=== PATIENT | male | born 1955 | race Caucasian/White ===

== ENCOUNTER → 2016-07-19 | Outpatient (CLI) | payer BC ==
[~2016-07-19] MED LIST: ALLO100T PO; AMIO200T4 PO; ASPEC81 PO; B-COTAB18 PO; CEFU1TAB36 PO; CEFU500T16 PO; CLC6 PO; CRDCD/180 PO; DAPT500I IV; DOCU100C31 PO; DXY/100 PO; ERTA1INJ IV; FLM4 PO; HYDR2TAB48 PO; META1TAB22 PO; METO50TA16 PO; MULT-506 PO; OXYC-57 PO; OXYC15TA89 PO; OXYCONTIN 30 MG PO; PRED-603 PO; PROB1CAP6 PO; RIFA300C34 PO; SPIR50TA2 PO; SULF1TAB92 PO; VANC1INJ94 IV; WARF2TAB PO; lovenox SC
[2016-07-19 09:33] LABS: HEMATOCRIT 43.5 % (42-52); MEAN CELL VOLUME 93.1 fL (80-100); MEAN CORPUSCULAR HEMOGLOBIN 31.5 pg (25-34); MEAN CORPUSCULAR HGB CONC 33.8 g/dl (32-36); MEAN PLATELET VOLUME 10.8 fL (7.4-10.4); PLATELET COUNT 296 K/uL (130-400); RED BLOOD COUNT 4.67 M/uL (4.7-6.1); WHITE BLOOD COUNT 9.66 K/uL (4.8-10.8)
[2016-07-19 09:50] LABS: ALT/SGPT 73 U/L (12-78); BLOOD UREA NITROGEN 20 mg/dl (7-18); BUN/CREATININE RATIO 19.7 (10-20); CALCIUM 8.9 mg/dl (8.5-10.1); CARBON DIOXIDE 22 mmol/L (21-32); CHLORIDE 107 mmol/L (98-107); GLUCOSE 149 mg/dl (70-99); POTASSIUM 3.9 mmol/L (3.5-5.1); SODIUM 141 mmol/L (136-145); URIC ACID 5.8 mg/dl (2.6-7.2)
[2016-07-19 09:53] LABS: ALB/GLOB RATIO 0.9 (0.9-2); ALKALINE PHOSPHATASE 90 U/L (45-117); AST/SGOT 54 U/L (15-37)
== END | disposition home or self-care (01) ==
LOC: C.LAB 07:10
PROVIDERS: ATTEND Internal Medicine
DX: A69.20 Lyme disease, unspecified (principal); Z79.2 Long term (current) use of antibiotics; R53.83 Other fatigue

== ENCOUNTER → 2016-08-22 | Outpatient (CLI) | payer BC ==
--- NOTE | 2016-08-22 15:48 | DIAGNOSTIC IMAGING REPORT ---
LEFT KNEE 1 OR 2 VIEWS CLINICAL HISTORY: BILATERAL KNEE PAIN pain COMPARISON: None. DISCUSSION: There is a total joint replacement. Good contact is present between prosthetic and underlying bone. There is ossific fragment in the suprapatellar bursa which potentially represents a synovial calcification. It is well-corticated. There is mild calcification of the medial collateral ligament complex. Moderate soft tissue edema IMPRESSION: Postoperative and degenerative change. No acute bony abnormality. Electronically signed by: Andry Toscano M.D. 08/22/2016 3:47 PM Dictated Date/Time: 08/22/2016 3:45 PM
--- NOTE | 2016-08-22 15:48 | DIAGNOSTIC IMAGING REPORT ---
RIGHT KNEE 2 VIEWS CLINICAL HISTORY: Right knee pain. FINDINGS: AP and crosstable lateral views of the right knee are compared to study dated 06/16/2013. The skeletal structures are well mineralized. No fracture is seen. A right knee arthroplasty is in near-anatomic alignment. There has been undersurface remodeling of the patella. Patellar enthesophytes are observed. There is no significant joint effusion. Soft tissue swelling is present around the knee. Numerous phleboliths are observed in the calf. IMPRESSION: Mild soft swelling with no acute bony abnormality identified in the right knee. An arthroplasty is in near-anatomic alignment. Electronically signed by: Nikunj Centeno M.D. 08/22/2016 3:47 PM Dictated Date/Time: 08/22/2016 3:45 PM
== END | disposition home or self-care (01) ==
LOC: C.RDSM 15:20
PROVIDERS: ATTEND Physical Medicine & Rehabilitation Sports Medicine
DX: M17.9 Osteoarthritis of knee, unspecified (principal); Z96.659 Presence of unspecified artificial knee joint

== ENCOUNTER → 2016-10-14 | Outpatient (CLI) | payer BC ==
[~2016-10-14] MED LIST changes: -OXYC-57 PO; +OXYC30TA PO; +WARF2TAB8 PO
--- NOTE | 2016-10-14 12:20 | DIAGNOSTIC IMAGING REPORT ---
RIGHT LOWER EXTREMITY VENOUS DOPPLER CLINICAL HISTORY: Right leg swelling. COMPARISON STUDY: Bilateral lower external venous Doppler December 06 2009. TECHNIQUE: Sonography of the deep venous system of the right lower extremity was performed. Compression and augmentation were evaluated. FINDINGS: The common femoral, superficial femoral and popliteal veins were compressible. Augmentation was normal. Flow was shown within the deep calf vessels. Multiple varicosities appear patent. IMPRESSION: No evidence of deep venous thrombus within the right lower extremity. Electronically signed by: Kirstopher Kitchen M.D. 10/14/2016 12:19 PM Dictated Date/Time: 10/14/2016 12:18 PM
== END | disposition home or self-care (01) ==
LOC: C.ULTR 11:41
PROVIDERS: ATTEND Physician Assistant
DX: Z47.1 Aftercare following joint replacement surgery (principal); Z96.651 Presence of right artificial knee joint; R60.0 Localized edema

== ENCOUNTER → 2016-10-21 | Outpatient (CLI) | payer BC ==
--- NOTE | 2016-10-21 09:28 | DIAGNOSTIC IMAGING REPORT ---
RIGHT KNEE 3 VIEWS HISTORY: RIGHT MEDIAL KNEE PAIN Right COMPARISON: Right knee 08/22/2016. FINDINGS: There is no fracture or dislocation. There is a right total knee arthroplasty. The hardware appears intact. There is also a left total knee arthroplasty. Moderate joint effusion. This results in anterior displacement of the patella. No radiopaque foreign bodies. IMPRESSION: Moderate right knee effusion. No fractures. Electronically signed by: Keven Ferreira M.D. 10/21/2016 9:26 AM Dictated Date/Time: 10/21/2016 9:25 AM
== END ==
LOC: C.RDSM 11:49
PROVIDERS: ATTEND Physician Assistant
DX: Z96.651 Presence of right artificial knee joint (principal); M25.561 Pain in right knee

== ENCOUNTER → 2016-10-25 | Outpatient (CLI) | payer BC ==
--- NOTE | 2016-10-25 15:26 | DIAGNOSTIC IMAGING REPORT ---
MRI OF THE RIGHT KNEE WITHOUT IV CONTRAST CLINICAL HISTORY: Right knee pain. COMPARISON STUDY: Radiographs of the right knee dated 10/21/2016. TECHNIQUE: MRI of the right knee is performed utilizing various T1 and T2-weighted sequences in the axial, sagittal, coronal planes. IV contrast was not administered for this examination. The examination is severely compromised by extensive susceptibility artifact from a right knee arthroplasty. Examination is also severely degraded by large body habitus which necessitated using the body coil as well as by motion artifact. FINDINGS: There is no obvious bony abnormality seen within the distal femur or the proximal tibia/fibula. No marrow edema is clearly identified. Assessment is severely compromised by susceptibility artifact. There is near complete fatty atrophy of the regional musculature. There is mild nonspecific edema identified within the gastrocnemius musculature in the upper calf. A popliteal cyst is identified posterior to the knee. This measures up to 5 cm. There is a small joint effusion. The ligaments around the knee could not be assessed. There is diffuse superficial and deep soft tissue edema identified around the knee. Superficial venous varicosities are present within the medial aspect of the leg. IMPRESSION: 1. Essentially nondiagnostic assessment of the knee due to extensive artifact as detailed above. 2. No obvious bony abnormality is identified. 3. There is diffuse superficial and deep soft tissue edema around the knee. No organized fluid collection is suspected. 4. Small popliteal cyst and small joint effusion. Dictated: 10/25/2016 11:10 AM Transcribed: 10/25/2016 3:26 PM Bernardo Electronically signed by: Nikunj Centeno M.D. 10/25/2016 3:31 PM Dictated Date/Time: 10/25/2016 11:10 AM
== END | disposition home or self-care (01) ==
LOC: C.MRI 09:13
PROVIDERS: ATTEND Physician Assistant
DX: Z96.651 Presence of right artificial knee joint (principal); M25.561 Pain in right knee; M71.21 Synovial cyst of popliteal space [Baker], right knee; M25.461 Effusion, right knee

== ENCOUNTER 2016-11-06 05:57 | Inpatient (IN) | payer BC ==
[2016-10-28 09:13] VITALS: BMI 61.0
--- NOTE | 2016-10-28 09:48 | PAT Medication Instructions ---
Service Date October 28, 2016. Current Home Medication List Allopurinol (Zyloprim), 100 MG PO QAM Amiodarone Hcl (Cordarone), 300 MG PO QAM Aspirin (Aspirin EC Low Dose), 81 MG PO QAM B-Complex Vitamins (Vitamin B Complex), 1 TAB PO QAM Cefuroxime Axetil (Ceftin), 500 MG PO BID Colchicine (Colcrys), 0.6 MG PO DAILY PRN for UNDECIDED Diltiazem Hcl Coated Beads (Cardizem Cd), 180 MG PO BID Doxycycline Hyclate (Doxycycline Hyclate), 100 MG PO BID Metaxalone (Skelaxin), 800 MG PO TID PRN for prn Metoprolol Tartrate (Lopressor) (Lopressor), 50 MG PO BID Multivitamin (Multivitamin), 1 TAB PO QAM Oxycodone Hcl (Oxycontin), 30 MG PO Q12 PRN for Pain Prednisone (Deltasone), 1 TAB PO UD Probiotic Product (Probiotic Acidophilus), 3 CAP PO QAM Rifampin (Rifadin), 600 MG PO BID Spironolactone (Aldactone), 50 MG PO QAM Medication Instructions For Your Scheduled Surgery - Hold the following medications the morning of surgery: Spironolactone (Aldactone), 50 MG PO QAM Probiotic Product (Probiotic Acidophilus), 3 CAP PO QAM B-Complex Vitamins (Vitamin B Complex), 1 TAB PO QAM Metaxalone (Skelaxin), 800 MG PO TID PRN for prn Multivitamin (Multivitamin), 1 TAB PO QAM - Take the following medications the morning of surgery with a sip of water OTHERWISE NOTHING TO EAT OR DRINK AFTER MIDNIGHT: Aspirin (Aspirin EC Low Dose), 81 MG PO QAM Colchicine (Colcrys), 0.6 MG PO DAILY PRN Cefuroxime Axetil (Ceftin), 500 MG PO BID Doxycycline Hyclate (Doxycycline Hyclate), 100 MG PO BID Diltiazem Hcl Coated Beads (Cardizem Cd), 180 MG PO BID Metoprolol Tartrate (Lopressor) (Lopressor), 50 MG PO BID Rifampin (Rifadin), 600 MG PO BID Oxycodone Hcl (Oxycontin), 30 MG PO Q12 PRN for Pain (may take if needed up to 4 hours prior to surgery) Allopurinol (Zyloprim), 100 MG PO QAM Amiodarone Hcl (Cordarone), 300 MG PO QAM - Take the following medications as scheduled the night before surgery: Cefuroxime Axetil (Ceftin), 500 MG PO BID Doxycycline Hyclate (Doxycycline Hyclate), 100 MG PO BID Diltiazem Hcl Coated Beads (Cardizem Cd), 180 MG PO BID Metoprolol Tartrate (Lopressor) (Lopressor), 50 MG PO BID Rifampin (Rifadin), 600 MG PO BID Oxycodone Hcl (Oxycontin), 30 MG PO Q12 PRN for Pain Metaxalone (Skelaxin), 800 MG PO TID PRN for prn If you have any questions please call us at [phone] or [phone] or [phone]
[2016-10-28 10:58] LABS: BASO % 0.3 %; BASO ABS # 0.04 K/uL (0-0.2); COMPLETE YES; EOS % 1.1 %; HEMATOCRIT 44.1 % (42-52); IG% 2.8 %; LYMPH % 12.2 %; LYMPH ABS # 1.84 K/uL (1.2-3.4); MEAN CELL VOLUME 91.3 fL (80-100); MEAN CORPUSCULAR HEMOGLOBIN 28.4 pg (25-34); MEAN CORPUSCULAR HGB CONC 31.1 g/dl (32-36); MEAN PLATELET VOLUME 9.7 fL (7.4-10.4); MONO % 6.6 %; PLATELET COUNT 383 K/uL (130-400); RED BLOOD COUNT 4.83 M/uL (4.7-6.1)
[2016-10-28 11:08] LABS: PARTIAL THROMBOPLASTIN RATIO 0.9; PROTHROMBIN TIME (PATIENT) 10.4 SECONDS (9.0-12.0)
[2016-10-28 11:11] LABS: URINE APPEARANCE CLEAR (CLEAR); URINE COLOR ORANGE; URINE EPITHELIAL CELL AUTO >30 /lpf (0-5); URINE NITRITE POS (NEG); URINE SPECIFIC GRAVITY 1.027 (1.000-1.030); UROBILINOGEN NEG (NEG)
[2016-10-28 11:16] LABS: MANUAL MICROSCOPIC REQUIRED? NO; REVIEW REQ? NO
[2016-10-28 11:17] LABS: URINE BILIRUBIN NEG (NEG)
[2016-10-28 11:59] LABS: BUN/CREATININE RATIO 19.6 (10-20); CALCIUM 8.6 mg/dl (8.5-10.1); CREATININE 0.98 mg/dl (0.60-1.40); POTASSIUM 3.9 mmol/L (3.5-5.1)
[2016-10-28 12:00] LABS: C-REACTIVE PROTEIN 1.18 mg/dl (0-0.29)
--- NOTE | 2016-11-01 19:52 | HISTORY & PHYSICAL EXAMINATION ---
DATE OF ADMISSION: 11/06/2016 CHIEF COMPLAINT: Right knee pain and swelling. HISTORY OF PRESENT ILLNESS: This is a 61-year-old white male who presents to the office for evaluation of right knee pain and swelling. He has a history of right total knee arthroplasty in February 2009. He had done fairly well without up until 08/16/2016. The patient was at home at that time and was climbing some stairs. He had a sudden snap on the medial aspect of his knee. He states at that time, it was like a rubber band that snapped. He has had persisting pain and swelling since then. He denies any break in the skin at that point. He did develop some ecchymosis over the medial aspect of the knee. His pain has waxed and waned but the swelling has been fairly constant. He has had difficulty with ambulation since then and is limping. He is using a cane. He denies any redness. There has been some peripheral edema consistently since a few days post-injury. He does have a history of chronic Lyme treatment using both doxycycline and cefepime. He denies any numbness or tingling. No fevers, chills, or sweats. His right knee was aspirated because of the recurrent effusion on 10/21/2016. Alpha defensin was positive at that time. Cultures have grown out Staph epidermidis with sensitivity to Cipro, clindamycin, gentamicin, Levaquin, rifampin, tigecycline, and vancomycin. Recent x-rays have shown no evidence of loosening of the prosthesis. He elects to proceed with excisional arthroplasty of his total knee with cement spacer placement in hopes of alleviating his pain and infection. Risks and benefits have been discussed. PAST MEDICAL HISTORY: Significant for atrial fibrillation, osteoarthritis, BPH, hypertension, morbid obesity, chronic lumbar back pain, Lyme disease, sleep apnea, and gout. PREVIOUS SURGERIES: Tonsillectomy, cholecystectomy, appendectomy, right knee arthroscopy, cardioversion in 2006 and 2007 as well as 2008, right total knee arthroplasty February 2009, left total knee arthroplasty December 2010, cystoscopy March 2016, lithotripsy April 2016. FAMILY HISTORY: Significant for arrhythmia, atrial fibrillation, cancer, congestive heart failure, scoliosis, diabetes, Guillain-[place] syndrome, CA, heart disease, elevated lipids, hypertension, hypothyroidism, and history of TIAs. ALLERGIES: NKDA. CURRENT MEDICATIONS: Metoprolol 50 mg p.o. b.i.d., allopurinol 100 mg p.o. daily, Pacerone 200 mg one and one-half tablets daily, spironolactone 50 mg p.o. daily, colchicine 0.6 mg p.o. daily, diltiazem 180 mg p.o. b.i.d., Skelaxin 800 mg t.i.d., doxycycline 100 mg t.i.d., Ceftin 500 mg two tablets b.i.d., OxyContin 30 mg p.o. q. 12 hours p.r.n. pain, acidophilus daily, rifampin 300 mg two tablets p.o. b.i.d., aspirin 81 mg p.o. daily. SOCIAL HISTORY: The patient is . No tobacco use, no ETOH use. Retired. REVIEW OF SYSTEMS: Significant for above stated conditions, otherwise unremarkable. PHYSICAL EXAMINATION: VITAL SIGNS: Weight is 187.7 kilograms. BMI is 61.1. GENERAL: Well-developed, well-nourished, morbidly obese white male in obvious discomfort. No acute distress. Sitting on a chair. Alert and oriented. SKIN: Warm and dry with good turgor. No rashes or lesions. No ecchymosis or erythema. Extensive peripheral edema in the right leg. No open wounds. The knee is warm to touch. No ecchymosis. HEENT: Normocephalic, atraumatic. EYES: PERRLA, EOMI. Nares patent bilaterally without turbinate enlargement. Oropharynx without erythema or exudate. No lesions noted. Uvula midline. Oral mucosa moist. Fair dentition. HEART: RRR. No MGR. LUNGS: Clear to auscultation bilaterally. No crackles, rhonchi or wheezing. Good air movement. ABDOMEN: Morbidly obese. Bowel sounds present x4, soft, nontender. No organomegaly. MUSCULOSKELETAL: Right knee evaluation reveals a mild intraarticular effusion. He continues to have focal pain with palpation over the anterior medial and anterior lateral aspects of the knee. No palpable deficit in the patellar tendon or quadriceps tendon. He is also able to extend the leg without pain. Stable collateral ligaments. Range of motion is from about 90 degrees of flexion to lag of 5 degrees of terminal extension. Ambulatory with a significant limp. NEUROLOGIC: Gross sensation is intact across the right leg by soft touch. Peripheral pulses are 1+. Cranial nerves II-XII are intact. DATA: Radiographic imaging previously obtained shows no evidence of loosening of his implant. No evidence of fracture. Films have been read by radiology. IMPRESSION: Right knee septic total knee arthroplasty. PLAN: The patient and his were educated regarding today's findings. Informed written consent was obtained to proceed with right knee excisional arthroplasty versus total knee with cement spacer placement. Preoperative lab work, EKG, and chest x-ray have been ordered. Medical clearance has been requested from his PCP, Dr. Stanley. He has also seen his plate roller and will see anesthesia. He will require an ID consult while inpatient. They are aware. The patient initially weight 147 kilograms when the knee was initially placed. He has gained 40 kilograms since then. Continue on his oral antibiotic until the time of surgery. He already has a walker. He will likely do home health due to IV antibiotic necessity and difficulty with transportation to outpatient PT. Postoperative prescriptions for Percocet and Coumadin will be provided at discharge from the hospital. SARAVANAN
[~2016-11-06] VITALS: Ht 175.3 cm; Wt 204.6 kg
[2016-11-06] VITALS (9 sets, daily range): BP systolic 128–177; BP diastolic 60–99; PULSE 80–105; TEMP 36.8–37.3; O2SAT 95–99; Ht 175.3 cm; Wt 204.6 kg
[~2016-11-06 05:57] MED LIST changes: -CEFU1TAB36 PO; -DAPT500I IV; -DOCU100C31 PO; -ERTA1INJ IV; -FLM4 PO; -HYDR2TAB48 PO; -OXYC30TA PO; -OXYCONTIN 30 MG PO; -SULF1TAB92 PO; -VANC1INJ94 IV; +VANCOMYCIN INJ 2,000 MG in SODIUM CHLORIDE 0.9% 500ML 500 ML IV SCH; -WARF2TAB PO; -WARF2TAB8 PO; -lovenox SC
[2016-11-06] MEDS ORDERED: LACTATED RINGER'S 1000ML 1,000 ML IV SCH (06:00)
[2016-11-06] MEDS ORDERED: CEFAZOLIN 3000 MG/65 ML D5W 65 ML IV SCH (06:00)
[2016-11-06] MEDS ORDERED: TRANEXAMIC ACID INJ 1,000 MG in SODIUM CHLORIDE 0.9% 100ML 100 ML IV SCH ×5 (06:00→17:30)
[2016-11-06] MEDS ORDERED: LACTATED RINGER'S 1000ML IV SCH (06:00)
[2016-11-06] MEDS ORDERED: LACTATED RINGER'S 1000ML 500 ML IV ONE (06:00)
[2016-11-06] MEDS ORDERED: ROPIVACAINE 5MG/ML 30 ML 150 MG, BUPIVACAINE/EPINEPHR 0.5% MPF 30 ML, KETOROLAC TROMETH... INFIL SCH ×7 (06:00)
[2016-11-06] MEDS ORDERED: VANCOMYCIN INJ 2,000 MG in SODIUM CHLORIDE 0.9% 500ML 500 ML IV SCH ×2 (06:00→19:00)
--- NOTE | 2016-11-06 06:24 | History & Physical Bridge Note ---
H&P Re-Evaluation Bridge Note: I have examined the patient, reviewed the History & Physical and in the interval since the performance of the History & Physical I have noted the following changes of clinical significance: re -advised of complexity of his problem.No changes noted
[2016-11-06] MEDS ORDERED: BUPIVACAINE 0.5 % 5 MG/1 ML PF 10ML VIAL ONE (07:02)
[2016-11-06] MEDS ORDERED: BUPIVACAINE 0.25% 30 ML VIAL ONE (07:03)
[2016-11-06] MEDS ORDERED: PROPOFOL IV EMULSION 10 MG/ML 20 ML VIAL IV ONE ×2 (07:32→09:56)
[2016-11-06] MEDS ORDERED: FENTANYL CITRATE INJ 50 MCG/1 ML 2 ML VIAL ONE ×2 (07:32→09:56)
[2016-11-06] MEDS ORDERED: MIDAZOLAM HCL 1 MG/ML 2ML VIAL ONE (07:32)
[2016-11-06] MEDS ORDERED: ONDANSETRON INJ 2 MG/ML 2 ML VIAL ONE (07:32)
[2016-11-06] MEDS ORDERED: EpHEDrine SULFATE INJ 50 MG/ML AMP IV PRN ×2 (07:45→12:15)
[2016-11-06] MEDS ORDERED: ATROPINE SULFATE 0.1 MG/ML 5ML SYR IV PRN ×2 (07:45→12:15)
[2016-11-06] MEDS ORDERED: ONDANSETRON INJ 2 MG/ML 2 ML VIAL IV PRN ×2 (07:45→11:45)
[2016-11-06] MEDS ORDERED: POVIDONE-IODINE OP SOLN 30 ML BTL ONE (08:43)
[2016-11-06] MEDS ORDERED: ORTHO JOINT ANESTHETIC ONE (08:43)
[2016-11-06] MEDS ORDERED: SUCCINYLCHOLINE 100MG/5ML SYR IV ONE (09:44)
[2016-11-06] MEDS ORDERED: GLYCOPYRROLATE INJ 0.2 MG/ML VIAL ONE (09:44)
[2016-11-06] MEDS ORDERED: LIDOCAINE HCL 2% 2 ML VIAL (20MG/ML) ONE (09:44)
[2016-11-06] MEDS ORDERED: NEOSTIGMINE METHYLSULFATE 5 MG/5 ML SYR ONE (09:44)
[2016-11-06] MEDS ORDERED: ROCURONIUM BROMIDE 10 MG/ML 5 ML VIAL ONE (09:44)
[2016-11-06] MEDS ORDERED: CLEOCIN PHOS 300MG/2ML IV ONE (10:19)
--- NOTE | 2016-11-06 11:27 | [facility] Post Operative Brief Note ---
Immediate Operative Summary Operative Date November 06, 2016. Pre-Operative Diagnosis Right knee septic total knee arthroplasty. Post-Operative Diagnosis Same as preop. Procedure(s) Performed Right Excisional Total Knee Arthroplasty with Cement Spacer Surgeon Dr. Saldaña Internal Grinder Surgeon(s) MARY ELLEN Wilcox Estimated Blood Loss 50 ML Findings septic TKA stable fixation Fluids (cc crystalloids) 1700cc Specimens A. Removed Hardware Right Knee Drains none Anesthesia general/block Complication(s) None Disposition Recovery Room / PACU
[2016-11-06] MEDS: FENTANYL CITRATE INJ 50 MCG/1 ML 2 ML VIAL IV PRN ×4 (11:37→11:53)
[2016-11-06] MEDS ORDERED: NURSING VERBAL MED ORDER ONE (11:45)
[2016-11-06] MEDS ORDERED: BISACODYL 10 MG SUPP PR PRN (11:45)
[2016-11-06] MEDS ORDERED: ACETAMINOPHEN 325 MG TAB PO PRN (11:45)
[2016-11-06] MEDS ORDERED: MAGNESIUM HYDROXIDE SUSP 30 ML UDC PO PRN (11:45)
[2016-11-06] MEDS ORDERED: ALUMINUM/MAGNESIUM/SIMETH (MAALOX MAX) 30 ML UDC PO PRN (11:45)
[2016-11-06] MEDS ORDERED: HYDROmorphone INJ 1 MG/ML SYR IV PRN (11:45)
[2016-11-06] MEDS ORDERED: COLCHICINE 0.6 MG TAB PO PRN (11:45)
[2016-11-06] MEDS ORDERED: DiphenhydrAMINE HCL 50 MG/ML VIAL IV PRN (11:45)
[2016-11-06] MEDS ORDERED: MoRPHine SULFATE 2 MG/ML CARP IV PRN (11:45)
[2016-11-06] MEDS ORDERED: METOCLOPRAMIDE HCL INJ 5 MG/ML 2 ML VIAL IV PRN (11:45)
[2016-11-06] MEDS ORDERED: TAMSULOSIN HCL 0.4 MG CAP PO PRN (11:45)
[2016-11-06] MEDS ORDERED: ACETAMINOPHEN 1000 MG/100 ML IV IV ONE ×2 (11:49→12:00)
[2016-11-06] MEDS ORDERED: HYDROmorphone INJ 1 MG/ML SYR ONE (11:49)
--- NOTE | 2016-11-06 12:15 | DIAGNOSTIC IMAGING REPORT ---
RIGHT KNEE 1 OR 2 VIEWS ROUTINE CLINICAL HISTORY: Postoperative evaluation. COMPARISON: MRI of the right knee October 25, 2016. FINDINGS: Right knee arthroplasty hardware has been removed with interval placement of a cement space. There are skin matthew. No fractures are identified on this exam. A linear density lateral to the fibula does not reflect a sponge marker. IMPRESSION: Findings consistent with excision of knee arthroplasty with placement of cement spacer. Electronically signed by: Kristopher Kitchen M.D. 11/06/2016 12:13 PM Dictated Date/Time: 11/06/2016 12:11 PM
[2016-11-06] MEDS: HYDROmorphone INJ 1 MG/ML SYR IV PRN ×4 (12:22→12:43)
--- NOTE | 2016-11-06 12:34 | PROGRESS NOTE ---
DATE: 11/06/2016 SUBJECTIVE: Postop check. The patient awake and alert. Denies chest pain, shortness of breath, fever, chills, nausea, vomiting, headache. OBJECTIVE: Vital signs are stable and he is afebrile. He is in and out of atrial fibrillation. Discussed with cardiology coverage today and they recommended a monitored bed. They will see him today. Wound dressing clean, dry and intact. Neurovascular check femoral sciatic nerve is intact. ASSESSMENT AND PLAN: Overall, doing reasonably well, has known history of atrial fibrillation . We will place him on a monitored bed. Adjust medications per cardiology. Infectious disease consult ordered and a PICC line to be placed GERI. MTDD
--- NOTE | 2016-11-06 12:37 | Anesthesiology Progress Note ---
Anesthesia Post Op Note Date & Time November 06, 2016 at 12:31 Vital Signs Pain Intensity: 9.0 Vital Signs Past 12 Hours Date Time Temp Pulse Resp B/P Pulse Ox O2 Delivery O2 Flow Rate FiO2 11/06/16 12:25 77 25 169/78 95 Nasal Cannula 3 11/06/16 12:15 80 20 164/95 98 Nasal Cannula 3 11/06/16 12:05 76 30 172/85 93 Nasal Cannula 3 11/06/16 11:55 73 22 180/75 94 Nasal Cannula 3 11/06/16 11:45 75 29 168/116 100 Mask 10 11/06/16 11:35 75 18 162/79 99 Mask 10 11/06/16 11:27 36.0 83 18 178/92 100 Mask 10 11/06/16 06:37 36.8 92 20 168/89 99 Room Air Notes Mental Status: alert / awake / arousable, participated in evaluation Pt Amnestic to Procedure: Yes Nausea / Vomiting: adequately controlled Pain: improving with treatment Airway Patency, RR, SpO2: stable & adequate BP & HR: stable & adequate Hydration State: stable & adequate Anesthetic Complications: no major complications apparent Patient had increased pain postoperatively as we were unable to obtain SAB prior to the surgery. Pain improved with addition of dilaudid and IV tylenol. It was also noted that patient (who has a history of paroxysmal A fib) was NSR prior to the procedure but went into A fib during the procedure. His HR was in 70's despite being in A fib as he is controlled on metoprolol and amiodarone. I did an ECG in recovery to confirm that he was in A fib and orthopedics consulted cardiology who agreed to send patient to telemetry and he will also be evaluated by their service.
--- NOTE | 2016-11-06 13:01 | OPERATIVE REPORT ---
DATE OF OPERATION: 11/06/2016 PREOPERATIVE DIAGNOSIS: Septic total knee replacement, non-loose. POSTOPERATIVE DIAGNOSIS: Same. OPERATION PERFORMED: Excisional arthroplasty with cement spacer of septic right total knee replacement. SURGEON: Dr. Saldaña. LOGGING ASSISTANT: Robert Ortega PA-C. PERIOPERATIVE SITUATION: Medically cleared male with morbid obesity who has had this knee replacement 8 years who presented with a chronic swelling of his knee and pain for approximately 4-5 weeks. Due to the fact that he has also been on chronic antibiotics for Lyme disease it was indicated for immediate aspiration and this was performed, was growing Staph aureus methicillin sensitive. Due to the fact that it was a minimum of a month and he has been on the antibiotics chronically it was deemed appropriate to proceed with excisional arthroplasty rather than synovectomy and debridement. Antibiotic choices are limited by some of his cardiac meds. We will need to get the appropriate cardiac evaluation and infectious disease consult. He will need a PICC line. We discussed with him in detail how complicated this scenario is based on the type of problem he has orthopedically as well as his medical comorbidities. Operation again is excisional arthroplasty of septic right total knee with stable fixation, cement spacer with antibiotic beads. OPERATION AND FINDINGS: PROCEDURE: The patient appropriately identified, site verified, consent verified, 3 grams of Ancef and 2 grams of vancomycin confirmed as being given as culture was obtained preoperatively. The right leg was prepped and draped in usual routine fashion. Tourniquet inflated to 350 mmHg after exsanguination of limb with a rubber Esmarch bandage for a total of approximately 70 minutes. Midline exposure was utilized and previously used. Care was taken to raise appropriate flaps. There was a lot of subcutaneous edema. He has chronic venous insufficiency. A parapatellar arthrotomy was performed. There was dark eloy color fluid. This was not cultured, but the synovium and the membranes around the implant were cultured. Gram stains mediated in the OR did not reveal any significant organisms at this point. Of note, we it did take 4 days for his culture to term positive despite having immediate positive alpha defensin preoperatively. Once the synovectomy was completed and patella was able to be inverted nicely the knee was flexed, the femur and the tibia and the patella were completely stable. There was no loosening of the implant. Using a power saw and trimmed around the femur this was then loosened up with osteotomes and removed. There was minimal bone loss. The membrane was all removed. Next, the polyp was then removed and then the membrane around the tibia was then cleaned up and then using a saw this was then loosened and then removed. The deep cement in the canal was removed as well. Again, none of this was loose. This was then irrigated with Pulsavac and Betadine. The patella was then removed using a saw. There was enough patella left to accept a centralized bone blade around. All cement and remaining peg holes were removed. The wound was then again copiously irrigated with Betadine and Pulsavac. It was then completely irrigated clean and then the clindamycin beads were then placed and cement spacer which was made during the procedure was a 75 femur and 80 tibia was then loosely cemented into position with the knee in extension. This allowed stable fixation and good tensioning of the leg. The wound was then closed using #1 Prolene for the capsule, 2-0 and #1 Vicryl for subcutaneous tissue and stainless steel clips for skin. Blood loss was approximately 25 mL. Crystalloid was 1700 mL. SUMMARY OF IMPLANTS: Stimulan beads with clindamycin, Biomet knee cement spacer femur 75, tibia 80. [place] G cement was utilized for the spacer and for the spot welding of the spacers. The patient was then transferred to recovery room in satisfactory condition having tolerated the procedure well. The patient had a history of having intermittent paroxysmal atrial tachycardia/atrial fibrillation with a nonrapid ventricular response. It looked like he had done that several times during the procedure, so cardiac consultation will be obtained and potential transfer to a monitored bed may be indicated based on their recommendations. We will see how this works out. I attest to the content of the Intraoperative Record and any orders documented therein. Any exceptio ns are noted below.
[2016-11-06] MEDS: MoRPHine SULFATE 4 MG/ML 1 ML CARP\\VIAL IV PRN ×2 (13:43→17:46)
--- NOTE | 2016-11-06 13:50 | OPERATIVE REPORT ---
dDATE OF OPERATION: 11/06/2016 PREOPERATIVE DIAGNOSIS: Right knee total knee prosthesis infection. POSTOPERATIVE DIAGNOSIS: Right knee same. PROCEDURE: Right knee excisional total knee arthroplasty with cement spacer placement. SURGEON: Dr. Saldaña. FLORAL ASSISTANT: Robert Ortega PA-C. HISTORY OF PRESENT ILLNESS: This 61-year-old white male presented to the office with complaints of pain and swelling in his right knee for the last 6 weeks. This follwed an injury. Aspiration revealed a staph infection. He elected to proceed with surgical intervention after being educated about potential risks and outcomes. OPERATION: The patient was taken to the operating room where he was given general anesthetic. He was prepped and draped in the usual sterile fashion. Please see Dr. Saldaña's operative report for specifics of the procedure. I was present for the entire case from initial patient positioning through final wound closure. Assistance was provided in tissue retraction, hemostasis, hardware removal, cement spacer placement, and final wound closure. The patient was taken to the recovery room in satisfactory condition. I attest to the content of the Intraoperative Record and any orders documented therein. Any exceptions are noted below. MTDD
[2016-11-06] MEDS: D5W AND 1/2NSS + 20MEQ KCL 1,000 ML IV SCH ×2 (14:19→23:42)
[2016-11-06] MEDS ORDERED: AMIODARONE 200 MG TAB PO ONE (14:30)
--- NOTE | 2016-11-06 14:52 | Progress Note ---
Progress Note Date of Service November 06, 2016. Progress Note ID Consult Dictated #[id number] A/P: 1. right chronic knee infection s/p removal and cement spacer placement 2. Leukocytosis -continue vanco for now, await culture results -will follow, thank you
[2016-11-06] MEDS: OXYCODONE HCL IR 5 MG TAB (IMMEDIATE RELEASE) PO PRN ×2 (15:23→20:05)
--- NOTE | 2016-11-06 15:26 | Medical Consult ---
Consultation Date of Consultation: November 06, 2016. Attending Physician: Blake Saldaña M.D. Reason for Consultation: medical management History of Present Illness This patient is a 61-year-old male that underwent right knee surgery today with Dr. Saldaña. The patient originally had a right TKA performed in 2008. It has subsequently become infected. According to orthopedic notes, cultures in the outpatient setting have been growing staph epidermidis. The patient does note increased pain and swelling in the knee. He denies any fevers. The patient also has a history of atrial fibrillation. He denies any recent chest pain or pressure. No dyspnea on exertion. No heart palpitations or dizziness. The patient follows with a cardroom supervisor at [facility]. He underwent clearance with his cardroom supervisor and his primary care physician before undergoing the procedure today. He currently is complaining that he is hungry. He denies any nausea. He has not yet passed gas. He is complaining of severe pain in the knee, which he says is expected. Past Medical/Surgical History Medical Problems: Atrial fibrillation Chronic Lyme disease for which she has been on doxycycline and Ceftin for several years. He follows with an infectious disease doctor out of the area. Hypertension Obstructive sleep apnea not compliant with CPAP Gout Status post tonsillectomy, cholecystectomy, appendectomy and left TKA Family History Family history of cardiac disease, CHF and atrial fibrillation Social History Smoking Status: Never Smoker Drug Use: none Marital Status: Housing Status: lives with family Allergies Coded Allergies: No Known Allergies (Verified , NKDA, 11/06/16) Home Medications Medications were reviewed with the patient. Please see medical reconciliation Current Inpatient Medications Current Inpatient Medications Medications (Trade) Dose Ordered Sig/Jatin Route Start Time Stop Time Status Last Admin Dose Admin Lactated Ringer's 1,000 ml @ 60 mls/hr [id number] IV 11/06/16 06:00 11/06/16 22:39 11/06/16 06:54 60 MLS/HR Lactated Ringer's 1,000 ml @ 15 mls/hr Q24H IV 11/06/16 06:00 11/07/16 05:59 Vancomycin HCl 2000 mg/Sodium Chloride 540 ml @ 200 mls/hr PREOP IV 11/06/16 06:00 11/06/16 18:00 11/06/16 06:54 200 MLS/HR Potassium Chloride/Dextrose/ Sod Cl (D5W And 1/2nss + 20meq KCl) 1,000 ml @ 100 mls/hr Q10H IV 11/06/16 14:00 11/07/16 13:59 11/06/16 14:19 100 MLS/HR Ketorolac Tromethamine (Toradol Inj) 30 mg Q6H IV. 11/06/16 16:00 11/07/16 15:59 Oxycodone HCl (Roxicodone Immediate Rel Tab) 1 TABLET FOR PAIN RATING... Q4H PRN PO 11/06/16 11:45 11/20/16 11:44 Morphine Sulfate (MoRPHine SULFATE INJ) 2 mg Q1H PRN IV 11/06/16 11:45 11/20/16 11:44 Acetaminophen (Tylenol Tab) 650 mg Q6H PRN PO 11/06/16 11:45 12/06/16 11:44 Magnesium Hydroxide (Milk Of Magnesia Susp) 30 ml Q6H PRN PO 11/06/16 11:45 12/06/16 11:44 Bisacodyl (Dulcolax Supp) 10 mg DAILY PRN [place] 11/06/16 11:45 12/06/16 11:44 Docusate Sodium (coLACE CAP) 100 mg BID PO 11/06/16 21:00 12/06/16 20:59 Diphenhydramine HCl (Benadryl Inj) 25 mg Q8H PRN IV 11/06/16 11:45 12/06/16 11:44 Al Hydrox/Mg Hydrox/Simethicone (Maalox Max Susp) 15 ml Q4H PRN PO 11/06/16 11:45 12/06/16 11:44 Multivitamins (Multivitamin Tab) 1 tab QAM PO 11/07/16 09:00 12/07/16 08:59 Ondansetron HCl (Zofran Inj) 4 mg Q6H PRN IV 11/06/16 11:45 12/06/16 11:44 Metoclopramide HCl (Reglan Inj) 10 mg Q6H PRN IV 11/06/16 11:45 12/06/16 11:44 Ferrous Gluconate (Ferrous Gluconate Tab) 324 mg TIDM PO 11/06/16 16:45 12/06/16 16:44 Pantoprazole Sodium (Protonix Tab) 40 mg QAM PO 11/07/16 09:00 12/07/16 08:59 Tamsulosin HCl 0.4 mg 0.4 mg QAM PRN PO 11/06/16 11:45 12/06/16 11:44 Tranexamic Acid 1000 mg/Sodium Chloride 110 ml @ 660 mls/hr TODAY@1730 IV 11/06/16 17:30 11/06/16 17:39 Dexamethasone Sodium Phosphate/ Syringe (Decadron Inj/ Syringe) 2.5 ml @ 1 mls/min ONE ONCE IV 11/07/16 07:30 11/07/16 07:32 Allopurinol (Zyloprim Tab) 100 mg QAM PO 11/07/16 09:00 12/07/16 08:59 Aspirin (Ecotrin Tab) 81 mg QAM PO 11/07/16 09:00 12/07/16 08:59 Colchicine (Colchicine Tab) 0.6 mg DAILY PRN PO 11/06/16 11:45 12/06/16 11:44 Diltiazem HCl (Cardizem Cd Cap) 180 mg BID PO 11/06/16 21:00 12/06/16 20:59 Metoprolol Tartrate (Lopressor Tab) 50 mg BID PO 11/06/16 21:00 12/06/16 20:59 Oxycodone HCl (Oxycontin Tab) 30 mg Q12 PRN PO 11/06/16 11:45 11/20/16 11:44 UNV Spironolactone (Aldactone Tab) 50 mg QAM PO 11/07/16 09:00 12/07/16 08:59 Hydromorphone HCl (Dilaudid Inj) 1 mg Q2HWA PRN IV 11/06/16 11:45 11/20/16 11:44 Morphine Sulfate (MoRPHine SULFATE INJ) 4 mg Q1H PRN IV 11/06/16 12:15 11/20/16 12:14 11/06/16 13:43 4 MG Hydromorphone HCl (Dilaudid Inj) 0.25 mg Q5M PRN IV 11/06/16 12:15 11/06/16 17:15 11/06/16 12:43 0.25 MG Ephedrine Sulfate (EpHEDrine SULFATE INJ) 5 mg Q5M PRN IV 11/06/16 12:15 11/06/16 17:15 Atropine Sulfate 0.5 mg 0.5 mg Q1M PRN IV 11/06/16 12:15 11/06/16 17:15 Cefazolin Sodium 2000 mg/Dextrose 60 ml @ 100 mls/hr Q8@0200,1000,1800 IV 11/06/16 18:00 11/07/16 02:35 Vancomycin HCl/ Sodium Chloride (Vancomycin Inj/ Nss 500ml) 540 ml @ 200 mls/hr TODAY@1900 IV 11/06/16 19:00 11/06/16 21:41 Amiodarone HCl (Cordarone Tab) 200 mg QAM PO 11/07/16 09:00 12/07/16 08:59 Amiodarone HCl (Cordarone Tab) 100 mg HS PO 11/06/16 21:00 12/06/16 20:59 Review of Systems 10 system review performed and negative unless noted in HPI or below Physical Exam Date Time Temp Pulse Resp B/P Pulse Ox O2 Delivery O2 Flow Rate FiO2 11/06/16 14:30 86 16 156/99 99 Nasal Cannula 3.0 11/06/16 14:00 84 19 168/85 99 Nasal Cannula 3.0 11/06/16 13:30 36.9 80 20 163/80 96 Nasal Cannula 3.0 11/06/16 13:00 80 16 161/87 99 Nasal Cannula 3 11/06/16 12:45 36.6 79 13 154/88 99 Nasal Cannula 3 11/06/16 12:35 86 12 162/87 98 Nasal Cannula 3 11/06/16 12:25 77 25 169/78 95 Nasal Cannula 3 11/06/16 12:15 80 20 164/95 98 Nasal Cannula 3 11/06/16 12:05 76 30 172/85 93 Nasal Cannula 3 11/06/16 11:55 73 22 180/75 94 Nasal Cannula 3 11/06/16 11:45 75 29 168/116 100 Mask 10 11/06/16 11:35 75 18 162/79 99 Mask 10 11/06/16 11:27 36.0 83 18 178/92 100 Mask 10 11/06/16 06:37 36.8 92 20 168/89 99 Room Air General Appearance: no apparent distress (fairly disgruntled, but in no apparent distress) Head: normocephalic Eyes: EOMI Neck: no JVD Respiratory/Chest: lungs clear Cardiovascular: no murmur, + irregularly irregular Abdomen/GI: non tender, soft, + pertinent finding (bowel sounds hypoactive.) Extremities/Musculoskelatal: + pertinent finding (no edema, erythema or tenderness appreciated in the left lower extremity. Right lower extremity is bandaged to the toes. ) Neurologic/Psych: no motor/sensory deficits, oriented x 3 Skin: warm/dry Assessment & Plan 61-year-old male status post right excisional TKA with cement spacer for septic TKA. No reported complications of the surgery -I would defer antibiotics to infectious disease. A. fib-rate controlled -Continue outpatient regimen of amiodarone 300 mg daily, Lopressor 50 mg BID and Diltiazem 180 mg BID -Restart ASA 81 mg when ok with primary team Chronic Lyme disease -will defer to infectious disease AUBRIE -noncompliant with CPAP at home GOUT -Continue Allopurinol 300 mg daily defer DVT proph to primary team Thank you for this consult. We will continue to follow Additional Copies To Rigoberto Stanley M.D. Reviewed: Pt Seen/Exam by Me History Doing well post-op. No chest pain or SOB. Tolerated PO without issue. Has pain related to the incision site. Agree with HPI/ROS as noted. General Appearance: no apparent distress, obese Respiratory: normal breath sounds, no respiratory distress Cardiovascular: normal peripheral pulses, regular rate, rhythm Gastrointestinal: non tender, soft Extremities: non-tender, no pedal edema Neurologic/Psychiatric: alert, oriented x 3 Skin Characteristics: normal color, warm/dry Assessment/Plan Agree with plan as outlined above Doing well post-op Prednisone listed in meds, pt states he was on that for a short period to assess if it helped with his knee pain, but no longer takes this
[2016-11-06] MEDS: KETOROLAC TROMETHAMINE 30 MG/ML VIAL IV. SCH ×2 (16:15→21:43)
[2016-11-06] MEDS: FERROUS GLUCONATE 324 MG TAB PO SCH (16:16)
--- NOTE | 2016-11-06 17:03 | INFECT. DISEASE CONSULTATION ---
DATE OF CONSULTATION: 11/06/2016 DATE OF CONSULTATION: 11/06/2016. REQUESTING PHYSICIAN: Dr. Saldaña. HISTORY OF PRESENT ILLNESS: This is a 61-year-old gentleman who has been evaluated by the orthopedic surgery service for some time for a chronically infected right knee. He initially had a knee replacement in February of 2009. He was doing well until August of 2016 when he heard a snap while walking up stairs. He has had subsequent pain and swelling since that time. He states he has been on chronic doxycycline and Ceftin for what he states is Lyme disease. He was informed by his Lyme disease physician that he needs to be on chronic antibiotics because he is on amiodarone. He does not follow with them the [facility] infectious diseases service for treatment of this. He has been on chronic antibiotics but continued to have pain and swelling and difficulty with ambulation. Because of this, he did undergo an aspiration of the right knee in the office on 10/21/2016. Per the H\T\P this did grow out Staph epidermidis, which was sensitive to Cipro, clindamycin, gentamicin, Levaquin, rifampin, tetracycline and vancomycin. He has been on oral clindamycin since that time, but was not having significant improvement and a decision was made to bring the patient in electively and undergo prosthetic joint removal and cement spacer placement. This was done earlier today and the patient tolerated the procedure well with the exception of intraoperative Afib. He has been placed on vancomycin empirically and he is tolerating this well. He has multiple operating room cultures which are pending. Gram stain does not have any organism. He has been afebrile since admission to the hospital. His white blood cell count is elevated at 15.1 and his sed rate is elevated at 52. On my examination today, his family is present. He states he is having significant pain postoperatively but otherwise was really only having issues with edema. He denies any fevers or chills at home. He denies any wound dehiscence, drainage or bleeding at home. He currently denies any chest pain, cough, shortness of breath, nausea, vomiting, diarrhea or abdominal pain. All remaining review of systems were reviewed and are unremarkable except or as noted above. PAST MEDICAL HISTORY: Significant for Afib, osteoarthritis, BPH, hypertension, morbid obesity, lumbar back pain, Lyme disease, sleep apnea, and gout. PAST SURGICAL HISTORY: Significant for tonsil removal, cholecystectomy, appendectomy, right knee replacement in 2008, again left knee replacement in 2010, cystoscopy in March 2016. FAMILY HISTORY: Noncontributory. ALLERGIES: He has no known drug allergies. SOCIAL HISTORY: Negative for tobacco use, alcohol use or drug use. He is and lives with his family. CURRENT MEDICATIONS: Include multivitamin, Protonix, allopurinol, Ecotrin, Aldactone, amiodarone, dexamethasone, Colace, diltiazem, Lopressor, vancomycin, iron, Toradol, morphine, Dilaudid, Tylenol and milk of magnesia. PHYSICAL EXAMINATION: VITAL SIGNS: She is afebrile. Pulse 86, respiratory rate 16, blood pressure is 156/99, oxygen saturation is 99% on 3 liters nasal cannula. GENERAL: He is awake, alert and oriented x3. He is in no acute distress. HEAD, EYES, EARS, NOSE, AND THROAT: Mucous membranes are moist. Extraocular muscles are intact. HEART: Regular. LUNGS: Clear bilaterally. ABDOMEN: Soft, nontender, nondistended. EXTREMITIES: Right knee reveals operative dressing to be clean, dry and intact. LABORATORY STUDIES: CBC today reveals white blood cell count of 15.1, hemoglobin 13.7 and platelets are 383. Sed rate is 52. Chemistry panel reveals a sodium of 141, potassium 3.9, chloride 106, bicarbonate 25, BUN 19, creatinine 0.9. Glucose is 169. CRP is 1.1. OR cultures are pending x3 sets. ASSESSMENT AND PLAN: Chronically infected right total knee replacement, status post removal and cement spacer. Agree with vancomycin currently pending additional culture results. We will follow along with you. Thank you for this consultation.
--- NOTE | 2016-11-06 17:35 | CARDIOLOGY CONSULTATION ---
DATE OF CONSULTATION: 11/06/2016 REFERRING PHYSICIAN: Orthopedic service. REASON FOR CONSULTATION: Atrial fibrillation. HISTORY OF PRESENT ILLNESS: This is a 61-year-old male patient who underwent a right total knee prosthesis excision with a cement spacer due to an infection. He has a history of obesity, sleep apnea, chronic Lyme's disease and paroxysmal atrial fibrillation. He has been followed by Dr. Adrian Pritchett with the EP service at [facility], but has been seen locally here at [facility]. The patient's atrial fibrillation dates back to 2006. He states the connection between his development of chronic Lyme's disease and the atrial fibrillation. He is under the care of a physician in [place] who gives him chronic antibiotics for his Lyme's disease. He states he could not live without the antibiotics. When he is taken off the antibiotics, he gets severe joint pains and myalgias. He has had multiple cardioversions since 2006. He has been on chronic amiodarone and aspirin for several years. Approximately 3 years ago, they tried to decrease his amiodarone to 200 mg daily and he developed atrial fibrillation. They increased it back to 300 mg daily and his arrhythmias have been controlled for the past 3 years. Following his surgery, he has developed rate controlled atrial fibrillation. He is completely asymptomatic with these arrhythmias and currently has no cardiac complaints. In the past, it has been felt that he has a relatively low BRICE score and has only been anticoagulated for cardioversions. ALLERGIES: No known medical allergies. PAST MEDICAL HISTORY: The patient has a history of paroxysmal atrial fibrillation with multiple cardioversions as described above. He has a history of obesity with hypertension and evidence of hypertensive heart disease with left ventricular hypertrophy. He has been treated for sleep apnea. He has had 2 total knee replacements, left and right in the past. SOCIAL HISTORY: He is a nonsmoker. He lives with his . FAMILY MEDICAL HISTORY: Noncontributory. REVIEW OF SYSTEMS: The 10-point review of systems is negative except for the history of chief complaint. PHYSICAL EXAMINATION: GENERAL: He is alert and oriented in no acute distress. VITAL SIGNS: Pulse is irregular at 84 beats per minute, respirations are 19, and blood pressure is 168/85. HEENT: He wears corrective lenses. Mucous membranes are moist. NECK: The neck veins are flat. Carotids have good upstrokes bilaterally without bruits. Thyroid is nonpalpable. RESPIRATORY: Breath sounds are equal bilaterally and clear to auscultation. CARDIOVASCULAR: Heart has an irregular rhythm. Normal S1 and S2. No S3 or S4. No cardiac rubs or murmurs. GASTROINTESTINAL: Abdomen is obese, soft, and nontender without organomegaly. EXTREMITIES: The right lower extremity is postop. NEUROLOGIC: Grossly intact. SKIN: Warm to touch. LYMPH NODES: Negative to palpation. LABORATORY DATA: Hemoglobin is 13.7. Creatinine is 0.98 and potassium is 3.9. IMPRESSION: 1. Persistent atrial fibrillation. 2. Status post total knee prosthesis excision for infection with a cement spacer placed. 3. Obesity. 4. His sleep apnea. 5. Hypertension with hypertensive heart disease. RECOMMENDATIONS: I will give the patient an extra dose of amiodarone now and then put him on his usual amiodarone dose of 200 mg in the morning and 100 mg at night. He will be maintained on his current dose of metoprolol. In regards to anticoagulation, I would hold off on fully anticoagulate him because he is fresh postop, but he will need to be anticoagulated for the atrial fibrillation and I believe I have read in the orthopedic notes that they were going to start him on Coumadin postop. We will follow along with you during his hospital stay.
[2016-11-06] MEDS ORDERED: CEFAZOLIN IV 2,000 MG in DEXTROSE 5% 50ML 50 ML IV SCH (18:00)
[2016-11-06] MEDS ORDERED: VANCOMYCIN CONSULT ACTIVE PRN (18:00)
[2016-11-06 19:24] LABS: CREATININE 0.94 mg/dl (0.60-1.40)
--- NOTE | 2016-11-06 20:16 | Pharmacy Progress Note ---
Pharmacy Antibiotic Consult Date of Service: November 06, 2016. Pharmacy Dosing Scope Pharmacy is consulted to initiate IV Vancomycin dosing therapy, order appropriate labs and adjust drug dose/frequency. Subjective The patient is a 61 year old male admitted on November 06, 2016 at 06:30. Objective Height (Feet): 5 Height (Inches): 9.00 Weight (Kilograms): 187.700 Lab Results (24hrs): Test 11/06/16 18:13 Creatinine 0.94 mg/dl (0.60-1.40) Est Creatinine Clear Calc Drug Dose 140.6 ml/min Estimated GFR () 102.4 Estimated GFR (Non- 88.4 Micro Results: Item Value Date Time Urine Culture - Final Complete 10/28/16 0000 Urine , Clean Catch NO GROWTH - LESS THAN 1,000 COLONIES/ML Gram Stain - Final Resulted 11/06/16 0950 Tissue Knee Right Bacterial Culture Pending Gram Stain - Final Resulted 11/06/16 0955 Tissue Knee Right Bacterial Culture Pending Gram Stain - Final Resulted 11/06/16 1003 Tissue Knee Right Bacterial Culture Pending Recent Pertinent Medications Item Value Date Time Cefazolin Sodium 65 ml @ 100 mls/hr PREOP/IV 11/06/16 0600 Item Value Date Time Vancomycin HCl 540 ml @ 200 mls/hr 11/06/16 0600 2000 mg/Sodium PREOP/IV 11/06/16 0654 Chloride Item Value Date Time Vancomycin HCl 540 ml @ 200 mls/hr 11/06/16 1900 2000 mg/Sodium TODAY@1900/IV 11/06/16 1906 Chloride Vancomycin HCl 540 ml @ 200 mls/hr 11/07/16 0600 2000 mg/Sodium Q12H/IV Chloride Assessment & Plan Vancomycin * 61 yo M w/ infected R TKA s/p removal & cement spacer * Vancomycin 2gm IV & Cefazolin 3gm IV x 1 dose each pre-op * Vancomycin 2gm IV x 1 post-op then continue per pharmacy consult * Goal peak level: 30-40mcg/mL * Goal trough level: 15-20mcg/mL * Est half-life: ~7 hours * BMI ~ 61kg/m2 (high-risk for accumulation) * Maintenance dosing: Vancomycin 2gm IV q12h (~10.5mg/kg adjusted for BMI) * Trough level ordered: 11/08/16 0600 dose Pharmacy will continue to follow and will adjust dose/frequency as necessary. Thank you
[2016-11-06] MEDS: DOCUSATE SODIUM 100 MG CAP PO SCH (21:00)
[2016-11-06] MEDS: DILTIAZEM HCL 180 MG CAPCR PO SCH (21:41)
[2016-11-06] MEDS: METOPROLOL TARTRATE 50 MG TAB PO SCH (21:42)
[2016-11-06] MEDS: AMIODARONE 200 MG TAB PO SCH (21:42)
[2016-11-06] MEDS: OXYCODONE HCL 15 MG TABCR (OXYCONTIN) PO PRN (23:37)
[2016-11-07] MEDS: MoRPHine SULFATE 4 MG/ML 1 ML CARP\\VIAL IV PRN ×3 (02:50→23:24)
[2016-11-07] MEDS: OXYCODONE HCL IR 5 MG TAB (IMMEDIATE RELEASE) PO PRN ×2 (02:50→11:23)
[2016-11-07] MEDS: KETOROLAC TROMETHAMINE 30 MG/ML VIAL IV. SCH ×2 (04:15→09:46)
[2016-11-07 05:29] VITALS: BP 141/74; PULSE 89; TEMP 37; O2SAT 95
[2016-11-07] MEDS ORDERED: VANCOMYCIN INJ 2,000 MG in SODIUM CHLORIDE 0.9% 500ML 500 ML IV SCH (06:00)
[2016-11-07 06:33] LABS: HEMATOCRIT 37.7 % (42-52); MEAN CELL VOLUME 92.2 fL (80-100); MEAN CORPUSCULAR HEMOGLOBIN 29.3 pg (25-34); MEAN CORPUSCULAR HGB CONC 31.8 g/dl (32-36); MEAN PLATELET VOLUME 9.2 fL (7.4-10.4); PLATELET COUNT 315 K/uL (130-400); RED BLOOD COUNT 4.09 M/uL (4.7-6.1); WHITE BLOOD COUNT 8.35 K/uL (4.8-10.8)
[2016-11-07 07:14] LABS: BUN/CREATININE RATIO 18.2 (10-20); CALCIUM 8.2 mg/dl (8.5-10.1); CREATININE 0.79 mg/dl (0.60-1.40); POTASSIUM 4.2 mmol/L (3.5-5.1)
[2016-11-07 07:22] LABS: INR 1.1 (0.9-1.1); PROTHROMBIN TIME (PATIENT) 11.5 SECONDS (9.0-12.0)
[2016-11-07] MEDS ORDERED: DEXAMETHASONE INJ 10 MG in SYRINGE 0 ML IV SCH (07:30)
[2016-11-07] MEDS ORDERED: DEXAMETHASONE INJ 10 MG in SYRINGE 0 ML IV ONE (07:30)
--- NOTE | 2016-11-07 07:34 | PROGRESS NOTE ---
DATE: 11/07/2016 Postop day #1 status post excisional arthroplasty with cement spacer for septic right total knee replacement. At this point in time the patient is doing reasonably well. His pain is well managed. He denies chest pain, shortness of breath, fever, chills, nausea, vomiting or headache. His atrial fibrillation has been well managed with his medications. Vital signs are stable. He is afebrile. Neurovascular check femoral sciatic nerve is good. Was able to sit up in the chair last evening. He is tolerating his IV vancomycin. Hematocrit this morning is stable at 37.7. White count at 8.3, down from 15 when he was having his problem with his acute infection prior to his antibiotics. Chemistry is pending. INR is pending. ASSESSMENT: Status post excisional arthroplasty for septic right knee replacement. Case was complicated by multiple comorbidities including chronic Lyme disease, chronic antibiotic use. At this point in time has been seen by ID. He has also been seen by cardiology. The fact that he has longstanding problems with weakness of both upper extremities and left lower extremity from his chronic Lyme disease will have him evaluated by a recycler for any tricks particularly based on his body habitus. He will need a wheelchair for mobility for long distances. His right lower extremity will be partial weightbearing for at least 6-8 weeks. Will keep him in the present dressing today since it is fitting him well and he has no major issues. Keep it nice and compressed. Anticoagulate today with Coumadin. Transfer to orthopedic floor today. PICC line will be placed this morning.
[2016-11-07 07:51] VITALS: BP 161/79; PULSE 89; TEMP 36.7; O2SAT 96
[2016-11-07] MEDS: DOCUSATE SODIUM 100 MG CAP PO SCH ×2 (09:00→20:30)
[2016-11-07] MEDS ORDERED: AMIODARONE 200 MG TAB PO SCH (09:00)
[2016-11-07] MEDS: MULTIVITAMIN TAB PO SCH (09:05)
[2016-11-07] MEDS: AMIODARONE 200 MG TAB PO SCH ×2 (09:05→20:37)
[2016-11-07] MEDS: ALLOPURINOL 100 MG TAB PO SCH (09:06)
[2016-11-07] MEDS: METOPROLOL TARTRATE 50 MG TAB PO SCH ×2 (09:06→20:37)
[2016-11-07] MEDS: PANTOprazole SOD 40 MG TAB PO SCH (09:06)
[2016-11-07] MEDS: ASPIRIN 81 MG ECTAB PO SCH (09:06)
[2016-11-07] MEDS: SPIRONOLACTONE 25 MG TAB PO SCH (09:07)
[2016-11-07] MEDS: DILTIAZEM HCL 180 MG CAPCR PO SCH ×2 (09:07→20:35)
[2016-11-07] MEDS: FERROUS GLUCONATE 324 MG TAB PO SCH ×4 (09:08→18:26)
[2016-11-07] MEDS ORDERED: NURSING VERBAL MED ORDER ONE (09:30)
--- NOTE | 2016-11-07 09:46 | Anesthesiology Progress Note ---
Anesthesia Post Op Note Date & Time Nov 07, 2016 at 09:45 Vital Signs Pain Intensity: 4.0 Vital Signs Past 12 Hours Date Time Temp Pulse Resp B/P (MAP) Pulse Ox O2 Delivery O2 Flow Rate FiO2 11/07/16 08:00 Room Air 11/07/16 07:51 36.7 89 18 161/79 (106) 96 Room Air 11/07/16 05:29 37.0 89 20 141/74 (96) 95 Nasal Cannula 1.0 11/07/16 04:00 Nasal Cannula 1.0 11/07/16 00:01 Nasal Cannula 2.0 11/06/16 23:45 36.9 95 20 142/86 (104) 95 Nasal Cannula 1.0 Notes Mental Status: alert / awake / arousable, participated in evaluation Pt Amnestic to Procedure: Yes Nausea / Vomiting: adequately controlled Pain: adequately controlled Airway Patency, RR, SpO2: stable & adequate BP & HR: stable & adequate Hydration State: stable & adequate Neuraxial Anesthesia: sensory block resolved Anesthetic Complications: no major complications apparent
--- NOTE | 2016-11-07 11:16 | CARDIOLOGY PROGRESS NOTE ---
DATE: 11/07/2016 DATE: 11/07/2016. FOLLOW-UP VISIT SUBJECTIVE: The patient is a 61-year-old morbidly obese male with a history of sleep apnea for which he only uses his nasal CPAP in the winter time, hypertension with hypertensive heart disease and paroxysmal atrial fibrillation. He was admitted due to an infected prosthetic knee which was removed and cement spacer was placed yesterday. He developed atrial fibrillation during his procedure with a controlled heart rate. He remains in atrial fibrillation this morning with heart rates in the 80s and 90s. He is sitting up in a chair and has no complaints. He has been started on warfarin with the plan to be several weeks of anticoagulation and then proceed with elective cardioversion. The patient has been followed by Dr. Pritchett from the EP group at [facility]. The patient prefers to return there after discharge for his cardioversion. OBJECTIVE: GENERAL: He is alert and oriented in no acute distress. VITAL SIGNS: Pulse is irregular at 89 beats per minute, blood pressure is 140/70. He is afebrile. HEAD, EYES, EARS, NOSE, AND THROAT: He wears corrective lenses. Mucous membranes are moist. NECK: Neck veins are flat. Carotids have good upstrokes bilaterally without bruits. Thyroid is nonpalpable. RESPIRATORY: Breath sounds equal bilaterally and clear to auscultation. CARDIOVASCULAR: Heart has an irregular rhythm. Normal S1, S2, no S3, S4. No cardiac rubs or murmurs. GASTROINTESTINAL: Abdomen is soft, nontender without organomegaly. EXTREMITIES: Free of edema, digit clubbing, or cyanosis. He has post-surgical right knee. NEUROLOGIC: Grossly intact. SKIN: Warm to touch. LYMPH NODES: Negative to palpation. IMPRESSION: 1. Persistent atrial fibrillation. 2. Status post total knee prosthesis excision due to infection with a cement spacer placed. 3. Obesity. 4. Sleep apnea. 5. Hypertension with hypertensive heart disease. RECOMMENDATIONS: The patient is currently asymptomatic in regard to his atrial fibrillation. I would continue him on the amiodarone at its current dosage which is 200 mg in the morning and 100 mg at night. Your are loading him with warfarin, which he should remain on. He wants to follow up with Dr. Pritchett out at [facility] and those arrangements should be made prior to his discharge. For now, I think he could be moved off the telemetry unit to the orthopedic floor so he can recover from his recent surgery.
[2016-11-07 11:49] VITALS: BP 151/87; PULSE 95; TEMP 36.8; O2SAT 97
--- NOTE | 2016-11-07 12:46 | Pharmacy Progress Note ---
Pharmacy Abx Dose Short Note Date of Service Nov 07, 2016. Assessment & Plan Assessment 61 year old male receiving vancomycin for treatment of septic right knee s/p hardware removal/spacer placement Day # 2 of antimicrobial therapy. Morbidly obese male with improved SCr today would indicate an adjustment w/ vancomycin dose to achieve target levels New est PK parameters: CrCl ~ 145, adjusted for obesity, Vd ~0.5 L/kg, Jm ~ 0.129 hr-1, t1/2 5.4 hrs Plan Vancomycin * Change to 2250 mg (12 mg/kg) IV every 8 hours * Goal trough level for septic knee : 15 to 20 mcg/mL * Trough level ordered for: 11/08/16 prior to the 0600 dose - not steady state w/ new regimen but need to be cautious w/ potential to accumulate drug Pharmacy will continue to follow and will adjust dose/frequency as necessary. Thank you.
[2016-11-07] MEDS ORDERED: VANCOMYCIN INJ 2,250 MG in SODIUM CHLORIDE 0.9% 500ML 500 ML IV SCH (14:00)
--- NOTE | 2016-11-07 14:19 | DIAGNOSTIC IMAGING REPORT ---
CHEST ONE VIEW PORTABLE CLINICAL HISTORY: RIGHT PICC LINE PLACEMENT COMPARISON STUDY: 03/26/2016 FINDINGS: The heart is enlarged. There has been interval placement of a right-sided PICC catheter. The tip projects over the superior vena cava. There is no failure. There is no focal pulmonary consolidation. There are no pleural effusions.[ IMPRESSION: The recently placed right-sided PICC catheter is positioned with its tip projected over the superior vena cava. Electronically signed by: Aly Ghosh M.D. 11/07/2016 2:18 PM Dictated Date/Time: 11/07/2016 2:17 PM
--- NOTE | 2016-11-07 14:56 | Progress Note ---
Subjective Date of Service: Nov 07, 2016. 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 tolerating vanco. no overnight events. remains afebrile. Problem List Medical Problems: (1) Intractable pain Status: Acute (2) Renal colic on right side Status: Acute Objective Vital Signs Date Time Temp Pulse Resp B/P (MAP) Pulse Ox O2 Delivery O2 Flow Rate FiO2 11/07/16 12:00 Room Air 11/07/16 11:49 36.8 95 18 151/87 (108) 97 11/07/16 08:00 Room Air 11/07/16 07:51 36.7 89 18 161/79 (106) 96 Room Air 11/07/16 05:29 37.0 89 20 141/74 (96) 95 Nasal Cannula 1.0 11/07/16 04:00 Nasal Cannula 1.0 11/07/16 00:01 Nasal Cannula 2.0 11/06/16 23:45 36.9 95 20 142/86 (104) 95 Nasal Cannula 1.0 11/06/16 20:00 96 Nasal Cannula 1.0 11/06/16 19:40 37.1 91 20 128/84 (99) 96 Nasal Cannula 1.0 11/06/16 16:00 37.3 89 20 177/97 (123) 98 Nasal Cannula 3.0 11/06/16 16:00 Nasal Cannula 3.0 11/06/16 16:00 36.8 88 20 164/76 (105) 98 Nasal Cannula 2.0 11/06/16 15:00 105 20 154/60 (91) 96 Nasal Cannula 3.0 Laboratory Results Item Value Date Time Gram Stain - Final Resulted 11/06/16 1003 Tissue Knee Right Gram Stain - Final Resulted 11/06/16 0955 Tissue Knee Right Gram Stain - Final Resulted 11/06/16 0950 Tissue Knee Right Last 24 Hours Test 11/06/16 18:13 11/07/16 06:20 Creatinine 0.94 mg/dl 0.79 mg/dl Est Creatinine Clear Calc Drug Dose 140.6 ml/min 177.0 ml/min Estimated GFR () 102.4 113.9 Estimated GFR (Non- 88.4 98.3 White Blood Count 8.35 K/uL Red Blood Count 4.09 M/uL Hemoglobin 12.0 g/dL Hematocrit 37.7 % Mean Corpuscular Volume 92.2 fL Mean Corpuscular Hemoglobin 29.3 pg Mean Corpuscular Hemoglobin Concent 31.8 g/dl RDW Standard Deviation 53.2 fL RDW Coefficient of Variation 15.8 % Platelet Count 315 K/uL Mean Platelet Volume 9.2 fL Prothrombin Time 11.5 SECONDS Prothromb Time International Ratio 1.1 Sodium Level 139 mmol/L Potassium Level 4.2 mmol/L Chloride Level 103 mmol/L Carbon Dioxide Level 29 mmol/L Anion Gap 7.0 mmol/L Blood Urea Nitrogen 14 mg/dl BUN/Creatinine Ratio 18.2 Random Glucose 148 mg/dl Calcium Level 8.2 mg/dl Assessment and Plan (1) Infection of total right knee replacement Assessment & Plan: continue vanco, cultures may remain negative as 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 will follow, will likely need min 6 weeks vanco IV
--- NOTE | 2016-11-07 14:56 | Progress Note ---
Progress Note Date of Service Nov 07, 2016. Progress Note chart reviewed cardiology managing afib and HTN ID managing infection pharmacy managing dosing of vanco will be available as needed, but will sign off for now; please have f/u w Dr Stanley ~1wk after discharge thank you
[2016-11-07 15:26] VITALS: BP 157/80; PULSE 88; TEMP 37.2; O2SAT 93
[2016-11-07] MEDS ORDERED: WARFARIN SOD 5 MG TAB PO SCH (16:00)
[2016-11-07 17:00] VITALS: BP 162/72; PULSE 88; TEMP 37.2; O2SAT 95
[2016-11-07] MEDS: DAPTOmycin IV 700 MG in SODIUM CHLORIDE 0.9% 50ML 50 ML IV SCH (18:26)
[2016-11-07] MEDS ORDERED: VANCOMYCIN TROUGH ONE (21:30)
[2016-11-07 23:22] VITALS: BP 149/82; PULSE 99; TEMP 36.4; O2SAT 96
[2016-11-08] MEDS: OXYCODONE HCL IR 5 MG TAB (IMMEDIATE RELEASE) PO PRN ×2 (03:05→13:28)
[2016-11-08] MEDS ORDERED: VANCOMYCIN TROUGH ONE (05:30)
[2016-11-08] MEDS ORDERED: VANCOMYCIN TROUGH SCH (05:30)
[2016-11-08 06:18] LABS: INR 1.1 (0.9-1.1); PROTHROMBIN TIME (PATIENT) 11.7 SECONDS (9.0-12.0)
[2016-11-08 06:34] LABS: CREATININE 0.87 mg/dl (0.60-1.40)
[2016-11-08 07:11] VITALS: BP 146/86; PULSE 85; TEMP 36.8; O2SAT 94
--- NOTE | 2016-11-08 07:55 | PROGRESS NOTE ---
DATE: 11/08/2016 SUBJECTIVE: Postop day #2 status post excisional arthroplasty with cement spacer for septic right total knee replacement. At this point in time the patient is doing well. He has been afebrile. He is able to sit up in the chair. He is able post weight on his leg with knee immobilizer on. He denies chest pain, shortness of breath, fevers, chills, nausea, vomiting, headache. OBJECTIVE: VITAL SIGNS: Are stable. Pulse was in the high 80s. ABDOMEN: Soft, nontender. EXTREMITIES: Calves nontender. Wound is clean and dry. Neurovascular check femoral sciatic nerve is good. LABORATORY WORK: This morning reveals INR is still subtherapeutic, but increasing slightly. Renal function is excellent. ASSESSMENT: Overall, doing reasonably well with significant comorbidities and complex orthopedic problem. At this point in time, will discharge today, antibiotic choice per ID is now daptomycin. PICC line is functional. He will not require any dressing change. The dressing change put on today in the knee immobilizer put on today will stay on. He will not bend his knee for the next 2 weeks. Any issues he can return to the office. 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 Will leave him on Coumadin, try to get his INR up GERI. Will discharge on 8 mg of Coumadin a day, check INR on Friday. Follow up with us in 2 weeks.
[2016-11-08] MEDS: MoRPHine SULFATE 4 MG/ML 1 ML CARP\\VIAL IV PRN (07:56)
--- NOTE | 2016-11-08 07:56 | DISCHARGE SUMMARY ---
CHIEF COMPLAINT: Right knee pain. HISTORY OF PRESENT ILLNESS: A 61-year-old male who comes in with a difficult problem after injuring his knee ultimately was diagnosed as having a septic knee. This patient is more complicated basis in fact he is on chronic suppressive antibiotics for chronic Lyme disease. It is unclear exactly when this potential infection started so with positive alpha-defensin with positive cultures, it was deemed appropriate to proceed with excisional arthroplasty and cement spacer. PAST MEDICAL HISTORY: Remarkable for atrial fibrillation, osteoarthritis, BPH, hypertension, morbid obesity, chronic lumbar pain, Lyme disease, sleep apnea, and gout. PAST SURGICAL HISTORY: Include tonsillectomy, cholecystectomy, appendectomy, cardioversions multiple times, right knee replacement in 2008, left knee replacement in 2010, and lithotripsies. FAMILY HISTORY: Remarkable for atrial arrhythmias, cancer, congestive heart failure, scoliosis, diabetes, Guillain-Dugway syndrome, cardiac disease, hyperlipidemia, hypertension, hypothyroidism and TIAs. ALLERGIES: None. PREADMISSION MEDICATIONS: INCLUDE METOPROLOL, ALLOPURINOL, SPIRONOLACTONE, COLCHICINE, DILTIAZEM, DOXYCYCLINE, CEFTIN, OXYCONTIN, RIFAMPIN, AND ASPIRIN. SOCIAL HISTORY: Reveals that he is . No tobacco or alcohol use. REVIEW OF SYSTEMS: Reveals no chest pain, shortness of breath, fever, chills, nausea, vomiting or headache. ASSESSMENT AND PLAN: Overall, doing well status post excisional arthroplasty with cement spacer. At this point in time, he will be discharged on daptomycin per infectious disease. He will need a follow up with his oil treater to get potentially cardioverted out of his atrial fibrillation. He will need to be anticoagulated with Coumadin. We will discharge on 8 mg a day and check INR on Friday. Get up to 2.2-2.5 GERI. Follow up in 2 weeks for staple removal. He can be weightbearing to tolerance with his knee immobilizer on. No motion of the knee.
[2016-11-08] MEDS ORDERED: WARF2TAB PO (08:57)
[2016-11-08] MEDS ORDERED: HYDR2TAB48 PO (08:57)
[2016-11-08] MEDS: DOCUSATE SODIUM 100 MG CAP PO SCH (09:00)
[2016-11-08] MEDS: PANTOprazole SOD 40 MG TAB PO SCH (09:01)
[2016-11-08] MEDS: AMIODARONE 200 MG TAB PO SCH (09:02)
[2016-11-08] MEDS: ASPIRIN 81 MG ECTAB PO SCH (09:02)
[2016-11-08] MEDS: FERROUS GLUCONATE 324 MG TAB PO SCH ×3 (09:02→17:45)
[2016-11-08] MEDS: ALLOPURINOL 100 MG TAB PO SCH (09:03)
[2016-11-08] MEDS: MULTIVITAMIN TAB PO SCH (09:04)
[2016-11-08] MEDS: SPIRONOLACTONE 25 MG TAB PO SCH (09:04)
--- NOTE | 2016-11-08 09:04 | Discharge Instructions ---
Discharge Instructions Date of Service Nov 08, 2016. Admission Reason for Admission: Septic Right Knee Total Knee Arthroplasy Discharge Discharge Diagnosis / Problem: Right knee s/p hardware removal and cement spacer placement Discharge Goals Goal(s): Decrease discomfort, Increase independence, Improve disease control Activity Recommendations Activity Limitations: as noted below Lifting Limitations: gradually increase as tolerated Exercise/Sports Limitations: until after follow-up appointment Shower/Bathe: keep incision dry Driving or Machine Use: No driving Weightbearing Status: Right partial . Instructions / Follow-Up Instructions / Follow-Up New Medicine: * You will likely be taking one or more of these medications: 1. Dilaudid - Take, as directed, when you need it, every four to six hours to control your pain. 2. Coumadin - Thins your blood to lessen the chance of forming a blood clot. The dose of this is different for each person and is based on your blood tests that are done twice a week. * The most common side effects of pain medicine and iron are nausea and constipation. If nausea or constipation is too much of a problem or if you have any questions about your new medicines or doses, call [facility] at . We will try to help you manage these issues. VERY IMPORTANT TO READ AND REVIEW" Blood Clots and Blood Thinning Medicine: * You are given Coumadin during the immediate post-operative period to lessen the risk of blood clots forming in your legs and/or lungs. Coumadin is usually given for six weeks after surgery. * The prescription is for 2 mg tablets. At discharge, you should understand your dose and take it all at the same time every day, preferably after dinner. * You need to get your blood checked 1 - 2 times per week for six weeks or as directed. * If your dose needs to change, we will call you. Do not take your medication on the day of the blood test until we call you. Pain: * The immediate post-operative period after knee replacement surgery is often quite painful. * You are given a prescription for pain medicine. You should take it, as directed, when you need it, especially before physical therapy and before going to bed. Pain that interferes with sleep is very common and can last several months. * You will likely need pain medicine for the first four to six weeks. It will not stop all of the pain. The pain will lessen and as you feel better, you may change to milder pain medicine such as Tylenol. * The most common side effects of pain medicine are nausea and constipation, so don't take more than you need. Physical Therapy: * You will have physical therapy two or three times each week for four to six weeks after your surgery in order to regain your knee function and to retrain your knee to work properly. * It is just as important to make sure you are getting your knee perfectly straight as it is to regain your knee bend. * Taking a pain pill an hour before therapy can help you have a more productive and comfortable therapy session if needed. Home Exercise: * You were shown a series of exercises (heel props, etc.) in the hospital. Do these exercises three to four times each day including the exercises you were shown in physical therapy. Walking: * Get up and walk several times each day. For the first four weeks, try not to stand or walk for more than one hour at a time. If you do stand or walk for more than one hour, you will not hurt anything, but your knee and leg will likely swell. SELF CARE INSTRUCTIONS AFTER TOTAL KNEE REPLACEMENT A. You may need to continue a physical therapy program after discharge from the hospital. There are several options available to you. Your doctor will assist you in selecting the best one for you. 1. An out-patient facility 2 to 3 times a week for therapy or home therapy. 2. Continue working on all exercises taught to you in the hospital. B. You may progress at your own pace from walking with a walker or crutches to a cane C. Make walking a part of your daily routine. Be up as much as comfortable with rest periods throughout the day. Rest with leg elevation is very important. Use the ice wrap frequently for the first 3-4 weeks. D. Do not place a pillow behind your knee when resting. A pillow at your ankle is okay. VERY IMPORTANT TO READ AND REVIEW A. Take Coumadin, Aspirin or Lovenox (blood thinning medications) as directed by your doctor. If on Coumadin, have a pro-time (blood test) drawn according to your doctor's instructions. This will tell the doctor how well the Coumadin is thinning your blood. 1. YOU WILL BE GIVEN AN ORDER AT DISCHARGE FOR PT/INR (BLOOD WORK). PLEASE HAVE THIS DONE INSTRUCTED. PLEASE CALL OUR OFFICE AFTER YOUR BLOODWORK IS COMPLETE SO WE CAN TRACK YOUR RESULTS. IF YOU ARE GOING TO OUTPATIENT PHYSICAL THERAPY, YOU WILL NEED TO GO TO OUTPATIENT TESTING TO HAVE IT DRAWN. B. There are a few signs you need to watch for after you are home. Call [facility] if you notice any of the followin. Increased severe knee pain. Some pain is expected especially when you exercise. 2. Increased swelling in your leg or knee; pain or swelling of the calf muscle in either lower leg. 3. Any fluid drainage from the incision. 4. Shortness of breath or chest pain. C. Please call [facility] at if you have any concerns or questions about your operation or recovery. The doctor or his nurse will return your call promptly. D. You must take antibiotics before dental work, bladder, bowel or other surgery. Call the office to obtain a prescription at least 2 days prior to your appointment. * CALL IF INCREASED PAIN, REDNESS, DRAINAGE OR FEVER GREATER THAT 101. * Hazel should be removed 19 days after surgery Call your doctor if: * Temperature above 101 degrees F. * Pain not relieved by pain medicine ordered. * Increased drainage or redness from incision. * Notify your doctor with any questions or concerns. Current Hospital Diet Patient's current hospital diet: AHA Diet (Heart Healthy) Discharge Diet Recommended Diet: AHA Diet (Heart Healthy) Procedures Procedures Performed: Right Excisional Total Knee Arthroplasty with Cement Spacer Pending Studies Studies pending at discharge: yes (final cultures) List of pending studies: final cultures Medical Emergencies . Who to Call and When: Medical Emergencies: If at any time you feel your situation is an emergency, please call 911 immediately. . Non-Emergent Contact Non-Emergency issues call your: Primary Care Provider, Surgeon Call Non-Emergent contact if: temperature is above 101, wound has increased drainage, wound has increased pain, you have any medication questions . "Provider Documentation" section prepared by Robert Ortega PA-C. . VTE Core Measure Inpt VTE Proph given/why not?: Warfarin (Coumadin), T.ELeonidas Islas, [place]'s [place] Drug Monitoring Program Search Results: no issues identified
[2016-11-08] MEDS: METOPROLOL TARTRATE 50 MG TAB PO SCH (09:05)
[2016-11-08] MEDS: DILTIAZEM HCL 180 MG CAPCR PO SCH (09:06)
[2016-11-08] MEDS ORDERED: DAPT500I IV (09:13)
[2016-11-08] MEDS: DAPTOmycin IV 700 MG in SODIUM CHLORIDE 0.9% 50ML 50 ML IV SCH (12:37)
[2016-11-08] MEDS: OXYCODONE HCL 15 MG TABCR (OXYCONTIN) PO PRN (14:19)
--- NOTE | 2016-11-08 14:23 | PROGRESS NOTE ---
DATE: 11/08/2016 FOLLOWUP VISIT SUBJECTIVE: The patient is a 61-year-old male who had a prosthetic right knee removed and a cement spacer placed due to an infection. He has a history of atrial fibrillation and is currently in a rate-controlled persistent atrial fibrillation. He will be scheduled for followup after discharge with Dr. Phillips at [facility] in [place]. Otherwise, the patient is stable and will remain on his current cardiac medications in addition to being on Coumadin.
[2016-11-08 15:06] VITALS: BP 127/80; PULSE 75; TEMP 36.9; O2SAT 94
[2016-11-08] MEDS ORDERED: WARFARIN SOD 6 MG TAB PO SCH (16:00)
--- NOTE | 2016-11-27 12:07 | PROGRESS NOTE ---
DATE: 11/08/2016 Thank you for allowing me to assess Mr. Feliz. He was seen at Dr. Saldaña's request with a septic right knee arthroplasty status post hardware removal and placement of a cement spacer. He is restricted in his weight bearing. He was placed in full extension. The patient hoped to go home. I was asked to see in case he was unable to make the necessary arrangements. I had a chance to meet with the patient at the bedside accompanied by his . We discussed therapy, his hope to go home at wheelchair level. I offered him an office card to get in touch if there was difficulty with home based discharge. Discussed care and management strategies with Dr. Saldaña. The patient discharged home with spouse 11/08/2016. He was not seen in full consultation. He did not transfer to [facility].
[2017-04-02] MEDS ORDERED: OXYC30TA PO (07:55)
[2017-04-02] MEDS ORDERED: WARF2TAB8 PO (07:55)
== END 2016-11-08 18:00 | disposition home health service (06) | DRG 464 ==
LOC: CANRESERV → ENRESERVDT → ENRESERVTM → C.ACU 05:57 → UNDOADMIN 06:30 → C.2T 06:30 → EDBEDREQ 12:41 → ENRESERV 11-07 15:47 → C.3E 11-07 17:41
PROVIDERS: ADMIT Physical Medicine & Rehabilitation Sports Medicine; ATTEND Physical Medicine & Rehabilitation Sports Medicine
PROC: 0SHC08Z Insertion of Spacer into Right Knee Joint, Open Approach (ICD-10-PCS; principal; 2016-11-06 08:45)
PROC: 0SPC0JZ Removal of Synthetic Substitute from Right Knee Joint, Open Approach (ICD-10-PCS; principal; 2016-11-06 08:45)
PROC: 02HV33Z Insertion of Infusion Device into Superior Vena Cava, Percutaneous Approach (ICD-10-PCS; 2016-11-07)
DX: T84.53XA Infection and inflammatory reaction due to internal right knee prosthesis, initial encounter (principal); A69.20 Lyme disease, unspecified; Z68.44 Body mass index [BMI] 60.0-69.9, adult; I48.1 Persistent atrial fibrillation; N40.0 Benign prostatic hyperplasia without lower urinary tract symptoms; I10 Essential (primary) hypertension; E66.01 Morbid (severe) obesity due to excess calories; G47.30 Sleep apnea, unspecified; M10.9 Gout, unspecified; Z79.899 Other long term (current) drug therapy; Z79.82 Long term (current) use of aspirin; Y83.1 Surgical operation with implant of artificial internal device as the cause of abnormal reaction of the patient, or of later complication, without mention of misadventure at the time of the procedure

== ENCOUNTER → 2016-12-06 | Outpatient (CLI) | payer BC ==
[~2016-12-06] MED LIST changes: -CEFU500T16 PO; +DAPT500I IV; -DXY/100 PO; +ERTA1INJ IV; -META1TAB22 PO; -PRED-603 PO; -RIFA300C34 PO; +VANC1INJ94 IV; -VANCOMYCIN INJ 2,000 MG in SODIUM CHLORIDE 0.9% 500ML 500 ML IV SCH; +WARF2TAB PO; +lovenox SC
--- NOTE | 2016-12-06 09:46 | DIAGNOSTIC IMAGING REPORT ---
RIGHT KNEE 1 OR 2 VIEWS CLINICAL HISTORY: RIGHT KNEE PAIN Right COMPARISON STUDY: Right knee 08/22/2016. FINDINGS: A right total knee arthroplasty has been replaced with antibiotic spacers. There is mild anterior displacement of the tibial spacer. This demonstrates up to 7 mm of anterior displacement. No fracture or dislocation. Moderate joint effusion with inferior displacement of the patella. This raises the possibility of a quadriceps tendon tear. There is a 9.8 cm prepatellar/infrapatellar subcutaneous fluid collection. IMPRESSION: 1. Inferior displacement of the patella which raises the possibility of a quadriceps tendon tear. However, this could also be displaced by the moderate joint effusion. 2. A 9.8 cm subcutaneous prepatellar/infrapatellar fluid collection. 3. Approximately 7 mm of anterior displacement the tibial antibiotic spacer . Electronically signed by: Keven Ferreira M.D. 12/06/2016 9:45 AM Dictated Date/Time: 12/06/2016 9:37 AM
== END | disposition home or self-care (01) ==
LOC: C.RDSM 13:10
PROVIDERS: ATTEND Physician Assistant
DX: T84.53XA Infection and inflammatory reaction due to internal right knee prosthesis, initial encounter (principal); M17.9 Osteoarthritis of knee, unspecified; Z96.652 Presence of left artificial knee joint; Y84.8 Other medical procedures as the cause of abnormal reaction of the patient, or of later complication, without mention of misadventure at the time of the procedure

== ENCOUNTER → 2016-12-13 | Outpatient (CLI) | payer BC ==
[2016-12-13 14:36] LABS: BASO % 0.4 %; BASO ABS # 0.05 K/uL (0-0.2); COMPLETE YES; EOS % 0.9 %; HEMATOCRIT 42.8 % (42-52); IG% 0.3 %; LYMPH % 15.2 %; LYMPH ABS # 2.13 K/uL (1.2-3.4); MEAN CELL VOLUME 89.9 fL (80-100); MEAN CORPUSCULAR HEMOGLOBIN 29.2 pg (25-34); MEAN CORPUSCULAR HGB CONC 32.5 g/dl (32-36); MEAN PLATELET VOLUME 9.5 fL (7.4-10.4); MONO % 12.3 %; NEUT % 70.9 %; PLATELET COUNT 401 K/uL (130-400); RED BLOOD COUNT 4.76 M/uL (4.7-6.1); WHITE BLOOD COUNT 14.04 K/uL (4.8-10.8)
[2016-12-13 16:00] LABS: BLOOD UREA NITROGEN 13 mg/dl (7-18); CALCIUM 9.2 mg/dl (8.5-10.1); CARBON DIOXIDE 27 mmol/L (21-32); CHLORIDE 102 mmol/L (98-107); CREATININE 0.78 mg/dl (0.60-1.40); GLUCOSE 120 mg/dl (70-99); POTASSIUM 4.2 mmol/L (3.5-5.1); SODIUM 136 mmol/L (136-145)
== END | disposition home or self-care (01) ==
LOC: C.LAB1850 12:31
PROVIDERS: ATTEND Physician Assistant
DX: Z01.812 Encounter for preprocedural laboratory examination (principal); Z96.651 Presence of right artificial knee joint

== ENCOUNTER 2016-12-18 08:19 | Inpatient (IN) | payer BC ==
[2016-12-17 17:49] VITALS: BMI 57.0
[~2016-12-18] VITALS: Ht 175.3 cm; Wt 177.0 kg
[2016-12-18] VITALS (7 sets, daily range): BP systolic 119–162; BP diastolic 72–83; PULSE 84–94; TEMP 36.4–36.9; O2SAT 95–100; Ht 175.3 cm; Wt 177.0 kg
[~2016-12-18 08:19] MED LIST changes: +BUPIVACAINE 0.25% 30 ML VIAL ONE; +BUPIVACAINE 0.5 % 5 MG/1 ML PF 10ML VIAL ONE; -ERTA1INJ IV; +LACTATED RINGER'S 1000ML 1,000 ML IV SCH; +LACTATED RINGER'S 1000ML IV SCH; +TRANEXAMIC ACID INJ 1,000 MG in SODIUM CHLORIDE 0.9% 100ML 100 ML IV SCH; +TRANEXAMIC ACID INJ 1,000 MG in SODIUM CHLORIDE 0.9% 100ML 100 ML TOP SCH; -VANC1INJ94 IV; -lovenox SC
--- NOTE | 2016-12-18 08:22 | History & Physical Bridge Note ---
H&P Re-Evaluation Bridge Note: I have examined the patient, reviewed the History & Physical and in the interval since the performance of the History & Physical I have noted the following changes of clinical significance:discussed in detail the severity of his knee.PT/INR this am pending.held coumadin since friday last week.
[2016-12-18] MEDS ORDERED: lovenox SC (08:56)
[2016-12-18] MEDS ORDERED: CEFAZOLIN IV 3,000 MG/65 ML D5W IV ONE (09:03)
[2016-12-18 09:14] LABS: INR 1.4 (0.9-1.1); PARTIAL THROMBOPLASTIN RATIO 1.3; PROTHROMBIN TIME (PATIENT) 15.2 SECONDS (9.0-12.0)
[2016-12-18] MEDS ORDERED: MIDAZOLAM HCL 1 MG/ML 2ML VIAL ONE ×2 (09:58)
[2016-12-18] MEDS ORDERED: VANCOMYCIN INJ 2,000 MG in SODIUM CHLORIDE 0.9% 500ML 500 ML IV SCH (10:00)
[2016-12-18] MEDS ORDERED: CEFAZOLIN IV 3,000 MG in DEXTROSE 5% 50ML IV SCH (10:00)
[2016-12-18] MEDS ORDERED: ONDANSETRON INJ 2 MG/ML 2 ML VIAL IV PRN ×2 (10:30→13:30)
[2016-12-18] MEDS ORDERED: KETOROLAC TROMETHAMINE 30 MG/ML VIAL IV. PRN (10:30)
[2016-12-18] MEDS ORDERED: LABETALOL HCL IV 5 MG/ML 20ML IV PRN (10:30)
[2016-12-18] MEDS ORDERED: ATROPINE SULFATE 0.1 MG/ML 5ML SYR IV PRN (10:30)
[2016-12-18] MEDS ORDERED: FENTANYL CITRATE INJ 50 MCG/1 ML 2 ML VIAL ONE ×2 (10:34→11:41)
[2016-12-18] MEDS ORDERED: BACITRACIN 50000 UNIT VIAL ONE (11:13)
[2016-12-18] MEDS ORDERED: VANCOMYCIN HCL 1000MG/20ML VIAL ONE (11:17)
[2016-12-18] MEDS ORDERED: POVIDONE-IODINE OP SOLN 30 ML BTL ONE (11:22)
[2016-12-18] MEDS ORDERED: SUCCINYLCHOLINE CHLORIDE 20 MG/ML 10 ML VIAL IV ONE (11:36)
[2016-12-18] MEDS ORDERED: LIDOCAINE HCL 2% 2 ML VIAL (20MG/ML) ONE (11:36)
[2016-12-18] MEDS ORDERED: ONDANSETRON INJ 2 MG/ML 2 ML VIAL ONE (11:36)
[2016-12-18] MEDS ORDERED: PROPOFOL IV EMULSION 10 MG/ML 20 ML VIAL IV ONE (11:36)
[2016-12-18] MEDS ORDERED: ROCURONIUM BROMIDE 10 MG/ML 5 ML VIAL ONE (12:32)
--- NOTE | 2016-12-18 13:09 | [facility] Post Operative Brief Note ---
Immediate Operative Summary Operative Date Dec 18, 2016. 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 Saldaña Department Store Manager Surgeon(s) Steve Ortega PA-C Estimated Blood Loss 400cc Findings spacers intact/fluid/cultured Fluids (cc crystalloids) 1500cc Specimens #1--Stat gram stain, routine culture and sensitivity, anerobic culture of right knee aspiration. #2--Stat gram stain, routine culture and sensitivity, anerobic culture of right knee subcutaneous tissue. #3--Stat gram stain, routine culture and sensitivity, anerobic culture of right knee joint fluid. #4--Stat gram stain, routine culture and sensitivity, anerobic culture of right femoral tissue. #5--Stat gram stain, routine culture and sensitivity, anerobic culture of right tibial tissue. A. Right Knee Removed Cement Spacer Drains none Anesthesia GET Complication(s) None Disposition Recovery Room / PACU
--- NOTE | 2016-12-18 13:21 | [facility] Operative Report ---
Operative Report Date of Service Dec 18, 2016. Operative Report Preoperative diagnosis recurrent drainage status post excisional arthroplasty with cemented spacer infected right total knee replacement Postoperative diagnosis same Surgeon: Piotr Double Needle Operator: Shannon Perioperative situation: A large BMI patient whose had significant issue with recurrent drainage following exchange arthroplasty cement spacer for infected right total knee replacement. Patient's medical history, gait by chronic antibiotic use for Lyme disease. BMI is in the 60s. He had done well for several weeks but then started to get a draining sinus and 2 areas of his incision. X-rays did not reveal any significant change in implant spacer positioning. Due to the fact that he has another knee replacement on the opposite side it was evident to try to protect bacteremia from infecting that implant as well. He is aware of the significance of these complications and is amenable to treatment and gives his permission. Operation: After patient was probably identified site verified consent verified his brace in dressing were removed. There was mild drainage. He was then aspirated under sterile techniques and this was sent for culture. Harrison given his perioperative antibiotics which consisted of 3 g of Ancef and the maximum dose of vancomycin. No tourniquet was utilized or applied. The old incision was utilized. Anteromedial he came into a pocket of fat necrosis which was debrided. There was no gross pus. This was also sent for culture. Once the septae's layer was all cleaned out the joint was opened and the Prolene closing the capsule was removed. There was good closure there. No significant fluid that was exuded from this. This appeared typical for cement spacer fluid no gross purulence. This fluid was sent for culture. The cement spacers were then removed tibia first followed by femur minor cement removal and also occurred. Wound was then Pulsavac with multiple liters which had bacitracin in it initially was irrigated with Betadine. The cement spacers were then revised. The size 75 on the femur and a size 80 and the tibia. These were [employer] stage I molds. The wound was irrigated one final time. Then closed using #1 Prolene for the capsular layer 2 segments. Subcutaneous layer was closed with #1 Vicryl. Full-thickness horizontal mattress sutures were then applied to the skin. This was done with 3-0 Prolene. A wound VAC dressing was then applied. Knee immobilizer also placed. Patient was then transferred recovery room in satisfactory condition having tolerated the procedure well. She'll be mentioned that additional cultures were taken off the femur and out the tibia. Gram stains today do not reveal any bacteria but had areas of inflammation and some of the cultures/Gram stain sites. Estimated blood loss was 400 mL. Crystalloid was roughly 1500 mL. We' ll consult infectious disease once again. He has a PICC line in place. Serious scenario patient and family understand this. Dictated not read. Carbon copy to Dr. Saldaña. I attest to the content of the Intraoperative Record and any orders documented therein. Any exceptions are noted below.
[2016-12-18] MEDS: HYDROmorphone INJ 2 MG/ML SYR/VIAL IV PRN ×11 (13:26→14:26)
[2016-12-18] MEDS ORDERED: ACETAMINOPHEN 325 MG TAB PO PRN (13:30)
[2016-12-18] MEDS ORDERED: METOCLOPRAMIDE HCL INJ 5 MG/ML 2 ML VIAL IV PRN (13:30)
[2016-12-18] MEDS ORDERED: DiphenhydrAMINE HCL 50 MG/ML VIAL IV PRN (13:30)
[2016-12-18] MEDS ORDERED: OXYCODONE HCL 15 MG TABCR (OXYCONTIN) PO PRN (13:30)
[2016-12-18] MEDS ORDERED: TAMSULOSIN HCL 0.4 MG CAP PO PRN (13:30)
[2016-12-18] MEDS ORDERED: COLCHICINE 0.6 MG TAB PO PRN (13:30)
[2016-12-18] MEDS ORDERED: MoRPHine SULFATE 2 MG/ML CARP IV PRN (13:30)
[2016-12-18] MEDS ORDERED: MAGNESIUM HYDROXIDE SUSP 30 ML UDC PO PRN (13:30)
[2016-12-18] MEDS ORDERED: ALUMINUM/MAGNESIUM/SIMETH (MAALOX MAX) 30 ML UDC PO PRN (13:30)
[2016-12-18] MEDS ORDERED: NURSING VERBAL MED ORDER ONE ×2 (14:00)
--- NOTE | 2016-12-18 14:04 | Orthopedic Progress Note ---
Orthopedic Progress Note Date of Service Dec 18, 2016. Subjective Reports: feeling well, Denies: complaints, chest pain, SOB, nausea / vomiting, light headedness, calf pain, pain controlled w PO medications, using STATUE MAKER Objective calves soft nontender, N/V intact, dressing C/D/I, toes mobile intact neuorvascular exam/ xrays look good /cultures pending Date Time Temp Pulse Resp B/P (MAP) Pulse Ox O2 Delivery O2 Flow Rate FiO2 12/18/16 13:51 136/80 12/18/16 13:49 77 24 12/18/16 13:49 84 24 100 12/18/16 13:47 140/81 12/18/16 13:44 75 31 12/18/16 13:44 79 31 100 12/18/16 13:42 146/100 12/18/16 13:39 73 23 12/18/16 13:39 72 23 100 12/18/16 13:38 76 25 12/18/16 13:38 74 25 100 12/18/16 13:37 132/67 12/18/16 13:33 75 22 12/18/16 13:33 76 22 99 12/18/16 13:28 74 22 99 12/18/16 13:28 78 22 12/18/16 13:27 160/80 12/18/16 13:23 76 17 12/18/16 13:23 78 17 100 12/18/16 13:22 151/77 12/18/16 13:18 74 17 99 12/18/16 13:18 79 17 12/18/16 13:17 167/82 12/18/16 13:14 160/98 12/18/16 13:13 36.4 79 18 160/98 100 Mask 10 12/18/16 08:50 36.7 89 18 162/83 97 Room Air Laboratory Results 24 Hours: Test 12/18/16 08:45 Prothromb Time International Ratio 1.4 Prothrombin Time 15.2 SECONDS Assessment & Plan Assessment: repeat I/D exchange cement spacers/cultures pending/ID consult pending Plan: continue wound vac/PWB with knee immobilizer Inhouse Planning DVT Prophylaxis: TEDs, SCDs, Coumadin Discharge Planning Discharge Planning: home with home health DVT Prophylaxis: TEDs, SCDs, Coumadin Therapy: Physical Therapy
--- NOTE | 2016-12-18 14:16 | DIAGNOSTIC IMAGING REPORT ---
RIGHT KNEE 1 OR 2 VIEWS ROUTINE HISTORY:61 yearsMale. Status post revision of infected right knee joint hardware. COMPARISON: Right knee radiographs 12/06/2016 TECHNIQUE: Frontal and crosstable lateral radiographs of the right knee FINDINGS: There is evidence of prior total joint arthroplasty hardware removal. Antibiotic spacers about the knee are again seen with improved alignment of the inferior most space or. The patella is again low riding and is centered at the joint space. There is a large persistent joint effusion which is slightly decreased in size from comparison. There also appears to be some air within the joint space which is likely postsurgical. Previous described large soft tissue fluid collection is no longer appreciated. Multiple centrally lucent calcifications are again seen within the pretibial soft tissues. No bony fracture or dislocation is identified. No erosive changes are seen. IMPRESSION: 1. Antibiotic spacers about the knee are again seen with improved alignment from comparison. 2. Low-lying patella redemonstrated. 3. Large knee joint effusion has slightly decreased in size from comparison. 4. Resolution of the previously noted large pretibial fluid collection. The above report was generated using voice recognition software. It may contain grammatical, syntax or spelling errors. Electronically signed by: Kwame King M.D. 12/18/2016 2:15 PM Dictated Date/Time: 12/18/2016 2:10 PM
[2016-12-18] MEDS: ACETAMINOPHEN IV 100 ML IV PRN ×2 (14:18→22:41)
--- NOTE | 2016-12-18 14:38 | [facility] Operative Report ---
Operative Report Operative Date Dec 18, 2016. 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 Saldaña Manager [employer] Surgeon(s) Steve Ortega PA-C Estimated Blood Loss 400cc Findings Right knee recurrent infection Fluids 1500cc Specimens #1--Stat gram stain, routine culture and sensitivity, anerobic culture of right knee aspiration. #2--Stat gram stain, routine culture and sensitivity, anerobic culture of right knee subcutaneous tissue. #3--Stat gram stain, routine culture and sensitivity, anerobic culture of right knee joint fluid. #4--Stat gram stain, routine culture and sensitivity, anerobic culture of right femoral tissue. #5--Stat gram stain, routine culture and sensitivity, anerobic culture of right tibial tissue. A. Right Knee Removed Cement Spacer Drains none Anesthesia GET Complication(s) None Disposition Recovery Room / PACU Indications This 61-year-old white male presented the office with complaints of continued drainage and pain in his right knee after previous excision of infected total knee prosthesis and placement of a cement spacer. Necessity of additional irrigation and debridement was discussed and he elected to proceed with surgical intervention in hopes of improving his overall outcome. Preoperative lab work was obtained. Description of Procedure Patient was taken to the operating room after being administered a regional anesthetic. He was then administered general anesthesia. He was prepped and draped in usual sterile fashion. Please see Dr. Saldaña's operative report for specifics of the procedure. I was present for the entire case from initial patient positioning through final wound closure. Assistance was provided in tissue traction, hemostasis, old cement spacer removal, new cement spacer placement, and final wound closure. Patient was taken to the recovery room in satisfactory condition. I attest to the content of the Intraoperative Record and any orders documented therein. Any exceptions are noted below.
--- NOTE | 2016-12-18 14:44 | Anesthesiology Progress Note ---
Anesthesia Post Op Note Date & Time Dec 18, 2016 at 14:43 Vital Signs Pain Intensity: 8 Vital Signs Past 12 Hours Date Time Temp Pulse Resp B/P (MAP) Pulse Ox O2 Delivery O2 Flow Rate FiO2 12/18/16 14:32 129/87 12/18/16 14:29 80 16 12/18/16 14:29 79 16 97 12/18/16 14:26 132/75 12/18/16 14:24 83 21 12/18/16 14:24 77 21 99 12/18/16 14:23 78 20 99 12/18/16 14:23 78 20 12/18/16 14:21 124/75 12/18/16 14:18 74 22 100 12/18/16 14:18 74 22 12/18/16 14:16 126/68 12/18/16 14:13 73 22 99 12/18/16 14:13 76 22 12/18/16 14:12 129/83 12/18/16 14:08 77 22 12/18/16 14:08 73 22 100 12/18/16 14:07 114/93 12/18/16 14:03 78 22 100 12/18/16 14:03 81 22 12/18/16 14:02 83 25 100 12/18/16 14:02 84 25 12/18/16 14:01 134/108 12/18/16 13:57 75 18 100 12/18/16 13:57 76 18 12/18/16 13:56 151/70 12/18/16 13:52 80 18 12/18/16 13:52 76 18 90 12/18/16 13:51 136/80 12/18/16 13:49 77 24 12/18/16 13:49 84 24 100 12/18/16 13:47 140/81 12/18/16 13:44 75 31 12/18/16 13:44 79 31 100 12/18/16 13:42 146/100 12/18/16 13:39 73 23 12/18/16 13:39 72 23 100 12/18/16 13:38 76 25 12/18/16 13:38 74 25 100 12/18/16 13:37 132/67 12/18/16 13:33 75 22 12/18/16 13:33 76 22 99 12/18/16 13:28 74 22 99 12/18/16 13:28 78 22 12/18/16 13:27 160/80 12/18/16 13:23 76 17 12/18/16 13:23 78 17 100 12/18/16 13:22 151/77 12/18/16 13:18 74 17 99 12/18/16 13:18 79 17 12/18/16 13:17 167/82 12/18/16 13:14 160/98 12/18/16 13:13 36.4 79 18 160/98 100 Mask 10 12/18/16 08:50 36.7 89 18 162/83 97 Room Air Notes Mental Status: alert / awake / arousable, participated in evaluation Pt Amnestic to Procedure: Yes Nausea / Vomiting: adequately controlled Pain: improving with treatment, see Notes Airway Patency, RR, SpO2: stable & adequate BP & HR: stable & adequate Hydration State: stable & adequate Anesthetic Complications: no major complications apparent Pain listed as 8/10 but patient appears comfortable in speaking with him bedside and he stated it is tolerable and he is ok to be transferred to the floor.
[2016-12-18] MEDS ORDERED: ACETAMINOPHEN IV 1000MG/100ML IV ONE (15:00)
[2016-12-18] MEDS ORDERED: MoRPHine SULFATE 4 MG/ML 1 ML CARP\\VIAL IV PRN (15:45)
[2016-12-18] MEDS ORDERED: WARFARIN SOD 4 MG TAB PO SCH (16:00)
[2016-12-18] MEDS: D5W AND 1/2NSS + 20MEQ KCL 1,000 ML IV SCH (16:44)
[2016-12-18] MEDS ORDERED: HYDROmorphone INJ 1 MG/ML SYR IV PRN (16:45)
[2016-12-18] MEDS: FERROUS GLUCONATE 324 MG TAB PO SCH (17:34)
[2016-12-18] MEDS: KETOROLAC TROMETHAMINE 30 MG/ML VIAL IV. SCH ×2 (17:34→23:21)
[2016-12-18] MEDS: DOCUSATE SODIUM 100 MG CAP PO SCH (20:51)
[2016-12-18] MEDS: DILTIAZEM HCL 180 MG CAPCR PO SCH (20:51)
[2016-12-18] MEDS: METOPROLOL TARTRATE 50 MG TAB PO SCH (20:51)
[2016-12-18] MEDS: OXYCODONE HCL IR 5 MG TAB (IMMEDIATE RELEASE) PO PRN (22:37)
[2016-12-19] MEDS ORDERED: VANCOMYCIN INJ 2,000 MG in SODIUM CHLORIDE 0.9% 500ML 500 ML IV SCH ×2
[2016-12-19] MEDS: D5W AND 1/2NSS + 20MEQ KCL 1,000 ML IV SCH ×2 (02:13→11:37)
[2016-12-19 03:03] VITALS: BP 125/66; PULSE 56; TEMP 36.7; O2SAT 96
[2016-12-19] MEDS: OXYCODONE HCL IR 5 MG TAB (IMMEDIATE RELEASE) PO PRN ×3 (03:09→15:31)
[2016-12-19] MEDS: KETOROLAC TROMETHAMINE 30 MG/ML VIAL IV. SCH ×2 (05:54→11:37)
[2016-12-19 06:12] LABS: HEMATOCRIT 35.1 % (42-52); MEAN CELL VOLUME 90.9 fL (80-100); MEAN CORPUSCULAR HEMOGLOBIN 28.5 pg (25-34); MEAN CORPUSCULAR HGB CONC 31.3 g/dl (32-36); MEAN PLATELET VOLUME 9.3 fL (7.4-10.4); PLATELET COUNT 436 K/uL (130-400); RED BLOOD COUNT 3.86 M/uL (4.7-6.1); WHITE BLOOD COUNT 9.95 K/uL (4.8-10.8)
[2016-12-19 06:35] LABS: INR 1.6 (0.9-1.1); PROTHROMBIN TIME (PATIENT) 17.1 SECONDS (9.0-12.0)
[2016-12-19 06:48] LABS: BUN/CREATININE RATIO 19.4 (10-20); CREATININE 0.98 mg/dl (0.60-1.40); POTASSIUM 4.2 mmol/L (3.5-5.1)
--- NOTE | 2016-12-19 06:49 | Progress Note ---
Progress Note Date of Service Dec 19, 2016. Progress Note He feels well. Denies chest pain shortness breath fever chills nausea vomiting or headache. Pain is well managed with oral meds. Vital signs are stable he's afebrile. Neurovascular check is normal. Wound dressing clean dry and intact. Assessment doing well. We'll discharge on vancomycin 2 g every 12 hours. We' ll follow up on Friday for wound VAC dressing change in the office. We'll need long leg brace applied by Shannon. Plan is to discharge today of transition social worker can arrange antibiotics and braces applied. Continue Coumadin per his normal dose.
--- NOTE | 2016-12-19 06:51 | Discharge Summary ---
Orthopedic Discharge Summary Admission Date/Reason Dec 18, 2016 at 08:40 Right Knee S/P Total Arthroplasty Infection. Discharge Date/Disposition Dec 19, 2016 Home with services Diagnosis Principal Diagnosis: Exchange cement spacer septic right knee. Secondary Diagnoses/Problems: Morbid obesity Lyme disease Procedure(s) Performed Exchange cement arthroplasty I&D right knee. Vaccinations None Consultations Infectious disease Admission Physical Exam As per Admitting History & Physical. Infectious disease follow-up orthopedic follow-up Hospital Course Uneventful Discharge Instructions Please refer to the electronic Patient Visit Report (Discharge Instructions) for additional information.
[2016-12-19] MEDS ORDERED: DEXAMETHASONE INJ 10 MG in SYRINGE 0 ML IV SCH (07:30)
[2016-12-19 08:02] VITALS: BP 132/74; PULSE 85; TEMP 36.8; O2SAT 97
[2016-12-19 08:15] VITALS: O2SAT 97
[2016-12-19] MEDS: DILTIAZEM HCL 180 MG CAPCR PO SCH (08:28)
[2016-12-19] MEDS: DOCUSATE SODIUM 100 MG CAP PO SCH (08:28)
[2016-12-19] MEDS: METOPROLOL TARTRATE 50 MG TAB PO SCH (08:28)
[2016-12-19] MEDS: FERROUS GLUCONATE 324 MG TAB PO SCH ×2 (08:30→11:37)
[2016-12-19] MEDS ORDERED: MULTIVITAMIN TAB PO SCH (09:00)
[2016-12-19] MEDS ORDERED: SPIRONOLACTONE 100 MG TAB PO SCH (09:00)
[2016-12-19] MEDS ORDERED: ASPIRIN 81 MG ECTAB PO SCH (09:00)
[2016-12-19] MEDS ORDERED: ALLOPURINOL 100 MG TAB PO SCH (09:00)
[2016-12-19] MEDS ORDERED: AMIODARONE 200 MG TAB PO SCH (09:00)
[2016-12-19] MEDS ORDERED: PANTOprazole SOD 40 MG TAB PO SCH (09:00)
--- NOTE | 2016-12-19 09:07 | Discharge Instructions ---
Discharge Instructions Date of Service Dec 19, 2016. Admission Reason for Admission: Right Knee S/P Total Arthroplasty Infection Discharge Discharge Diagnosis / Problem: Right knee arthrotomy with cement spacer exchange Discharge Goals Goal(s): Decrease discomfort, Improve function, Increase independence, Improve disease control Activity Recommendations Activity Limitations: as noted below Lifting Limitations: gradually increase as tolerated Exercise/Sports Limitations: until after follow-up appointment Shower/Bathe: keep incision dry Driving or Machine Use: No driving Weightbearing Status: Right weightbearing (as tolerated) Must keep brace on the leg. . Instructions / Follow-Up Instructions / Follow-Up New Medicine: * You will likely be taking one or more of these medications: 1. Percocet - Take, as directed, when you need it, every four to six hours to control your pain. 2. Coumadin - Thins your blood to lessen the chance of forming a blood clot. The dose of this is different for each person and is based on your blood tests that are done twice a week. * The most common side effects of pain medicine and iron are nausea and constipation. If nausea or constipation is too much of a problem or if you have any questions about your new medicines or doses, call [facility] at . We will try to help you manage these issues. VERY IMPORTANT TO READ AND REVIEW" Blood Clots and Blood Thinning Medicine: * You are given Coumadin during the immediate post-operative period to lessen the risk of blood clots forming in your legs and/or lungs. Coumadin is usually given for six weeks after surgery. * The prescription is for 2 mg tablets. At discharge, you should understand your dose and take it all at the same time every day, preferably after dinner. * You need to get your blood checked 1 - 2 times per week for six weeks or as directed. * If your dose needs to change, we will call you. Do not take your medication on the day of the blood test until we call you. Pain: * The immediate post-operative period after knee replacement surgery is often quite painful. * You are given a prescription for pain medicine. You should take it, as directed, when you need it, especially before physical therapy and before going to bed. Pain that interferes with sleep is very common and can last several months. * The most common side effects of pain medicine are nausea and constipation, so don't take more than you need. Physical Therapy: * Taking a pain pill an hour before therapy can help you have a more productive and comfortable therapy session if needed. Walking: * Get up and walk several times each day. For the first four weeks, try not to stand or walk for more than one hour at a time. If you do stand or walk for more than one hour, you will not hurt anything, but your knee and leg will likely swell. * As you feel comfortable, you may change from the walker or crutches to a cane and then to independent walking. SELF CARE INSTRUCTIONS AFTER TOTAL KNEE REPLACEMENT A. You may need to continue a physical therapy program after discharge from the hospital. There are several options available to you. Your doctor will assist you in selecting the best one for you. 1. An out-patient facility 2 to 3 times a week for therapy or home therapy. 2. Continue working on all exercises taught to you in the hospital. B. You may progress at your own pace from walking with a walker or crutches to a cane. C. Make walking a part of your daily routine. Be up as much as comfortable with rest periods throughout the day. Rest with leg elevation is very important. Use the ice wrap frequently for the first 3-4 weeks. D. There are no restrictions on activities. You may ride in a car, shop, participate in deicer inspector pneumatic and all social activities. E. Wear the long elastic stockings (DOC hose) 20 hours a day for six weeks after surgery. They can be removed several times a day for laundering and for a shower. F. Do not place a pillow behind your knee when resting. A pillow at your ankle is okay. VERY IMPORTANT TO READ AND REVIEW A. Take Coumadin, Aspirin or Lovenox (blood thinning medications) as directed by your doctor. If on Coumadin, have a pro-time (blood test) drawn according to your doctor's instructions. This will tell the doctor how well the Coumadin is thinning your blood. 1. YOU WILL BE GIVEN AN ORDER AT DISCHARGE FOR PT/INR (BLOOD WORK). PLEASE HAVE THIS DONE INSTRUCTED. PLEASE CALL OUR OFFICE AFTER YOUR BLOODWORK IS COMPLETE SO WE CAN TRACK YOUR RESULTS. IF YOU ARE GOING TO OUTPATIENT PHYSICAL THERAPY, YOU WILL NEED TO GO TO OUTPATIENT TESTING TO HAVE IT DRAWN. B. There are a few signs you need to watch for after you are home. Call [facility] if you notice any of the followin. Increased severe knee pain. Some pain is expected especially when you exercise. 2. Increased swelling in your leg or knee; pain or swelling of the calf muscle in either lower leg. 3. Any fluid drainage from the incision. 4. Shortness of breath or chest pain. C. Please call [facility] at if you have any concerns or questions about your operation or recovery. The doctor or his nurse will return your call promptly. D. You must take antibiotics before dental work, bladder, bowel or other surgery. Call the office to obtain a prescription at least 2 days prior to your appointment. * CALL IF INCREASED PAIN, REDNESS, DRAINAGE OR FEVER GREATER THAT 101. * Sutures should be removed 12-14 days after surgery unless you are on chronic steriods, then it will be 14-18 days after surgery. Call your doctor if: * Temperature above 101 degrees F. * Pain not relieved by pain medicine ordered. * Increased drainage or redness from incision. * Notify your doctor with any questions or concerns. Current Hospital Diet Patient's current hospital diet: AHA Diet (Heart Healthy) Discharge Diet Recommended Diet: AHA Diet (Heart Healthy) Procedures Procedures Performed: Right Knee: Irrigation and Debridement; Exchange of Cement Spacer; Application of Wound Vac Pending Studies Studies pending at discharge: yes (wound cultures) List of pending studies: wound cultures Medical Emergencies . Who to Call and When: Medical Emergencies: If at any time you feel your situation is an emergency, please call 911 immediately. . Non-Emergent Contact Non-Emergency issues call your: Primary Care Provider, Surgeon Call Non-Emergent contact if: temperature is above 101, wound has increased drainage, wound has increased redness, wound has increased pain, you have any medication questions . "Provider Documentation" section prepared by Robert Ortega PA-C. . VTE Core Measure Inpt VTE Proph given/why not?: Warfarin (Coumadin), T.E.DBritton Islas, SCD's [place] Drug Monitoring Program Search Results: no issues identified
--- NOTE | 2016-12-19 09:58 | Anesthesiology Progress Note ---
Anesthesia Post Op Note Date & Time Dec 19, 2016 at 09:57 Vital Signs Pain Intensity: 0.0 Vital Signs Past 12 Hours Date Time Temp Pulse Resp B/P (MAP) Pulse Ox O2 Delivery O2 Flow Rate FiO2 12/19/16 08:15 97 Room Air 12/19/16 08:02 36.8 85 28 132/74 (93) 97 Room Air 12/19/16 07:24 Room Air 12/19/16 03:03 36.7 56 16 125/66 (85) 96 Room Air 12/18/16 23:30 36.9 94 18 139/72 (94) 95 Room Air Notes Mental Status: alert / awake / arousable, participated in evaluation Pt Amnestic to Procedure: Yes Nausea / Vomiting: adequately controlled Pain: adequately controlled Airway Patency, RR, SpO2: stable & adequate BP & HR: stable & adequate Hydration State: stable & adequate Anesthetic Complications: no major complications apparent
--- NOTE | 2016-12-19 11:12 | Medical Consult ---
Consultation Date of Consultation: Dec 19, 2016. Attending Physician: Blake Saldaña M.D. Reason for Consultation: Antibiotic management History of Present Illness 61-year-old male with morbid obesity, status post initial right knee replacement in 2008, admitted in November 2016 with evidence of infection with preoperative cultures apparently growing coagulase negative Staph. He underwent surgical debridement and exchange, and has been treated with daptomycin since then. He has had persistently elevated sed rate and C reactive protein, and several weeks ago developed draining sinus tracts. He was admitted to the hospital is now undergone removal of the prosthesis and placement of antibiotic cement. Operative Gram stains are negative, and cultures are no growth to date. Patient currently being treated with IV vancomycin. No significant fever or chills. Pain controlled. Of note, patient has been under long-term oral antibiotic therapy for Lyme disease by alternative Lyme provider with doxycycline and cephalosporin. Past Medical/Surgical History Medical Problems: (1) Intractable pain Status: Acute (2) Renal colic on right side Status: Acute Date/Time Source Procedure Growth Status 12/18/16 11:55 Joint Fluid/Space (Synovial) Knee Right Gram Stain - Final Resulted 12/18/16 11:55 Joint Fluid/Space (Synovial) Knee Right Bacterial Culture Pending Resulted 12/18/16 11:30 Joint Fluid/Space (Synovial) Knee Right Gram Stain - Final Resulted 12/18/16 11:30 Joint Fluid/Space (Synovial) Knee Right Bacterial Culture Pending Resulted 12/18/16 12:03 Tissue Knee Right Gram Stain - Final Resulted 12/18/16 12:03 Tissue Knee Right Bacterial Culture Pending Resulted 12/18/16 12:02 Tissue Knee Right Gram Stain - Final Resulted 12/18/16 12:02 Tissue Knee Right Bacterial Culture Pending Resulted 12/18/16 11:46 Drainage-Deep Knee Right Gram Stain - Final Resulted 12/18/16 11:46 Drainage-Deep Knee Right Bacterial Culture Pending Resulted Social History Smoking Status: Never Smoker Drug Use: none Marital Status: Housing Status: lives with family Allergies Coded Allergies: No Known Allergies (Verified , NKDA, 12/18/16) Current Inpatient Medications Current Inpatient Medications Medications (Trade) Dose Ordered Sig/Jatin Route Start Time Stop Time Status Last Admin Dose Admin Potassium Chloride/Dextrose/ Sod Cl 1,000 ml @ 100 mls/hr Q10H IV 12/18/16 16:15 12/19/16 16:14 12/19/16 02:13 100 MLS/HR Ketorolac Tromethamine (Toradol Inj) 30 mg Q6 IV. 12/18/16 18:00 12/19/16 17:59 12/19/16 05:54 30 MG Oxycodone HCl (Roxicodone Immediate Rel Tab) 1 TABLET FOR PAIN RATING... Q4H PRN PO 12/18/16 13:30 01/01/17 13:29 12/19/16 03:09 10 MG Morphine Sulfate (MoRPHine SULFATE INJ) 2 mg Q1H PRN IV 12/18/16 13:30 01/01/17 13:29 Acetaminophen (Tylenol Tab) 650 mg Q6H PRN PO 12/18/16 13:30 01/17/17 13:29 Magnesium Hydroxide (Milk Of Magnesia Susp) 30 ml Q6H PRN PO 12/18/16 13:30 01/17/17 13:29 Docusate Sodium (coLACE CAP) 100 mg BID PO 12/18/16 21:00 01/17/17 20:59 12/19/16 08:28 100 MG Diphenhydramine HCl (Benadryl Inj) 25 mg Q8H PRN IV 12/18/16 13:30 01/17/17 13:29 Al Hydrox/Mg Hydrox/Simethicone (Maalox Max Susp) 15 ml Q4H PRN PO 12/18/16 13:30 01/17/17 13:29 Multivitamins (Multivitamin Tab) 1 tab QAM PO 12/19/16 09:00 01/18/17 08:59 12/19/16 08:30 1 TAB Ondansetron HCl (Zofran Inj) 4 mg Q6H PRN IV 12/18/16 13:30 01/17/17 13:29 Metoclopramide HCl (Reglan Inj) 10 mg Q6H PRN IV 12/18/16 13:30 01/17/17 13:29 Ferrous Gluconate (Ferrous Gluconate Tab) 324 mg TIDM PO 12/18/16 17:45 01/17/17 17:59 12/19/16 08:30 324 MG Pantoprazole Sodium (Protonix Tab) 40 mg QAM PO 12/19/16 09:00 01/18/17 08:59 12/19/16 08:30 40 MG Tamsulosin HCl (Flomax Cap) 0.4 mg QAM PRN PO 12/18/16 13:30 01/17/17 13:29 Allopurinol (Zyloprim Tab) 100 mg QAM PO 12/19/16 09:00 01/18/17 08:59 12/19/16 08:29 100 MG Amiodarone HCl (Cordarone Tab) 300 mg QAM PO 12/19/16 09:00 01/18/17 08:59 12/19/16 08:29 300 MG Aspirin (Ecotrin Tab) 81 mg QAM PO 12/19/16 09:00 01/18/17 08:59 12/19/16 08:29 81 MG Colchicine (Colchicine Tab) 0.6 mg DAILY PRN PO 12/18/16 13:30 01/17/17 13:29 Diltiazem HCl (Cardizem Cd Cap) 180 mg BID PO 12/18/16 21:00 01/17/17 20:59 12/19/16 08:28 180 MG Metoprolol Tartrate (Lopressor Tab) 50 mg BID PO 12/18/16 21:00 01/17/17 20:59 12/19/16 08:28 50 MG Oxycodone HCl (Oxycontin Tab) 30 mg Q12 PRN PO 12/18/16 13:30 01/01/17 13:29 12/18/16 22:41 30 MG Spironolactone (Aldactone Tab) 50 mg QAM PO 12/19/16 09:00 01/18/17 08:59 12/19/16 08:29 50 MG Warfarin Sodium (Coumadin Tab) 8 mg DAILY@1600 PO 12/18/16 16:00 01/17/17 15:59 12/18/16 16:44 8 MG Acetaminophen 100 ml @ 400 mls/hr Q8H PRN IV 12/18/16 13:30 01/17/17 13:29 12/18/16 22:41 400 MLS/HR Morphine Sulfate (MoRPHine SULFATE INJ) 4 mg Q1H PRN IV 12/18/16 15:45 01/01/17 15:44 Hydromorphone HCl (Dilaudid Inj) 1 mg Q2HWA PRN IV 12/18/16 16:45 01/01/17 16:44 Review of Systems All systems were reviewed and are negative except as per HPI Physical Exam Date Time Temp Pulse Resp B/P (MAP) Pulse Ox O2 Delivery O2 Flow Rate FiO2 12/19/16 10:05 36.8 85 28 97 Room Air 12/19/16 08:15 97 Room Air 12/19/16 08:02 36.8 85 28 132/74 (93) 97 Room Air 12/19/16 07:24 Room Air 12/19/16 03:03 36.7 56 16 125/66 (85) 96 Room Air 12/18/16 23:30 36.9 94 18 139/72 (94) 95 Room Air 12/18/16 20:45 90 127/72 (90) 12/18/16 19:30 Room Air 12/18/16 18:40 36.5 88 20 119/78 (92) 98 Room Air 12/18/16 17:41 36.5 84 16 149/80 (103) 97 Room Air 12/18/16 16:40 36.4 89 16 146/78 (100) 100 Nasal Cannula 2.0 12/18/16 16:11 36.4 91 16 124/75 (91) 100 Nasal Cannula 2.0 12/18/16 16:00 Nasal Cannula 2.0 Mask 12/18/16 16:00 Nasal Cannula 2.0 12/18/16 15:27 36.7 12/18/16 15:26 84 24 100 12/18/16 15:26 87 24 12/18/16 15:21 80 16 92 12/18/16 15:21 80 16 12/18/16 15:16 83 18 122/74 97 12/18/16 15:16 83 18 12/18/16 15:11 82 18 12/18/16 15:11 86 18 100 12/18/16 15:06 84 17 99 12/18/16 15:06 87 17 12/18/16 15:05 88 19 12/18/16 15:05 81 19 98 12/18/16 15:01 140/81 12/18/16 15:00 94 17 100 12/18/16 15:00 89 17 12/18/16 14:55 84 18 100 12/18/16 14:55 79 18 12/18/16 14:54 80 19 7/12/17 14:54 80 19 100 12/18/16 14:49 75 16 100 12/18/16 14:49 78 16 12/18/16 14:47 115/71 12/18/16 14:44 36.7 12/18/16 14:44 82 18 100 12/18/16 14:44 84 18 12/18/16 14:43 81 22 12/18/16 14:43 82 22 100 12/18/16 14:41 114/77 12/18/16 14:38 83 19 12/18/16 14:38 85 19 99 12/18/16 14:37 156/62 12/18/16 14:33 81 18 12/18/16 14:33 78 18 99 12/18/16 14:32 129/87 12/18/16 14:29 80 16 12/18/16 14:29 79 16 97 12/18/16 14:26 132/75 12/18/16 14:24 83 21 12/18/16 14:24 77 21 99 12/18/16 14:23 78 20 99 12/18/16 14:23 78 20 12/18/16 14:21 124/75 12/18/16 14:18 74 22 100 12/18/16 14:18 74 22 12/18/16 14:16 126/68 12/18/16 14:13 73 22 99 12/18/16 14:13 76 22 12/18/16 14:12 129/83 12/18/16 14:08 77 22 12/18/16 14:08 73 22 100 12/18/16 14:07 114/93 12/18/16 14:03 78 22 100 12/18/16 14:03 81 22 12/18/16 14:02 83 25 100 12/18/16 14:02 84 25 12/18/16 14:01 134/108 12/18/16 13:57 75 18 100 12/18/16 13:57 76 18 12/18/16 13:56 151/70 12/18/16 13:52 80 18 12/18/16 13:52 76 18 90 12/18/16 13:51 136/80 12/18/16 13:49 77 24 12/18/16 13:49 84 24 100 12/18/16 13:47 140/81 12/18/16 13:44 75 31 12/18/16 13:44 79 31 100 12/18/16 13:42 146/100 12/18/16 13:39 73 23 12/18/16 13:39 72 23 100 12/18/16 13:38 76 25 12/18/16 13:38 74 25 100 12/18/16 13:37 132/67 12/18/16 13:33 75 22 12/18/16 13:33 76 22 99 12/18/16 13:28 74 22 99 12/18/16 13:28 78 22 12/18/16 13:27 160/80 12/18/16 13:23 76 17 12/18/16 13:23 78 17 100 12/18/16 13:22 151/77 12/18/16 13:18 74 17 99 12/18/16 13:18 79 17 12/18/16 13:17 167/82 12/18/16 13:14 160/98 12/18/16 13:13 36.4 79 18 160/98 100 Mask 10 General Appearance: WD/WN, no apparent distress, + obese Head: normocephalic, atraumatic Eyes: normal inspection, EOMI, sclerae normal ENT: normal ENT inspection, hearing grossly normal, pharynx normal Neck: supple, no adenopathy, thyroid normal, trachea midline Respiratory/Chest: chest non-tender, lungs clear, normal breath sounds, no respiratory distress Cardiovascular: regular rate, rhythm, no gallop, no murmur Abdomen/GI: normal bowel sounds, non tender, soft, no organomegaly Back: normal inspection, no CVA tenderness Extremities/Musculoskelatal: no calf tenderness, normal capillary refill Neurologic/Psych: alert, oriented x 3 Skin: normal color, no rash, + pertinent finding ( wound VAC in place right knee) Lymphatic: no adenopathy Laboratory Results Last 24 Hours Test 12/19/16 05:20 White Blood Count 9.95 K/uL Red Blood Count 3.86 M/uL Hemoglobin 11.0 g/dL Hematocrit 35.1 % Mean Corpuscular Volume 90.9 fL Mean Corpuscular Hemoglobin 28.5 pg Mean Corpuscular Hemoglobin Concent 31.3 g/dl RDW Standard Deviation 52.7 fL RDW Coefficient of Variation 16.0 % Platelet Count 436 K/uL Mean Platelet Volume 9.3 fL Prothrombin Time 17.1 SECONDS Prothromb Time International Ratio 1.6 Sodium Level 138 mmol/L Potassium Level 4.2 mmol/L Chloride Level 105 mmol/L Carbon Dioxide Level 24 mmol/L Anion Gap 9.0 mmol/L Blood Urea Nitrogen 19 mg/dl Creatinine 0.98 mg/dl Est Creatinine Clear Calc Drug Dose 130.0 ml/min Estimated GFR () 97.4 Estimated GFR (Non- 84.1 BUN/Creatinine Ratio 19.4 Random Glucose 132 mg/dl Calcium Level 8.0 mg/dl [~ rep ct add3]] RIGHT KNEE 1 OR 2 VIEWS ROUTINE HISTORY:61 yearsMale. Status post revision of infected right knee joint hardware. COMPARISON: Right knee radiographs 12/06/2016 TECHNIQUE: Frontal and crosstable lateral radiographs of the right knee FINDINGS: There is evidence of prior total joint arthroplasty hardware removal. Antibiotic spacers about the knee are again seen with improved alignment of the inferior most space or. The patella is again low riding and is centered at the joint space. There is a large persistent joint effusion which is slightly decreased in size from comparison. There also appears to be some air within the joint space which is likely postsurgical. Previous described large soft tissue fluid collection is no longer appreciated. Multiple centrally lucent calcifications are again seen within the pretibial soft tissues. No bony fracture or dislocation is identified. No erosive changes are seen. IMPRESSION: 1. Antibiotic spacers about the knee are again seen with improved alignment from comparison. 2. Low-lying patella redemonstrated. 3. Large knee joint effusion has slightly decreased in size from comparison. 4. Resolution of the previously noted large pretibial fluid collection. The above report was generated using voice recognition software. It may contain grammatical, syntax or spelling errors. Assessment & Plan 61-year-old male with what appears to be infected right knee prosthesis now status post removal and placement of antibiotic spacer. As discussed with Orthopedics, patient should be continued on IV vancomycin, pharmacy to be consulted for help with dosing. Will need 6 weeks of IV antibiotic therapy. Outpatient therapy being arranged.
[2016-12-19] MEDS ORDERED: NURSING VERBAL MED ORDER ONE (11:30)
[2016-12-19] MEDS ORDERED: VANCOMYCIN CONSULT ACTIVE SCH (11:42)
[2016-12-19 11:45] VITALS: BP 135/79; PULSE 94; TEMP 37; O2SAT 99
--- NOTE | 2016-12-19 11:48 | Pharmacy Progress Note ---
Pharmacy Abx Initial Consult Date of Service Dec 19, 2016. Pharmacy Dosing Scope Date of Consult: 12/19/16 Consultation requested by: Dr. Stacy Pharmacy is consulted to initiate Vancomycin IV dosing therapy, order appropriate labs and adjust drug dose/frequency. Subjective The patient is a 61 year old male admitted on Dec 18, 2016 at 08:40 for infected right knee, s/p I&D, prothesis removal, and antibiotic cement placement. Preop cultures growing coag neg staph. Patient to have 6 weeks IV Vancomycin. Note, patient recently on PO Doxycycline and cephalosporin for Lyme's disease. Objective Height (Feet): 5 Height (Inches): 9.00 Weight (Kilograms): 177.000 Vital Signs (Past 12Hrs) Vital Signs Past 12 Hours Date Time Temp Pulse Resp B/P (MAP) Pulse Ox O2 Delivery O2 Flow Rate FiO2 12/19/16 10:05 36.8 85 28 97 Room Air 12/19/16 08:15 97 Room Air 12/19/16 08:02 36.8 85 28 132/74 (93) 97 Room Air 12/19/16 07:24 Room Air 12/19/16 03:03 36.7 56 16 125/66 (85) 96 Room Air Lab Results (24Hrs) Laboratory Tests (24 Hours) Test 12/19/16 05:20 White Blood Count 9.95 K/uL (4.8-10.8) Micro Results Date/Time Source Procedure Growth Status 12/18/16 11:55 Joint Fluid/Space (Synovial) Knee Right Gram Stain - Final Resulted 12/18/16 11:55 Joint Fluid/Space (Synovial) Knee Right Bacterial Culture Pending Resulted 12/18/16 11:30 Joint Fluid/Space (Synovial) Knee Right Gram Stain - Final Resulted 12/18/16 11:30 Joint Fluid/Space (Synovial) Knee Right Bacterial Culture Pending Resulted 12/18/16 12:03 Tissue Knee Right Gram Stain - Final Resulted 12/18/16 12:03 Tissue Knee Right Bacterial Culture Pending Resulted 12/18/16 12:02 Tissue Knee Right Gram Stain - Final Resulted 12/18/16 12:02 Tissue Knee Right Bacterial Culture Pending Resulted 12/18/16 11:46 Drainage-Deep Knee Right Gram Stain - Final Resulted 12/18/16 11:46 Drainage-Deep Knee Right Bacterial Culture Pending Resulted Risk Factors for Resistance * Antimicrobial use within the last 90 days - Doxycycline and cephalosporin * Morbid obesity Assessment & Plan Assessment 61 year old male morbid obesity, s/p I&D of right infected knee, prothesis removal, placement of antibiotic spacer, now for 6 weeks IV Vancomycin per ID, pre op cultures growing coag neg staph, post op cultures pending. Plan Vancomycin for treatment of infected right knee Vancomycin IV * Due to morbid obesity, no loading dose at this time * Vancomycin 2750 mg IV (15.5 mg/kg) every 8 hours * Patient is young with good renal function, we will dose him at Q8H at this time and possibly lengthen dosing interval after patient's volume is filled. * Goal trough level for infected knee : 15 to 20 mcg/mL * Trough level ordered for 12/20/16, prior to 1200 dose, this will be after patient has received 3 total doses * NOTE: likelihood of drug accumulation in obese patient!!! Pharmacy will continue to follow and will adjust dose/frequency as necessary. Thank you.
[2016-12-19] MEDS ORDERED: VANCOMYCIN INJ 2,750 MG in SODIUM CHLORIDE 0.9% 500ML 500 ML IV SCH (12:00)
[2016-12-19] MEDS ORDERED: VANC1INJ94 IV (13:44)
[2016-12-19] MEDS ORDERED: ERTA1INJ IV (16:23)
[2016-12-20] MEDS ORDERED: VANCOMYCIN TROUGH SCH (11:30)
== END 2016-12-19 16:01 | disposition home health service (06) | DRG 560 ==
LOC: C.ACU 08:19 → C.3E 08:40 → ENRESERV 14:06
PROVIDERS: ADMIT Physical Medicine & Rehabilitation Sports Medicine; ATTEND Physical Medicine & Rehabilitation Sports Medicine
PROC: 0SHC08Z Insertion of Spacer into Right Knee Joint, Open Approach (ICD-10-PCS; principal; 2016-12-18 10:45)
PROC: 0SPC08Z Removal of Spacer from Right Knee Joint, Open Approach (ICD-10-PCS; principal; 2016-12-18 10:45)
DX: T84.53XA Infection and inflammatory reaction due to internal right knee prosthesis, initial encounter (principal); A69.20 Lyme disease, unspecified; Z68.44 Body mass index [BMI] 60.0-69.9, adult; Y79.2 Prosthetic and other implants, materials and accessory orthopedic devices associated with adverse incidents; I10 Essential (primary) hypertension; I48.91 Unspecified atrial fibrillation; N40.0 Benign prostatic hyperplasia without lower urinary tract symptoms; M10.9 Gout, unspecified; G89.29 Other chronic pain; M54.5 Low back pain; G47.33 Obstructive sleep apnea (adult) (pediatric); E66.01 Morbid (severe) obesity due to excess calories; Z89.521 Acquired absence of right knee; Z96.652 Presence of left artificial knee joint; Z95.828 Presence of other vascular implants and grafts; Z79.01 Long term (current) use of anticoagulants; Z79.82 Long term (current) use of aspirin; Z79.2 Long term (current) use of antibiotics; Z79.891 Long term (current) use of opiate analgesic; Z79.899 Other long term (current) drug therapy

== ENCOUNTER → 2016-12-23 | Outpatient (CLI) | payer BC ==
[~2016-12-23] MED LIST changes: -BUPIVACAINE 0.25% 30 ML VIAL ONE; -BUPIVACAINE 0.5 % 5 MG/1 ML PF 10ML VIAL ONE; -DAPT500I IV; +ERTA1INJ IV; -LACTATED RINGER'S 1000ML 1,000 ML IV SCH; -LACTATED RINGER'S 1000ML IV SCH; -TRANEXAMIC ACID INJ 1,000 MG in SODIUM CHLORIDE 0.9% 100ML 100 ML IV SCH; -TRANEXAMIC ACID INJ 1,000 MG in SODIUM CHLORIDE 0.9% 100ML 100 ML TOP SCH; +VANC1INJ94 IV
[2016-12-23 13:33] LABS: PROTHROMBIN TIME (PATIENT) 82.3 SECONDS (9.0-12.0)
[2016-12-23 13:45] LABS: INR 7.1 (0.9-1.1)
== END | disposition home or self-care (01) ==
LOC: C.LAB1850 12:05
PROVIDERS: ATTEND Physician Assistant
DX: Z96.651 Presence of right artificial knee joint (principal)

== ENCOUNTER → 2016-12-27 | Outpatient (CLI) | payer BC ==
[2016-12-27 12:25] LABS: PROTHROMBIN TIME (PATIENT) 22.1 SECONDS (9.0-12.0)
== END | disposition home or self-care (01) ==
LOC: C.LAB1850 10:31
PROVIDERS: ATTEND Physician Assistant
DX: Z96.651 Presence of right artificial knee joint (principal)

== ENCOUNTER → 2017-02-18 | Outpatient (CLI) | payer BC | END | disposition home or self-care (01) | LOC: C.RDSM 14:51 | PROVIDERS: ATTEND Physical Medicine & Rehabilitation Sports Medicine | DX: Z96.651 Presence of right artificial knee joint (principal) ==

== ENCOUNTER → 2017-03-10 | Outpatient (CLI) | payer BC ==
[2017-03-10 16:44] LABS: BASO % 0.4 %; BASO ABS # 0.03 K/uL (0-0.2); COMPLETE YES; EOS % 3.7 %; HEMATOCRIT 44.1 % (42-52); IG% 0.5 %; LYMPH ABS # 1.69 K/uL (1.2-3.4); MEAN CORPUSCULAR HGB CONC 32.2 g/dl (32-36); MEAN PLATELET VOLUME 10.5 fL (7.4-10.4); MONO % 7.1 %; NEUT % 67.3 %; PLATELET COUNT 313 K/uL (130-400); RED BLOOD COUNT 5.07 M/uL (4.7-6.1); WHITE BLOOD COUNT 8.03 K/uL (4.8-10.8)
[2017-03-10 17:15] LABS: SYNOVIAL FLUID APPEARANCE BLOODY; SYNOVIAL FLUID COLOR RED; SYNOVIAL FLUID MONONUC RELAT 48.3 %; SYNOVIAL FLUID POLYNUC RELAT 51.7 %
== END | disposition home or self-care (01) ==
LOC: C.LAB1850 14:58
PROVIDERS: ATTEND Physician Assistant
DX: Z96.651 Presence of right artificial knee joint (principal)

== ENCOUNTER → 2017-03-20 | Outpatient (CLI) | payer BC ==
[2017-03-20 13:17] LABS: BASO % 0.6 %; BASO ABS # 0.06 K/uL (0-0.2); COMPLETE YES; EOS % 2.9 %; HEMATOCRIT 40.5 % (42-52); IG% 3.9 %; LYMPH % 18.1 %; LYMPH ABS # 1.68 K/uL (1.2-3.4); MEAN CELL VOLUME 86.7 fL (80-100); MEAN CORPUSCULAR HEMOGLOBIN 28.3 pg (25-34); MEAN CORPUSCULAR HGB CONC 32.6 g/dl (32-36); MONO % 5.8 %; NEUT % 68.7 %; PLATELET COUNT 427 K/uL (130-400); RED BLOOD COUNT 4.67 M/uL (4.7-6.1); WHITE BLOOD COUNT 9.27 K/uL (4.8-10.8)
[2017-03-20 14:04] LABS: ALT/SGPT 65 U/L (12-78); AST/SGOT 63 U/L (15-37); BLOOD UREA NITROGEN 15 mg/dl (7-18); BUN/CREATININE RATIO 17.5 (10-20); CALCIUM 8.7 mg/dl (8.5-10.1); CARBON DIOXIDE 27 mmol/L (21-32); CHLORIDE 104 mmol/L (98-107); CREATININE 0.88 mg/dl (0.60-1.40); GLUCOSE 153 mg/dl (70-99); SODIUM 140 mmol/L (136-145)
[2017-03-20 14:06] LABS: ALB/GLOB RATIO 0.6 (0.9-2); ALKALINE PHOSPHATASE 140 U/L (45-117)
== END | disposition home or self-care (01) ==
LOC: C.LAB1850 12:12
PROVIDERS: ATTEND Family Medicine
DX: R35.0 Frequency of micturition (principal)

== ENCOUNTER → 2017-04-07 | Outpatient (CLI) | payer BC ==
[~2017-04-07] MED LIST changes: -ERTA1INJ IV; -OXYC15TA89 PO; +OXYC30TA PO; -VANC1INJ94 IV; -WARF2TAB PO; +WARF2TAB8 PO
[2017-04-07 10:06] LABS: BASO % 0.4 %; BASO ABS # 0.04 K/uL (0-0.2); COMPLETE YES; EOS % 3.3 %; HEMATOCRIT 41.8 % (42-52); IG% 0.5 %; LYMPH % 18.6 %; LYMPH ABS # 1.71 K/uL (1.2-3.4); MEAN CELL VOLUME 87.3 fL (80-100); MEAN CORPUSCULAR HEMOGLOBIN 28.6 pg (25-34); MEAN CORPUSCULAR HGB CONC 32.8 g/dl (32-36); MONO % 7.2 %; PLATELET COUNT 349 K/uL (130-400); RED BLOOD COUNT 4.79 M/uL (4.7-6.1); WHITE BLOOD COUNT 9.19 K/uL (4.8-10.8)
[2017-04-07 10:17] LABS: BLOOD UREA NITROGEN 13 mg/dl (7-18); BUN/CREATININE RATIO 16.2 (10-20); C-REACTIVE PROTEIN 1.45 mg/dl (0-0.29); CALCIUM 9.1 mg/dl (8.5-10.1); CARBON DIOXIDE 26 mmol/L (21-32); CHLORIDE 102 mmol/L (98-107); CREATININE 0.83 mg/dl (0.60-1.40); GLUCOSE 140 mg/dl (70-99); INR 2.2 (0.9-1.1); PARTIAL THROMBOPLASTIN RATIO 1.6; POTASSIUM 4.3 mmol/L (3.5-5.1); PROTHROMBIN TIME (PATIENT) 24.7 SECONDS (9.0-12.0); SODIUM 138 mmol/L (136-145)
[2017-04-07 10:24] LABS: URINE APPEARANCE CLOUDY (CLEAR); URINE COLOR DK YELLOW; URINE EPITHELIAL CELL AUTO >30 /lpf (0-5); URINE NITRITE NEG (NEG); URINE SPECIFIC GRAVITY 1.028 (1.000-1.030); UROBILINOGEN NEG (NEG)
[2017-04-07 10:25] LABS: MANUAL MICROSCOPIC REQUIRED? NO; REVIEW REQ? YES
[2017-04-07 10:28] LABS: URINE BILIRUBIN NEG (NEG)
== END | disposition home or self-care (01) ==
LOC: C.LAB1850 08:15
PROVIDERS: ATTEND Physician Assistant
DX: Z01.818 Encounter for other preprocedural examination (principal)

== ENCOUNTER → 2017-04-07 | Outpatient (CLI) | payer BC ==
--- NOTE | 2017-04-07 08:23 | DIAGNOSTIC IMAGING REPORT ---
CHEST 2 VIEWS ROUTINE HISTORY: 61 years-old Male PRE OP TESTING preoperative exam. No acute chest complaints COMPARISON: Chest radiograph 11/07/2016 TECHNIQUE: Portable upright AP view of the chest FINDINGS: There has been interval removal of the previously noted right-sided PICC. Cardiac silhouette is mildly enlarged. No pneumothorax, pleural effusion, focal airspace consolidation or overt pulmonary edema. Mild right hemidiaphragmatic elevation. Bones are grossly intact. Moderate degenerative changes of the bilateral AC joints. IMPRESSION: No acute cardiopulmonary process. The above report was generated using voice recognition software. It may contain grammatical, syntax or spelling errors. Electronically signed by: Kwame King M.D. 04/07/2017 8:22 AM Dictated Date/Time: 04/07/2017 8:21 AM
== END | disposition home or self-care (01) ==
LOC: C.RDSM 07:58
PROVIDERS: ATTEND Physical Medicine & Rehabilitation Sports Medicine
DX: Z01.818 Encounter for other preprocedural examination (principal)

== ENCOUNTER 2017-04-22 04:58 | Inpatient (IN) | payer BC ==
[2017-04-02 07:56] VITALS: BMI 61.0
--- NOTE | 2017-04-08 16:47 | HISTORY & PHYSICAL EXAMINATION ---
DATE OF ADMISSION: 04/22/2017 PREOPERATIVE HISTORY AND PHYSICAL CHIEF COMPLAINT: Right knee retained cement spacer. HISTORY OF PRESENT ILLNESS: This 61-year-old white male presents to the office with complaints of retained cement spacer. He previously had a long complicated medical history. He previously had a right total knee arthroplasty done in February 2009. He did well with that for a number of years. He developed increasing pain in the knee, this past spring. He has a history of Lyme disease for several years and has been on oral antibiotics for 6-7 years. He fell earlier in the spring while descending some steps. There was never break in the skin or open wound. He did develop a right knee effusion. He had a right knee aspirate in mid October of this year that was suggestive of infection. He had removal of his hardware done on November 06. He continued to drain serosanguineous fluid at that time and developed a small sinus tract. He did have an extended period of time with a wound VAC in place. Due to the draining sinus, he was taken back to the OR 12/18/2016 for replacement of the cement spacer, new cultures, and excision of the sinus. He did well subsequently. He did have another wound VAC postoperatively. Pain has decreased entirely and he has been able to wear weight while in his knee brace. At this point, he has completed his 6 weeks of IV antibiotics and has been cleared by his PCP, infectious disease, and account management specialist for revision implantation. He elects to proceed with a right knee conversion of cement spacer to total knee arthroplasty using revision implants on 04/22/2017. Currently, he has atrial fibrillation that is controlled and he is in a sinus rhythm. He did require cardioversion in January of this year. PAST MEDICAL HISTORY: Significant for persistent atrial fibrillation. Cardioversion in July 2006, 2007, July 2008, and January 2017. Hypertension, left ventricular hypertrophy, obstructive sleep apnea, morbid obesity, osteoarthritis, Lyme disease, chronic low back pain, BPH, history of gout, and kidney stones. PREVIOUS SURGERIES: Tonsillectomy, cholecystectomy, appendectomy, right knee arthroscopy; cardioversion, 2006, 2007, 2008, and 2016. Right total knee arthroplasty in February 2009. Left total knee arthroplasty in December 2010. Cystoscopy in March 2016. Lithotripsy in April 2016. Removal of right knee hardware with insertion of a cement spacer in 11/06/2016. Cement spacer replacement and sinus tract excision, right knee in 12/18/2016. FAMILY HISTORY: Significant for arrhythmias, atrial fibrillation, cancer, congestive heart failure, scoliosis, diabetes, Guillain-[place] syndrome, [place], heart attack, elevated lipids, hypertension, hypothyroidism, and a history of TIAs. ALLERGIES: NKDA. CURRENT MEDICATIONS: Amiodarone 200 mg b.i.d., metoprolol 50 mg b.i.d., aspirin 81 mg daily, spironolactone 50 mg daily, vitamin B daily, multivitamin daily, Coumadin 4 mg daily, and colchicine 0.6 mg p.o. p.r.n. SOCIAL HISTORY: The patient is . Lives with his . He is retired. No tobacco use, no ETOH use. REVIEW OF SYSTEMS: Significant for above-stated conditions, otherwise unremarkable. PHYSICAL EXAMINATION: GENERAL: Well-developed, well-nourished, morbidly obese middle aged white male, in no acute distress. Sitting on a wheelchair. There is a brace on his right leg. Last weight today is 184.9 kilograms. BMI is 60.2. Alert and oriented x3. No acute distress. SKIN: Warm and dry with good turgor. No rashes. He does have some dry skin on the right knee. Well-healed surgical incision. No edema or erythema. HEENT: Normocephalic, atraumatic. EYES: PERRLA, EOMI. Nares patent bilaterally without turbinate enlargement. Oropharynx without erythema or exudate. No lesions noted. Uvula midline. Oral mucosa moist. Fair dentition. HEART: RRR. No MGR. No PVCs or irregular beats are heard. LUNGS: Clear to auscultation bilaterally. No crackles, rhonchi or wheezing. Good air movement. ABDOMEN: Morbidly obese. Bowel sounds present x4, soft, nontender. No organomegaly. No masses. MUSCULOSKELETAL: Right knee has a well-healed surgical incision. No drainage. No erythema or warmth. No intraarticular effusion. No significant motion due to his cement spacer. He is able to perform a straight leg raise. No significant discomfort with palpation around the knee today. Intact motor function to the ankle. Stable collateral ligaments. NEUROLOGIC: Gross sensation is intact across the upper and lower extremities by soft touch. Cranial nerves II-XII are intact. DATA: Radiographic imaging previously obtained shows a retained cement spacer. IMPRESSION: Right knee retained cement spacer. PLAN: The patient and his were educated regarding surgical risks and outcomes. Conservative care measures were discussed. He has been cleared by medicine, cardiology and infectious disease. He is aware of the multitude complications that may arise. These were discussed in detail by Dr. Saldaña. An informed written consent to proceed with surgery has been obtained. Postoperative prescriptions for Percocet and Coumadin will be provided at discharge from the hospital. Anticipate discharge to home with home health services. Preoperative lab work and chest x-ray have been obtained. He has a recent EKG. Sed rate and C-reactive protein were also ordered. MTDD
[~2017-04-22] VITALS: Ht 172.7 cm; Wt 181.8 kg
[2017-04-22] VITALS (7 sets, daily range): BP systolic 126–184; BP diastolic 62–77; PULSE 65–81; TEMP 36.6–37.2; O2SAT 93–98; Ht 172.7 cm; Wt 181.8 kg
[2017-04-22] MEDS ORDERED: TRANEXAMIC ACID INJ 1,000 MG in SODIUM CHLORIDE 0.9% 100ML 100 ML TOP SCH (06:00)
[2017-04-22] MEDS ORDERED: VANCOMYCIN INJ 2,000 MG in SODIUM CHLORIDE 0.9% 500ML 500 ML IV SCH ×2 (06:00→18:00)
[2017-04-22] MEDS ORDERED: VANCOMYCIN INJ 2,750 MG in SODIUM CHLORIDE 0.9% 500ML 500 ML IV SCH (06:00)
[2017-04-22] MEDS ORDERED: CEFAZOLIN 3000MG IV PUSH 15 ML IV SCH (06:00)
[2017-04-22] MEDS ORDERED: ROPIVACAINE 5MG/ML 30 ML 150 MG, BUPIVACAINE 0.5% MPF INJ 30 ML, EpINEphrine HCL INJ 0.... INFIL SCH ×8 (06:00)
[2017-04-22] MEDS ORDERED: ROPIVACAINE 5MG/ML 30 ML 150 MG, BUPIVACAINE/EPINEPHR 0.5% MPF 30 ML, KETOROLAC TROMETH... INFIL SCH ×7 (06:00)
[2017-04-22] MEDS ORDERED: LACTATED RINGER'S 1000ML IV SCH (06:00)
[2017-04-22] MEDS ORDERED: BUPIVACAINE 0.5 % 5 MG/1 ML PF 10ML VIAL ONE (06:18)
[2017-04-22] MEDS ORDERED: BUPIVACAINE 0.25% 30 ML VIAL ONE (06:18)
--- NOTE | 2017-04-22 06:23 | History & Physical Bridge Note ---
H&P Re-Evaluation Bridge Note: I have examined the patient, reviewed the History & Physical and in the interval since the performance of the History & Physical I have noted the following changes of clinical significance: consent reviewed, labs still pending for PT/INR.No changes noted
[2017-04-22] MEDS ORDERED: TRANEXAMIC ACID INJ 1,000 MG in SODIUM CHLORIDE 0.9% 100ML 100 ML TOP ONE (06:30)
[2017-04-22 06:31] LABS: PARTIAL THROMBOPLASTIN RATIO 1.1; PROTHROMBIN TIME (PATIENT) 11.2 SECONDS (9.0-12.0)
[2017-04-22] MEDS ORDERED: ORTHO JOINT ANESTHETIC ONE (06:31)
[2017-04-22] MEDS ORDERED: POVIDONE-IODINE OP SOLN 30 ML BTL ONE (06:31)
[2017-04-22] MEDS ORDERED: MIDAZOLAM HCL 1 MG/ML 2ML VIAL ONE (06:34)
[2017-04-22] MEDS ORDERED: FENTANYL CITRATE INJ 50 MCG/1 ML 2 ML VIAL ONE (06:35)
[2017-04-22] MEDS ORDERED: VANCOMYCIN HCL 1000MG/20ML VIAL ONE (06:48)
[2017-04-22] MEDS ORDERED: GENTAMICIN SULFATE 40 MG/ML 2 ML VIAL ONE (06:49)
[2017-04-22] MEDS ORDERED: SUCCINYLCHOLINE CHLORIDE 20 MG/ML 10 ML VIAL IV ONE (07:39)
[2017-04-22] MEDS ORDERED: NEOSTIGMINE METHYLSULFATE 5 MG/5 ML SYR ONE (07:39)
[2017-04-22] MEDS ORDERED: CISATRACURIUM BESYLATE IV SOLN 2 MG/ML 10 ML VIAL ONE (07:39)
[2017-04-22] MEDS ORDERED: EpHEDrine SULFATE INJ 50 MG/ML AMP ONE (07:39)
[2017-04-22] MEDS ORDERED: PROPOFOL IV EMULSION 10 MG/ML 20 ML VIAL IV ONE (07:39)
[2017-04-22] MEDS ORDERED: DEXAMETHASONE SOD INJ 4 MG/ML VIAL ONE (07:39)
[2017-04-22] MEDS ORDERED: GLYCOPYRROLATE INJ 0.2 MG/ML VIAL ONE (07:39)
[2017-04-22] MEDS ORDERED: LIDOCAINE HCL 2% 2 ML VIAL (20MG/ML) ONE (07:39)
[2017-04-22] MEDS ORDERED: ONDANSETRON INJ 2 MG/ML 2 ML VIAL ONE (07:39)
[2017-04-22] MEDS ORDERED: PHENYLEPHRINE HCL INJ 10 MG/ML VIAL ONE (07:39)
[2017-04-22] MEDS ORDERED: KETAMINE HCL INJ 50 MG/ML 10 ML VIAL ONE (07:40)
[2017-04-22] MEDS ORDERED: HYDROmorphone INJ 2 MG/ML SYR/VIAL ONE ×3 (07:42→11:12)
[2017-04-22] MEDS ORDERED: TRANEXAMIC ACID 100 MG/ML 10 ML AMP TOP ONE (09:22)
[2017-04-22] MEDS ORDERED: ACETAMINOPHEN 1000 MG/100 ML IV IV ONE (09:31)
--- NOTE | 2017-04-22 10:17 | [facility] Post Operative Brief Note ---
Immediate Operative Summary Operative Date Apr 22, 2017. Pre-Operative Diagnosis Right Knee Retained Cement Spacer Post-Operative Diagnosis Right Knee Retained Cement Spacer Procedure(s) Performed Revision Right Knee Open Conversion of Cement Spacer to Total Knee Arthroplasty Surgeon Dr. Saldaña Sous Chef Surgeon(s) MARY ELLEN Wilcox Estimated Blood Loss 100cc Findings retained spacer/preop cultures negative x2 Fluids (cc crystalloids) 2000cc Specimens Culture #1--Right Knee Synovium--sent for routine culture and sensitivity, gram stain, aerobes and anaerobes--sent to lab at 0744 Drains none Anesthesia GET Complication(s) None Disposition Recovery Room / PACU
[2017-04-22] MEDS ORDERED: ACETAMINOPHEN 325 MG TAB PO PRN (10:30)
[2017-04-22] MEDS ORDERED: OXYCODONE HCL IR 5 MG TAB (IMMEDIATE RELEASE) PO PRN (10:30)
[2017-04-22] MEDS ORDERED: MAGNESIUM HYDROXIDE SUSP 30 ML UDC PO PRN (10:30)
[2017-04-22] MEDS ORDERED: BISACODYL 10 MG SUPP PR PRN (10:30)
[2017-04-22] MEDS ORDERED: METOCLOPRAMIDE HCL INJ 5 MG/ML 2 ML VIAL IV PRN (10:30)
[2017-04-22] MEDS ORDERED: TAMSULOSIN HCL 0.4 MG CAP PO PRN (10:30)
[2017-04-22] MEDS ORDERED: HYDROmorphone INJ 1 MG/ML SYR IV PRN ×2 (10:30→10:45)
[2017-04-22] MEDS ORDERED: DiphenhydrAMINE HCL 50 MG/ML VIAL IV PRN (10:30)
[2017-04-22] MEDS ORDERED: ALUMINUM/MAGNESIUM/SIMETH (MAALOX MAX) 30 ML UDC PO PRN (10:30)
[2017-04-22] MEDS ORDERED: ACETAMINOPHEN IV 100 ML IV PRN (10:30)
[2017-04-22] MEDS ORDERED: ONDANSETRON INJ 2 MG/ML 2 ML VIAL IV PRN ×2 (10:30→10:45)
[2017-04-22] MEDS ORDERED: EpHEDrine SULFATE INJ 50 MG/ML AMP IV PRN (10:45)
[2017-04-22] MEDS ORDERED: NALOXONE HCL 0.4 MG/1 ML VIAL/CARP IV PRN (10:45)
[2017-04-22] MEDS ORDERED: ATROPINE SULFATE 0.1 MG/ML 5ML SYR IV PRN (10:45)
[2017-04-22] MEDS ORDERED: LABETALOL HCL IV 5 MG/ML 20ML IV PRN (10:45)
[2017-04-22] MEDS ORDERED: PROMETHAZINE HCL INJ 12.5 MG in SODIUM CHLORIDE 0.9% 50ML 50 ML IV PRN (10:45)
[2017-04-22] MEDS ORDERED: FLUMAZENIL 0.1 MG/1 ML 10 ML VIAL IV PRN (10:45)
--- NOTE | 2017-04-22 10:51 | [facility] Operative Report ---
Operative Report Operative Date Apr 22, 2017. Pre-Operative Diagnosis Right Knee Retained Cement Spacer Post-Operative Diagnosis Right Knee Retained Cement Spacer Procedure(s) Performed Revision Right Knee Open Conversion of Cement Spacer to Total Knee Arthroplasty Surgeon Dr. Saldaña Car Inspection And Repair Manager Surgeon(s) MARY ELLEN Doe Estimated Blood Loss 100cc Findings Please see Dr. Saldaña's operative report Fluids 2000cc Specimens Culture #1--Right Knee Synovium--sent for routine culture and sensitivity, gram stain, aerobes and anaerobes--sent to lab at 0744 Drains none Anesthesia GET Complication(s) None Disposition Recovery Room / PACU Indications This 61-year-old white male presented to the office with a retained antibiotic cement spacer in his knee after previous infected total knee arthroplasty. He is ready for revision at this time. He has been afebrile. He has completed all of his antibiotics. Risks and benefits have been discussed. Preoperative imaging has been obtained. Description of Procedure Patient was taken to the operating room and given general anesthesia. He was prepped and draped in usual sterile fashion. Please see Dr. Saldaña's operative report for specifics of the procedure. I was present for the entire case from initial patient positioning through final wound closure. Assistance was provided in tissue traction, hemostasis, removal of the cement spacer, trial implant placement, final implant placement, and final wound closure. Patient was taken to the recovery room in satisfactory condition. I attest to the content of the Intraoperative Record and any orders documented therein. Any exceptions are noted below.
[2017-04-22] MEDS ORDERED: HYDROmorphone HCL 2 MG TAB PO PRN (11:00)
--- NOTE | 2017-04-22 11:05 | DIAGNOSTIC IMAGING REPORT ---
R KNEE 1 OR 2 VIEWS ROUTINE HISTORY: 61 years-old Male AP/LATERAL IN PACU RIGHT KNEE status post placement of a hinged right knee arthroplasty COMPARISON: Right knee radiograph 02/18/2017 TECHNIQUE: AP and lateral views of the right knee FINDINGS: Postoperative changes compatible with placement of a hinged right knee total joint arthroplasty. Alignment is satisfactory. No para prosthetic fracture. Previously noted antibiotic spacer has been removed. Multiple antibiotic beads are now present within the joint space. There is expected postoperative swelling and deep tissue air about the knee. IMPRESSION: 1. Status post placement of a hinged right knee total joint arthroplasty with satisfactory alignment. 2. Multiple antibiotic beads of the right knee joint space. The above report was generated using voice recognition software. It may contain grammatical, syntax or spelling errors. Electronically signed by: Kwame King M.D. 04/22/2017 11:04 AM Dictated Date/Time: 04/22/2017 11:01 AM
--- NOTE | 2017-04-22 11:12 | PROGRESS NOTE ---
DATE: 04/22/2017 Postop check status post revision/conversion cement spacer to right total knee replacement. The patient is comfortable. Pain is well managed with Dilaudid. Denies any chest pain, shortness of breath, fever, chills, nausea, vomiting or headache. Vital signs are stable, he is afebrile. Abdomen is soft, nontender. Wound dressing clean, dry and intact. Neurovascular check, femoral sciatic nerve bilaterally normal. Postop x-rays, AP and lateral of the right knee reveal well-positioned cemented revision right total knee replacement with Stimulan beads. ASSESSMENT: Doing well postop. Continue with appropriate postop care pathway. Continue IV antibiotics. Start weightbearing but do not allow knee motion for 4 weeks.
[2017-04-22] MEDS ORDERED: HYDROmorphone INJ 2 MG/ML SYR/VIAL IV PRN (11:30)
--- NOTE | 2017-04-22 11:35 | OPERATIVE REPORT ---
DATE OF OPERATION: 04/22/2017 SURGEON: Dr. Saldaña. EXPERIMENTAL MACHINING LAB MANAGER: Robert Ortega PA-C. No resident or fellow available. 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 POSTOPERATIVE DIAGNOSIS: Same. OPERATION PERFORMED: Conversion of cement spacer to revision right total knee replacement using Sigma femoral knee TC3 system, rotating platform. PERIOPERATIVE SITUATION: Medically cleared male who has had clearance from his barge pilot and infectious disease specialist, has had 2 negative cultures with an antibiotic holiday of roughly 6 weeks with negative alpha defensin of his right knee. At this point in time, we will proceed with right total knee revision. He notes that he is morbidly obese and that he is at high risk. This was discussed in detail with him and his family. Again operation is revision right total knee replacement with conversion from cement spacer articulating type right knee. DESCRIPTION OF PROCEDURE: The patient was properly identified, site verified, consent verified, and 3 grams of Ancef confirmed as being given and 2 grams of vancomycin confirmed as being given. The right lower extremity was prepped and draped in the usual routine fashion. Tourniquet was inflated to 350 mmHg after exsanguination of limb with a rubber Esmarch bandage for a total of 116 minutes. Midline exposure. This was used. Full thickness flaps raised. A lot of scarring was noted. Parapatellar arthrotomy was performed. There was a lot of encasement of the extensor mechanism. This was tediously dissected free to free up the mechanism. Once the mechanism could be everted, the knee was then flexed and the cement spacer was removed. The tibia was removed in 1 piece. The femur was removed in half. The Versajet was then used to clean up all the tissues on the femur to the tibia and the soft tissues and then the tibia was then opened up with a reamer and it was reamed up to a size 12. The femur was then reamed up to a size 16. The tibia was then appropriately reamed and then broached and a size 5 platform with a size 45-mm sleeve was placed. The femur was then addressed next and it was then reamed and then broached up to a size 31. Excellent rotational stability was obtained. Distal femoral cutting block was then applied. The femur was then resected. Very minimal resection. It was then sized between a 4 and 5 and a size 4 was elected and the cutting block placed in with a 0 degree bolt. Care taken not to notch anteriorly. Pins were placed and then, the anterior and posterior condylar and chamfer cuts made. The flexion gap was then noted to be excellent. The TC3 notch cutter was then placed and the cut was made. The trial femur then fit well and spacing with up to a 17.5 spacer was noted to provide excellent stability and excellent extension. The patella was then trimmed to bleeding bone. After cleaned up of soft tissue and left about 17 mm patella, it was elected to resurface this. Three holes were then made and the patella was then placed and it tracked well. The wound was then copiously irrigated. TXA was then applied and then once this was in for several minutes, it was irrigated with Pulsavac, Betadine and then Pulsavac again and then the permanent cemented into position. After 12 minutes, the tourniquet deflated. After 14 minutes, the knee flexed. The trial spacer removed. Minor cement removal occurred. Wound was irrigated with Betadine Pulsavac and then the permanent liner seated. The knee reduced and irrigated one more time with saline and then the Stimulan beads with vancomycin and gentamicin placed. It was 10 mL, 1 gram of vancomycin and 240 mg of gentamicin. The wound was then closed with interrupted #2 Vicryl sutures in a [id number] fashion and the entire capsule was able to be closed nicely. Both proximally and distally, the extensor mechanism was intact. The wound was irrigated 1 final time and then closed with #2 Vicryl for deep fat, 2-0 Vicryl for subcutaneous layer and horizontal vertical mattress of 2-0 Prolene sutures for skin. ESTIMATED BLOOD LOSS: 100 mL. CRYSTALLOID: 2000 mL SUMMARY OF IMPLANTS: On the femur, size 4 TC3, femoral adapter, femoral adapter bolt, 0 posterior augment combo cemented size 4, posterior augment combo size 4, universal stem fluted 75 x 16 and universal 4 sleeve distal 31 mm. Rotating platform, tibia size 5, metaphyseal sleeve porous size 45, universal stem fluted 75 x 12 and tibial insert match for the femur size 4, 17.5 mm thick, oval domed 3 pegged patella size 41, 2 bags of Palacos G cement. The patient was then transferred to recovery room in satisfactory condition, having tolerated the procedure well. DVT prophylaxis will be with Coumadin. I attest to the content of the Intraoperative Record and any orders documented therein. Any exceptions are noted below. MTDD
--- NOTE | 2017-04-22 11:51 | Anesthesiology Progress Note ---
Anesthesia Post Op Note Date & Time Apr 22, 2017 at 11:50 Vital Signs Pain Intensity: 7 Vital Signs Past 12 Hours Date Time Temp Pulse Resp B/P (MAP) Pulse Ox O2 Delivery O2 Flow Rate FiO2 04/22/17 11:38 67 21 04/22/17 11:38 67 21 98 04/22/17 11:36 167/72 04/22/17 11:33 65 18 94 04/22/17 11:33 65 18 04/22/17 11:32 160/110 04/22/17 11:28 68 18 99 04/22/17 11:28 68 18 04/22/17 11:27 69 23 04/22/17 11:27 70 23 97 04/22/17 11:26 135/63 04/22/17 11:22 65 29 04/22/17 11:22 66 29 172/61 100 04/22/17 11:20 36.9 68 18 135/63 99 Nasal Cannula 4 04/22/17 11:17 64 19 04/22/17 11:17 64 19 99 04/22/17 11:16 159/93 04/22/17 11:12 65 22 04/22/17 11:12 66 22 163/64 100 04/22/17 11:07 67 24 04/22/17 11:07 67 24 168/51 100 04/22/17 11:02 66 23 97 04/22/17 11:02 66 23 04/22/17 11:01 169/70 04/22/17 11:00 167/ 04/22/17 10:57 67 21 04/22/17 10:57 67 21 99 04/22/17 10:56 69 18 04/22/17 10:56 69 18 164/123 100 04/22/17 10:51 68 21 04/22/17 10:51 69 21 99 04/22/17 10:50 69 22 99 04/22/17 10:50 69 22 04/22/17 10:46 161/138 04/22/17 10:45 69 20 99 04/22/17 10:45 69 20 04/22/17 10:41 173/86 04/22/17 10:40 70 17 04/22/17 10:40 70 17 100 04/22/17 10:36 166/86 04/22/17 10:35 70 20 04/22/17 10:35 70 20 99 04/22/17 10:30 71 24 04/22/17 10:30 36.4 71 20 157/71 100 Mask 10 04/22/17 10:30 71 24 157/71 99 04/22/17 05:39 36.8 65 20 184/66 97 Room Air Notes Mental Status: alert / awake / arousable, participated in evaluation Pt Amnestic to Procedure: Yes Nausea / Vomiting: adequately controlled Pain: adequately controlled Airway Patency, RR, SpO2: stable & adequate BP & HR: stable & adequate Hydration State: stable & adequate Anesthetic Complications: no major complications apparent
[2017-04-22] MEDS ORDERED: D5W AND 1/2NSS + 20MEQ KCL 1,000 ML IV SCH (13:15)
[2017-04-22] MEDS: FERROUS GLUCONATE 324 MG TAB PO SCH ×2 (13:40→18:38)
[2017-04-22] MEDS: KETOROLAC TROMETHAMINE 30 MG/ML VIAL IV. SCH ×2 (13:41→20:35)
--- NOTE | 2017-04-22 14:45 | PROGRESS NOTE ---
DATE: 04/22/2017 Postop check. In the afternoon, he is doing well. He is eating fine. He has no nausea or vomiting. He denies chest pain, shortness of breath, fever or chills. He notes his pain is well managed. Vital signs are stable. He is afebrile. Neurovascular check, he has normal femoral and sciatic nerve. Wound dressing is clean, dry and intact. Splints are in place. ASSESSMENT: Doing well. Can be up and ambulatory. He is eating well. Can discontinue IV at 1600 hours, Hep-Lock. Continue IV antibiotic treatment. We will follow up in a.m. for dressing change and Prevena placement. He also will be placed in a locked range of motion brace.
[2017-04-22] MEDS ORDERED: WARFARIN SOD 5 MG TAB PO SCH (16:00)
[2017-04-22] MEDS: DOCUSATE SODIUM 100 MG CAP PO SCH (20:33)
[2017-04-22] MEDS: METOPROLOL TARTRATE 50 MG TAB PO SCH (20:35)
[2017-04-22] MEDS: DILTIAZEM HCL 180 MG CAPCR PO SCH (20:35)
[2017-04-22] MEDS: AMIODARONE 200 MG TAB PO SCH (20:35)
[2017-04-23] MEDS: KETOROLAC TROMETHAMINE 30 MG/ML VIAL IV. SCH ×2 (02:52→09:02)
[2017-04-23 03:46] VITALS: BP 146/70; PULSE 76; TEMP 36.9; O2SAT 99
[2017-04-23 05:57] LABS: HEMATOCRIT 35.6 % (42-52); MEAN CELL VOLUME 87.9 fL (80-100); MEAN CORPUSCULAR HEMOGLOBIN 28.9 pg (25-34); MEAN CORPUSCULAR HGB CONC 32.9 g/dl (32-36); MEAN PLATELET VOLUME 9.5 fL (7.4-10.4); PLATELET COUNT 303 K/uL (130-400); RED BLOOD COUNT 4.05 M/uL (4.7-6.1); WHITE BLOOD COUNT 12.44 K/uL (4.8-10.8)
[2017-04-23 06:07] LABS: PROTHROMBIN TIME (PATIENT) 11.2 SECONDS (9.0-12.0)
[2017-04-23 06:26] LABS: BUN/CREATININE RATIO 21.9 (10-20); CALCIUM 8.9 mg/dl (8.5-10.1); CREATININE 0.99 mg/dl (0.60-1.40); POTASSIUM 4.6 mmol/L (3.5-5.1)
[2017-04-23 08:11] VITALS: BP 165/72; PULSE 64; TEMP 36.8; O2SAT 96
[2017-04-23 08:23] VITALS: O2SAT 96
--- NOTE | 2017-04-23 08:37 | Orthopedic Progress Note ---
Orthopedic Progress Note Date of Service Apr 23, 2017. Subjective Post OP Day: 1 Reports: feeling well, pain controlled w PO medications, Denies: complaints, chest pain, SOB, nausea / vomiting, light headedness, calf pain Objective calves soft nontender, N/V intact, splint C/D/I, capillary refill less than 2 sec., dressing C/D/I, A&O x3, toes mobile Tolerates ankle ROM right foot, distal pulses 1+ Date Time Temp Pulse Resp B/P (MAP) Pulse Ox O2 Delivery O2 Flow Rate FiO2 04/23/17 08:23 96 Room Air 04/23/17 08:11 36.8 64 14 165/72 (103) 96 Room Air 04/23/17 03:46 36.9 76 20 146/70 (95) 99 Room Air 04/23/17 00:45 Room Air 04/22/17 23:10 37.0 78 20 145/62 (89) 94 Room Air 04/22/17 20:41 37.0 78 18 95 Room Air 04/22/17 20:34 81 126/77 (93) 04/22/17 15:20 Room Air 04/22/17 14:57 36.8 74 19 149/62 (91) 94 Room Air 04/22/17 13:58 37.2 71 19 136/67 (90) 93 Room Air 04/22/17 12:00 98 Nasal Cannula 2.0 04/22/17 12:00 98 Nasal Cannula 2.0 04/22/17 12:00 36.6 67 20 173/72 (105) 98 Nasal Cannula 2.0 04/22/17 11:55 36.3 67 19 162/71 98 Nasal Cannula 4 04/22/17 11:38 67 21 04/22/17 11:38 67 21 98 04/22/17 11:36 167/72 04/22/17 11:33 65 18 94 04/22/17 11:33 65 18 04/22/17 11:32 160/110 04/22/17 11:28 68 18 99 04/22/17 11:28 68 18 04/22/17 11:27 69 23 04/22/17 11:27 70 23 97 04/22/17 11:26 135/63 04/22/17 11:22 65 29 04/22/17 11:22 66 29 172/61 100 04/22/17 11:20 36.9 68 18 135/63 99 Nasal Cannula 4 04/22/17 11:17 64 19 04/22/17 11:17 64 19 99 04/22/17 11:16 159/93 04/22/17 11:12 65 22 04/22/17 11:12 66 22 163/64 100 04/22/17 11:07 67 24 04/22/17 11:07 67 24 168/51 100 04/22/17 11:02 66 23 97 04/22/17 11:02 66 23 04/22/17 11:01 169/70 04/22/17 11:00 167/ 04/22/17 10:57 67 21 04/22/17 10:57 67 21 99 04/22/17 10:56 69 18 04/22/17 10:56 69 18 164/123 100 04/22/17 10:51 68 21 04/22/17 10:51 69 21 99 04/22/17 10:50 69 22 99 04/22/17 10:50 69 22 04/22/17 10:46 161/138 04/22/17 10:45 69 20 99 04/22/17 10:45 69 20 04/22/17 10:41 173/86 04/22/17 10:40 70 17 04/22/17 10:40 70 17 100 04/22/17 10:36 166/86 04/22/17 10:35 70 20 04/22/17 10:35 70 20 99 04/22/17 10:30 71 24 04/22/17 10:30 36.4 71 20 157/71 100 Mask 10 04/22/17 10:30 71 24 157/71 99 Laboratory Results 24 Hours: Test 04/23/17 05:38 Hematocrit 35.6 % Hemoglobin 11.7 g/dL Prothromb Time International Ratio 1.0 Prothrombin Time 11.2 SECONDS Assessment & Plan Assessment: POD 1 - right knee revision total knee replacement; removal cement spacer Plan: OOB/WBAT RLE with walker assistance Regular diet as tolerated PT/OT today. Keep dressings in place, Dr. Saldaña plans to do dressing change and Prevena wound vac placement later today. Patient didn't receive Coumadin last evening, will order 10mg po now. He will not need another dose tonight. H/H stable - continue to monitor SS for disposition. Will discuss findings with Dr. Saldaña.
[2017-04-23] MEDS: DOCUSATE SODIUM 100 MG CAP PO SCH (08:57)
[2017-04-23] MEDS: AMIODARONE 200 MG TAB PO SCH (08:58)
[2017-04-23] MEDS: METOPROLOL TARTRATE 50 MG TAB PO SCH (08:58)
[2017-04-23] MEDS: DILTIAZEM HCL 180 MG CAPCR PO SCH (08:58)
[2017-04-23] MEDS: FERROUS GLUCONATE 324 MG TAB PO SCH ×2 (08:59→12:30)
[2017-04-23] MEDS ORDERED: MULTIVITAMIN TAB PO SCH (09:00)
[2017-04-23] MEDS ORDERED: WARFARIN SOD 10 MG TAB PO ONE (09:00)
[2017-04-23] MEDS ORDERED: ALLOPURINOL 100 MG TAB PO SCH (09:00)
[2017-04-23] MEDS ORDERED: SPIRONOLACTONE 100 MG TAB PO SCH (09:00)
[2017-04-23] MEDS ORDERED: PANTOprazole SOD 40 MG TAB PO SCH (09:00)
[2017-04-23] MEDS ORDERED: ASPIRIN 81 MG ECTAB PO SCH (09:00)
[2017-04-23 11:04] VITALS: BP 136/72; PULSE 80; O2SAT 96
[2017-04-23 11:25] VITALS: BP_SYST 146; PULSE 74; TEMP 36.8; O2SAT 96
--- NOTE | 2017-04-23 12:58 | Discharge Instructions ---
Discharge Instructions Date of Service Apr 23, 2017. Admission Reason for Admission: Right Knee S/P Conversion To Total Knee Arthroplas Discharge Discharge Diagnosis / Problem: Right knee s/p total knee replacement revision Discharge Goals Goal(s): Decrease discomfort, Improve function, Increase independence, Improve disease control Activity Recommendations Activity Limitations: as noted below Lifting Limitations: gradually increase as tolerated Exercise/Sports Limitations: until after follow-up appointment Shower/Bathe: keep incision dry Driving or Machine Use: No driving until cleared by Dr. Saldaña Weightbearing Status: Right weightbearing (as tolerated with brace on) . Instructions / Follow-Up Instructions / Follow-Up New Medicine: * You will likely be taking one or more of these medications: 1. Dilaudid - Take, as directed, when you need it, every four to six hours to control your pain. 3. Coumadin - Thins your blood to lessen the chance of forming a blood clot. The dose of this is different for each person and is based on your blood tests that are done twice a week. * The most common side effects of pain medicine and iron are nausea and constipation. If nausea or constipation is too much of a problem or if you have any questions about your new medicines or doses, call [facility] at . We will try to help you manage these issues. VERY IMPORTANT TO READ AND REVIEW" Blood Clots and Blood Thinning Medicine: * You are given Coumadin during the immediate post-operative period to lessen the risk of blood clots forming in your legs and/or lungs. Coumadin is usually given for six weeks after surgery. * The prescription is for 2 mg tablets. At discharge, you should understand your dose and take it all at the same time every day, preferably after dinner. * You need to get your blood checked 1 - 2 times per week for six weeks or as directed. * If your dose needs to change, we will call you. Do not take your medication on the day of the blood test until we call you. Pain: * The immediate post-operative period after knee replacement surgery is often quite painful. * You are given a prescription for pain medicine. You should take it, as directed, when you need it, especially before physical therapy and before going to bed. Pain that interferes with sleep is very common and can last several months. * You will likely need pain medicine for the first four to six weeks. It will not stop all of the pain. The pain will lessen and as you feel better, you may change to milder pain medicine such as Tylenol. * The most common side effects of pain medicine are nausea and constipation, so don't take more than you need. Physical Therapy: * You will have physical therapy two or three times each week for four to six weeks after your surgery in order to regain your knee range of motion and to retrain your knee to work properly. * It is just as important to make sure you are getting your knee perfectly straight as it is to regain your knee bend. * Taking a pain pill an hour before therapy can help you have a more productive and comfortable therapy session if needed. Home Exercise: * You were shown a series of exercises (heel props, heel slides, etc.) in the hospital. Do these exercises three to four times each day including the exercises you were shown in physical therapy. Walking: * Get up and walk several times each day. For the first four weeks, try not to stand or walk for more than one hour at a time. If you do stand or walk for more than one hour, you will not hurt anything, but your knee and leg will likely swell. * As you feel comfortable, you may change from the walker or crutches to a cane and then to independent walking. SELF CARE INSTRUCTIONS AFTER TOTAL KNEE REPLACEMENT A. You may need to continue a physical therapy program after discharge from the hospital. There are several options available to you. Your doctor will assist you in selecting the best one for you. 1. An out-patient facility 2 to 3 times a week for therapy or home therapy. 2. Continue working on all exercises taught to you in the hospital. Your goals should be to increase bending of your knee to 90 degrees and beyond and to fully straighten your knee. B. You may progress at your own pace from walking with a walker or crutches to a cane; then to no assistive devices. C. Make walking a part of your daily routine. Be up as much as comfortable with rest periods throughout the day. Rest with leg elevation is very important. Use the ice wrap frequently for the first 3-4 weeks. D. There are no restrictions on activities. You may ride in a car, shop, participate in nursing information systems coordinator and all social activities. E. Wear the long elastic stockings (DOC hose) 20 hours a day for six weeks after surgery. They can be removed several times a day for laundering and for a shower. F. Do not place a pillow behind your knee when resting. A pillow at your ankle is okay. VERY IMPORTANT TO READ AND REVIEW A. Take Coumadin, Aspirin or Lovenox (blood thinning medications) as directed by your doctor. If on Coumadin, have a pro-time (blood test) drawn according to your doctor's instructions. This will tell the doctor how well the Coumadin is thinning your blood. 1. YOU WILL BE GIVEN AN ORDER AT DISCHARGE FOR PT/INR (BLOOD WORK). PLEASE HAVE THIS DONE INSTRUCTED. PLEASE CALL OUR OFFICE AFTER YOUR BLOODWORK IS COMPLETE SO WE CAN TRACK YOUR RESULTS. IF YOU ARE GOING TO OUTPATIENT PHYSICAL THERAPY, YOU WILL NEED TO GO TO OUTPATIENT TESTING TO HAVE IT DRAWN. B. There are a few signs you need to watch for after you are home. Call [facility] if you notice any of the followin. Increased severe knee pain. Some pain is expected especially when you exercise. 2. Increased swelling in your leg or knee; pain or swelling of the calf muscle in either lower leg. 3. Any fluid drainage from the incision. 4. Shortness of breath or chest pain. C. Please call [facility] at if you have any concerns or questions about your operation or recovery. The doctor or his nurse will return your call promptly. D. You must take antibiotics before dental work, bladder, bowel or other surgery. Call the office to obtain a prescription at least 2 days prior to your appointment. * CALL IF INCREASED PAIN, REDNESS, DRAINAGE OR FEVER GREATER THAT 101. * Sutures should be removed 12-14 days after surgery unless you are on chronic steriods, then it will be 14-18 days after surgery. Call your doctor if: * Temperature above 101 degrees F. * Pain not relieved by pain medicine ordered. * Increased drainage or redness from incision. * Notify your doctor with any questions or concerns. Current Hospital Diet Patient's current hospital diet: Regular Diet Discharge Diet Recommended Diet: Regular Diet Procedures Procedures Performed: Revision Right Knee Open Conversion of Cement Spacer to Total Knee Arthroplasty Pending Studies Studies pending at discharge: yes List of pending studies: tissue culture Medical Emergencies . Who to Call and When: Medical Emergencies: If at any time you feel your situation is an emergency, please call 911 immediately. . Non-Emergent Contact Non-Emergency issues call your: Primary Care Provider, Surgeon Call Non-Emergent contact if: temperature is above 101 . "Provider Documentation" section prepared by Robert Ortega PA-C. . VTE Core Measure Inpt VTE Proph given/why not?: Warfarin (Coumadin), Jerrod Islas, SCD's [place] Drug Monitoring Program Search Results: no issues identified
[2017-04-23 13:00] VITALS: BP 146/72; PULSE 74; TEMP 36.8; O2SAT 96
[2017-04-23] MEDS ORDERED: HYDR2TAB48 PO (13:01)
[2017-04-23] MEDS ORDERED: CEFAZOLIN SOD 2000MG/10 ML IV PUSH IV ONE (13:15)
--- NOTE | 2017-04-23 13:21 | PROGRESS NOTE ---
DATE: 04/23/2017 Postop day #1 status post revision right total knee replacement with removal of cement spacer. At this point in time, the patient has done well. His vital signs are stable. He is afebrile. His pain is well managed. His pulses are regular and below 80. Cultures are negative to date. Gram stain was negative. Wound dressing changed. Prevena put on. The wound is clean and dry. Neurovascular check femoral sciatic nerve is normal. ASSESSMENT: Doing well and desires to go home. He can be weightbearing as tolerated with the brace on. Put Prevena on, put the brace on, everything looks good. I had him walk in the room. He is stable with the walker. Will discharge today. We will place on Ceftin 500 mg p.o. b.i.d. He also use that for his Lyme disease. Follow up with us on Friday. Will not move his knee until the wound is completely healed between 2 and 3 weeks.
[2017-04-23] MEDS ORDERED: CEFAZOLIN IV 2,000 MG in SYRINGE 0 ML IV ONE (13:30)
--- NOTE | 2017-04-23 13:31 | DISCHARGE SUMMARY ---
CHIEF COMPLAINT: Right knee pain. HISTORY OF PRESENT ILLNESS: The patient is an unfortunate male who had infection delayed 9 years post-total knee replacement. Had a cement spacer in for the several months. He has had 2 cultures aspirated in the office off antibiotics, sent to 2 different labs and both have had no growth, alpha defensin was negative. He has been cleared by infectious disease and cardiology. He underwent a removal of cement spacer and revision right total knee replacement yesterday and has done incredibly well. He states he has not felt this well in several months. He has been afebrile. His wound is clean and dry. A Prevena was placed, will keep his knee straight for 2-3 weeks as long as the incision is healing well. We will not move it prior to that. History of present illness again as noted above. At this point in time he was admitted for elective exchange from cement spacer to total knee replacement. Intraoperative cultures and Gram stain were negative to date. PAST MEDICAL HISTORY: Remarkable for atrial fibrillation, multiple cardioversions, hypertension, left ventricular hypertrophy, obstructive sleep apnea, morbid obesity, osteoarthritis, chronic Lyme disease, chronic low back pain, BPH, history of gout, kidney stones. PAST SURGICAL HISTORY: Include tonsillectomy, cholecystectomy, appendectomy, knee arthroscopies, cardioversions, total knee replacement February 2009, left total knee replacement December 2010, cystoscopy 2015, lithotripsy April 2016, removal of right knee hardware insertion of cement spacer on 11/06/2016 with revision and rewash out on 12/18/2016 for chronic drainage. FAMILY HISTORY: Remarkable for significant arrhythmias, atrial fibrillation, cancer, congestive heart failure, scoliosis, diabetes, Guillain-Advance syndrome, coronary artery disease, elevated lipids, hypertension, hypothyroidism and TIAs. ALLERGIES: None. PREADMISSION MEDICATIONS: Include amiodarone 200 mg p.o. b.i.d., metoprolol 50 mg b.i.d., aspirin 81 mg daily, spironolactone 50 mg daily, vitamin B12 daily, multivitamin daily, Coumadin 4 mg daily, colchicine 0.6 mg p.o. p.r.n. SOCIAL HISTORY: Reveals he is and lives with his . He is retired. No tobacco or alcohol use. REVIEW OF SYSTEMS: Reveals no chest pain, shortness of breath, fever, chills, nausea, vomiting or headache. HOSPITAL COURSE: Has been uneventful, he is doing well. He is ambulatory. His pain is well managed. His postop x-rays look excellent. His intraoperative cultures are negative. ASSESSMENT: Doing well status post revision total knee replacement, will discharge today. Weightbearing to tolerance with knee immobilizer on, Prevena in place. Follow up on Friday for wound check. Placed on Ceftin 500 mg p.o. b.i.d. for both his Lyme disease and for his potential wound. Will follow up with us in 4-5 days. Discharge on 4 mg of Coumadin daily. Check INR on Friday. Of note is that his sed rate and C-reactive protein are also chronically elevated based on this chronic Lyme disease.
== END 2017-04-23 14:50 | disposition home or self-care (01) | DRG 467 ==
LOC: C.ACU 04:58 → C.3E 06:25 → ENRESERV 11:27
PROVIDERS: ADMIT Physical Medicine & Rehabilitation Sports Medicine; ATTEND Physical Medicine & Rehabilitation Sports Medicine
PROC: 0SRC0J9 Replacement of Right Knee Joint with Synthetic Substitute, Cemented, Open Approach (ICD-10-PCS; principal; 2017-04-22 07:00)
PROC: 0SPC08Z Removal of Spacer from Right Knee Joint, Open Approach (ICD-10-PCS; principal; 2017-04-22 07:00)
DX: Z47.33 Aftercare following explantation of knee joint prosthesis (principal); I48.1 Persistent atrial fibrillation; Z68.44 Body mass index [BMI] 60.0-69.9, adult; A69.20 Lyme disease, unspecified; I11.9 Hypertensive heart disease without heart failure; E66.01 Morbid (severe) obesity due to excess calories; Z79.899 Other long term (current) drug therapy; Z79.2 Long term (current) use of antibiotics; Z79.01 Long term (current) use of anticoagulants; Z79.82 Long term (current) use of aspirin; Z96.653 Presence of artificial knee joint, bilateral; Z82.49 Family history of ischemic heart disease and other diseases of the circulatory system; Z83.3 Family history of diabetes mellitus; Z82.3 Family history of stroke; Z83.49 Family history of other endocrine, nutritional and metabolic diseases; Z82.69 Family history of other diseases of the musculoskeletal system and connective tissue; Z82.0 Family history of epilepsy and other diseases of the nervous system

== ENCOUNTER → 2017-04-28 | Outpatient (CLI) | payer BC ==
[~2017-04-28] MED LIST changes: +HYDR2TAB48 PO
[2017-04-28 16:57] LABS: INR 1.7 (0.9-1.1); PROTHROMBIN TIME (PATIENT) 18.1 SECONDS (9.0-12.0)
== END | disposition home or self-care (01) ==
LOC: C.LAB1850 15:11
PROVIDERS: ATTEND Physician Assistant
DX: Z96.651 Presence of right artificial knee joint (principal)

== ENCOUNTER → 2017-05-05 | Outpatient (CLI) | payer BC ==
[~2017-05-05] MED LIST changes: -HYDR2TAB48 PO
[2017-05-05 15:39] LABS: INR 1.6 (0.9-1.1); PROTHROMBIN TIME (PATIENT) 17.3 SECONDS (9.0-12.0)
== END | disposition home or self-care (01) ==
LOC: C.LAB1850 14:21
PROVIDERS: ATTEND Physician Assistant
DX: Z51.81 Encounter for therapeutic drug level monitoring (principal)

== ENCOUNTER → 2017-05-14 | Outpatient (CLI) | payer BC ==
[2017-05-14 16:59] LABS: INR 1.9 (0.9-1.1); PROTHROMBIN TIME (PATIENT) 19.4 SECONDS (9.0-12.0)
== END | disposition home or self-care (01) ==
LOC: C.LAB1850 15:14
PROVIDERS: ATTEND Physical Medicine & Rehabilitation Sports Medicine
DX: Z96.651 Presence of right artificial knee joint (principal)

== ENCOUNTER → 2017-07-28 | Outpatient (CLI) | payer BC | END | disposition home or self-care (01) | LOC: C.RDSM 10:33 | PROVIDERS: ATTEND Physical Medicine & Rehabilitation Sports Medicine | DX: Z96.651 Presence of right artificial knee joint (principal) ==

== ENCOUNTER → 2017-12-31 | Outpatient (CLI) | payer BC ==
[~2017-12-31] MED LIST changes: -ASPEC81 PO; +ASPI-320 PO
[2017-12-31 18:04] LABS: ALBUMIN 3.4 gm/dl (3.4-5.0); ALKALINE PHOSPHATASE 180 U/L (45-117); ALT/SGPT 94 U/L (12-78); AST/SGOT 95 U/L (15-37); BLOOD UREA NITROGEN 15 mg/dl (7-18); CALCIUM 8.7 mg/dl (8.5-10.1); CARBON DIOXIDE 28 mmol/L (21-32); CREATININE 1.15 mg/dl (0.60-1.40); GLUCOSE 140 mg/dl (70-99); POTASSIUM 3.8 mmol/L (3.5-5.1); SODIUM 140 mmol/L (136-145); TOTAL PROTEIN 8.2 gm/dl (6.4-8.2)
[2018-01-01 06:04] LABS: HEMOGLOBIN A1C 6.9 % (4.5-5.6)
== END | disposition home or self-care (01) ==
LOC: C.LAB1850 16:30
PROVIDERS: ATTEND Nurse Practitioner
DX: R73.09 Other abnormal glucose (principal); R94.6 Abnormal results of thyroid function studies

== ENCOUNTER → 2018-01-20 | Outpatient (CLI) | payer BC ==
[2018-01-20 12:15] LABS: HEMATOCRIT 43.6 % (42-52); HEMOGLOBIN 14.6 g/dL (14.0-18.0); MEAN CELL VOLUME 94.2 fL (80-100); MEAN CORPUSCULAR HEMOGLOBIN 31.5 pg (25-34); MEAN CORPUSCULAR HGB CONC 33.5 g/dl (32-36); MEAN PLATELET VOLUME 11.4 fL (7.4-10.4); PLATELET COUNT 274 K/uL (130-400); RED CELL DISTRIBUTION WIDTH CV 15.8 % (11.5-14.5); RED CELL DISTRIBUTION WIDTH SD 54.1 fL (36.4-46.3); WHITE BLOOD COUNT 10.92 K/uL (4.8-10.8)
[2018-01-20 12:35] LABS: ALBUMIN 3.3 gm/dl (3.4-5.0); ALKALINE PHOSPHATASE 196 U/L (45-117); ALT/SGPT 85 U/L (12-78); AST/SGOT 77 U/L (15-37); BLOOD UREA NITROGEN 14 mg/dl (7-18); CALCIUM 8.9 mg/dl (8.5-10.1); CARBON DIOXIDE 27 mmol/L (21-32); CREATININE 0.98 mg/dl (0.60-1.40); GLUCOSE 152 mg/dl (70-99); POTASSIUM 3.7 mmol/L (3.5-5.1); SODIUM 139 mmol/L (136-145); TOTAL PROTEIN 7.6 gm/dl (6.4-8.2); URIC ACID 6.1 mg/dl (2.6-7.2)
== END | disposition home or self-care (01) ==
LOC: C.LAB1850 09:50
PROVIDERS: ATTEND Internal Medicine
DX: A69.20 Lyme disease, unspecified (principal); Z79.2 Long term (current) use of antibiotics; R53.83 Other fatigue

== ENCOUNTER 2019-05-08 12:39 | Inpatient (IN) ==
[2019-05-08 13:58] LABS: Basophils # (auto) 0.02 K/uL (0-0.2); Basophils % (auto) 0.1 %; Eosinophils # (auto) 0.01 K/uL (0-0.5); Eosinophils % (auto) 0.1 %; Hematocrit (blood only) 37.8 % (42-52); Hemoglobin 12.5 g/dL (14.0-18.0); Immature Granulocytes # (auto) 0.05 K/uL (0.00-0.02); Immature Granulocytes % (auto) 0.4 %; Lymphocytes # (auto) 0.95 K/uL (1.2-3.4); Lymphocytes % (auto) 6.8 %; Mean Corpuscular Hemoglobin 31.2 pg (25-34); Mean Corpuscular Hgb Conc 33.1 g/dL (32-36); Mean Corpuscular Volume 94.3 fL (80-100); Mean Platelet Volume 10.5 fL (7.4-10.4); Monocytes # (auto) 0.74 K/uL (0.11-0.59); Monocytes % (auto) 5.3 %; Neutrophils # (auto) 12.11 K/uL (1.4-6.5); Neutrophils % (auto) 87.3 %; Platelet Count 335 K/uL (130-400); RDW Coefficient of Variation 16.1 % (11.5-14.5); RDW Standard Deviation 55.3 fL (36.4-46.3); Red Blood Count 4.01 M/uL (4.7-6.1); White Blood Count 13.88 K/uL (4.8-10.8)
--- NOTE | 2019-05-08 14:03 | XRay Report ---
XR chest 1V portable CLINICAL HISTORY: Dyspnea dyspnea COMPARISON STUDY: 04/14/2018 FINDINGS: Moderate cardiomegaly. Moderate increase in prominence of the pulmonary vasculature. Small right pleural effusion. IMPRESSION: Congestive heart failure The above report was generated using voice recognition software. It may contain grammatical, syntax or spelling errors. Electronically signed by: Andry Toscano M.D. 05/08/2019 2:02 PM
[2019-05-08 14:15] LABS: Albumin Level 2.6 gm/dl (3.4-5.0); BUN Creatinine Ratio 27.5 (10-20); Calcium 9.1 mg/dl (8.5-10.1); Creatinine Clr Calc Pharmacy 96.5 ml/min; Est GFR (African American) 59.3; Est GFR (Non-African American) 51.2; Potassium 4.2 mmol/L (3.5-5.1)
[2019-05-08 14:20] LABS: Albumin Globulin Ratio 0.6 (0.9-2); Bilirubin,Total 1.4 mg/dl (0.2-1); Globulin 4.5 gm/dl (2.5-4.0); Total Protein 7.1 gm/dl (6.4-8.2)
[2019-05-08 14:29] LABS: INR 1.5 (0.9-1.1); Partial Thromboplastin Ratio 1.3; Partial Thromboplastin Time 34.7 Seconds (21.0-31.0); Prothrombin Time 14.8 Seconds (9.0-12.0)
[2019-05-08] MEDS ORDERED: FUROSEMIDE 40 MG/4 ML VIAL IV STA ×2 (14:38→19:35)
--- NOTE | 2019-05-08 14:59 | Ultrasound Report ---
US venous doppler LE RT CLINICAL HISTORY: right leg swelling eval for dvt PAIN. EDEMA. COMPARISON STUDY: No previous studies for comparison. FINDINGS: Real-time and color flow Doppler imaging were performed. Flow was seen within the femoral, popliteal and calf veins with no intraluminal thrombus demonstrated. The saphenous vein is patent. IMPRESSION: No evidence of deep venous thrombosis. The above report was generated using voice recognition software. It may contain grammatical, syntax or spelling errors. Electronically signed by: Andry Toscano M.D. 05/08/2019 2:58 PM
[2019-05-08] MEDS ORDERED: DAPTOmycin 525 MG in SYRINGE 0 ML IV STA (15:36)
--- NOTE | 2019-05-08 16:43 | Emergency Department Note ---
Entered by Cheyenne Jenkins acting as a scribe for History of Present Illness General Chief complaint: Shortness of Breath/Dyspnea Stated complaint: FULL OF FLUID, POSSIBLE LEFT LEG INFECTION Time Seen by Provider: 05/08/19 12:50 Source: patient and family () History of Present Illness Onset (ago): week(s) 5 Location: chest Pain Consistency: + other (persistent) Quality: + other (illness, SOB) Exacerbated By: + other (not being on CPAP, oxygen, lying flat ) Associated symptoms: + cough (chronic ), + shortness of breath and + other (Positive redness and swelling to his right leg. Negative hx of lung problems, fevers, vomiting, or abdominal pain); no chest pain The patient is a 63 year old male who presents to the ED with complaints of an illness. He has a hx of Afib and is on Eliquis. He states for the past 5 weeks, he has had persistent SOB. He states he can breathe without difficulty as long as he has CPAP and is on oxygen. Lying flat worsens his SOB. His SOB worsened today. He has had no workup for this by his PCP, whom he and his had to beg for a chest xray which was ordered but not performed. He states a new home health nurse came in today for assessment as he is unable to care for himself. She noticed his right leg was very red and warm, so she recommended he go to the ED for further evaluation. The patient notes his right leg has always been bigger than the left for the past 3 years after his bilateral knee replacements. He is accompanied by his who reports he has had a cough for years. The patient denies any hx of lung problems. He denies COPD or CHF the patient denies any chest pain, fevers, vomiting, or abdominal pain. His states that for the past 2 weeks, the patient has only eaten 1 bowl of oatmeal and 1 bottle of ensure a day, but he has gained 50 pounds. The patient states whenever he eats, he has a metallic taste in his mouth. Home Medications Home Medications Medication Instructions Recorded Confirmed Type aspirin [Aspir-81] 81 mg PO DAILY 04/14/18 05/08/19 History cefuroxime axetil 500 mg PO QID 04/14/18 05/08/19 History cholecalciferol (vitamin D3) 1,000 unit PO DAILY 04/14/18 05/08/19 History diltiazem HCl [Cardizem LA] 180 mg PO BID 04/14/18 05/08/19 History lactobacillus combination no.4 0 mmu cells PO DAILY 04/14/18 05/08/19 History [Probiotic] metoprolol tartrate 50 mg PO BID 04/14/18 05/08/19 History multivitamin [Multiple Vitamins] 1 tab PO DAILY 04/14/18 05/08/19 History vitamin B complex 1 tab PO DAILY 04/14/18 05/08/19 History allopurinol 100 mg PO DAILY 05/08/19 05/08/19 History apixaban [Eliquis] 5 mg PO DAILY 05/08/19 05/08/19 History furosemide 40 mg PO DAILY 05/08/19 05/08/19 History zinc 50 mg PO DAILY 05/08/19 05/08/19 History Allergies Allergy/AdvReac Type Severity Reaction Status Date / Time No Known Allergies Allergy NKDA Verified 05/08/19 13:52 Past Med/Surg History Medical History 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 and A total of 10 systems reviewed and were otherwise negative Physical Exam Vital Signs Vital Signs - 24 hr 05/08/19 12:50 05/08/19 12:56 05/08/19 13:03 Temperature 36.9 C Temperature Source Oral Pulse Rate 82 Pulse Rate [Apical] Pulse Rate from SpO2 Sensor Pulse Rhythm Regular Pulse Strength Normal Respiratory Rate 24 Respiratory Effort / Characteristics Non-Labored Spontaneous Respiratory Depth Normal Respiratory Pattern Regular Blood Pressure 183/112 H Blood Pressure Mean 135 Blood Pressure Position Sitting Pulse Oximetry 100 85 L 100 Oxygen Delivery Method Ambu-Bag Room Air Non-rebreather Non-rebreather Oxygen Flow Rate 15 10 10 Sepsis Recent Fever Within 48 Hours No Sepsis Action Taken by Nursing No Action Required Pulse Oximetry Post Tiitration 100 05/08/19 14:31 05/08/19 14:35 05/08/19 15:19 Temperature Temperature Source Pulse Rate 86 82 Pulse Rate [Apical] 91 H Pulse Rate from SpO2 Sensor 88 94 H Pulse Rhythm Pulse Strength Respiratory Rate 25 H 24 28 H Respiratory Effort / Characteristics Spontaneous Respiratory Depth Normal Respiratory Pattern Regular Blood Pressure 128/113 H 142/61 H Blood Pressure Mean 116 88 Blood Pressure Position Pulse Oximetry 98 94 96 Oxygen Delivery Method Nasal Cannula Oxygen Flow Rate 3 4 2 Sepsis Recent Fever Within 48 Hours Sepsis Action Taken by Nursing Pulse Oximetry Post Tiitration 05/08/19 15:39 05/08/19 15:42 Temperature Temperature Source Pulse Rate Pulse Rate [Apical] Pulse Rate from SpO2 Sensor Pulse Rhythm Pulse Strength Respiratory Rate Respiratory Effort / Characteristics Respiratory Depth Respiratory Pattern Blood Pressure Blood Pressure Mean Blood Pressure Position Pulse Oximetry 90 87 L Oxygen Delivery Method Room Air Room Air Oxygen Flow Rate Sepsis Recent Fever Within 48 Hours Sepsis Action Taken by Nursing Pulse Oximetry Post Tiitration Constitutional: Vital signs reviewed. Eyes: Pupils are equal round reactive to light. Conjunctiva are noninjected. ENT: Pharynx is clear without erythema or exudate. Mucous membranes are moist. Neck supple without meningeal signs. Respiratory: Clear to auscultation bilaterally. Breath sounds are equal bilaterally. Cardiovascular: Regular rate and rhythm. No rubs or gallops. GI: Soft, nondistended and nontender. Bowel sounds are present. Large pannus without tenderness. Musculoskeletal: BLE edema, worse on the right side with erythema and increased warmth anteriorly to the right thigh and LE. Integumentary: No cyanosis. Neurological: The patient is awake and alert. No focal deficits. Psychiatric: Normal affect. Course Course 1253: Past medical records reviewed. The patient was evaluated in room A3. A complete history and physical exam was performed. 1440: I reevaluated the patient. I updated him on his test results. He is going to ultrasound. 1525: I reevaluated the patient. I discussed his test results with him and his family at length. 1533: Discussed the patient's case with Dr. Mehulic, [facility]. The patient will be evaluated for further management. Administered Medications Discontinued Medications Furosemide (Lasix) 40 mg IV NOW STA Stop: 05/08/19 14:39 Last Admin: 05/08/19 15:21 Dose: 40 mg Documented by: [id number] Daptomycin 525 mg/ Syringe 10.5 mls @ 5.25 mls/min IV NOW STA; Protocol Stop: 05/08/19 15:37 Last Admin: 05/08/19 16:29 Dose: 5.25 mls/min Documented by: [id number] Critical Care Time Total Critical Care Time: 35 I have personally spent approximately 35 minutes of critical care time in the direct management of this patient. This includes bedside care, interpretation of diagnostic studies, and testing, discussion with consultants, patient, and family members, and other required patient management activities. These minutes are in excess of all separately billable procedures. Medical Decision Making Differential Diagnosis Differential diagnosis: Etiologies such as pneumonia, CHF, pulmonary edema, anemia, lymphedema, cellulitis, DVT, as well as others were entertained. Medical Records Attestation: I reviewed the patient's medical records. I did perform a limited focused review of portions of the patient's old chart on the electronic medical record. He was seen here on 04/14/19 for a fall and SOB. He had a fracture of the distal right clavicle. He could not fit in the CT scann er, so he was transferred to a trauma center to evaluate for further injury. Home Medications Current Medication List: was personally reviewed by me Laboratory Data Attestation: I reviewed the patient's lab results. Result diagrams: 05/08/19 13:41 05/08/19 13:41 Lab Results 05/08/19 05/08/19 05/08/19 Range/Units 13:41 13:41 13:41 WBC 13.88 H (4.8-10.8) K/uL RBC 4.01 L (4.7-6.1) M/uL Hgb 12.5 L (14.0-18.0) g/dL Hct 37.8 L (42-52) % MCV 94.3 (80-100) fL MCH 31.2 (25-34) pg MCHC 33.1 (32-36) g/dL RDW Std Deviation 55.3 H (36.4-46.3) fL RDW Coeff of Ericka 16.1 H (11.5-14.5) % Plt Count 335 (130-400) K/uL MPV 10.5 H (7.4-10.4) fL Immature Gran % (Auto) 0.4 % Neut % (Auto) 87.3 % Lymph % (Auto) 6.8 % Lake % (Auto) 5.3 % Eos % (Auto) 0.1 % Baso % (Auto) 0.1 % Immature Gran # (Auto) 0.05 H (0.00-0.02) K/uL Neut # (Auto) 12.11 H (1.4-6.5) K/uL Lymph # (Auto) 0.95 L (1.2-3.4) K/uL Lake # (Auto) 0.74 H (0.11-0.59) K/uL Eos # (Auto) 0.01 (0-0.5) K/uL Baso # (Auto) 0.02 (0-0.2) K/uL PT 14.8 H (9.0-12.0) Seconds INR 1.5 H (0.9-1.1) APTT 34.7 H (21.0-31.0) Seconds PTT Ratio 1.3 Sodium 136 (136-145) mmol/L Potassium 4.2 (3.5-5.1) mmol/L Chloride 100 (98-107) mmol/L Carbon Dioxide 30 (21-32) mmol/L Anion Gap 6.0 (3-11) BUN 40 H (7-18) mg/dl Creatinine 1.46 H (0.6-1.4) mg/dl Est Cr Clr Drug Dosing 96.5 ml/min Est GFR ( Amer) 59.3 Est GFR (Non-Af Amer) 51.2 BUN/Creatinine Ratio 27.5 H (10-20) Glucose 152 H (70-99) mg/dl Calcium 9.1 (8.5-10.1) mg/dl Total Bilirubin 1.4 H (0.2-1) mg/dl AST 58 H (15-37) U/L ALT 41 (12-78) U/L Alkaline Phosphatase 165 H (45-117) U/L POC Troponin I (0-0.045) ng/ml NT-Pro-B Natriuret Pep 399 (0-900) pg/ml Total Protein 7.1 (6.4-8.2) gm/dl Albumin 2.6 L (3.4-5.0) gm/dl Globulin 4.5 H (2.5-4.0) gm/dl Albumin/Globulin Ratio 0.6 L (0.9-2) 05/08/19 Range/Units 13:57 WBC (4.8-10.8) K/uL RBC (4.7-6.1) M/uL Hgb (14.0-18.0) g/dL Hct (42-52) % MCV (80-100) fL MCH (25-34) pg MCHC (32-36) g/dL RDW Std Deviation (36.4-46.3) fL RDW Coeff of Ericka (11.5-14.5) % Plt Count (130-400) K/uL MPV (7.4-10.4) fL Immature Gran % (Auto) % Neut % (Auto) % Lymph % (Auto) % Lake % (Auto) % Eos % (Auto) % Baso % (Auto) % Immature Gran # (Auto) (0.00-0.02) K/uL Neut # (Auto) (1.4-6.5) K/uL Lymph # (Auto) (1.2-3.4) K/uL Lake # (Auto) (0.11-0.59) K/uL Eos # (Auto) (0-0.5) K/uL Baso # (Auto) (0-0.2) K/uL PT (9.0-12.0) Seconds INR (0.9-1.1) APTT (21.0-31.0) Seconds PTT Ratio Sodium (136-145) mmol/L Potassium (3.5-5.1) mmol/L Chloride (98-107) mmol/L Carbon Dioxide (21-32) mmol/L Anion Gap (3-11) BUN (7-18) mg/dl Creatinine (0.6-1.4) mg/dl Est Cr Clr Drug Dosing ml/min Est GFR ( Amer) Est GFR (Non-Af Amer) BUN/Creatinine Ratio (10-20) Glucose (70-99) mg/dl Calcium (8.5-10.1) mg/dl Total Bilirubin (0.2-1) mg/dl AST (15-37) U/L ALT (12-78) U/L Alkaline Phosphatase (45-117) U/L POC Troponin I < 0.03 (0-0.045) ng/ml NT-Pro-B Natriuret Pep (0-900) pg/ml Total Protein (6.4-8.2) gm/dl Albumin (3.4-5.0) gm/dl Globulin (2.5-4.0) gm/dl Albumin/Globulin Ratio (0.9-2) Imaging Data Radiologist's Impression: Radiology results as stated below per my review and the radiologist's interpretation: US venous doppler LE RT CLINICAL HISTORY: right leg swelling eval for dvt PAIN. EDEMA. COMPARISON STUDY: No previous studies for comparison. FINDINGS: Real-time and color flow Doppler imaging were performed. Flow was seen within the femoral, popliteal and calf veins with no intraluminal thrombus demonstrated. The saphenous vein is patent. IMPRESSION: No evidence of deep venous thrombosis. The above report was generated using voice recognition software. It may contain grammatical, syntax or spelling errors. Electronically signed by: Andry Toscano M.D. 05/08/2019 2:58 PM XR chest 1V portable CLINICAL HISTORY: Dyspnea dyspnea COMPARISON STUDY: 04/14/2018 FINDINGS: Moderate cardiomegaly. Moderate increase in prominence of the pulmonary vasculature. Small right pleural effusion. IMPRESSION: Congestive heart failure The above report was generated using voice recognition software. It may contain grammatical, syntax or spelling errors. Electronically signed by: Andry Toscano M.D. 05/08/2019 2:02 PM ECG Data Attestation: I personally reviewed and interpreted this ECG as follows: Indication: + SOB/dyspnea Rate (beats per minute): 82 Rhythm: + atrial fibrillation ECG ST segments: no ST elevation ECG Findings: + Other (motion artifact limiting interpretation, QRS 84); no PVCs Blood Pressure Blood Pressure Findings: Elevated blood pressure Blood Pressure Disposition: further management by hospitalist MELISA Enriquez I did evaluate the patient as noted above. The patient is presenting with dyspnea for the past 6 weeks. He has significant lymphedema and appears to be pickwickian. His O2 saturation is 87% on room air and he is not oxygen dependent. I do not hear any wheezing or rales on lung examination. He was placed on supplemental oxygen. He also appears to have cellulitis to his right leg. I do not suspect pulmonary embolism as the patient is on Eliquis and has been compliant with this medication. Due to his girth he is not able to fit in a CT scanner here. IV access was established. The patient was placed on a continuous personnel monitor. I did order and personally review the patient's 12- lead EKG as described above. Twelve-lead EKG does not demonstrate any acute ischemia. I did order and personally reviewed the images of the patient's chest x-ray as described above. Chest x-ray demonstrates congestive changes but this is likely due to body habitus. The radiologist also noted a right pleural ef fusion. He appears to have elevation of his right hemidiaphragm. There is no infiltrate noted. I did treat the patient with IV Lasix. He is on Lasix at home. I did order and review the patient's blood work as noted in the electronic medical record. His white blood cell count is elevated. He also has an elevated creatinine. The patient is on Ceftin and doxycycline for the past 8 years for chronic Lyme disease. Despite being on these antibiotics he does have a cellulitis. He does state that he has a history of very poor wound healing. I did recommend hospitalization due to his hypoxemia and cellulitis. He was given daptomycin IV. I did discuss case with the hospitalist and case bayron mckeon. Impression & Plan Hypoxia, Cellulitis of right leg, Failure of outpatient treatment, EDNA (acute kidney injury), Lymphedema, Anticoagulated, Pleural effusion on right Discharge Plan Visit Data Chief Complaint: Shortness of Breath/Dyspnea Stated Complaint: FULL OF FLUID, POSSIBLE LEFT LEG INFECTION ED Provider: Girish Mckeon Discharge Problem: Hypoxia, Cellulitis of right leg, Failure of outpatient treatment, EDNA (acute kidney injury), Lymphedema, Anticoagulated, Pleural effusion on right Patient Disposition: Being Evaluated by Hospitalist Forms Stand Alone Forms: My [facility] Prescriptions Prescriptions: No Action Eliquis 5 mg tablet 5 mg PO DAILY RF: 0 furosemide 40 mg tablet 40 mg PO DAILY RF: 0 allopurinol 100 mg tablet 100 mg PO DAILY RF: 0 zinc 50 mg Tablet 50 mg PO DAILY RF: 0 aspirin [Aspir-81] 81 mg Tablet,Delayed Release (Dr/Ec) 81 mg PO DAILY RF: 0 cefuroxime axetil 500 mg Tablet 500 mg PO QID RF: 0 diltiazem HCl [Cardizem LA] 180 mg Tablet Extended Release 24 Hr 180 mg PO BID RF: 0 metoprolol tartrate 50 mg Tablet 50 mg PO BID RF: 0 vitamin B complex Tablet 1 tab PO DAILY RF: 0 Probiotic 3 billion cell Capsule 0 mmu cells PO DAILY RF: 0 multivitamin [Multiple Vitamins] Tablet 1 tab PO DAILY RF: 0 cholecalciferol (vitamin D3) 1,000 unit Tablet 1,000 unit PO DAILY RF: 0 Referrals Referrals: Iliana Johnson [Primary Care Provider] - The scribe's documentation has been prepared under my direction and personally reviewed by me in its entirety. I confirm that the note above accurately reflects all work, treatment, procedures, and medical decision making performed by me.
--- NOTE | 2019-05-08 16:56 | History & Physical Report ---
Date of Service May 08, 2019 Assessment & Plan (1) Anasarca: Admit to PCU on telemetry. Vital signs every 4 hours The case was discussed with nephrology in respect of patient's volume overload and anasarca, probably right heart failure. We will start patient on 25 mg of albumin every 8 hours with furosemide 40 mg IV twice daily and try to induce the diuresis and move the fluid from the third place to the blood vessels. Patient is intravascularly dry and has hypoalbuminemia of 2.6. Check daily albumin level and monitor electrolytes. TTE pending Liver sonogram-likely [facility] Will consult nephrology DVT prophylaxis:Apixaban 5 mg p.o. daily we will switch to 5 mg p.o. twice daily which is appropriate dose for atrial fibrillations. Patient is a full code. Present on Admission?: Yes (2) Cellulitis of right leg: Patient was started on daptomycin in the ER. Continue daptomycin. Consider consulting [facility] if no improvement. Patient has history of right knee infection in the setting of cellulitis. MRSA pending. Present on Admission?: Yes (3) EDNA (acute kidney injury): Avoid nephrotoxic agents. Monitor creatinine and GFR daily. Present on Admission?: Yes (4) Lymphedema: Management as above. Present on Admission?: Yes (5) Anticoagulated: We will increase apixaban to 5 mg p.o. twice daily for prophylaxis of stroke in setting of A. fib's, from 5 mg p.o. daily. Present on Admission?: Yes (6) Pleural effusion on right: We will try to induce diuresis as already discussed with Albumin and furosemide. Present on Admission?: Yes (7) Hypoxia: It is not completely clear origin of hypoxia. Differential diagnosis would be PE because patient is not on full anticoagulation for for A. fib's. Patient cannot have CTA of the chest because of his kidney injury so we will order VQ scan. Patient continues to be short of breath but he is on room air. Present on Admission?: Yes (8) A-fib: Will switch to apixaban 5 mg p.o. daily to twice daily p.o. Present on Admission?: Yes (9) Immobility: Will try physical and occupational therapy for patient's issue with immobility. Present on Admission?: Yes (10) Morbid obesity: Patient states that they try to schedule for bypass surgery but patient had a bad knee and they did not proceed. At this point she states that patient does not eat anything but he is still gaining weight.. Family education would help including registered dietitian. Order placed Present on Admission?: Yes (11) Discharge planning issues: Patient is morbidly obese with additional comorbidities. Would benefit from SNF and to continue physical and Occupational Therapy. Present on Admission?: Yes History of Present Illness Chief Complaint: Shortness of breath, right leg cellulitis. Primary Care Provider: Iliana Johnson Patient is a 63 years old male with past medical history of morbid obesity and BMI of 70, A. 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 Per his his appetite is decreased and he did not eat much in the past several weeks but he was persistently gaining weight. She said patient is constantly sitting in the recliner chair and not moving anywhere. Patient is alert and oriented but appears to be in distress with a shortness of breath and increased work of breathing. In the past patient was seen by [facility] orthoped[facility] for his right lower extremity procedures. Patient denies fever, chills, chest pain, abdominal pain frequency or urgency. Labs are reviewed: WBCs 13.88, hemoglobin 12.5, hematocrit 37.8, platelets 335. PT 14.8, INR 1.5, APTT 34.7. Sodium 136, potassium 4.2, chloride 100, BUN 40, creatinine 1.46, GFR 51.2, total bili 1.4, AST 58, ALT 41, alkaline phosphatase 165, trop onin 0 0.03, BNP 399, Albumin only 2.6. Chest x-rays: Moderate cardiomegaly. Moderate increase in prominence of pulmonary vasculature. Small right pleural effusion.Congestive heart failure. Ultrasound of the lower extremities is negative for deep nose thrombosis. Decision was made to admit patient for anasarca, volume overload, acute kidney insufficiency. Allergies Allergy/AdvReac Type Severity Reaction Status Date / Time No Known Allergies Allergy NKDA Verified 05/08/19 13:52 Home Medications Home Medications Medication Instructions Recorded Confirmed Type aspirin [Aspir-81] 81 mg PO DAILY 04/14/18 05/08/19 History cefuroxime axetil 500 mg PO QID 04/14/18 05/08/19 History cholecalciferol (vitamin D3) 1,000 unit PO DAILY 04/14/18 05/08/19 History diltiazem HCl [Cardizem LA] 180 mg PO BID 04/14/18 05/08/19 History lactobacillus combination no.4 0 mmu cells PO DAILY 04/14/18 05/08/19 History [Probiotic] metoprolol tartrate 50 mg PO BID 04/14/18 05/08/19 History multivitamin [Multiple Vitamins] 1 tab PO DAILY 04/14/18 05/08/19 History vitamin B complex 1 tab PO DAILY 04/14/18 05/08/19 History allopurinol 100 mg PO DAILY 05/08/19 05/08/19 History apixaban [Eliquis] 5 mg PO DAILY 05/08/19 05/08/19 History furosemide 40 mg PO DAILY 05/08/19 05/08/19 History zinc 50 mg PO DAILY 05/08/19 05/08/19 History Past Med/Surg History Medical History 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 with presence of antibiotic-impregnated cement spacer Infection of total right knee replacement Urinary tract obstruction by kidney stone Surgical History History of bilateral knee replacement Family History Other No significant family history Social History Preferred Language: Tam[place] Communication Ability: Effective Beliefs That Will Affect Care: None Current Living Situation: Spouse Other Information That Helps Us Care for You: No Feels Safe at Home: Yes Safety Concerns: Feels Safe At This Time Smoking Status: Never smoker Hx Alcohol Use: No Hx Substance Use: No Review of Systems Review of Systems: All systems reviewed & are unremarkable except as noted in HPI & below Physical Exam Constitutional: WD/WN, vitals as above well developed, + acute distress, + ill appearing and + morbidly obese Eyes: PERRL, conjunctivae normal, anicteric sclerae ENMT: external ear and nose normal, oropharynx normal Neck: trachea midline, no thyromegaly Respiratory: + respiratory distress and + tachypneic Auscultation: + wheezes (Bilateral mild wheezing) Cardiovascular: Rate/Rhythm: regular rate Heart Sounds: normal S1 and normal S2 Palpation: + palpable S3 Vessels: dorsalis pedis pulses present Extremities: + pedal edema and + edema (Patient is severely edematous up to the umbilicus.) Chest (Breasts): normal inspection/palpation of breasts Gastrointestinal (Abdomen): normal bowel sounds, soft, nontender, no hepatosplenomegaly Musculoskeletal: no cyanosis or clubbing, extremities motor strength 5/5 Mildly red and warm to touch right lower extremity below the knee. No skin excoriation or wound present. Skin: no rashes, warm and dry Neurologic: patellar DTR's 2+ bilat, sensation intact Psychiatric: A+Ox3, euthymic affect Genitourinary: no testicular masses, no penis abnormality Lymphatic: Bilateral lymphedema of the lower extremities. Results & Data Vital Signs (Past 12 Hours) Vital Signs Temp Pulse Pulse Resp BP Pulse Ox 05/08/19 15:42 87 L 05/08/19 15:39 90 05/08/19 15:19 82 28 H 142/61 H 96 05/08/19 14:35 91 H 24 94 05/08/19 14:31 86 25 H 128/113 H 98 05/08/19 13:03 36.9 C 82 24 183/112 H 100 05/08/19 12:56 85 L 05/08/19 12:50 100 Code Status & VTE Plan Code Status Full code VTE Prophylaxis Plan VTE Prophylaxis will be ordered: Yes PG Care Time/CCT Total # of Minutes Spent Total Time Spent with Patient: Total time spent is greater than 50% in coordination of care (as documented) at patient's floor/unit and/or counseling patient:
[2019-05-08] MEDS ORDERED: ACETAMINOPHEN 325 MG TAB PO PRN (19:35)
[2019-05-08] MEDS ORDERED: MAGNESIUM HYDROXIDE SUSP 30 ML UDC PO PRN (19:35)
[2019-05-08] MEDS ORDERED: POLYETHYLENE (MIRALAX) 17 GM PACK PO PRN (19:35)
[2019-05-08] MEDS ORDERED: ALUMINUM/MAGNESIUM SUSP 30 ML UDC PO PRN (19:35)
[2019-05-08 20:11] LABS: Basophils # (auto) 0.03 K/uL (0-0.2); Basophils % (auto) 0.2 %; Eosinophils # (auto) 0.01 K/uL (0-0.5); Eosinophils % (auto) 0.1 %; Hemoglobin 11.9 g/dL (14.0-18.0); Immature Granulocytes # (auto) 0.03 K/uL (0.00-0.02); Immature Granulocytes % (auto) 0.2 %; Lymphocytes # (auto) 1.41 K/uL (1.2-3.4); Lymphocytes % (auto) 10.4 %; Mean Corpuscular Hemoglobin 31.4 pg (25-34); Mean Corpuscular Hgb Conc 33.1 g/dL (32-36); Monocytes # (auto) 0.98 K/uL (0.11-0.59); Monocytes % (auto) 7.2 %; Neutrophils # (auto) 11.15 K/uL (1.4-6.5); Neutrophils % (auto) 81.9 %; Platelet Count 293 K/uL (130-400); RDW Standard Deviation 55.4 fL (36.4-46.3); Red Blood Count 3.79 M/uL (4.7-6.1); White Blood Count 13.61 K/uL (4.8-10.8)
[2019-05-08 20:28] LABS: Albumin Level 2.4 gm/dl (3.4-5.0); BUN Creatinine Ratio 27.8 (10-20); C Reactive Protein 10.6 mg/dl (0-0.29); Calcium 8.9 mg/dl (8.5-10.1); Est GFR (African American) 63.5; Est GFR (Non-African American) 54.8; Potassium 4.2 mmol/L (3.5-5.1)
[2019-05-08 20:31] LABS: Albumin Globulin Ratio 0.6 (0.9-2); Bilirubin,Total 1.2 mg/dl (0.2-1); Globulin 4.2 gm/dl (2.5-4.0); Total Protein 6.6 gm/dl (6.4-8.2)
[2019-05-08] MEDS: FUROSEMIDE 40 MG in SYRINGE 0 ML IV SCH (21:53)
[2019-05-08] MEDS: cefUROXime axetil 500 MG TAB PO SCH (21:53)
[2019-05-08] MEDS: APIXABAN 5 MG TABLET PO SCH (21:54)
[2019-05-08] MEDS: METOPROLOL TARTRATE 50 MG TAB PO SCH (21:54)
[2019-05-08] MEDS: ALBUMIN 25% 50 ML IV SCH ×2 (22:15→23:12)
[2019-05-09 02:25] LABS: Basophils # (auto) 0.01 K/uL (0-0.2); Basophils % (auto) 0.1 %; Eosinophils # (auto) 0.02 K/uL (0-0.5); Eosinophils % (auto) 0.2 %; Hematocrit (blood only) 34.3 % (42-52); Hemoglobin 11.1 g/dL (14.0-18.0); Immature Granulocytes # (auto) 0.03 K/uL (0.00-0.02); Immature Granulocytes % (auto) 0.2 %; Lymphocytes # (auto) 1.05 K/uL (1.2-3.4); Lymphocytes % (auto) 8.5 %; Mean Corpuscular Hemoglobin 30.7 pg (25-34); Mean Corpuscular Hgb Conc 32.4 g/dL (32-36); Mean Platelet Volume 9.8 fL (7.4-10.4); Monocytes # (auto) 0.92 K/uL (0.11-0.59); Monocytes % (auto) 7.5 %; Neutrophils # (auto) 10.29 K/uL (1.4-6.5); Neutrophils % (auto) 83.5 %; Platelet Count 277 K/uL (130-400); RDW Standard Deviation 55.1 fL (36.4-46.3); Red Blood Count 3.61 M/uL (4.7-6.1); White Blood Count 12.32 K/uL (4.8-10.8)
[2019-05-09 02:44] LABS: Albumin Level 2.4 gm/dl (3.4-5.0); BUN Creatinine Ratio 28.8 (10-20); Calcium 8.5 mg/dl (8.5-10.1); Creatinine Clr Calc Pharmacy 109.4 ml/min; Est GFR (African American) 65.2; Est GFR (Non-African American) 56.3; Potassium 3.9 mmol/L (3.5-5.1)
[2019-05-09 02:46] LABS: Albumin Globulin Ratio 0.6 (0.9-2); Bilirubin,Total 1.3 mg/dl (0.2-1); Globulin 3.9 gm/dl (2.5-4.0); Total Protein 6.3 gm/dl (6.4-8.2)
[2019-05-09] MEDS: ALBUMIN 25% 50 ML IV SCH ×7 (05:03→21:33)
--- NOTE | 2019-05-09 06:02 | Ultrasound Report ---
US liver CLINICAL HISTORY: enlarged liver, possible MAYES? COMPARISON STUDY: CT scan dated 03/25/2016 FINDINGS: The examination is limited from a technical standpoint due to morbid obesity, and the patient's inabi lity to cooperate with breath-holding. The liver measures 23 cm in length. The liver has a cirrhotic morphology with a nodular serosal conto ur. There is ascites. Multiple gallstones are visualized. The gallbladder wall measures 3 mm. There is no ductal dilatation. The common bile duct measures 4 mm. The right kidney measures 11.6 cm in length. There is no hydronephrosis. Evaluation the pancreas was not diagnostic. IMPRESSION: 1. Cholelithiasis. No evidence of ductal dilatation 2. Cirrhotic morphology of the liver. Ascites. 3. Nondiagnostic evaluation of the pancreas. Electronically signed by: Aly Ghosh M.D. 05/09/2019 5:59 AM
--- NOTE | 2019-05-09 06:20 | XRay Report ---
XR tibia fibula RT 2V CLINICAL HISTORY: cellulitis COMPARISON: 08/10/2018 DISCUSSION: There are postsurgical changes of a long stem total right knee arthroplasty. No acute fra ctures are visualized. There is diffuse soft tissue edema. IMPRESSION: 1. No acute fractures. No evidence of osteomyelitis. 2. Diffuse soft tissue edema. Electronically signed by: Aly Ghosh M.D. 05/09/2019 6:19 AM
--- NOTE | 2019-05-09 06:21 | XRay Report ---
XR knee RT 1 or 2V routine CLINICAL HISTORY: cellulitis COMPARISON: 08/10/2018 DISCUSSION: There are postsurgical changes of a longstem total right knee arthroplasty. There are no acute fractures. There is no dislocation. The examination is limited from positioning standpoint IMPRESSION: Technically limited study. No acute fractures. Postsurgical changes of a total right knee arthroplasty. Electronically signed by: Aly Ghosh M.D. 05/09/2019 6:20 AM
[2019-05-09] MEDS: FUROSEMIDE 40 MG in SYRINGE 0 ML IV SCH (08:59)
[2019-05-09] MEDS ORDERED: LACTOBACILLUS COMBINATION NO 4 PO SCH (09:00)
[2019-05-09] MEDS ORDERED: NON-FORMULARY MEDICATION (Zinc 50 MG) PO SCH (09:00)
[2019-05-09] MEDS ORDERED: DAPTOmycin 500 MG VIAL IV SCH (09:00)
[2019-05-09] MEDS: APIXABAN 5 MG TABLET PO SCH ×2 (09:10→20:19)
[2019-05-09] MEDS: cefUROXime axetil 500 MG TAB PO SCH ×4 (09:12→20:18)
[2019-05-09] MEDS: allopurinoL 100 MG TAB PO SCH (09:12)
[2019-05-09] MEDS: CHOLECALCIFEROL 1,000 UNITS TAB PO SCH (09:13)
[2019-05-09] MEDS: METOPROLOL TARTRATE 50 MG TAB PO SCH ×2 (09:13→20:20)
[2019-05-09] MEDS: VITAMIN B COMPLEX TAB PO SCH (09:13)
[2019-05-09] MEDS: ASPIRIN 81 MG ECTAB PO SCH (09:13)
[2019-05-09] MEDS: MULTIVITAMIN TAB PO SCH (09:13)
--- NOTE | 2019-05-09 11:25 | Nephrology Consultation ---
Date of Consultation May 09, 2019 Assessment & Plan (1) EDNA (acute kidney injury): -- LE swelling related to biventricular heart failure -- Recommend echocardiogram. If abnormal consider consultation w/ Cardiology -- Attempt diuresis w/ Furosemide 40 mg IV BID and SPA 25 g IV BID -- Monitor UO and creatinine. May need to accept mild increase in Cr to help alleviate peripheral edema and treat cellulitis -- Will order urinalysis w/ microscopy (2) CHF (congestive heart failure): -- Recommend echocardiogram (3) Cellulitis: -- On IV Daptomycin (4) Morbid obesity: -- Undergoing evaluation w/ [facility] [place] [facility] Bariatric program (5) Lyme disease: -- On chronic antibiotic therapy w/ Ceftin + Doxycycline History of Present Illness Reason for Consultation: EDNA, peripheral edema Attending Physician: Lázaro Stout DO History of Present Illness Mr. Feliz is a 63 year old white male who is seen at the request of Dr. Latham for evaluation of EDNA and peripheral edema. Medical records in the EMR were reviewed today and are summarized as follows: Mr. Feliz has never required evaluation by Nephrology in the past. His baseline Cr is 0.8. His medical history is significant for kidney stones, Lyme disease (Ceftin + Doxycycline x 8 years), atrial fibrillation, B TKA, AUBRIE (CPAP) and obesity. His BMI is 70 (wt 503 lbs). Mr. Feliz's PCP is Dr. Johnson ([facility]). His Rn Lactation Consultant is Dr. Lake ([facility]). Mr. Feliz reports 125 lb weight gain over the last 6 months. This has been associated w/ worsening LE swelling. He presented to the ED yesterday evening with AVILEZ and RLE cellulitis. CXR revealed CHF. Cr has risen to 1.4. Admission was advised for IV diuretic and antibiotic therapy Allergies Allergy/AdvReac Type Severity Reaction Status Date / Time No Known Allergies Allergy NKDA Verified 05/08/19 13:52 Home Medications Home Medications Medication Instructions Recorded Confirmed Type aspirin [Aspir-81] 81 mg PO DAILY 04/14/18 05/08/19 History cefuroxime axetil 500 mg PO QID 04/14/18 05/08/19 History cholecalciferol (vitamin D3) 1,000 unit PO DAILY 04/14/18 05/08/19 History diltiazem HCl [Cardizem LA] 180 mg PO BID 04/14/18 05/08/19 History lactobacillus combination no.4 0 mmu cells PO DAILY 04/14/18 05/08/19 History [Probiotic] metoprolol tartrate 50 mg PO BID 04/14/18 05/08/19 History multivitamin [Multiple Vitamins] 1 tab PO DAILY 04/14/18 05/08/19 History vitamin B complex 1 tab PO DAILY 04/14/18 05/08/19 History allopurinol 100 mg PO DAILY 05/08/19 05/08/19 History apixaban [Eliquis] 5 mg PO BID 05/08/19 05/08/19 History furosemide 40 mg PO DAILY 05/08/19 05/08/19 History zinc 50 mg PO DAILY 05/08/19 05/08/19 History Patient History Medical History 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 with presence of antibiotic-impregnated cement spacer Infection of total right knee replacement Urinary tract obstruction by kidney stone Surgical History (Reviewed 05/09/19 @ 11: by Brandyn Bond MD) History of bilateral knee replacement Family History (Reviewed 05/09/19 @ 11: by Brandyn Bond MD) Other No significant family history Social History (Reviewed 05/09/19 @ 11: by Brandyn Bond MD) Preferred Language: Urdu Communication Ability: Effective Beliefs That Will Affect Care: None marital status: Current Living Situation: Spouse current occupational status: disabled 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 Feels Safe at Home: Yes Smoking Status: Never smoker Hx Alcohol Use: No Hx Substance Use: No Review of Systems Constitutional: no fever and no chills Eyes: no worsening vision and no problem reported Ear, Nose, Mouth, Throat: no problem reported Respiratory: no cough and no dyspnea Cardiovascular: + edema; no chest pain and no palpitations Gastrointestinal: no abdominal pain, no nausea, no vomiting and no diarrhea/loose stools Genitourinary: no dysuria, no urinary hesitancy and no hematuria Musculoskeletal: no back pain Integumentary: + erythema (RLE) Neurologic: no confusion Physical Exam Constitutional: + morbidly obese; not in distress Eyes: PERRL, conjunctivae normal, anicteric sclerae ENMT: external ear and nose normal, oropharynx normal Neck: trachea midline, no thyromegaly Respiratory: normal respiratory effort, lungs clear to auscultation Cardiovascular: Rate/Rhythm: regular rate and regular rhythm Extremities: + edema (3+ pretibial pitting edema. RLE erythematous) Gastrointestinal (Abdomen): normal bowel sounds, soft, nontender, no hepatosplenomegaly Musculoskeletal: Extremities: no cyanosis Skin: + erythema (RLE) Neurologic: awake; not confused Results & Data Vital Signs (Past 12 Hours) Vital Signs Temp Pulse Pulse Resp BP Pulse Ox 05/09/19 09:16 63 05/09/19 07:21 36.6 C 58 L 16 115/67 97 05/09/19 05:00 77 16 92 05/09/19 04:08 36.9 C 87 18 146/55 H 94 05/09/19 01:36 76 18 94 05/08/19 23:31 36.9 C 86 22 104/67 98 Laboratory Results Laboratory Tests 05/09/19 05/09/19 01:48 01:48 WBC 12.32 H Hgb 11.1 L Hct 34.3 L Plt Count 277 Sodium 139 Potassium 3.9 Chloride 103 Carbon Dioxide 30 BUN 39 H Creatinine 1.35 Glucose 140 H Diagnostic Findings CXR 05/08: CHF Liver US 05/08: Cirrhosis, + ascites PG Care Time/CCT Total # of Minutes Spent Total Time Spent with Patient: Total time spent is greater than 50% in coordination of care (as documented) at patient's floor/unit and/or counseling patient:
--- NOTE | 2019-05-09 14:18 | Hospitalist Progress Note ---
Date of Service May 09, 2019 Assessment & Plan (1) Anasarca: -It is uncertain the underlying etiology of his volume overload; possibly 40 to 60 pounds weight gain in past several weeks but uncertain of dry weight --DDx includes possible cardiac component however no true diagnosis of juan antonio lure as documented vs liver disease vs nephrotic syndrome? --Liver ultrasound reveals cirrhotic morphology with evidence of ascites -AST mildly elevated at 50 but not suggestive of acute issues and possibly related to some fluid congestion --Renal function appropriate -given body habitus creatinine clearance is likely overestimated but no tract findings to suggest kidney failure; no UA was ordered this admission but study from 2017 revealed trace protein -urinalysis ordered by nephrology -Albumin is 2.4 -Echocardiogram pending -follows with Dr. Aguayo ([facility]) -consider consultation to [facility] cardiology --Given body habitus and atrial fibrillation it is possible his cardiac output be compromised, as well, his heart does need to work harder due to weight -at minimal, possible diastolic component -Monitor I's and O's; daily weights; continue fluid restriction -patient has been largely incontinent and true output cannot be documented -Kahn catheter placement has been attempted numerous times but presence of significant genital edema -may have to focus more on clinical symptoms -could consider urology consultation for possible catheter placement -Continue albumin 25 g twice daily with Lasix 40 mg IV twice daily -Nephrology following -appreciate recommendations and assistance (2) Cellulitis of right leg: -Long-standing issues with right knee replacement and infection requiring multiple subsequent surgeries -reports taking cefuroxime and doxy due to chronic Lyme -will need to follow-up to to determine current plan with these medications -Started daptomycin in ED and will continue cefuroxime this time -order procalcitonin in AM as erythema could be related to significant edema/lymphedema -Orthopedic surgeries performed by Dr. Saldaña -if no clinical improvement with diuresis could consider further imaging/consultation -U/S- negative for DVT (3) EDNA (acute kidney injury): -Creatinine 1.46 on admission -currently 1.35 and will monitor closely in setting of albumin/Lasix -He has never required nephrology involvement -history of kidney stones but otherwise no issues -creatinine clearance is likely overestimated due to body weight (4) Lymphedema: -Typically utilizes wrappings which has worked in the past for lym phedema; limitations due to increased pain RLE management as above. (5) Hypoxia: -Likely multifactorial -possible CHF/diastolic component versus other causes of volume overload versus hypoventilation/AUBRIE versus other -Unfortunately patient cannot fit in CT to perform CTA and VQ scan cannot be performed while in bed -no DVT is noted on ultrasound, no tachycardia, no fever -Currently on Eliquis -Per documentation he may have only been on once daily dosing but now has been on twice daily dosing since admission -however given body habitus it is uncertain efficacy of this drug (6) A-fib: -Has largely remained in A. fib -has undergone multiple cardioversions in the past but ultimately continues in atrial fibrillation with rate control -Continue Eliquis 5 mg twice daily, metoprolol 50 mg twice daily, and diltiazem 180 mg twice daily (7) Morbid obesity: - BMI 74 -Patient is not interested in bariatric surgery due to slow/poor wound healing -Appreciate dietetics input; PT/OT Disposition: Await response with diuresis Subjective Patient reports feeling about the same today. He is resting comfortably in bed with BiPAP on. Family at bedside states he is required to use his BiPAP even while awake due to shortness of breath. She states he can normally walk from his chair to the bathroom with his walker without needing supplemental oxygen. However over the past approximate week he can barely walk that short 5 feet without needing his BiPAP. She reports his appetite has been diminished and largely eating only a bowl of oatmeal and a bottle of Ensure a day. However, his weight continues to increase. They report possibly 40 to 60 pound weight gain over several weeks. They report when he has been evaluated for shortness of breath most have just related this to his weight and therefore has not had complete work-up for this condition. To his knowledge, he does not carry a diagnosis of CHF. He follows with [facility] cardiology for his atrial fibrillation. He continues to have increasing pain in his right lower extremity and has had multiple surgeries due to orthopedic issues. He states his right lower extremity is normally slightly larger than his left however the swelling is much more significant than baseline. Review of Systems Constitutional: + fatigue and + anorexia; no fever and no chills Eyes: no worsening vision Ear, Nose, Mouth, Throat: no nasal congestion, no sore throat and no dysphagia Respiratory: + cough and + dyspnea; no pain on inspiration Cardiovascular: + orthopnea and + edema; no chest pain, no palpitations and no syncope Gastrointestinal: no abdominal pain, no nausea, no vomiting, no constipation and no diarrhea/loose stools Genitourinary: no dysuria Integumentary: + erythema (RLE) Physical Exam Constitutional: + ill appearing (Nontoxic) and + morbidly obese Eyes: + anicteric sclerae; no conjunctival abnormality ENMT: Ears: no hearing impairment Currently wearing BiPAP Neck: + thick neck Respiratory: normal respiratory effort Auscultation: + diminished lung sounds Cardiovascular: Rate/Rhythm: + irregularly irregular Gastrointestinal (Abdomen): Inspection/Auscultation: normal bowel sounds Percussion/Palpation: abdomen soft; abdomen nontender Musculoskeletal: Head/Neck/Chest: normocephalic and head atraumatic Mild lymphedema changes to L LE without signs of redness or drainage; right lower extremity with significant edema in comparison to left lower extremity, large mid knee incision is well-healed; RLE is mildly warm to touch and tender to palpation; 3-4+ pitting edema in right lower extremity extending up into the thigh; dorsal edema bilateral feet which family states is about normal may be slightly worse on right foot Skin: no rashes, warm and dry (Other than described musculoskeletal) Neurologic: moves all extremities Psychiatric: A+Ox3, euthymic affect Results & Data Vital Signs (Past 12 Hours) Vital Signs Temp Pulse Pulse Resp BP Pulse Ox 05/09/19 12:08 36.9 C 79 20 130/71 91 05/09/19 09:16 63 05/09/19 08:00 73 05/09/19 07:21 36.6 C 58 L 16 115/67 97 05/09/19 05:00 77 16 92 05/09/19 04:08 36.9 C 87 18 146/55 H 94 PG Care Time/CCT Total # of Minutes Spent Total Time Spent with Patient: Total time spent is greater than 50% in coordination of care (as documented) at patient's floor/unit and/or counseling patient:
[2019-05-09] MEDS: OXYCODONE HCL IR 5 MG TAB (IMMEDIATE RELEASE) PO PRN (16:46)
[2019-05-09] MEDS: DAPTOmycin 500 MG in SYRINGE 0 ML IV SCH (16:47)
[2019-05-09] MEDS ORDERED: FUROSEMIDE 40 MG in SYRINGE 0 ML IV SCH (17:00)
[2019-05-10 06:03] LABS: Estimated Average Glucose 123 mg/dl; Hemoglobin A1C 5.9 % (4.5-5.6)
[2019-05-10 06:38] LABS: Basophils # (auto) 0.03 K/uL (0-0.2); Basophils % (auto) 0.3 %; Eosinophils # (auto) 0.05 K/uL (0-0.5); Eosinophils % (auto) 0.4 %; Hematocrit (blood only) 33.9 % (42-52); Hemoglobin 10.8 g/dL (14.0-18.0); Immature Granulocytes # (auto) 0.05 K/uL (0.00-0.02); Immature Granulocytes % (auto) 0.4 %; Lymphocytes # (auto) 1.08 K/uL (1.2-3.4); Lymphocytes % (auto) 9.4 %; Mean Corpuscular Hemoglobin 30.3 pg (25-34); Mean Corpuscular Hgb Conc 31.9 g/dL (32-36); Mean Corpuscular Volume 95.2 fL (80-100); Mean Platelet Volume 9.9 fL (7.4-10.4); Monocytes # (auto) 1.03 K/uL (0.11-0.59); Monocytes % (auto) 8.9 %; Neutrophils # (auto) 9.28 K/uL (1.4-6.5); Neutrophils % (auto) 80.6 %; Platelet Count 266 K/uL (130-400); RDW Coefficient of Variation 16.2 % (11.5-14.5); RDW Standard Deviation 56.1 fL (36.4-46.3); Red Blood Count 3.56 M/uL (4.7-6.1); White Blood Count 11.52 K/uL (4.8-10.8)
[2019-05-10 07:14] LABS: Albumin Level 2.8 gm/dl (3.4-5.0); BUN Creatinine Ratio 29.9 (10-20); Calcium 8.7 mg/dl (8.5-10.1); Creatinine Clr Calc Pharmacy 112.4 ml/min; Est GFR (African American) 67.6; Est GFR (Non-African American) 58.3; Potassium 3.6 mmol/L (3.5-5.1)
[2019-05-10 07:16] LABS: Albumin Globulin Ratio 0.7 (0.9-2); Bilirubin,Total 1.2 mg/dl (0.2-1); Globulin 3.8 gm/dl (2.5-4.0); Total Protein 6.6 gm/dl (6.4-8.2)
[2019-05-10] MEDS: cefUROXime axetil 500 MG TAB PO SCH ×4 (08:42→21:20)
[2019-05-10] MEDS: ALBUMIN 25% 50 ML IV SCH ×4 (08:42→22:12)
[2019-05-10] MEDS: VITAMIN B COMPLEX TAB PO SCH (08:43)
[2019-05-10] MEDS: CHOLECALCIFEROL 1,000 UNITS TAB PO SCH (08:43)
[2019-05-10] MEDS: allopurinoL 100 MG TAB PO SCH (08:43)
[2019-05-10] MEDS: APIXABAN 5 MG TABLET PO SCH ×2 (08:43→21:20)
[2019-05-10] MEDS: MULTIVITAMIN TAB PO SCH (08:43)
[2019-05-10] MEDS: ASPIRIN 81 MG ECTAB PO SCH (08:43)
[2019-05-10] MEDS: OXYCODONE HCL IR 5 MG TAB (IMMEDIATE RELEASE) PO PRN (09:09)
--- NOTE | 2019-05-10 09:42 | Nephrology Progress Note ---
Date of Service May 10, 2019 Assessment & Plan (1) EDNA (acute kidney injury): -- Creatinine stable -- Urine studies pending -- Remains significantly volume overloaded with inadequate diuresis: Furosemide increased to 80 mg IV BID -- Remains on SPA 25 g IV BID -- Repeat metabolic profile tomorrow AM (2) CHF (congestive heart failure): -- TTE reviewed: normal LV size and systolic function -- Diastolic CHF, unclear exact etiology (3) Cellulitis: -- On IV Daptomycin (4) Morbid obesity: -- Undergoing evaluation w/ [facility] Bariatric program (5) Lyme disease: -- On chronic antibiotic therapy w/ Ceftin + Doxycycline Subjective No acute events overnight. Unable to perform urinary catheterization due to edema. No fevers or chills. Seen and evaluated with his at the bedside. Dyspnea increased. Frustrated. Review of Systems Review of Systems: All systems reviewed & are unremarkable except as noted in HPI & below Cardiovascular: + edema; no chest pain and no palpitations Integumentary: + erythema (RLE) Physical Exam Constitutional: well developed, + morbidly obese and + edematous Eyes: + anicteric sclerae; no conjunctival abnormality ENMT: Mouth: no oral mucosal abnormality and oral mucous membranes not dry CPAP Neck: normal visual inspection and + thick neck Respiratory: normal respiratory effort Auscultation: + diminished lung sounds Cardiovascular: Heart Sounds: normal S1 and normal S2 Extremities: normal capillary refill and + edema Gastrointestinal (Abdomen): Percussion/Palpation: abdomen soft; abdomen nontender Musculoskeletal: Extremities: no cyanosis and no petechiae Skin: + turgor decreased; no lesions Neurologic: Motor/Sensory: no tremor and no asterixis Psychiatric: Orientation: alert Eye Contact: + fair eye contact Results & Data Vital Signs (Past 12 Hours) Vital Signs Temp Pulse Pulse Resp BP Pulse Ox 05/10/19 07:43 36.6 C 92 H 18 117/74 93 05/10/19 05:10 74 16 92 05/10/19 04:06 37.2 C 85 20 116/70 93 05/10/19 01:22 80 14 91 05/10/19 00:15 76 05/09/19 23:23 37.3 C 83 17 142/78 H 93 05/09/19 21:54 72 18 91 Laboratory Results Laboratory Results - last 24 hr 05/09/19 05/10/19 05/10/19 01:48 06:20 06:20 WBC 11.52 H RBC 3.56 L Hgb 10.8 L Hct 33.9 L MCV 95.2 MCH 30.3 MCHC 31.9 L RDW Std Deviation 56.1 H RDW Coeff of Ericka 16.2 H Plt Count 266 MPV 9.9 Immature Gran % (Auto) 0.4 Neut % (Auto) 80.6 Lymph % (Auto) 9.4 [place] % (Auto) 8.9 Eos % (Auto) 0.4 Baso % (Auto) 0.3 Immature Gran # (Auto) 0.05 H Neut # (Auto) 9.28 H Lymph # (Auto) 1.[address] [place] # (Auto) 1.03 H Eos # (Auto) 0.05 Baso # (Auto) 0.03 Sodium Potassium Chloride Carbon Dioxide Anion Gap BUN Creatinine Est Cr Clr Drug Dosing Est GFR ( Amer) Est GFR (Non-Af Amer) BUN/Creatinine Ratio Glucose Estimat Average Glucose 123 Hemoglobin A1c 5.9 H Calcium Total Bilirubin AST ALT Alkaline Phosphatase Total Protein Albumin Globulin Albumin/Globulin Ratio Procalcitonin 0.40 05/10/19 06:20 WBC RBC Hgb Hct MCV MCH MCHC RDW Std Deviation RDW Coeff of Ericka Plt Count MPV Immature Gran % (Auto) Neut % (Auto) Lymph % (Auto) [place] % (Auto) Eos % (Auto) Baso % (Auto) Immature Gran # (Auto) Neut # (Auto) Lymph # (Auto) [place] # (Auto) Eos # (Auto) Baso # (Auto) Sodium 139 Potassium 3.6 Chloride 103 Carbon Dioxide 32 Anion Gap 4.0 BUN 39 H Creatinine 1.31 Est Cr Clr Drug Dosing 112.4 Est GFR ( Amer) 67.6 Est GFR (Non-Af Amer) 58.3 BUN/Creatinine Ratio 29.9 H Glucose 140 H Estimat Average Glucose Hemoglobin A1c Calcium 8.7 Total Bilirubin 1.2 H AST 43 H ALT 37 Alkaline Phosphatase 135 H Total Protein 6.6 Albumin 2.8 L Globulin 3.8 Albumin/Globulin Ratio 0.7 L Procalcitonin PG Care Time/CCT Total # of Minutes Spent Total Time Spent with Patient: Total time spent is greater than 50% in coordination of care (as documented) at patient's floor/unit and/or counseling patient:
[2019-05-10] MEDS: FUROSEMIDE 80 MG in SYRINGE 0 ML IV SCH ×2 (10:02→18:04)
[2019-05-10] MEDS: METOPROLOL TARTRATE 50 MG TAB PO SCH ×2 (10:02→21:20)
[2019-05-10 14:40] LABS: Thyroid Stimulating Hormone 0.116 uIu/ml (0.300-4.500)
[2019-05-10 14:53] LABS: T4 Free Thyroxine 1.8 ng/dl (0.8-1.6)
[2019-05-10] MEDS: ZINC SULFATE 220 MG CAPSULE PO SCH (18:03)
[2019-05-10] MEDS: SIMETHICONE 80 MG CHEW PO PRN (18:04)
[2019-05-10] MEDS: DAPTOmycin 500 MG in SYRINGE 0 ML IV SCH (18:04)
--- NOTE | 2019-05-10 21:11 | Hospitalist Progress Note ---
Date of Service May 10, 2019 Assessment & Plan (1) Acute respiratory failure with hypoxia: Presumed due to pulmonary edema from volume overloaded state/anasarca. See below. I cannot rule out VTE but it would be challenging at this time to perform any sort of imaging study. Continue diuresis. Will repeat cxr in am. Cont BIPAP Attempts made to transition to highflow NC during the day to allow eating and to give him a break from BIPAP This was not successful - attempt again tomorrow (2) Anasarca: Massive weight gain (at least 50 pounds) in the last 4-6 weeks per . Liver u/s with suggestion of cirrhosis. Echo is limited given his morbid obesity but EF is grossly preserved. Renal function intact. No significant thyroid decompensation. Suspect combination of diastolic dysfunction and cirrhosis leading to volume overload state. Uncertain how accurate I's and O's are. [id number] his weights have not changed significantly since admission. Will increase lasix to 80mg IV BID. Consider adding aldactone given the ascites seen on u/s. Appreciate nephrology assistance. (3) Cellulitis of right leg: Despite chronic use of cefuroxime and doxy for chronic Lyme's disease he developed RLE cellulitis. RLE u/s neg for DVT. Now on daptomycin to cover for MRSA. Joint doesn't seem involved at this time. Cont daptomycin. Serial exams. (4) EDNA (acute kidney injury): Creatinine 1.46 on admission Baseline about 0.9 Nephrology consultation appreciated Employing use of albumin infusions w/ lasix for volume overload due to mild- moderate hypoalbuminemia BMP am (5) Lymphedema: severe resume compression of legs as usual once RLE cellulitis has resolved (6) A-fib: Controlled. Continue Eliquis 5 mg twice daily, metoprolol 50 mg twice daily, and diltiazem 180 mg twice daily CCB likely contributes to some LE edema (7) Morbid obesity: BMI 74 Patient not interested in bariatric surgery (8) Lyme disease: Chronic typically takes chronic abx for such (9) Hypothyroidism: TSH suppressed FT4 elevated typically on 100mcg daily of synthroid reduce to 88mcg daily repeat TSH 6 weeks (10) Zinc deficiency: 04/2019 level low start zinc 220mg daily x 2 weeks (11) Anxiety: poor candidate for benzos due to resp failure consider buspar (12) Cirrhosis: as seen on imaging this could be due to long-standing fatty liver leading to MAYES consider diagnostic paracentesis continue diuresis (13) DVT prophylaxis: eliquis MOOSE extensively updated at bedside today visited bedside twice today Subjective patient continues to use BIPAP. any attempt to remove it he desats, feels dyspneic, then quickly puts it back on. shortly after my visit with him I asked respiratory to place him on high-flow NC so that he could have a break from the BIPAP mask. he worse high-flow for about 30 minutes then placed the BIPAP back on. he continues with significant dyspnea. mild cough with some sputum at times; reports mild hemoptysis on one occasion. gained at least 50 pounds of fluid in 1 month. dyspnea got worse during this time period. no h/o VTE. no h/o cirrhosis. RLE cellulitis started over the weekend. mild erythema from foot all the way to hip. appetite is poor; has metal taste in mouth. latter present for some time. tele stable overnight with rate-controlled a.fib/flutter. Review of Systems Constitutional: + fatigue, + anorexia and + weight gain; no fever and no chills Ear, Nose, Mouth, Throat: no sore throat Respiratory: + cough, + chest congestion, + dyspnea, + dyspnea on exertion and + hemoptysis; no wheezing Cardiovascular: + dyspnea at rest, + orthopnea, + paroxysmal nocturnal dyspnea and + edema; no chest pain Gastrointestinal: + bloating, + nausea and + constipation Genitourinary: no dysuria Physical Exam Constitutional: + morbidly obese; no acute distress and no altered mental status ENMT: Mouth: + dry oral mucous membranes Respiratory: no labored breathing Auscultation: + crackles; no wheezes Cardiovascular: Rate/Rhythm: regular rate and + irregularly irregular Heart Sounds: normal S1 and normal S2; no murmur Vessels: posterior tibial pulses present and dorsalis pedis pulses present; no JVD Extremities: + edema (severe - 4++ b/l ) Gastrointestinal (Abdomen): Inspection/Auscultation: + abdomen distended (probable ascites and/or body-wall edema entire abdomen) Percussion/Palpation: abdomen nontender and no hepatosplenomegaly Musculoskeletal: large scar over right knee; able to actively flex knee w/o pain Skin: mild pink erythema extending from pannus of right lower abdominal wall to right hip and down the entire right leg Psychiatric: Orientation: alert and oriented x 3 Affect: + anxious affect Results & Data Vital Signs (Past 12 Hours) Vital Signs Temp Pulse Pulse Resp BP Pulse Ox 05/10/19 19:40 90 16 92 05/10/19 19:30 37.1 C 90 22 123/77 90 05/10/19 16:00 86 05/10/19 15:15 37.2 C 91 H 22 117/74 90 05/10/19 14:19 87 22 93 05/10/19 11:27 87 18 90 05/10/19 11:18 37.1 C 81 20 140/82 91 Laboratory Results Laboratory Results - last 24 hr 05/09/19 05/10/19 05/10/19 01:48 06:20 06:20 WBC 11.52 H RBC 3.56 L Hgb 10.8 L Hct 33.9 L MCV 95.2 MCH 30.3 MCHC 31.9 L RDW Std Deviation 56.1 H RDW Coeff of Ericka 16.2 H Plt Count 266 MPV 9.9 Immature Gran % (Auto) 0.4 Neut % (Auto) 80.6 Lymph % (Auto) 9.4 [place] % (Auto) 8.9 Eos % (Auto) 0.4 Baso % (Auto) 0.3 Immature Gran # (Auto) 0.05 H Neut # (Auto) 9.28 H Lymph # (Auto) 1.08 L [place] # (Auto) 1.03 H Eos # (Auto) 0.05 Baso # (Auto) 0.03 Sodium Potassium Chloride Carbon Dioxide Anion Gap BUN Creatinine Est Cr Clr Drug Dosing Est GFR ( Amer) Est GFR (Non-Af Amer) BUN/Creatinine Ratio Glucose Estimat Average Glucose 123 Hemoglobin A1c 5.9 H Calcium Total Bilirubin AST ALT Alkaline Phosphatase Total Protein Albumin Globulin Albumin/Globulin Ratio Procalcitonin 0.40 TSH Free T4 05/10/19 05/10/19 06:20 06:20 WBC RBC Hgb Hct MCV MCH MCHC RDW Std Deviation RDW Coeff of Ericka Plt Count MPV Immature Gran % (Auto) Neut % (Auto) Lymph % (Auto) [place] % (Auto) Eos % (Auto) Baso % (Auto) Immature Gran # (Auto) Neut # (Auto) Lymph # (Auto) [place] # (Auto) Eos # (Auto) Baso # (Auto) Sodium 139 Potassium 3.6 Chloride 103 Carbon Dioxide 32 Anion Gap 4.0 BUN 39 H Creatinine 1.31 Est Cr Clr Drug Dosing 112.4 Est GFR ( Amer) 67.6 Est GFR (Non-Af Amer) 58.3 BUN/Creatinine Ratio 29.9 H Glucose 140 H Estimat Average Glucose Hemoglobin A1c Calcium 8.7 Total Bilirubin 1.2 H AST 43 H ALT 37 Alkaline Phosphatase 135 H Total Protein 6.6 Albumin 2.8 L Globulin 3.8 Albumin/Globulin Ratio 0.7 L Procalcitonin TSH 0.116 L Free T4 1.80 H PG Care Time/CCT Total # of Minutes Spent Total Time Spent with Patient: Total time spent is greater than 50% in coordination of care (as documented) at patient's floor/unit and/or counseling patient: (1) A-fib Atrial fibrillation type: permanent Qualified Code(s): I48.21 - Permanent atrial fibrillation (2) Hypothyroidism Hypothyroidism type: acquired Qualified Code(s): E03.9 - Hypothyroidism, unspecified (3) Cirrhosis Hepatic cirrhosis type: unspecified hepatic cirrhosis Ascites presence: with ascites Qualified Code(s): K74.60 - Unspecified cirrhosis of liver; R18.8 - Other ascites
[2019-05-10] MEDS: ONDANSETRON INJ 2 MG/ML 2 ML VIAL IV PRN (21:24)
[2019-05-10] MEDS: POLYETHYLENE (MIRALAX) 17 GM PACK PO SCH (22:19)
[2019-05-10 23:14] LABS: Appearance Urine Slightly Cloudy (Clear); Bilirubin Urine Negative (Negative); Blood Urine Trace (Negative); Color Urine Yellow; Glucose Urine UA Negative (Negative); Ketones Urine Negative (Negative); Leukocyte Esterase Urine Negative (Negative); Nitrite Urine Negative (Negative); Protein Urine Negative (Negative); Specific Gravity Urine 1.015 (1.000-1.030); Urobilinogen Urine Negative (Negative); pH Urine 5.5 (4.5-7.5)
[2019-05-10 23:25] LABS: Epithelial Cell Urine >30 /lpf (0-5); Hyaline Casts Urine >30 /lpf (0-5); Mucus Urine Present (None Prsent)
[2019-05-10 23:27] LABS: Bacteria Urine 1+ (Negative)
[2019-05-11] MEDS: SIMETHICONE 80 MG CHEW PO PRN (03:41)
[2019-05-11] MEDS: LEVOTHYROXINE SODIUM 88 MCG TABLET PO SCH (06:23)
[2019-05-11 07:12] LABS: Basophils # (auto) 0.02 K/uL (0-0.2); Basophils % (auto) 0.2 %; Eosinophils # (auto) 0.08 K/uL (0-0.5); Eosinophils % (auto) 0.8 %; Hematocrit (blood only) 32.9 % (42-52); Hemoglobin 10.6 g/dL (14.0-18.0); Immature Granulocytes # (auto) 0.08 K/uL (0.00-0.02); Immature Granulocytes % (auto) 0.8 %; Lymphocytes # (auto) 1.14 K/uL (1.2-3.4); Lymphocytes % (auto) 11.3 %; Mean Corpuscular Hemoglobin 30.5 pg (25-34); Mean Corpuscular Hgb Conc 32.2 g/dL (32-36); Mean Corpuscular Volume 94.5 fL (80-100); Monocytes # (auto) 1.14 K/uL (0.11-0.59); Monocytes % (auto) 11.3 %; Neutrophils # (auto) 7.62 K/uL (1.4-6.5); Neutrophils % (auto) 75.6 %; Platelet Count 273 K/uL (130-400); RDW Coefficient of Variation 16.3 % (11.5-14.5); RDW Standard Deviation 55.8 fL (36.4-46.3); Red Blood Count 3.48 M/uL (4.7-6.1); White Blood Count 10.08 K/uL (4.8-10.8)
--- NOTE | 2019-05-11 07:31 | XRay Report ---
XR chest 1V portable HISTORY: Shortness of breath. Respiratory failure. Congestive heart failure. COMPARISON: Chest 05/08/2019. FINDINGS: There are low lung volumes. Moderate right and small left pleural effusions are again noted . The heart remains enlarged. Mild interstitial pulmonary edema persists. Bibasilar densities favor a telectasis from the pleural effusion but are technically indeterminate. IMPRESSION: 1. No change in the pulmonary edema and bilateral pleural effusions. 2. Right basilar densities persist and favor atelectasis but are technically indeterminate. Electronically signed by: Keven Ferreira M.D. 05/11/2019 7:30 AM
[2019-05-11 07:55] LABS: Albumin Level 2.8 gm/dl (3.4-5.0); BUN Creatinine Ratio 31.7 (10-20); Calcium 8.6 mg/dl (8.5-10.1); Creatinine Clr Calc Pharmacy 122.7 ml/min; Est GFR (African American) 75.2; Est GFR (Non-African American) 64.9; Magnesium 2.1 mg/dl (1.8-2.4); Potassium 3.1 mmol/L (3.5-5.1)
[2019-05-11 07:58] LABS: Albumin Globulin Ratio 0.7 (0.9-2); Bilirubin,Total 1.1 mg/dl (0.2-1); Globulin 3.9 gm/dl (2.5-4.0); Total Protein 6.7 gm/dl (6.4-8.2)
[2019-05-11] MEDS: MULTIVITAMIN TAB PO SCH (08:11)
[2019-05-11] MEDS: allopurinoL 100 MG TAB PO SCH (08:11)
[2019-05-11] MEDS: CHOLECALCIFEROL 1,000 UNITS TAB PO SCH (08:11)
[2019-05-11] MEDS: ZINC SULFATE 220 MG CAPSULE PO SCH (08:11)
[2019-05-11] MEDS: FUROSEMIDE 80 MG in SYRINGE 0 ML IV SCH ×3 (08:11→20:39)
[2019-05-11] MEDS: APIXABAN 5 MG TABLET PO SCH ×2 (08:12→20:41)
[2019-05-11] MEDS: METOPROLOL TARTRATE 50 MG TAB PO SCH ×2 (08:12→20:42)
[2019-05-11] MEDS: cefUROXime axetil 500 MG TAB PO SCH ×4 (08:12→20:40)
[2019-05-11] MEDS: VITAMIN B COMPLEX TAB PO SCH (08:12)
[2019-05-11] MEDS: POLYETHYLENE (MIRALAX) 17 GM PACK PO SCH ×2 (08:13→20:40)
[2019-05-11] MEDS: ASPIRIN 81 MG ECTAB PO SCH (08:13)
[2019-05-11] MEDS: ALBUMIN 25% 50 ML IV SCH (08:25)
[2019-05-11] MEDS: POTASSIUM CHLORIDE 20 MEQ TABCR PO SCH ×3 (09:07→20:41)
--- NOTE | 2019-05-11 09:12 | Nephrology Progress Note ---
Date of Service May 11, 2019 Assessment & Plan (1) EDNA (acute kidney injury): -- Creatinine stable -- UA negative for proteinuria -- Remains significantly volume overloaded without significant negative fluid balance. Furosemide increased to 80 mg IV BID yesterday -- Suggest increasing Furosemide to at least 80 mg TID today -- Oral KCl provided for hypokalemia this morning -- Add spironolactone 100 mg daily, as tolerated -- Remains on SPA 25 g IV BID, consider stopping at this time -- Repeat metabolic profile with Mg+ tomorrow AM (2) CHF (congestive heart failure): -- TTE reviewed: normal LV size and systolic function -- Diastolic CHF, unclear exact etiology (3) Cellulitis: -- On IV Daptomycin (4) Morbid obesity: -- Undergoing evaluation w/ [facility] [place]ariatric program (5) Lyme disease: -- On chronic antibiotic therapy w/ Ceftin + Doxycycline Subjective No acute events overnight. Minimally improved this morning. Remains on BIPAP. Not OOB or ambulating. No fevers or chills. Appetite poor. Review of Systems Review of Systems: All systems reviewed & are unremarkable except as noted in HPI & below Physical Exam Constitutional: well developed, + morbidly obese and + edematous Eyes: + anicteric sclerae; no conjunctival abnormality ENMT: Mouth: no oral mucosal abnormality and oral mucous membranes not dry Neck: normal visual inspection and + thick neck Respiratory: normal respiratory effort Auscultation: + diminished lung sounds Cardiovascular: Heart Sounds: normal S1 and normal S2 Extremities: normal capillary refill and + edema Gastrointestinal (Abdomen): Percussion/Palpation: abdomen soft; abdomen nontender Musculoskeletal: Extremities: no cyanosis and no petechiae Skin: + turgor decreased; no lesions Neurologic: Motor/Sensory: no tremor and no asterixis Psychiatric: Orientation: alert Eye Contact: + fair eye contact Results & Data Vital Signs (Past 12 Hours) Vital Signs Temp Pulse Pulse Resp BP Pulse Ox 05/11/19 07:28 36.8 C 83 22 129/79 92 05/11/19 07:01 86 18 92 05/11/19 03:57 86 16 90 05/11/19 02:48 37.2 C 85 22 131/81 92 05/10/19 23:45 80 20 90 05/10/19 23:31 37.2 C 80 22 130/79 91 05/10/19 22:20 84 Laboratory Results Laboratory Results - last 24 hr 05/10/19 05/10/19 05/11/19 06:20 23:05 06:56 WBC RBC Hgb Hct MCV MCH MCHC RDW Std Deviation RDW Coeff of Ericka Plt Count MPV Immature Gran % (Auto) Neut % (Auto) Lymph % (Auto) [place] % (Auto) Eos % (Auto) Baso % (Auto) Immature Gran # (Auto) Neut # (Auto) Lymph # (Auto) [place] # (Auto) Eos # (Auto) Baso # (Auto) Sodium 139 Potassium 3.1 L Chloride 102 Carbon Dioxide 31 Anion Gap 6.0 BUN 38 H Creatinine 1.20 Est Cr Clr Drug Dosing 122.7 Est GFR ( Amer) 75.2 Est GFR (Non-Af Amer) 64.9 BUN/Creatinine Ratio 31.7 H Glucose 132 H Calcium 8.6 Magnesium 2.1 Total Bilirubin 1.1 H AST 41 H ALT 31 Alkaline Phosphatase 134 H Total Protein 6.7 Albumin 2.8 L Globulin 3.9 Albumin/Globulin Ratio 0.7 L TSH 0.116 L Free T4 1.80 H Urine Color Yellow Urine Appearance Slightly Cloudy Urine pH 5.5 Ur Specific [place] 1.015 Urine Protein Negative Urine Glucose (UA) Negative Urine Ketones Negative Urine Blood Trace H Urine Nitrite Negative Urine Bilirubin Negative Urine Urobilinogen Negative Ur Leukocyte Esterase Negative Urine RBC 5-10 H Urine WBC 5-10 H Ur Epithelial Cells >30 H Urine Bacteria 1+ H Hyaline Casts >30 H Urine Mucus Present A 05/11/19 06:56 WBC 10.08 RBC 3.48 L Hgb 10.6 L Hct 32.9 L MCV 94.5 MCH 30.5 MCHC 32.2 RDW Std Deviation 55.8 H RDW Coeff of Ericka 16.3 H Plt Count 273 MPV 10.0 Immature Gran % (Auto) 0.8 Neut % (Auto) 75.6 Lymph % (Auto) 11.3 [place] % (Auto) 11.3 Eos % (Auto) 0.8 Baso % (Auto) 0.2 Immature Gran # (Auto) 0.08 H Neut # (Auto) 7.62 H Lymph # (Auto) 1.14 L [place] # (Auto) 1.14 H Eos # (Auto) 0.08 Baso # (Auto) 0.02 Sodium Potassium Chloride Carbon Dioxide Anion Gap BUN Creatinine Est Cr Clr Drug Dosing Est GFR ( Amer) Est GFR (Non-Af Amer) BUN/Creatinine Ratio Glucose Calcium Magnesium Total Bilirubin AST ALT Alkaline Phosphatase Total Protein Albumin Globulin Albumin/Globulin Ratio TSH Free T4 Urine Color Urine Appearance Urine pH Ur Specific [place] Urine Protein Urine Glucose (UA) Urine Ketones Urine Blood Urine Nitrite Urine Bilirubin Urine Urobilinogen Ur Leukocyte Esterase Urine RBC Urine WBC Ur Epithelial Cells Urine Bacteria Hyaline Casts Urine Mucus PG Care Time/CCT Total # of Minutes Spent Total Time Spent with Patient: Total time spent is greater than 50% in coordination of care (as documented) at patient's floor/unit and/or counseling patient:
[2019-05-11] MEDS: NYSTATIN POWDER 15GM BTL EXT SCH ×3 (10:15→20:42)
[2019-05-11] MEDS: SPIRONOLACTONE 100 MG TAB PO SCH (11:07)
[2019-05-11] MEDS: NYSTATIN 30 ML, DEXAMETHASONE CONC 3.75 MG, DiphenhydrAMINE Syrup 300 MG, ORA-SWEET SYR... PO SCH ×2 (16:59→21:07)
[2019-05-11] MEDS: DAPTOmycin 500 MG in SYRINGE 0 ML IV SCH (17:40)
--- NOTE | 2019-05-11 18:30 | Ultrasound Report ---
BILATERAL LOWER EXTREMITY VENOUS DOPPLER HISTORY: Acute bilateral lower extremity pain and swelling b/l calf pain, right > left COMPARISON STUDY: Duplex venous Doppler study 05/08/2019 FINDINGS: There is normal compressibility, flow, and augmentation within the bilateral lower extremit y deep venous systems. Study is very limited secondary to patient body habitus. For example, the dist al right femoral vein and bilateral calf veins are not diagnostically visualized. Subcutaneous edema is noted throughout. IMPRESSION: Limited exam as above. No deep venous thrombosis identified within the right or left lower extremity. Electronically signed by: Kwame King M.D. 05/11/2019 6:29 PM
--- NOTE | 2019-05-11 20:49 | Hospitalist Progress Note ---
Date of Service May 11, 2019 Assessment & Plan (1) Acute respiratory failure with hypoxia: Presumed due to acute pulmonary edema from volume overloaded state/anasarca. I cannot rule out VTE but it would be challenging at this time to perform any sort of imaging study. RLE doppler neg for DVT at admission; repeat b/l LE dopplers today neg for DVT. Repeat cxr today largely unchanged. Suspect he has a rather large pleural effusion on right side given how decreased his BS are on that side. Continue diuresis. Agree w/ nephrology to increase to 80mg IV TID. Agree with addition of aldactone. Cont BIPAP Attempt high-flow NC again today. If no significant improvement overnight consider chest CT tomorrow to r/o PE, large effusions, other pathology. If unable to obtain CT consider chest u/s. Consider cardiology and/or pulmonary consultations if no improvement. (2) Acute pulmonary edema: in setting of volume overloaded state due to cirrhosis? due to diastolic dysfunction? combination? diurese. (3) Anasarca: Massive weight gain (at least 50 pounds) in the last 4-6 weeks per . Liver u/s with suggestion of cirrhosis. Echo is limited given his morbid obesity but EF is grossly preserved. Renal function intact. No significant thyroid decompensation. Suspect combination of diastolic dysfunction and cirrhosis leading to volume overload state. Uncertain how accurate I's and O's are. reports they are collecting all voids. Weight is down 25 pounds since admission?? If that was the case I would have expected more improvement than this. [id number] his weights have not changed significantly since admission. Will increase lasix to 80mg IV TID. Add aldactone given the ascites seen on u/s. Appreciate nephrology assistance. Consider dedicated ascites u/s to quantify ascites. (4) Cellulitis of right leg: IMPROVING. Cont daptomycin. Obtain RLE doppler again given his complaints. Consider CT RLE if pain persists. (5) EDNA (acute kidney injury): Creatinine 1.46 on admission Baseline about 0.9 Nephrology consultation appreciated Creatinine improved today. BMP am (6) Lymphedema: severe resume compression of legs as usual once RLE cellulitis has resolved (7) A-fib: Controlled. Continue Eliquis 5 mg twice daily, metoprolol 50 mg twice daily, and diltiazem 180 mg twice daily (8) Morbid obesity: BMI 70-75 Patient not interested in bariatric surgery (9) Lyme disease: Chronic typically takes chronic abx for such (10) Hypothyroidism: TSH suppressed FT4 elevated typically on 100mcg daily of synthroid reduce dose to 88mcg daily repeat TSH 6 weeks (11) Zinc deficiency: 04/2019 level low started zinc 220mg daily x 2 weeks on 05/10 (12) Anxiety: poor candidate for benzos due to resp failure consider buspar (13) Cirrhosis: as seen on imaging this could be due to long-standing fatty liver leading to MAYES consider diagnostic paracentesis continue diuresis (14) Candidiasis of mouth and esophagus: start nystatin 5cc ac/hs - swish & spit (15) DVT prophylaxis: eliquis BID extensively updated at bedside once again today Subjective patient was on highflow NC during my rounds today. he felt "a little" better than yesterday. still quite dyspneic. reports they are catching/collecting most urinary voids. she states the urine is dark/concentrated and he complains to me of being thirsty with very dry mouth. still cannot tolerate being off BIPAP very long. he has occasional cough. continues with severe right calf discomfort. however, as long as you don't touch it, the calf is comfortable. thinks pink erythema of RLE cellulitis is improved today. appetite about the same or slightly better than yesterday. still feels quite bloated in abdomen although he finally had bowel movement today. worked with PT; got to side of bed but did not stand. weight was >500 pounds at admission; now down to ~475. Review of Systems Constitutional: + fatigue and + anorexia Ear, Nose, Mouth, Throat: + dry mouth Respiratory: + dyspnea and + dyspnea on exertion; no wheezing Cardiovascular: no chest pain Gastrointestinal: + bloating and + nausea; no vomiting Physical Exam Constitutional: + acute distress (episodes of dyspnea and mild tachypnea ) and + morbidly obese; no altered mental status ENMT: Mouth: + dry oral mucous membranes ? thrush plaques buccal mucosa Respiratory: + tachypneic Auscultation: + diminished lung sounds (right base); no crackles and no wheezes Cardiovascular: Rate/Rhythm: regular rate and + irregularly irregular Heart Sounds: normal S1 and normal S2; no murmur Vessels: posterior tibial pulses present and dorsalis pedis pulses present; no JVD Extremities: + edema (severe; 4+ b/l but modestly worse right leg.) Gastrointestinal (Abdomen): Inspection/Auscultation: + abdomen distended (probable ascites and/or body-wall edema entire abdomen), normal bowel sounds and + abdominal edema Percussion/Palpation: abdomen nontender and no hepatosplenomegaly Musculoskeletal: right knee linear scar present; passive flexion/extension elicits no pain; nontender to palpation of right knee. mild discomfort of right calf to palpation and also with passive dorsiflexion of right ankle/foot. Skin: mild pink erythema of entire right leg from hip to ankle -- IMPROVED today; less intense redness; minimal warmth. no abscess or crepitus any location. Psychiatric: Orientation: alert and oriented x 3 Affect: + anxious affect Results & Data Vital Signs (Past 12 Hours) Vital Signs Temp Pulse Pulse Resp BP Pulse Ox 05/11/19 19:30 36.5 C 87 18 132/80 94 05/11/19 19:29 88 20 93 05/11/19 15:50 90 22 93 05/11/19 15:33 36.8 C 85 18 128/81 91 05/11/19 14:57 89 24 93 05/11/19 11:42 37.3 C 85 20 125/75 92 05/11/19 11:26 90 90 22 91 Laboratory Results Laboratory Results - last 24 hr 05/10/19 05/11/19 05/11/19 23:05 06:56 06:56 WBC 10.08 RBC 3.48 L Hgb 10.6 L Hct 32.9 L MCV 94.5 MCH 30.5 MCHC 32.2 RDW Std Deviation 55.8 H RDW Coeff of Ericka 16.3 H Plt Count 273 MPV 10.0 Immature Gran % (Auto) 0.8 Neut % (Auto) 75.6 Lymph % (Auto) 11.3 [place] % (Auto) 11.3 Eos % (Auto) 0.8 Baso % (Auto) 0.2 Immature Gran # (Auto) 0.08 H Neut # (Auto) 7.62 H Lymph # (Auto) 1.14 L [place] # (Auto) 1.14 H Eos # (Auto) 0.08 Baso # (Auto) 0.02 Sodium 139 Potassium 3.1 L Chloride 102 Carbon Dioxide 31 Anion Gap 6.0 BUN 38 H Creatinine 1.20 Est Cr Clr Drug Dosing 122.7 Est GFR ( Amer) 75.2 Est GFR (Non-Af Amer) 64.9 BUN/Creatinine Ratio 31.7 H Glucose 132 H Calcium 8.6 Magnesium 2.1 Total Bilirubin 1.1 H AST 41 H ALT 31 Alkaline Phosphatase 134 H Total Protein 6.7 Albumin 2.8 L Globulin 3.9 Albumin/Globulin Ratio 0.7 L Urine Color Yellow Urine Appearance Slightly Cloudy Urine pH 5.5 Ur Specific [place] 1.015 Urine Protein Negative Urine Glucose (UA) Negative Urine Ketones Negative Urine Blood Trace H Urine Nitrite Negative Urine Bilirubin Negative Urine Urobilinogen Negative Ur Leukocyte Esterase Negative Urine RBC 5-10 H Urine WBC 5-10 H Ur Epithelial Cells >30 H Urine Bacteria 1+ H Hyaline Casts >30 H Urine Mucus Present A PG Care Time/CCT Total # of Minutes Spent Total Time Spent with Patient: Total time spent is greater than 50% in coordination of care (as documented) at patient's floor/unit and/or counseling patient: (1) A-fib Atrial fibrillation type: permanent Qualified Code(s): I48.21 - Permanent atrial fibrillation (2) Hypothyroidism Hypothyroidism type: acquired Qualified Code(s): E03.9 - Hypothyroidism, unspecified (3) Cirrhosis Ascites presence: with ascites Hepatic cirrhosis type: unspecified hepatic cirrhosis Qualified Code(s): K74.60 - Unspecified cirrhosis of liver; R18.8 - Other ascites
[2019-05-12] MEDS: LEVOTHYROXINE SODIUM 88 MCG TABLET PO SCH (06:11)
[2019-05-12 08:01] LABS: Albumin Level 2.5 gm/dl (3.4-5.0); BUN Creatinine Ratio 37.3 (10-20); Calcium 8.7 mg/dl (8.5-10.1); Creatinine Clr Calc Pharmacy 137.5 ml/min; Est GFR (African American) 85.4; Est GFR (Non-African American) 73.7; Phosphorus 2.6 mg/dl (2.5-4.9); Potassium 3.5 mmol/L (3.5-5.1)
[2019-05-12] MEDS: NYSTATIN 30 ML, DEXAMETHASONE CONC 3.75 MG, DiphenhydrAMINE Syrup 300 MG, ORA-SWEET SYR... PO SCH ×4 (08:05→20:31)
[2019-05-12] MEDS: allopurinoL 100 MG TAB PO SCH (08:05)
[2019-05-12] MEDS: MULTIVITAMIN TAB PO SCH (08:05)
[2019-05-12] MEDS: FUROSEMIDE 80 MG in SYRINGE 0 ML IV SCH ×3 (08:05→20:17)
[2019-05-12] MEDS: cefUROXime axetil 500 MG TAB PO SCH ×4 (08:06→20:22)
[2019-05-12] MEDS: CHOLECALCIFEROL 1,000 UNITS TAB PO SCH (08:06)
[2019-05-12] MEDS: POTASSIUM CHLORIDE 20 MEQ TABCR PO SCH ×3 (08:06→20:18)
[2019-05-12] MEDS: VITAMIN B COMPLEX TAB PO SCH (08:06)
[2019-05-12] MEDS: APIXABAN 5 MG TABLET PO SCH ×2 (08:06→20:18)
[2019-05-12] MEDS: METOPROLOL TARTRATE 50 MG TAB PO SCH ×2 (08:06→20:18)
[2019-05-12] MEDS: SPIRONOLACTONE 100 MG TAB PO SCH (08:07)
[2019-05-12] MEDS: ZINC SULFATE 220 MG CAPSULE PO SCH (08:07)
[2019-05-12] MEDS: POLYETHYLENE (MIRALAX) 17 GM PACK PO SCH ×2 (08:07→20:17)
[2019-05-12] MEDS: ASPIRIN 81 MG ECTAB PO SCH (08:07)
[2019-05-12] MEDS: NYSTATIN POWDER 15GM BTL EXT SCH ×3 (08:07→20:17)
[2019-05-12 09:42] LABS: Base Excess ABG 4.9 mEq/L (-9-1.8); HCO3 ABG 29 mmol/L (19-24); PCO2 ABG 40 mmHg (35-46); pH ABG 7.47 (7.35-7.45)
[2019-05-12 09:43] LABS: Allen Test Pos (Pos)
[2019-05-12 09:53] LABS: PO2 ABG 71 mm/Hg (80-95)
--- NOTE | 2019-05-12 10:39 | Nephrology Progress Note ---
Date of Service May 12, 2019 Assessment & Plan (1) EDNA (acute kidney injury): -- Creatinine improved to 1.0 mg/dL -- UA negative for proteinuria -- Remains significantly volume overloaded. I/O's not accurate. Bed scale weight not reliable. Edema does seem to be improving but slowly. No clinical improvement in respiratory status. -- I discussed the plan of care with Dr. Bhatt this morning and will defer any additional adjustment in diuretics to him pending additional monitoring of I/O's today and repeat weights -- Nephrology will follow peripherally, please call with specific questions or concerns (2) CHF (congestive heart failure): -- TTE reviewed: normal LV size and systolic function -- Predominately evidence of right sided CHF on exam (3) Cellulitis: -- On IV Daptomycin (4) Morbid obesity: -- Undergoing evaluation w/ [facility] [place] Bariatric program (5) Lyme disease: -- On chronic antibiotic therapy w/ Ceftin + Doxycycline Subjective No acute events overnight. Seen and evaluated this AM with his at the bedside. Pain in right lower extremity persists. Remains profoundly weak. Appetite is poor. Abdominal distention noted this AM. Multiple loose BM yesterday following Miralax. No fevers or chills. No urinary complaints. Review of Systems Review of Systems: All systems reviewed & are unremarkable except as noted in HPI & below Physical Exam Constitutional: well developed and + morbidly obese Eyes: + anicteric sclerae; no conjunctival abnormality ENMT: Mouth: no oral mucosal abnormality and oral mucous membranes not dry Neck: normal visual inspection and + thick neck Respiratory: normal respiratory effort Auscultation: + diminished lung sounds Cardiovascular: Heart Sounds: normal S1 and normal S2 Extremities: normal capillary refill and + edema Gastrointestinal (Abdomen): Percussion/Palpation: abdomen soft; abdomen nontender Musculoskeletal: Extremities: no cyanosis and no petechiae Skin: + turgor decreased; no lesions Neurologic: Motor/Sensory: no tremor and no asterixis Psychiatric: Orientation: alert and oriented x 3 Results & Data Vital Signs (Past 12 Hours) Vital Signs Temp Pulse Pulse Resp BP Pulse Ox 05/12/19 07:20 81 81 20 93 05/12/19 07:19 37.0 C 93 H 19 117/77 92 05/12/19 03:18 95 H 25 H 93 05/12/19 02:59 36.8 C 84 20 121/77 92 05/11/19 23:28 36.9 C 88 20 128/80 90 Laboratory Results Laboratory Results - last 24 hr 05/12/19 05/12/19 07:08 09:26 ABG pH 7.47 H ABG pCO2 40 ABG pO2 71 L ABG HCO3 29 H ABG O2 Saturation 94.0 ABG Base Excess 4.9 H Richard Test Pos Barometric Pressure 723.2 Oxygen Given 40% Sodium 139 Potassium 3.5 Chloride 103 Carbon Dioxide 32 Anion Gap 5.0 BUN 40 H Creatinine 1.08 Est Cr Clr Drug Dosing 137.5 Est GFR ( Amer) 85.4 Est GFR (Non-Af Amer) 73.7 BUN/Creatinine Ratio 37.3 H Glucose 139 H Calcium 8.7 Phosphorus 2.6 Albumin 2.5 L PG Care Time/CCT Total # of Minutes Spent Total Time Spent with Patient: Total time spent is greater than 50% in coordination of care (as documented) at patient's floor/unit and/or counseling patient:
--- NOTE | 2019-05-12 12:16 | Pulmonary Consultation ---
Date of Consultation May 12, 2019 Assessment & Plan (1) Hemoptysis: Patient reports intermittent episodes of hemoptysis with clotted blood no larger than the size of a yashira * These are associated with cough and shortness of breath * This occurred on 2 or 3 days with 1-2 episodes per day * No significant sputum production * No significant findings on x-ray * Continue to monitor for now * No indication for bronchoscopy. Minimal concern for alveolar hemorrhage. (2) CHF (congestive heart failure): Patient currently being diuresed with furosemide and aldactone We will continue diuresis to the point of creatinine starting to rise. May require Diamox for alkalosis Will check repeat ABG in the morning Nephrology consulted and following as well (3) Obesity hypoventilation syndrome: Patient is on CPAP at home for the last 15 years Patient unsure of CPAP settings Currently is on hospital supplied CPAP at 15 cm of water May need to titrate CPAP or convert to BiPAP based on respiratory status Patient has no overt hypercapnia * pH 7.47, PCO2 40, PaO2 71, HCO3 29, FiO2 40% on high flow Patient has been buying supplies online for his CPAP with no maintenance to the machine for 15 years I discussed with case management to appropriate DME supplier in this area Patient will need outpatient follow-up with polysomnography and PFTs when back at baseline Patient is agreeable to plan (4) Morbid obesity with BMI of 70 and over, adult: 300 pound weight gain since CPAP was initially prescribed 80 pound weight gain in the last year Patient reports the majority of this is due to immobility secondary to bilateral knee replacement/infection Long discussion on weight loss technique This should be the focus of treatment as an outpatient Patient currently with limited caloric intake of nutritional supplements and water Thank you very much for including us in the care of this patient. We will follow along with you. Please refer to Dr. Gill's addendum for further recommendations. Supervising Physician Co-Signing Physician Notes Patient seen and examined. EMR reviewed. Imaging reviewed. Discussed with MARY ELLEN Gustafson. Agree with his assessment and plan as noted. Impression: 63-year-old male with morbid obesity admitted with hypoxemic respiratory failure. Suspect fluid overload, secondary pulmonary hypertension, and undertreated sleep disordered breathing. No evidence of hypercarbia on assessment of blood gas. Patient cannot have additional diagnostic testing. He is too large to consider entry into the CT scanning gantry. He also exceeds the weight limit. VQ scan would likely be unreliable in this patient. PE is felt to be low probability given the Patient is already on anticoagulation. Recommendations: 1. Would continue aggressive attempts at diuresis. Agree with Lasix and Aldactone. Can add metolazone as well. Would continue diuresis until BUN and creatinine are significantly increased. Diamox as needed for metabolic alkalosis. 2. Continue CPAP for now. He is currently on 15 cm water. This may need to be empirically increased up to 18 or 20 cmH2O based on body habitus and likely significantly diminished functional residual capacity. 3. Repeat outpatient sleep study recommended. Will need new CPAP supplies to go home. History of Present Illness Attending Physician: Benoit Pham History of Present Illness Attending: Dr. Gill Is a pleasant 63-year-old male with a past medical history of AUBRIE, Lyme disease, cirrhosis, hypothyroidism, CHF, ambulatory dysfunction, lymphedema, total right knee arthroplasty complicated by infection requiring antibiotic spacer and replacement of hardware, morbid obesity with a BMI of 75.6 kg/m. Patient states he has had increased shortness of breath for the last 2 to 3 weeks. On Friday he got to the point where he felt as though he could not catch his breath. He reports that 2 to 3 days prior to that he began having some hemoptysis with clots the size of pennies 1-2 times per day. He denies any pleuritic chest pain and no prior thromboembolic disease. He has chronic lymphedema and ambulates with difficulty at home with a walker and with a cane. His is present and claims that he has had several falls at home secondary to weakness of legs. Patient does have a CPAP machine at home. He is unclear of the settings. This was acquired 15 years ago. Since that time he has had no pulmonary follow-up and no professional maintenance to the machine or tubing. He states that he buys supplies online for the machine rather than through [employer] company. He believes a [employer] company used in the past with CP O2. Polysomnography was conducted at [facility] in [place] at that time. The patient states that when he had the CPAP machine prescribed 15 years ago he weighed approximately 200 pounds. Patient denies any pulmonary disease in the past. He has no tobacco abuse history. Allergies Allergy/AdvReac Type Severity Reaction Status Date / Time No Known Allergies Allergy NKDA Verified 05/08/19 13:52 Home Medications Home Medications Medication Instructions Recorded Confirmed Type aspirin [Aspir-81] 81 mg PO DAILY 04/14/18 05/08/19 History cefuroxime axetil 500 mg PO QID 04/14/18 05/08/19 History cholecalciferol (vitamin D3) 1,000 unit PO DAILY 04/14/18 05/08/19 History diltiazem HCl [Cardizem LA] 180 mg PO BID 04/14/18 05/08/19 History lactobacillus combination no.4 0 mmu cells PO DAILY 04/14/18 05/08/19 History [Probiotic] metoprolol tartrate 50 mg PO BID 04/14/18 05/08/19 History multivitamin [Multiple Vitamins] 1 tab PO DAILY 04/14/18 05/08/19 History vitamin B complex 1 tab PO DAILY 04/14/18 05/08/19 History allopurinol 100 mg PO DAILY 05/08/19 05/08/19 History apixaban [Eliquis] 5 mg PO BID 05/08/19 05/08/19 History furosemide 40 mg PO DAILY 05/08/19 05/08/19 History zinc 50 mg PO DAILY 05/08/19 05/08/19 History Patient History Medical History (Updated 05/12/19 @ 14:33 by Nikunj Gustafson PA-C) 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 with presence of antibiotic-impregnated cement spacer Cellulitis CHF (congestive heart failure) Cirrhosis 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 Lymphedema (Acute) Morbid obesity with BMI of 70 and over, adult AUBRIE (obstructive sleep apnea) Urinary tract obstruction by kidney stone Surgical History History of bilateral knee replacement Family History Other No significant family history Social History Preferred Language: Singaporean Communication Ability: Effective Beliefs That Will Affect Care: None marital status: Current Living Situation: Spouse current occupational status: disabled 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 Pupils equal round reactive to light. Patient appears to be forming cataracts bilaterally. NOSE: No evidence of epistaxis. Bridge of nose irritated from positive pressure mask MOUTH: No lesions or candidiasis. Poor dental caries with evidence of cavities and broken teeth. NECK: Supple LUNGS: Generally CTA B/L with no wheezes. There are some fine rales at the bilateral bases. No appreciation of rhonchi. HEART: Regular, rate controlled with some occasional ectopy. ABDOMEN: Soft, NT, ND, BS Present EXTREMITIES: Bilateral pitting LE edema, pedal pulses intact and equal bilaterally. Feet are warm to touch bilaterally NEURO: A&OX3 Results & Data Vital Signs (Past 12 Hours) Vital Signs Temp Pulse Pulse Resp BP Pulse Ox 05/12/19 11:33 91 H 22 92 05/12/19 10:56 83 83 20 92 05/12/19 09:00 81 05/12/19 07:20 81 81 20 93 05/12/19 07:19 37.0 C 93 H 19 117/77 92 05/12/19 03:18 95 H 25 H 93 05/12/19 02:59 36.8 C 84 20 121/77 92 Laboratory Results 05/11/19 06:56 05/12/19 07:08 05/12/19 09:26 ABG pH 7.47 H ABG pCO2 40 ABG pO2 71 L ABG HCO3 29 H ABG O2 Saturation 94.0 ABG Base Excess 4.9 H Diagnostic Findings XR chest 1V portable HISTORY: Shortness of breath. Respiratory failure. Congestive heart failure. COMPARISON: Chest 05/08/2019. FINDINGS: There are low lung volumes. Moderate right and small left pleural effusions are again noted. The heart remains enlarged. Mild interstitial pulmonary edema persists. Bibasilar densities favor atelectasis from the pleural effusion but are technically indeterminate. IMPRESSION: 1. No change in the pulmonary edema and bilateral pleural effusions. 2. Right basilar densities persist and favor atelectasis but are technically indeterminate. Electronically signed by: Keven Ferreira M.D. 05/11/2019 7:30 AM PG Care Time/CCT Total # of Minutes Spent Total Time Spent with Patient: Total time spent is greater than 50% in coordination of care (as documented) at patient's floor/unit and/or counseling patient: 40 minutes
[2019-05-12] MEDS: DAPTOmycin 500 MG in SYRINGE 0 ML IV SCH (16:55)
--- NOTE | 2019-05-12 18:42 | Hospitalist Progress Note ---
Date of Service May 12, 2019 Assessment & Plan (1) Acute respiratory failure with hypoxia: Ongoing. 2nd acute pulmonary edema from volume overloaded state/anasarca in the setting of probable obesity-hypoventilation syndrome. ABG today w/ normal CO2 but low O2. Recent echo was not helpful given limited views but grossly his EF was normal. I cannot rule out VTE but less likely given he is on eliquis (but how protective is eliquis in setting of extreme morbid obesity?) Suspect he has at least a moderate pleural effusion on right side given how decreased his BS are on that side. Continue diuresis with TID lasix and daily aldactone. Cont BIPAP at HS and HFNC during the day. Needs repeat sleep study once he is out of hospital (none done in many years). Unfortunately he exceeds the weight limit for the table in the CT scanner; CT chest deferred. Appreciate pulmonary consultation today and their recs. They talked about everything from trach placement to LTACH, etc. (2) Acute pulmonary edema: in setting of volume overloaded state due to cirrhosis? due to diastolic dysfunction? combination? cont to diurese. Appreciate nephrology & pulmonary recs. (3) Anasarca: Massive weight gain (at least 50 pounds) in the last 4-6 weeks per . Liver u/s with suggestion of cirrhosis. Echo is limited given his morbid obesity but EF is grossly preserved. Renal function intact. No significant thyroid decompensation. Suspect combination of diastolic dysfunction and cirrhosis leading to volume overload state. Cont lasix 80mg IV TID. Cont aldactone. Appreciate nephrology assistance. Consider dedicated ascites u/s to quantify ascites. Continue attempts at daily weights as the last few values have fluctuated and don't appear accurate. Creatinine remains stable in face of diuresis. (4) Cellulitis of right leg: IMPROVING. Cont daptomycin. RLE doppler x 2 neg for DVT. No obvious abscess or deeper infection on exam. He is also on cephalosporin for chronic lyme's; this will provide some coverage as well. (5) EDNA (acute kidney injury): Creatinine 1.46 on admission Now 1. baseline 0.9. Nephrology consultation appreciated BMP am. (6) Lymphedema: severe resume compression of legs as usual once RLE cellulitis has resolved (7) A-fib: rates Controlled. Continue Eliquis 5 mg twice daily, metoprolol 50 mg twice daily, and diltiazem 180 mg twice daily (8) Morbid obesity: BMI 70-75 Patient not interested in bariatric surgery (9) Lyme disease: Chronic typically takes chronic abx for such (10) Hypothyroidism: TSH suppressed FT4 elevated typically on 100mcg daily of synthroid reduce dose to 88mcg daily repeat TSH 6 weeks (11) Zinc deficiency: 04/2019 level low started zinc 220mg daily x 2 weeks on 05/10 (12) Anxiety: poor candidate for benzos due to resp failure consider buspar if anxiety persists (13) Cirrhosis: as seen on imaging this could be due to long-standing fatty liver leading to MAYES consider diagnostic paracentesis continue diuresis (14) Candidiasis of mouth and esophagus: improved with magic mouthwash 5cc ac/hs - swish & spit (15) Abdominal distension: attempted to get x-rays but he is too large for x-ray table cannot get them portably either doubt obstruction ?ileus however cut diet to clears follow serial exams (16) Diarrhea: check c diff (17) Obesity hypoventilation syndrome: chronic, long-standing o2 sat goals 90-92% (18) Hemoptysis: likely 2nd pulmonary edema in setting of chronic anticoagulation not a candidate for invasive testing (19) DVT prophylaxis: eliquis BID extensively updated at bedside on 2 separate visits PT, OT when able Subjective patient c/o abdominal bloating/distension and being uncomfortable. he feels like the right side of abdomen is worse than the left. no vomiting. but does have nausea and appetite is still quite poor. appetite worse than yesterday. still passing gas. had numerous loose bowel movements yesterday. still using BIPAP at HS and HFNC during the day. respiratory status is about the same -- still very dyspneic with any movement. cough continues - comes in waves - productive at times. still having considerable pain in the right leg; he does not think he could bear weight yet. denies right knee pain. tele with rate controlled a.fib overnight. Review of Systems Constitutional: no fever and no chills Ear, Nose, Mouth, Throat: + dry mouth; no sore throat Respiratory: + cough, + chest congestion, + dyspnea, + dyspnea on exertion, + hemoptysis (occasional), + sputum production and + wheezing Cardiovascular: no chest pain Gastrointestinal: + dysphagia (a little) and + diarrhea/loose stools; no blood in stools Genitourinary: no dysuria and no difficulty urinating Physical Exam Constitutional: + morbidly obese; no acute distress (comfortable on high-flow NC) and no altered mental status ENMT: Mouth: + dry oral mucous membranes (thrush plaques look better) Respiratory: + tachypneic Auscultation: + diminished lung sounds (right base); no crackles and no wheezes Cardiovascular: Rate/Rhythm: regular rate and + irregularly irregular Heart Sounds: normal S1 and normal S2; no murmur Vessels: posterior tibial pulses present and dorsalis pedis pulses present; no JVD Extremities: + edema (severe; 4+ b/l but modestly worse right leg.) Gastrointestinal (Abdomen): Inspection/Auscultation: + abdomen distended (worse than yesterday; upper abdomen with tympany to percussion) and + abdominal edema; + abnormal bowel sounds (higher pitched today) Percussion/Palpation: + abdomen tender (upper abdomen); no hepatosplenomegaly Musculoskeletal: large midline scar right knee; with palpation of knee there is NO pain Skin: right leg cellulitis - slightly improved pink erythema that extends from right hip to the bell; no crepitus along course of leg Psychiatric: Orientation: alert and oriented x 3 Results & Data Vital Signs (Past 12 Hours) Vital Signs Temp Pulse Pulse Resp BP Pulse Ox 05/12/19 15:10 87 21 91 05/12/19 15:08 37.0 C 80 20 120/78 93 05/12/19 15:00 80 05/12/19 11:33 91 H 22 92 05/12/19 10:56 83 83 20 92 05/12/19 09:00 81 05/12/19 07:20 81 81 20 93 05/12/19 07:19 37.0 C 93 H 19 117/77 92 Laboratory Results Laboratory Results - last 24 hr 05/12/19 05/12/19 05/12/19 07:08 09:26 11:40 ABG pH 7.47 H ABG pCO2 40 ABG pO2 71 L ABG HCO3 29 H ABG O2 Saturation 94.0 ABG Base Excess 4.9 H Richard Test Pos Barometric Pressure 723.2 Oxygen Given 40% Sodium 139 Potassium 3.5 Chloride 103 Carbon Dioxide 32 Anion Gap 5.0 BUN 40 H Creatinine 1.08 Est Cr Clr Drug Dosing 137.5 Est GFR ( Amer) 85.4 Est GFR (Non-Af Amer) 73.7 BUN/Creatinine Ratio 37.3 H Glucose 139 H Calcium 8.7 Phosphorus 2.6 Albumin 2.5 L Stl C. diff Tox B Gene Negative Cdiff Gene PG Care Time/CCT Total # of Minutes Spent Total Time Spent with Patient: Total time spent is greater than 50% in coordination of care (as documented) at patient's floor/unit and/or counseling patient: (1) A-fib Atrial fibrillation type: permanent Qualified Code(s): I48.21 - Permanent atrial fibrillation (2) Hypothyroidism Hypothyroidism type: acquired Qualified Code(s): E03.9 - Hypothyroidism, unspecified (3) Cirrhosis Ascites presence: with ascites Hepatic cirrhosis type: unspecified hepatic cirrhosis Qualified Code(s): K74.60 - Unspecified cirrhosis of liver; R18.8 - Other ascites (4) Diarrhea Diarrhea type: unspecified type Qualified Code(s): R19.7 - Diarrhea, unspecified
[2019-05-13] MEDS: LEVOTHYROXINE SODIUM 88 MCG TABLET PO SCH (05:01)
[2019-05-13] MEDS: NYSTATIN POWDER 15GM BTL EXT SCH ×3 (08:26→21:26)
[2019-05-13] MEDS: ZINC SULFATE 220 MG CAPSULE PO SCH (08:26)
[2019-05-13] MEDS: CHOLECALCIFEROL 1,000 UNITS TAB PO SCH (08:27)
[2019-05-13] MEDS: allopurinoL 100 MG TAB PO SCH (08:27)
[2019-05-13] MEDS: METOPROLOL TARTRATE 50 MG TAB PO SCH ×2 (08:27→21:25)
[2019-05-13] MEDS: ASPIRIN 81 MG ECTAB PO SCH (08:27)
[2019-05-13] MEDS: APIXABAN 5 MG TABLET PO SCH ×2 (08:27→21:26)
[2019-05-13] MEDS: POTASSIUM CHLORIDE 20 MEQ TABCR PO SCH ×3 (08:27→21:25)
[2019-05-13] MEDS: SPIRONOLACTONE 100 MG TAB PO SCH (08:27)
[2019-05-13] MEDS: cefUROXime axetil 500 MG TAB PO SCH ×4 (08:27→21:25)
[2019-05-13] MEDS: MULTIVITAMIN TAB PO SCH (08:27)
[2019-05-13] MEDS: FUROSEMIDE 80 MG in SYRINGE 0 ML IV SCH ×2 (08:28→15:00)
[2019-05-13] MEDS: VITAMIN B COMPLEX TAB PO SCH (08:28)
[2019-05-13] MEDS: POLYETHYLENE (MIRALAX) 17 GM PACK PO SCH ×2 (08:28→21:26)
[2019-05-13] MEDS: NYSTATIN 30 ML, DEXAMETHASONE CONC 3.75 MG, DiphenhydrAMINE Syrup 300 MG, ORA-SWEET SYR... PO SCH ×4 (08:28→21:38)
[2019-05-13 08:32] LABS: Albumin Level 2.3 gm/dl (3.4-5.0); BUN Creatinine Ratio 35.3 (10-20); Calcium 8.6 mg/dl (8.5-10.1); Creatinine Clr Calc Pharmacy 134.5 ml/min; Est GFR (African American) 86.4; Est GFR (Non-African American) 74.5; Potassium 3.9 mmol/L (3.5-5.1)
[2019-05-13 08:33] LABS: Phosphorus 2.9 mg/dl (2.5-4.9)
--- NOTE | 2019-05-13 09:52 | Nephrology Progress Note ---
Date of Service May 13, 2019 Assessment & Plan (1) EDNA (acute kidney injury): -- Creatinine stable at 1.0 mg/dL -- Mao and his understand that effective diuresis may require some permissive rise in creatinine/BUN -- UA negative for proteinuria -- Remains non oliguric with response to diuretics -- I will defer additional titration of diuretics to the hospitalist team -- Nephrology will sign-off, please call with specific questions or concerns (2) CHF (congestive heart failure): -- TTE reviewed: normal LV size and systolic function -- Predominately evidence of right sided CHF on exam (3) Cellulitis: -- Improving (4) Morbid obesity: -- PT for mobility (5) Lyme disease: -- On chronic antibiotic therapy w/ Ceftin + Doxycycline Subjective No acute events overnight. Feeling slightly better this morning. Multiple loose bowel movements. Less abdominal distention and bloating. Increased appetite. Pain in leg improved. Edema seems to be improving. Mao also feels his work of breathing has improved. He feels that he may be able to sit up or try standing today. Review of Systems Review of Systems: All systems reviewed & are unremarkable except as noted in HPI & below Physical Exam Constitutional: well developed and + morbidly obese Eyes: + anicteric sclerae; no conjunctival abnormality ENMT: Mouth: no oral mucosal abnormality and oral mucous membranes not dry Neck: normal visual inspection and + thick neck Respiratory: normal respiratory effort Auscultation: + diminished lung sounds Cardiovascular: Heart Sounds: normal S1 and normal S2 Extremities: normal capillary refill and + edema Gastrointestinal (Abdomen): Percussion/Palpation: abdomen soft; abdomen nontender Musculoskeletal: Extremities: no cyanosis and no petechiae Skin: + turgor decreased; no lesions Neurologic: Motor/Sensory: no tremor and no asterixis Psychiatric: Orientation: alert and oriented x 3 Eye Contact: + fair eye contact Results & Data Vital Signs (Past 12 Hours) Vital Signs Temp Pulse Pulse Resp BP Pulse Ox 05/13/19 07:56 36.8 C 80 20 132/68 99 05/13/19 04:40 36.9 C 88 22 126/74 97 05/13/19 03:32 85 16 95 05/13/19 00:54 79 05/13/19 00:05 37 C 80 18 139/84 96 05/12/19 22:17 84 19 91 Laboratory Results Laboratory Results - last 24 hr 05/12/19 05/12/19 05/13/19 09:26 11:40 07:47 ABG pH 7.47 H ABG pCO2 40 ABG pO2 71 L ABG HCO3 29 H ABG O2 Saturation 94.0 ABG Base Excess 4.9 H Richard Test Pos Barometric Pressure 723.2 Oxygen Given 40% Sodium 139 Potassium 3.9 Chloride 103 Carbon Dioxide 31 Anion Gap 5.0 BUN 38 H Creatinine 1.07 Est Cr Clr Drug Dosing 134.5 Est GFR ( Amer) 86.4 Est GFR (Non-Af Amer) 74.5 BUN/Creatinine Ratio 35.3 H Glucose 124 H Calcium 8.6 Phosphorus 2.9 Albumin 2.3 L Stl C. diff Tox B Gene Negative Cdiff Gene PG Care Time/CCT Total # of Minutes Spent Total Time Spent with Patient: Total time spent is greater than 50% in coordination of care (as documented) at patient's floor/unit and/or counseling patient:
--- NOTE | 2019-05-13 10:21 | Pulmonology Progress Note ---
Date of Service May 13, 2019 Assessment & Plan (1) Hemoptysis: Patient reports intermittent episodes of hemoptysis with clotted blood no larger than the size of a yashira * No further episodes since yesterday * Continue to monitor for now * No indication for bronchoscopy. Minimal concern for alveolar hemorrhage. * High risk for any kind of bronchial intervention (2) CHF (congestive heart failure): Patient currently being diuresed with furosemide and aldactone Inaccurate findings as patient's reports that if urinal has not been checked she is emptying in the toilet prior to measurement Will order Kahn catheter to gravity. Patient states that he is willing but they were unable to pass a Kahn on admission. We will continue diuresis to the point of creatinine starting to rise. May require Diamox for alkalosis Nephrology consulted and following as well (3) Obesity hypoventilation syndrome: Patient is on CPAP at home for the last 15 years Patient unsure of CPAP settings Currently is on hospital supplied CPAP at 15 cm of water May need to titrate CPAP or convert to BiPAP based on respiratory status Patient has no overt hypercapnia * ABGs 05/12/2019 pH 7.47, PCO2 40, PaO2 71, HCO3 29, FiO2 40% on high flow Patient has been buying supplies online for his CPAP with no maintenance to the machine for 15 years Patient has agreed to work with [facility] DME We will continue to coordinate with DME supplier for outpatient care Patient will need outpatient polysomnography and other work-up. Further discussion with patient that this will be a long-term process and not 1 or 2 visits. Primary goal is significant weight loss and increased ambulation Patient is agreeable to discussing pulmonary rehab on discharge (4) Morbid obesity with BMI of 70 and over, adult: 300 pound weight gain since CPAP was initially prescribed 80 pound weight gain in the last year Patient reports the majority of this is due to immobility secondary to bilateral knee replacement/infection Again discussed the importance of weight loss This should be the focus of treatment as an outpatient Thank you very much for including us in the care of this patient. We will continue to follow along with you. Subjective Attending: Dr. Gill Patient seen and examined in bed. is at bedside. Patient states that his breathing seems slightly improved since yesterday. He has been using his CPAP almost continuously. He has a dry cough. He has no chest pain or tightness. He denies any fever, sweats, chills. He does have a blank across his shoulders which his says he uses typically at home. He has no nausea or vomiting. His abdomen feels less distended than yesterday. He continues with multiple episodes of loose stool. The patient has no further acute complaints. Review of Systems Review of Systems: All systems reviewed & are unremarkable except as noted in HPI & below Physical Exam Physical Exam: GENERAL : No acute distress. EYES: No icterus, gaze conjugate NOSE: No evidence of epistaxis MOUTH: No lesions or candidiasis. Mucosa appears moist. Patient states that is less dry than yesterday. CPAP mask is in place. NECK: Supple. No appreciation of stridor LUNGS: CTA B/L, no wheezes, rales or rhonchi. Decreased breath sounds at the right base. Patient is able to better mobilize to allow access for ausculta tion. HEART: Regular, rate controlled. ABDOMEN: Soft, NT, ND, BS Present. No guarding or rebound tenderness with deep palpation EXTREMITIES: 2+ bilateral LE edema, pedal pulses intact and equal bilaterally. Feet are warm. NEURO: A&OX3 Results & Data Vital Signs (Past 12 Hours) Vital Signs Temp Pulse Pulse Resp BP Pulse Ox 05/13/19 07:56 36.8 C 80 20 132/68 99 05/13/19 04:40 36.9 C 88 22 126/74 97 05/13/19 03:32 85 16 95 05/13/19 00:54 79 05/13/19 00:05 37 C 80 18 139/84 96 Laboratory Results 05/11/19 06:56 05/13/19 07:47 Diagnostic Findings No further diagnostic tests have been ordered. PG Care Time/CCT Total # of Minutes Spent Total Time Spent with Patient: Total time spent is greater than 50% in coordination of care (as documented) at patient's floor/unit and/or counseling patient: 35 minutes
[2019-05-13] MEDS: DAPTOmycin 500 MG in SYRINGE 0 ML IV SCH (16:33)
--- NOTE | 2019-05-13 20:29 | Hospitalist Progress Note ---
Date of Service May 13, 2019 Assessment & Plan (1) Acute respiratory failure with hypoxia: Ongoing; may be slightly better today. 2nd acute pulmonary edema from volume overloaded state/anasarca in the setting of probable obesity-hypoventilation syndrome. Recent echo was not helpful given limited views but grossly his EF was normal. I cannot rule out VTE but less likely given he is on eliquis. Suspect he has at least a moderate pleural effusion on right side given how decreased his BS are on that side. He is making slow progress with his diuresis despite large doses of IV lasix and daily aldactone. Will change IV lasix to IV bumex 2mg IV TID. Cont BIPAP at HS and HFNC during the day. Needs repeat sleep study once he is out of hospital (none done in many years). Appreciate ongoing pulmonary consultation/recs. (2) Acute pulmonary edema: in setting of volume overloaded state due to cirrhosis? due to diastolic dysfunction? combination? cont to diurese. Appreciate nephrology & pulmonary recs. change IV lasix to IV bumex to see if we can enact a better diuresis. (3) Anasarca: Massive weight gain (at least 50 pounds) in the last 4-6 weeks per . Liver u/s with suggestion of cirrhosis. Echo is limited given his morbid obesity but EF is grossly preserved. Renal function intact. No significant thyroid decompensation. Suspect combination of diastolic dysfunction and cirrhosis leading to volume overload state. Cont diuretics. (4) Cellulitis of right leg: IMPROVING. Cont daptomycin. Day #6 of such. Plan at least 10 days of IV given his severe lymphedema and slow improvement. RLE doppler x 2 neg for DVT. No obvious abscess or deeper infection on exam. He is also on cephalosporin for chronic lyme's; this will provide some coverage as well. (5) EDNA (acute kidney injury): resolved (6) Lymphedema: severe resume compression of legs as usual once RLE cellulitis has resolved (7) A-fib: rates controlled. Continue Eliquis 5 mg twice daily, metoprolol 50 mg twice daily, and diltiazem 180 mg twice daily (8) Morbid obesity: BMI 70-75 Patient not interested in bariatric surgery (9) Lyme disease: Chronic typically takes chronic abx (cefuroxime) for such (10) Hypothyroidism: TSH suppressed this admission FT4 elevated typically on 100mcg daily of synthroid thus, reduced dose to 88mcg daily repeat TSH 6 weeks (11) Zinc deficiency: 04/2019 level low started zinc 220mg daily x 2 weeks on 05/10 (12) Anxiety: poor candidate for benzos due to resp failure consider buspar if anxiety persists suspect hypoxia is causing anxiety (13) Cirrhosis: as seen on imaging this could be due to long-standing fatty liver leading to MAYES consider diagnostic paracentesis continue diuresis (14) Candidiasis of mouth and esophagus: improved cont magic mouthwash 5cc ac/hs - swish & spit (15) Abdominal distension: improved today suspect ileus vs gulping of air from BIPAP advance diet to full liquids serial exams (16) Diarrhea: checked c diff - negative cut miralax to once daily (17) Obesity hypoventilation syndrome: chronic, long-standing o2 sat goals 90-92% (18) Hemoptysis: likely 2nd pulmonary edema in setting of chronic anticoagulation not a candidate for invasive testing this is improved today (19) DVT prophylaxis: eliquis BID extensively updated at bedside again today PT, OT when able Subjective patient feels somewhat better today. breathing is more comfortable. he is still coughing, however. he wants to use his Nasal CPAP from home rather than the hospital mask. appetite a little better today -- asks for advancement. had bowel movement today - had plenty of flatus today as well. tolerating clears - consuming 100% of clear liquid tray. no fever. right leg erythema again slightly better today. mouth is more comfortable and not as dry today. tele - rate controlled a.fib. Review of Systems Constitutional: no fever and no chills Respiratory: + cough and + dyspnea; no hemoptysis and no wheezing Cardiovascular: + dyspnea at rest and + dyspnea on exertion; no chest pain Gastrointestinal: + bloating and + nausea; no vomiting and no constipation Physical Exam Constitutional: + morbidly obese; no acute distress and no altered mental status ENMT: external ear and nose normal, oropharynx normal Mouth: oral mucous membranes not dry Respiratory: Auscultation: + diminished lung sounds (right base); no crackles and no wheezes overall airation is better today Cardiovascular: Rate/Rhythm: regular rate and + irregularly irregular Heart Sounds: normal S1 and normal S2; no murmur Vessels: posterior tibial pulses present and dorsalis pedis pulses present; no JVD Extremities: + edema (severe; 4+ b/l but modestly worse right leg.) Gastrointestinal (Abdomen): Inspection/Auscultation: + abdomen distended (ongoing) and + abdominal edema; + abnormal bowel sounds (higher pitched today) Percussion/Palpation: abdomen nontender and no hepatosplenomegaly Skin: RLE - mild pink cellulitis extending from just below groin to the distal leg near the ankle; like yesterday I can passively move the right knee and palpate it w/o discomfort; right calf still mildly tender to palpation Psychiatric: Orientation: alert and oriented x 3 Results & Data Vital Signs (Past 12 Hours) Vital Signs Temp Pulse Resp BP Pulse Ox 05/13/19 19:18 36.7 C 92 H 20 112/76 95 05/13/19 15:21 36.9 C 89 20 132/84 88 L 05/13/19 15:12 20 94 05/13/19 11:53 37.0 C 80 18 149/69 H 95 05/13/19 11:02 76 94 Laboratory Results Laboratory Results - last 24 hr 05/13/19 07:47 Sodium 139 Potassium 3.9 Chloride 103 Carbon Dioxide 31 Anion Gap 5.0 BUN 38 H Creatinine 1.07 Est Cr Clr Drug Dosing 134.5 Est GFR ( Amer) 86.4 Est GFR (Non-Af Amer) 74.5 BUN/Creatinine Ratio 35.3 H Glucose 124 H Calcium 8.6 Phosphorus 2.9 Albumin 2.3 L PG Care Time/CCT Total # of Minutes Spent Total Time Spent with Patient: Total time spent is greater than 50% in coordination of care (as documented) at patient's floor/unit and/or counseling patient: (1) A-fib Atrial fibrillation type: permanent Qualified Code(s): I48.21 - Permanent atrial fibrillation (2) Diarrhea Diarrhea type: unspecified type Qualified Code(s): R19.7 - Diarrhea, unspecified (3) Hypothyroidism Hypothyroidism type: acquired Qualified Code(s): E03.9 - Hypothyroidism, unspecified (4) Cirrhosis Ascites presence: with ascites Hepatic cirrhosis type: unspecified hepatic cirrhosis Qualified Code(s): K74.60 - Unspecified cirrhosis of liver; R18.8 - Other ascites
[2019-05-13] MEDS ORDERED: BUMETANIDE 2 MG in SYRINGE 0 ML IV SCH (21:00)
[2019-05-13] MEDS: OXYCODONE HCL IR 5 MG TAB (IMMEDIATE RELEASE) PO PRN (21:39)
[2019-05-14] MEDS: LEVOTHYROXINE SODIUM 88 MCG TABLET PO SCH (05:26)
[2019-05-14 08:05] LABS: Albumin Level 2.2 gm/dl (3.4-5.0); Calcium 8.6 mg/dl (8.5-10.1); Creatinine Clr Calc Pharmacy 129.3 ml/min; Est GFR (African American) 82.6; Est GFR (Non-African American) 71.3; Phosphorus 2.9 mg/dl (2.5-4.9); Potassium 3.9 mmol/L (3.5-5.1)
[2019-05-14] MEDS: ASPIRIN 81 MG ECTAB PO SCH (08:45)
[2019-05-14] MEDS: ZINC SULFATE 220 MG CAPSULE PO SCH (08:45)
[2019-05-14] MEDS: MULTIVITAMIN TAB PO SCH (08:45)
[2019-05-14] MEDS: CHOLECALCIFEROL 1,000 UNITS TAB PO SCH (08:45)
[2019-05-14] MEDS: BUMETANIDE 3 MG in SYRINGE 0 ML IV SCH ×3 (08:45→21:14)
[2019-05-14] MEDS: VITAMIN B COMPLEX TAB PO SCH (08:45)
[2019-05-14] MEDS: cefUROXime axetil 500 MG TAB PO SCH ×4 (08:46→21:11)
[2019-05-14] MEDS: SPIRONOLACTONE 100 MG TAB PO SCH (08:46)
[2019-05-14] MEDS: APIXABAN 5 MG TABLET PO SCH ×2 (08:46→21:11)
[2019-05-14] MEDS: POTASSIUM CHLORIDE 20 MEQ TABCR PO SCH ×3 (08:46→21:10)
[2019-05-14] MEDS: NYSTATIN POWDER 15GM BTL EXT SCH ×3 (08:47→21:12)
[2019-05-14] MEDS: allopurinoL 100 MG TAB PO SCH (08:47)
[2019-05-14] MEDS: METOPROLOL TARTRATE 50 MG TAB PO SCH ×2 (08:47→21:12)
[2019-05-14] MEDS: NYSTATIN 30 ML, DEXAMETHASONE CONC 3.75 MG, DiphenhydrAMINE Syrup 300 MG, ORA-SWEET SYR... PO SCH ×4 (08:50→21:08)
[2019-05-14] MEDS: POLYETHYLENE (MIRALAX) 17 GM PACK PO SCH (09:19)
[2019-05-14] MEDS: ONDANSETRON INJ 2 MG/ML 2 ML VIAL IV PRN (13:21)
--- NOTE | 2019-05-14 14:49 | Pulmonology Progress Note ---
Date of Service May 14, 2019 Assessment & Plan (1) Acute respiratory failure with hypoxia and hypercapnia: Most likely multifactorial to restrictive thoracic cage abnormalities secondary obesity and obesity hypoventilation syndrome. Patient is on CPAP at home for the last 15 years Currently is on hospital supplied CPAP at 15 cm of water Patient with thoracic cage restriction abnormality secondary to morbid obesity * ABGs 05/12/2019 pH 7.47, PCO2 40, PaO2 71, HCO3 29, FiO2 40% on high flow ABG does not reflect accurate PCO2 as patient has been on BiPAP since admission. * As patient's respiratory status is less tenuous, we will repeat ABG off of BiPAP to try and get a real PCO2. [facility] will be the DME of choice Further discussion with patient that this will be a long-term process and not 1 or 2 visits. Primary goal is significant weight loss and increased ambulation Patient is agreeable to discussing pulmonary rehab on discharge (2) Hemoptysis: Patient reports intermittent episodes of hemoptysis with clotted blood no larger than the size of a yashira prior to admission * Patient has no reports of further hemoptysis since admission * Most likely inflammatory * No further action needed (3) CHF (congestive heart failure): Patient currently being diuresed with furosemide and aldactone for the first several days. Now changed to Bumex 3 mg 3 times daily Was unable to pass Kahn catheter or daily catheter Additional urinal placed in the room for further collection. instructed not to empty urinal without being reported by nursing. Nephrology consulted and following as well (4) Morbid obesity with BMI of 70 and over, adult: 300 pound weight gain since CPAP was initially prescribed 80 pound weight gain in the last year Now under 500 pounds with diuresis Patient reports the majority of this is due to immobility secondary to bilateral knee replacement/infection Again discussed the importance of weight loss This should be the focus of treatment as an outpatient Thank you very much for including us in the care of this patient. We will continue to follow along with you. Supervising Physician Co-Signing Physician Notes Discussed extensively with PA. This is an extremely difficult situation and I think placement of this morbidly obese gentleman is going to be difficult. Would continue diuresis as tolerated in the hopes that he can eventually tolerate coming off of noninvasive positive pressure ventilation. Tracheostomy would be extremely difficult in this patient and again would likely significantly change his quality of life. Unfortunately little else to offer at this point time. Subjective Patient has increased pain to the right leg today. Has difficulty rolling from right to left. He denies any chest pain or tightness. He is using his nasal p illow from his home CPAP machine with the hospital BiPAP. Patient states his breathing seems to be slightly improved. He has no significant sputum production. He denies any fever or chills. He has not been out of bed. He has not been able to dangle legs on the side of the bed. Occupational Therapy is in with him at the time of my visit. Review of Systems Review of Systems: All systems reviewed & are unremarkable except as noted in HPI & below Physical Exam Physical Exam: GENERAL : No acute distress. Patient in bed with BiPAP in place EYES: No icterus, gaze conjugate NOSE: No evidence of epistaxis. Nasal pillow in place MOUTH: No lesions or candidiasis. Mucosa moist NECK: Supple. No appreciation of stridor LUNGS: Generally CTA B/L, no wheezes, rales or rhonchi. Some very very fine crackles at the right base. Breath sounds appear to be equal bilaterally. HEART: Regular, rate controlled. ABDOMEN: Soft, NT, ND, BS Present EXTREMITIES: Continues with 2+ bilateral LE edema, pedal pulses intact and equal bilaterally. There is still some erythema to the right lower extremity but no overt signs of cellulitis. NEURO: A&OX3. Results & Data Vital Signs (Past 12 Hours) Vital Signs Temp Pulse Pulse Resp BP Pulse Ox 05/14/19 11:58 36.7 C 84 22 126/86 92 05/14/19 10:00 83 05/14/19 07:56 36.3 C L 84 24 120/84 90 05/14/19 07:40 92 H 20 95 05/14/19 04:07 93 H 20 95 05/14/19 04:04 36.4 C L 89 20 115/81 92 Laboratory Results 05/11/19 06:56 05/14/19 07:01 Diagnostic Findings No new diagnostic imaging since 05/11/2019 PG Care Time/CCT Total # of Minutes Spent Total Time Spent with Patient: Total time spent is greater than 50% in coordination of care (as documented) at patient's floor/unit and/or counseling patient:
[2019-05-14] MEDS: DAPTOmycin 500 MG in SYRINGE 0 ML IV SCH (15:25)
--- NOTE | 2019-05-14 20:45 | Hospitalist Progress Note ---
Date of Service May 14, 2019 Assessment & Plan (1) Acute respiratory failure with hypoxia: Ongoing but improving slowly. 2nd acute pulmonary edema from volume overloaded state/anasarca in the setting of probable obesity-hypoventilation syndrome. Recent echo was not helpful given limited views but grossly his EF was normal. I cannot rule out VTE but less likely given he is on eliquis . Continue diuresis with bumex and aldactone but will increase bumex to 3mg IV TID. BUN and creatinine continue to remain stable. Cont BIPAP/CPAP (he likes his nasal CPAP better) and HFNC during the day. Needs repeat sleep study once he is out of hospital (none done in many years). Appreciate pulmonary consultation and recs. They talked about everything from trach placement to LTACH referral, etc. (2) Acute pulmonary edema: in setting of volume overloaded state due to cirrhosis? due to diastolic dysfunction? combination? cont to diurese. Appreciate nephrology & pulmonary recs. increase bumex to 3mg IV TID. cont aldactone. (3) Anasarca: Massive weight gain (at least 50 pounds) in the last 4-6 weeks per . Liver u/s with suggestion of cirrhosis. Echo is limited given his morbid obesity but EF is grossly preserved. Renal function intact. No significant thyroid decompensation. Suspect combination of diastolic dysfunction and cirrhosis leading to volume overload state. Cont bumex/aldactone. Appreciate nephrology assistance. Once out of bed need standing scale weights to more accurately guide his hospitalization. Bedside scale weights with large fluctuations. (4) Cellulitis of right leg: SLOWLY IMPROVING. Cont daptomycin. day # 7. may need 10 days (or more) of IV therapy given severe lymphedema and slow nature of improvement. RLE doppler x 2 neg for DVT. No obvious abscess or deeper infection on exam. He is also on cephalosporin for chronic lyme's; this will provide some coverage as well. (5) EDNA (acute kidney injury): Creatinine 1.46 on admission Now 1. baseline 0.9. Nephrology consultation appreciated BMP am. (6) Lymphedema: severe resume compression of legs as usual once RLE cellulitis has resolved (7) A-fib: rates controlled. Continue Eliquis 5 mg twice daily, metoprolol 50 mg twice daily, and diltiazem 180 mg twice daily. (8) Morbid obesity: BMI 70-75 Patient not interested in bariatric surgery (9) Lyme disease: Chronic typically takes chronic abx for such (10) Hypothyroidism: TSH suppressed FT4 elevated typically on 100mcg daily of synthroid reduce dose to 88mcg daily repeat TSH 6 weeks (11) Zinc deficiency: 04/2019 level low started zinc 220mg daily x 2 weeks on 05/10 (12) Anxiety: poor candidate for benzos due to resp failure consider buspar if anxiety persists (13) Cirrhosis: as seen on imaging this could be due to long-standing fatty liver leading to MAYES consider diagnostic paracentesis continue diuresis (14) Candidiasis of mouth and esophagus: improved with magic mouthwash 5cc ac/hs - swish & spit plan 10 days of Rx (15) Abdominal distension: attempted to get x-rays but he is too large for x-ray table cannot get them portably either either way he is passing flatus and stools likely had some element of ileus and/or was swallowing air from BIPAP he requests diet advancement - advance to AHA diet likely also with ascites and body wall edema from anasarca (16) Diarrhea: c diff neg cut back miralax (17) Obesity hypoventilation syndrome: chronic, long-standing o2 sat goals 90-92% needs repeat sleep study as outpatient (18) Hemoptysis: likely 2nd pulmonary edema in setting of chronic anticoagulation not a candidate for invasive testing this has improved last several days (19) DVT prophylaxis: eliquis MOOSE extensively updated at bedside again today PT, OT when able I recommended that this weekend we establish a goal of getting him OOB to jyoti- chair; agrees Subjective overall feeling better. breathing is improved and comfortable today. having to rely less on the BIPAP. also believes breathing is better. less pain in RLE calf. appetite improved; ate good dinner. did have nausea this am requiring anti-emetic but this is now resolved. abd distension still present but passing plenty of flatus and did have stool today. tele w/ rate-controlled a.fib/flutter. inquires about d/c dispo - she is uncertain if she would want him in SNF. She doesn't see how 1 hour of therapy/day at SNF would help him. Review of Systems Constitutional: + fatigue; no fever, no chills and no anorexia Ear, Nose, Mouth, Throat: no dry mouth and no sore throat Respiratory: + cough, + chest congestion and + dyspnea on exertion; no hemoptysis and no wheezing Cardiovascular: no chest pain Gastrointestinal: + bloating and + nausea; no vomiting, no constipation and no blood in stools Physical Exam Constitutional: + morbidly obese; no acute distress (wearing nasal CPAP during my visit) and no altered mental status ENMT: Mouth: no oral mucosal abnormality (thrush resolved) and oral mucous membranes not dry Respiratory: no respiratory distress and does not use accessory muscles Auscultation: + diminished lung sounds (right base but overall airation b/l much improved today); no crackles and no wheezes Cardiovascular: Rate/Rhythm: regular rate and + irregularly irregular Heart Sounds: normal S1 and normal S2; no murmur Vessels: posterior tibial pulses present and dorsalis pedis pulses present; no JVD Extremities: + edema (severe; 4+ b/l but modestly worse right leg.) Gastrointestinal (Abdomen): Inspection/Auscultation: + abdomen distended (similar to yesterday's exam) and normal bowel sounds Percussion/Palpation: abdomen nontender and no hepatosplenomegaly Skin: cellulitis RLE - similar pinkness/color from just below right groin to the calf; he has NO tenderness to palpation over the right knee or right calf today; no crepitus Psychiatric: Orientation: alert and oriented x 3 Results & Data Vital Signs (Past 12 Hours) Vital Signs Temp Pulse Pulse Resp BP Pulse Ox 05/14/19 19:06 36.8 C 87 19 146/91 H 93 05/14/19 15:24 36.6 C 90 19 115/75 90 05/14/19 11:58 36.7 C 84 22 126/86 92 05/14/19 10:00 83 Laboratory Results Laboratory Results - last 24 hr 05/14/19 07:01 Sodium 139 Potassium 3.9 Chloride 103 Carbon Dioxide 30 Anion Gap 5.0 BUN 39 H Creatinine 1.11 Est Cr Clr Drug Dosing 129.3 Est GFR ( Amer) 82.6 Est GFR (Non-Af Amer) 71.3 BUN/Creatinine Ratio 35.0 H Glucose 139 H Calcium 8.6 Phosphorus 2.9 Magnesium 2.0 Albumin 2.2 L PG Care Time/CCT Total # of Minutes Spent Total Time Spent with Patient: Total time spent is greater than 50% in coordination of care (as documented) at patient's floor/unit and/or counseling patient: (1) A-fib Atrial fibrillation type: permanent Qualified Code(s): I48.21 - Permanent atr ial fibrillation (2) Diarrhea Diarrhea type: unspecified type Qualified Code(s): R19.7 - Diarrhea, unspecified (3) Hypothyroidism Hypothyroidism type: acquired Qualified Code(s): E03.9 - Hypothyroidism, unspecified (4) Cirrhosis Ascites presence: with ascites Hepatic cirrhosis type: unspecified hepatic cirrhosis Qualified Code(s): K74.60 - Unspecified cirrhosis of liver; R18.8 - Other ascites
[2019-05-15] MEDS: ONDANSETRON INJ 2 MG/ML 2 ML VIAL IV PRN ×2 (05:39→14:33)
[2019-05-15] MEDS: LEVOTHYROXINE SODIUM 88 MCG TABLET PO SCH (05:41)
[2019-05-15 07:59] LABS: Albumin Level 2.1 gm/dl (3.4-5.0); BUN Creatinine Ratio 30.2 (10-20); Calcium 8.5 mg/dl (8.5-10.1); Creatinine Clr Calc Pharmacy 108.2 ml/min; Est GFR (African American) 67.6; Est GFR (Non-African American) 58.3; Potassium 3.9 mmol/L (3.5-5.1)
[2019-05-15] MEDS: NYSTATIN 30 ML, DEXAMETHASONE CONC 3.75 MG, DiphenhydrAMINE Syrup 300 MG, ORA-SWEET SYR... PO SCH ×4 (08:44→21:26)
[2019-05-15] MEDS: VITAMIN B COMPLEX TAB PO SCH (08:45)
[2019-05-15] MEDS: ASPIRIN 81 MG ECTAB PO SCH (08:45)
[2019-05-15] MEDS: cefUROXime axetil 500 MG TAB PO SCH ×4 (08:45→21:23)
[2019-05-15] MEDS: METOPROLOL TARTRATE 50 MG TAB PO SCH ×2 (08:45→21:25)
[2019-05-15] MEDS: APIXABAN 5 MG TABLET PO SCH ×2 (08:45→21:24)
[2019-05-15] MEDS: ZINC SULFATE 220 MG CAPSULE PO SCH (08:45)
[2019-05-15] MEDS: CHOLECALCIFEROL 1,000 UNITS TAB PO SCH (08:46)
[2019-05-15] MEDS: allopurinoL 100 MG TAB PO SCH (08:46)
[2019-05-15] MEDS: BUMETANIDE 3 MG in SYRINGE 0 ML IV SCH ×3 (08:46→21:22)
[2019-05-15] MEDS: MULTIVITAMIN TAB PO SCH (08:46)
[2019-05-15] MEDS: SPIRONOLACTONE 100 MG TAB PO SCH (08:46)
[2019-05-15] MEDS: NYSTATIN POWDER 15GM BTL EXT SCH ×3 (08:51→21:28)
[2019-05-15] MEDS ORDERED: POLYETHYLENE (MIRALAX) 17 GM PACK PO SCH (09:00)
[2019-05-15] MEDS ORDERED: Nursing to Pharmacy Communication ONE (09:09)
[2019-05-15] MEDS: POTASSIUM CHLORIDE 10 MEQ TABCR PO SCH ×3 (09:39→21:23)
[2019-05-15] MEDS: POTASSIUM CHLORIDE 20 MEQ TABCR PO SCH (09:40)
--- NOTE | 2019-05-15 12:39 | Hospitalist Progress Note ---
Date of Service May 15, 2019 Assessment & Plan (1) Acute respiratory failure with hypoxia: acute hypoxic respiratory failure, anasarca, obesity-hypoventilation syndrome ...Recent echo was not helpful given limited views but grossly his EF was normal. 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 Suspect combination of acute diastolic CHF and cirrhosis leading to volume overload state. ...liver US was c/w cirrhosis Continue diuresis with IV bumex (just increased to 3mg IV tid) and po aldactone ...could consider Bumex gtt if need be ...BUN and creatinine continue to remain stable. Cont BIPAP/CPAP (he likes his nasal CPAP better) and HFNC during the day. ...Needs repeat sleep study once he is out of hospital (none done in many years). Wt: 506 --> 477 ...Once out of bed need standing scale weights to more accurately guide his hospitalization. ...Bedside scale weights with large fluctuations. Appreciate pulmonary consultation and recs. consider LTAC disposition (2) Acute pulmonary edema: see problem #1 (3) Anasarca: see problem #1 (4) Cellulitis of right leg: SLOWLY IMPROVING. Cont daptomycin. day # 7. may need 10 days (or more) of IV therapy given severe lymphedema and slow nature of improvement. RLE doppler x 2 neg for DVT. No obvious abscess or deeper infection on exam. He is also on cephalosporin for chronic lyme's; this will provide some coverage as well. (5) EDNA (acute kidney injury): resolved (6) Lymphedema: resume compression of legs as usual once RLE cellulitis has resolved (7) A-fib: rates controlled. Continue Eliquis, BB, CaB (8) Morbid obesity: BMI 70-75 Patient not interested in bariatric surgery (9) Lyme disease: Chronic typically takes chronic abx (cefuroxime) for such (10) Hypothyroidism: TSH suppressed this admission FT4 elevated typically on 100mcg daily of synthroid thus, reduced dose to 88mcg daily repeat TSH in mid June (11) Zinc deficiency: 04/2019 level low started zinc 220mg daily x 2 weeks on 05/10 (12) Anxiety: poor candidate for benzos due to resp failure consider buspar if anxiety persists suspect hypoxia is causing anxiety (13) Cirrhosis: as seen on imaging this could be due to long-standing fatty liver leading to MAYES consider diagnostic paracentesis continue diuresis (14) Candidiasis of mouth and esophagus: improved with magic mouthwash 5cc ac/hs - swish & spit plan 10 days of Rx (15) Abdominal distension: attempted to get x-rays but he is too large for x-ray table cannot get them portably either either way he is passing flatus and stools likely had some element of ileus and/or was swallowing air from BIPAP he requests diet advancement - advance to AHA diet likely also with ascites and body wall edema from anasarca (16) Diarrhea: c diff neg stop miralax add probiotics (on antibiotics) (17) Obesity hypoventilation syndrome: chronic, long-standing o2 sat goals 90-92% needs repeat sleep study as outpatient (18) Hemoptysis: likely 2nd pulmonary edema in setting of chronic anticoagulation not a candidate for invasive testing this has improved (19) DVT prophylaxis: eliquis BID extensively updated at bedside again today PT, OT getting him OOB to jyoti-chair; and pt agrees Subjective overall, respiratory status is slowly improving on BiPAP on/off but mostly on. Has been off 2 hrs at the longest. leg edema is markedly improved but still a long way to go Still SOB with talking and at rest. Has not been mobilized much but is more agreeable as RLE cellulitis is improving and has less pain having tiny amounts of frequent diarrhea. thinks it is Abx related. Review of Systems Review of Systems: Positive ROS: only as in Subjective dry cough when off BiPAP Constitutional: no fevers HENT: Negative for sore throat. Cardiovascular: Negative for chest pain and palpitations. Gastrointestinal: Negative for abdominal pain, nausea and vomiting. Genitourinary: Negative for dysuria. Neurological: Negative for focal weakness and headaches. Physical Exam Physical Exam: Abnormal Exam: on BiPAP SOB w/ eating morbid obesity (was >500pounds on admit) 4+ pitting edema from toes to upper back Constitutional: No distress. HENT: Mouth/Throat: Oropharynx is clear and moist. Cardiovascular: Normal RRR. heart sounds are very distant. No murmur heard. no gallop and no friction rub. Pulmonary/Chest: clear to ascultation. no wheezing no rales. Abdominal: Soft. Bowel sounds are normal. no distension. There is no tenderness. Musculoskeletal: no deformity. Neurological: alert. GCS 15 Skin: RLE erythema is markedly improving Psychiatric: Mood, affect and judgment normal. Results & Data Vital Signs (Past 12 Hours) Vital Signs Temp Pulse Pulse Resp BP Pulse Ox 05/15/19 11:52 36.6 C 85 20 106/70 96 05/15/19 11:31 36.3 C L 85 19 106/70 96 05/15/19 10:59 91 H 91 H 20 95 05/15/19 07:32 36.3 C L 88 20 133/81 94 05/15/19 07:20 87 24 93 05/15/19 04:10 94 H 18 93 05/15/19 04:05 36.4 C L 82 19 111/74 95 Laboratory Results creat=1.31 BUN=40 albumin=2.1 Medications Administered IV Dapto 500mg daily po cefuroxime IV Bumex 3mg tid spironolactone apixaban 5mg bid asa 81 CaB, BB (1) A-fib Atrial fibrillation type: permanent Qualified Code(s): I48.21 - Permanent atrial fibrillation (2) Diarrhea Diarrhea type: unspecified type Qualified Code(s): R19.7 - Diarrhea, unspecified (3) Hypothyroidism Hypothyroidism type: acquired Qualified Code(s): E03.9 - Hypothyroidism, unspecified (4) Cirrhosis Ascites presence: with ascites Hepatic cirrhosis type: unspecified hepatic cirrhosis Qualified Code(s): K74.60 - Unspecified cirrhosis of liver; R18.8 - Other ascites
--- NOTE | 2019-05-15 12:51 | Hospitalist Progress Note ---
Date of Service May 15, 2019 Assessment & Plan (1) Acute respiratory failure with hypoxia: Ongoing but improving slowly. 2nd acute pulmonary edema from volume overloaded state/anasarca in the setting of probable obesity-hypoventilation syndrome. Recent echo was not helpful given limited views but grossly his EF was normal. I cannot rule out VTE but less likely given he is on eliquis . Continue diuresis with bumex and aldactone but will increase bumex to 3mg IV TID. BUN and creatinine continue to remain stable. Cont BIPAP/CPAP (he likes his nasal CPAP better) and HFNC during the day. Needs repeat sleep study once he is out of hospital (none done in many years). Appreciate pulmonary consultation and recs. They talked about everything from trach placement to LTACH referral, etc. (2) Acute pulmonary edema: in setting of volume overloaded state due to cirrhosis? due to diastolic dysfunction? combination? cont to diurese. Appreciate nephrology & pulmonary recs. increase bumex to 3mg IV TID. cont aldactone. (3) Anasarca: Massive weight gain (at least 50 pounds) in the last 4-6 weeks per . Liver u/s with suggestion of cirrhosis. Echo is limited given his morbid obesity but EF is grossly preserved. Renal function intact. No significant thyroid decompensation. Suspect combination of diastolic dysfunction and cirrhosis leading to volume overload state. Cont bumex/aldactone. Appreciate nephrology assistance. Once out of bed need standing scale weights to more accurately guide his hospitalization. Bedside scale weights with large fluctuations. (4) Cellulitis of right leg: SLOWLY IMPROVING. Cont daptomycin. day # 7. may need 10 days (or more) of IV therapy given severe lymphedema and slow nature of improvement. RLE doppler x 2 neg for DVT. No obvious abscess or deeper infection on exam. He is also on cephalosporin for chronic lyme's; this will provide some coverage as well. (5) EDNA (acute kidney injury): resolved (6) Lymphedema: severe resume compression of legs as usual once RLE cellulitis has resolved (7) A-fib: rates controlled. Continue Eliquis 5 mg twice daily, metoprolol 50 mg twice daily, and diltiazem 180 mg twice daily. (8) Morbid obesity: BMI 70-75 Patient not interested in bariatric surgery (9) Lyme disease: Chronic typically takes chronic abx (cefuroxime) for such (10) Hypothyroidism: TSH suppressed this admission FT4 elevated typically on 100mcg daily of synthroid thus, reduced dose to 88mcg daily repeat TSH 6 weeks (11) Zinc deficiency: 04/2019 level low started zinc 220mg daily x 2 weeks on 05/10 (12) Anxiety: poor candidate for benzos due to resp failure consider buspar if anxiety persists suspect hypoxia is causing anxiety (13) Cirrhosis: as seen on imaging this could be due to long-standing fatty liver leading to MAYES consider diagnostic paracentesis continue diuresis (14) Candidiasis of mouth and esophagus: improved with magic mouthwash 5cc ac/hs - swish & spit plan 10 days of Rx (15) Abdominal distension: attempted to get x-rays but he is too large for x-ray table cannot get them portably either either way he is passing flatus and stools likely had some element of ileus and/or was swallowing air from BIPAP he requests diet advancement - advance to AHA diet likely also with ascites and body wall edema from anasarca (16) Diarrhea: c diff neg cut back miralax (17) Obesity hypoventilation syndrome: chronic, long-standing o2 sat goals 90-92% needs repeat sleep study as outpatient (18) Hemoptysis: likely 2nd pulmonary edema in setting of chronic anticoagulation not a candidate for invasive testing this has improved last several days (19) DVT prophylaxis: eliquis BID extensively updated at bedside again today PT, OT when able I recommended that this weekend we establish a goal of getting him OOB to jyoti- chair; agrees Subjective overall feeling better. breathing is improved and comfortable today. having to rely less on the BIPAP. also believes breathing is better. less pain in RLE calf. appetite improved; ate good dinner. did have nausea this am requiring anti-emetic but this is now resolved. abd distension still present but passing plenty of flatus and did have stool today. tele w/ rate-controlled a.fib/flutter. inquires about d/c dispo - she is uncertain if she would want him in SNF. She doesn't see how 1 hour of therapy/day at SNF would help him. Results & Data Vital Signs (Past 12 Hours) Vital Signs Temp Pulse Pulse Resp BP Pulse Ox 05/15/19 11:52 36.6 C 85 20 106/70 96 05/15/19 11:31 36.3 C L 85 19 106/70 96 05/15/19 10:59 91 H 91 H 20 95 05/15/19 07:32 36.3 C L 88 20 133/81 94 05/15/19 07:20 87 24 93 05/15/19 04:10 94 H 18 93 05/15/19 04:05 36.4 C L 82 19 111/74 95 PG Care Time/CCT Total # of Minutes Spent Total Time Spent with Patient: Total time spent is greater than 50% in coordination of care (as documented) at patient's floor/unit and/or counseling patient: (1) A-fib Atrial fibrillation type: permanent Qualified Code(s): I48.21 - Permanent atrial fibrillation (2) Diarrhea Diarrhea type: unspecified type Qualified Code(s): R19.7 - Diarrhea, uns pecified (3) Hypothyroidism Hypothyroidism type: acquired Qualified Code(s): E03.9 - Hypothyroidism, unspecified (4) Cirrhosis Ascites presence: with ascites Hepatic cirrhosis type: unspecified hepatic cirrhosis Qualified Code(s): K74.60 - Unspecified cirrhosis of liver; R18.8 - Other ascites
[2019-05-15] MEDS: DAPTOmycin 500 MG in SYRINGE 0 ML IV SCH (16:54)
[2019-05-15] MEDS: LACTOBACILLUS ACIDOPHILUS (FLORANEX) TAB PO SCH (16:55)
[2019-05-15] MEDS: OXYCODONE HCL IR 5 MG TAB (IMMEDIATE RELEASE) PO PRN (19:50)
[2019-05-16] MEDS: ONDANSETRON INJ 2 MG/ML 2 ML VIAL IV PRN (04:36)
[2019-05-16] MEDS: LEVOTHYROXINE SODIUM 88 MCG TABLET PO SCH (06:08)
[2019-05-16 07:23] LABS: Albumin Level 2.2 gm/dl (3.4-5.0); BUN Creatinine Ratio 30.4 (10-20); Calcium 8.7 mg/dl (8.5-10.1); Creatinine Clr Calc Pharmacy 96.9 ml/min; Est GFR (African American) 58.8; Est GFR (Non-African American) 50.8; Phosphorus 3.3 mg/dl (2.5-4.9); Potassium 4.3 mmol/L (3.5-5.1)
[2019-05-16] MEDS: allopurinoL 100 MG TAB PO SCH (10:37)
[2019-05-16] MEDS: MULTIVITAMIN TAB PO SCH (10:37)
[2019-05-16] MEDS: VITAMIN B COMPLEX TAB PO SCH (10:38)
[2019-05-16] MEDS: LACTOBACILLUS ACIDOPHILUS (FLORANEX) TAB PO SCH ×3 (10:38→17:13)
[2019-05-16] MEDS: SPIRONOLACTONE 100 MG TAB PO SCH (10:38)
[2019-05-16] MEDS: ASPIRIN 81 MG ECTAB PO SCH (10:38)
[2019-05-16] MEDS: CHOLECALCIFEROL 1,000 UNITS TAB PO SCH (10:38)
[2019-05-16] MEDS: cefUROXime axetil 500 MG TAB PO SCH ×4 (10:38→22:06)
[2019-05-16] MEDS: BUMETANIDE 3 MG in SYRINGE 0 ML IV SCH ×2 (10:38→12:59)
[2019-05-16] MEDS: NYSTATIN POWDER 15GM BTL EXT SCH ×3 (10:39→22:04)
[2019-05-16] MEDS: METOPROLOL TARTRATE 50 MG TAB PO SCH ×2 (10:39→22:06)
[2019-05-16] MEDS: APIXABAN 5 MG TABLET PO SCH ×2 (10:39→22:05)
[2019-05-16] MEDS: POTASSIUM CHLORIDE 10 MEQ TABCR PO SCH ×3 (10:39→22:05)
[2019-05-16] MEDS: ZINC SULFATE 220 MG CAPSULE PO SCH (10:39)
[2019-05-16] MEDS: NYSTATIN 30 ML, DEXAMETHASONE CONC 3.75 MG, DiphenhydrAMINE Syrup 300 MG, ORA-SWEET SYR... PO SCH ×4 (10:40→22:04)
--- NOTE | 2019-05-16 11:38 | Hospitalist Progress Note ---
Date of Service May 16, 2019 Assessment & Plan (1) Acute respiratory failure with hypoxia: acute hypoxic respiratory failure, anasarca, obesity-hypoventilation syndrome ...Recent echo was not helpful given limited views but grossly his EF was normal. ...doubt PE given he is on eliquis and txmt would not change ...RHC did confirm wedge pressure of 30 ...Massive weight gain (at least 50 pounds) in the last 4 weeks [employer]. Suspect combination of acute diastolic CHF and cirrhosis leading to volume overload state. ...liver US was c/w cirrhosis Continue diuresis ...change IV bolus Bumex 3mg IV tid to Bumex 2mg IV load then 0.5mg/hr. ...recurred EDNA on . with creat=1.47 (was 1) w/ diuresis ...given the importance of volume status and breathing status may need to allow mild permissive EDNA Cont CPAP (he likes his nasal CPAP better) and HFNC during the day. ...Needs repeat sleep study once he is out of hospital (none done in many years). Wt: 506 --> 477 ...Once out of bed need standing scale weights to more accurately guide his hospitalization. ...Bedside scale weights with large fluctuations. Appreciate pulmonary consultation and recs. consider LTAC disposition (2) Acute pulmonary edema: see problem #1 (3) Anasarca: see problem #1 (4) Cellulitis of right leg: SLOWLY IMPROVING. Cont daptomycin. day #8/10. ... planning 10 days of IV Abx given severe lymphedema and slow nature of improvement. RLE doppler x 2 neg for DVT. No obvious abscess or deeper infection on exam. He is also on cephalosporin for chronic lyme's; this will provide some coverage as well. (5) EDNA (acute kidney injury): resolved from initial incident recurred .8 with creat=1.47 (was 1) w/ diuresis given the importance of volume status and breathing status may need to allow mild permissive EDNA (6) Lymphedema: resume compression of legs as usual once RLE cellulitis has resolved (7) A-fib: rates controlled. Continue Eliquis, BB, CaB (8) Morbid obesity: BMI 70-75 Patient not interested in bariatric surgery (9) Lyme disease: Chronic typically takes chronic abx (cefuroxime) for such (10) Hypothyroidism: TSH suppressed this admission FT4 elevated typically on 100mcg daily of synthroid thus, reduced dose to 88mcg daily repeat TSH in mid June (11) Zinc deficiency: 04/2019 level low started zinc 220mg daily x 2 weeks on 05/10 (12) Anxiety: poor candidate for benzos due to resp failure consider buspar if anxiety persists suspect hypoxia is causing anxiety (13) Cirrhosis: as seen on imaging this could be due to long-standing fatty liver leading to MAYES consider diagnostic paracentesis continue diuresis (14) Candidiasis of mouth and esophagus: improved with magic mouthwash 5cc ac/hs - swish & spit plan 10 days of Rx (15) Abdominal distension: attempted to get x-rays but he is too large for x-ray table cannot get them portably either either way he is passing flatus and stools likely had some element of ileus and/or was swallowing air from BIPAP he requests diet advancement - advance to AHA diet likely also with ascites and body wall edema from anasarca (16) Diarrhea: c diff neg stop miralax partial improvement since adding probiotics on 05.15 (17) Obesity hypoventilation syndrome: chronic, long-standing o2 sat goals 90-92% needs repeat sleep study as outpatient see problem #1....ARF w/ hypoxia (18) Hemoptysis: likely 2nd pulmonary edema in setting of chronic anticoagulation not a candidate for invasive testing this has improved (19) DVT prophylaxis: eliquis BID extensively updated at bedside again today PT, OT waiting for PT on Friday 12.9 to get out of bed and try ambulation Subjective no new events overnight no new symptoms to report no complaints tolerating current treatment: nasal CPAP 15cm or HFNC, IV diuresis RLE tenderness is same as yesterday eating, drinking, voiding. diarrhea is partially improving. creat=1.47 from 1.0 permissive EDNA may need to be tolerated to accomplish anasarca treatment Review of Systems Review of Systems: Positive ROS: as in Subjective dry cough when off CPAP Constitutional: no fevers HENT: Negative for sore throat. Cardiovascular: Negative for chest pain and palpitations. Gastrointestinal: Negative for abdominal pain, nausea and vomiting. Genitourinary: Negative for dysuria. Neurological: Negative for focal weakness and headaches. Physical Exam Physical Exam: Abnormal Exam: on CPAP SOB w/ eating morbid obesity (was >500pounds on admit) 4+ pitting edema from toes to upper back RLE bell with mild stable erythema. mild tenderness on palpation Constitutional: No distress. HENT: Mouth/Throat: Oropharynx is clear and moist. Cardiovascular: Normal RRR. heart sounds are very distant. No murmur heard. no gallop and no friction rub. Pulmonary/Chest: clear to ascultation. no wheezing no rales. Abdominal: Soft. Bowel sounds are normal. no distension. There is no tenderness. Musculoskeletal: no deformity. Neurological: alert. GCS 15 Psychiatric: Mood, affect and judgment normal. Results & Data Vital Signs (Past 12 Hours) Vital Signs Temp Pulse Pulse Resp BP Pulse Ox 05/16/19 11:37 36.5 C 79 21 118/78 91 05/16/19 07:47 36.3 C L 85 19 121/79 95 05/16/19 07:00 83 19 94 05/16/19 04:13 80 19 96 05/16/19 03:39 36.4 C L 80 19 98/63 L 96 Laboratory Results creat=1.47 BUN=45 albumin=2.2 (1) A-fib Atrial fibrillation type: permanent Qualified Code(s): I48.21 - Permanent atrial fibrillation (2) Diarrhea Diarrhea type: unspecified type Qualified Code(s): R19.7 - Diarrhea, unspecified (3) Hypothyroidism Hypothyroidism type: acquired Qualified Code(s): E03.9 - Hypothyroidism, unspecified (4) Cirrhosis Ascites presence: with ascites Hepatic cirrhosis type: unspecified hepatic cirrhosis Qualified Code(s): K74.60 - Unspecified cirrhosis of liver; R18.8 - Other ascites
--- NOTE | 2019-05-16 12:32 | Pulmonology Progress Note ---
Date of Service May 16, 2019 Assessment & Plan (1) Acute respiratory failure with hypoxia and hypercapnia: Most likely multifactorial to restrictive thoracic cage abnormalities secondary obesity and obesity hypoventilation syndrome. Patient is on CPAP at home for the last 15 years Currently is on hospital supplied CPAP at 15 cm of water Patient with thoracic cage restriction abnormality secondary to morbid obesity * ABGs 05/12/2019 pH 7.47, PCO2 40, PaO2 71, HCO3 29, FiO2 40% on high flow ABG does not reflect accurate PCO2 as patient has been on BiPAP since admission. * As patient's respiratory status is less tenuous, we will repeat ABG off of BiPAP to try and get a real PCO2. [facility] will be the DME of choice Further discussion with patient that this will be a long-term process and not 1 or 2 visits. Primary goal is significant weight loss and increased ambulation Patient is agreeable to discussing pulmonary rehab on discharge (2) Hemoptysis: Patient reports intermittent episodes of hemoptysis with clotted blood no larger than the size of a yashira prior to admission * Patient has no reports of further hemoptysis since admission * Most likely inflammatory * No further action needed (3) CHF (congestive heart failure): Suspect underlying cor pulmonale due to morbid obesity and potentially undertreated sleep disordered breathing. Patient currently being diuresed with furosemide and aldactone for the first several days. Creatinine slightly bumped and may need to back off on diuretics. (4) Morbid obesity with BMI of 70 and over, adult: 300 pound weight gain since CPAP was initially prescribed 80 pound weight gain in the last year Now under 500 pounds with diuresis Patient reports the majority of this is due to immobility secondary to bilateral knee replacement/infection Again discussed the importance of weight loss This should be the focus of treatment as an outpatient Placement will be an option. Aggressive physical therapy and occupational therapy recommended. Thank you very much for including us in the care of this patient. We will continue to follow along with you. Subjective Patient seen and examined. His respiratory status is more stable. He is tolerating nasal CPAP and intermittently high flow oxygen. He states his bruce thing is better. He continues to undergo diuresis. He is essentially bedbound. He is tolerating a diet. Review of Systems Review of Systems: Unchanged from prior Physical Exam Physical Exam: GENERAL : No acute distress. Patient in bed with BiPAP in place EYES: No icterus, gaze conjugate NOSE: No evidence of epistaxis. Nasal pillow in place MOUTH: No lesions or candidiasis. Mucosa moist NECK: Supple. No appreciation of stridor LUNGS: Generally CTA B/L, no wheezes, rales or rhonchi. Some very very fine crackles at the right base. Breath sounds appear to be equal bilaterally. HEART: Regular, rate controlled. ABDOMEN: Soft, NT, ND, BS Present EXTREMITIES: Continues with 2+ bilateral LE edema, pedal pulses intact and equal bilaterally. There is still some erythema to the right lower extremity but no overt signs of cellulitis. NEURO: A&OX3. Results & Data Vital Signs (Past 12 Hours) Vital Signs Temp Pulse Pulse Resp BP Pulse Ox 05/16/19 11:37 36.5 C 79 21 118/78 91 05/16/19 07:47 36.3 C L 85 19 121/79 95 05/16/19 07:00 83 19 94 05/16/19 04:13 80 19 96 05/16/19 03:39 36.4 C L 80 19 98/63 L 96 Laboratory Results 05/11/19 06:56 05/16/19 06:31 Diagnostic Findings No new imaging PG Care Time/CCT Total # of Minutes Spent Total Time Spent with Patient: Total time spent is greater than 50% in coordination of care (as documented) at patient's floor/unit and/or counseling patient:
[2019-05-16] MEDS: OXYCODONE HCL IR 5 MG TAB (IMMEDIATE RELEASE) PO PRN (14:51)
[2019-05-16] MEDS: DAPTOmycin 500 MG in SYRINGE 0 ML IV SCH (17:13)
[2019-05-16] MEDS: SIMETHICONE 80 MG CHEW PO PRN (17:13)
[2019-05-16] MEDS ORDERED: BUMETANIDE 10 MG in DEXTROSE 5% 10 ML IV SCH (18:00)
[2019-05-16] MEDS ORDERED: BUMETANIDE 2 MG in SYRINGE 0 ML IV ONE (18:00)
[2019-05-17] MEDS: ONDANSETRON INJ 2 MG/ML 2 ML VIAL IV PRN (02:26)
[2019-05-17] MEDS: LEVOTHYROXINE SODIUM 88 MCG TABLET PO SCH (06:12)
[2019-05-17 07:35] LABS: Basophils # (auto) 0.04 K/uL (0-0.2); Basophils % (auto) 0.2 %; Eosinophils # (auto) 1.07 K/uL (0-0.5); Eosinophils % (auto) 6.5 %; Hematocrit (blood only) 36.9 % (42-52); Immature Granulocytes # (auto) 0.21 K/uL (0.00-0.02); Immature Granulocytes % (auto) 1.3 %; Lymphocytes # (auto) 1.68 K/uL (1.2-3.4); Lymphocytes % (auto) 10.2 %; Mean Corpuscular Hemoglobin 30.4 pg (25-34); Mean Corpuscular Hgb Conc 32.5 g/dL (32-36); Mean Corpuscular Volume 93.4 fL (80-100); Mean Platelet Volume 10.2 fL (7.4-10.4); Monocytes # (auto) 0.93 K/uL (0.11-0.59); Monocytes % (auto) 5.7 %; Neutrophils # (auto) 12.48 K/uL (1.4-6.5); Neutrophils % (auto) 76.1 %; Platelet Count 424 K/uL (130-400); RDW Coefficient of Variation 16.1 % (11.5-14.5); RDW Standard Deviation 54.6 fL (36.4-46.3); Red Blood Count 3.95 M/uL (4.7-6.1); White Blood Count 16.41 K/uL (4.8-10.8)
[2019-05-17] MEDS: POTASSIUM CHLORIDE 10 MEQ TABCR PO SCH ×3 (08:00→21:20)
[2019-05-17] MEDS: METOPROLOL TARTRATE 50 MG TAB PO SCH ×2 (08:00→21:19)
[2019-05-17] MEDS: LACTOBACILLUS ACIDOPHILUS (FLORANEX) TAB PO SCH ×3 (08:00→16:45)
[2019-05-17] MEDS: VITAMIN B COMPLEX TAB PO SCH (08:00)
[2019-05-17] MEDS: NYSTATIN 30 ML, DEXAMETHASONE CONC 3.75 MG, DiphenhydrAMINE Syrup 300 MG, ORA-SWEET SYR... PO SCH ×4 (08:00→21:39)
[2019-05-17] MEDS: SPIRONOLACTONE 100 MG TAB PO SCH (08:00)
[2019-05-17] MEDS: APIXABAN 5 MG TABLET PO SCH ×2 (08:00→21:17)
[2019-05-17] MEDS: ASPIRIN 81 MG ECTAB PO SCH (08:00)
[2019-05-17] MEDS: ZINC SULFATE 220 MG CAPSULE PO SCH (08:00)
[2019-05-17] MEDS: NYSTATIN POWDER 15GM BTL EXT SCH ×3 (08:00→21:22)
[2019-05-17] MEDS: CHOLECALCIFEROL 1,000 UNITS TAB PO SCH (08:00)
[2019-05-17] MEDS: cefUROXime axetil 500 MG TAB PO SCH ×4 (08:00→21:38)
[2019-05-17] MEDS: MULTIVITAMIN TAB PO SCH (08:00)
[2019-05-17] MEDS: allopurinoL 100 MG TAB PO SCH (08:00)
[2019-05-17 08:03] LABS: Albumin Level 2.2 gm/dl (3.4-5.0); BUN Creatinine Ratio 30.3 (10-20); Calcium 9.1 mg/dl (8.5-10.1); Creatinine Clr Calc Pharmacy 83.4 ml/min; Est GFR (African American) 49.4; Est GFR (Non-African American) 42.6; Potassium 4.6 mmol/L (3.5-5.1)
[2019-05-17 08:06] LABS: Albumin Globulin Ratio 0.5 (0.9-2); Bilirubin,Total 0.8 mg/dl (0.2-1); Globulin 4.4 gm/dl (2.5-4.0); Total Protein 6.6 gm/dl (6.4-8.2)
--- NOTE | 2019-05-17 13:01 | Pulmonology Progress Note ---
Date of Service May 17, 2019 Assessment & Plan (1) Acute respiratory failure with hypoxia and hypercapnia: Multifactorial to restrictive thoracic cage abnormalities secondary obesity and obesity hypoventilation syndrome. Patient is on CPAP at home for the last 15 years Currently is on hospital supplied CPAP/BiPAP at 15 cm of water Patient with thoracic cage restriction abnormality secondary to morbid obesity Will check repeat ABG in the morning with CPAP on room air Patient still not ambulating or OOB to chair (2) Hemoptysis: Resolved (3) CHF (congestive heart failure): Continue diuresis and watch Creatinine Suspect underlying cor pulmonale due to morbid obesity and potentially undertre ated sleep disordered breathing. (4) Morbid obesity with BMI of 70 and over, adult: Continue discussion regarding weight loss Continue with aggressive physical therapy and Occupational Therapy. Thank you for including us in the care of this patient. We will continue to follow along with you. Supervising Physician Co-Signing Physician Notes I evaluated the patient with Nikunj Gustafson PA-C. Agree with his note. ABG in the AM on CPAP. If hypercapnia, will try to switch him to a NIV form of ventilation, if not, continue with CPAP. Patient needs aggressive weight loss and rehab. He seems to be a bit angry and in denial regarding his condition. Continue diuresis as needed for diastolic chf and secondary PHTN. His prognosis overall is poor. Subjective Attending: Dr. Henderson Patient seen and examined at bedside. He has had little progress regarding his respiratory status. The patient has purchased a new nasal pillow online and is using that today. Patient continues to have minimal ability to ambulate and communicates freely that he is frustrated with how many people come in and ask him to roll over so they can examine him and treat him. Patient states has not noticed much difference as far as his edema. He has no chest pain or tightness. He has no productive cough. He denies any fever. Patient has not been out of bed. He has not been able to dangle his legs on the side of the bed. Review of Systems Review of Systems: All systems reviewed & are unremarkable except as noted in HPI & below Physical Exam Physical Exam: GENERAL : No acute distress. Patient is frustrated EYES: No icterus, gaze conjugate NOSE: No evidence of epistaxis. Nasal pillow is in place MOUTH: No lesions or candidiasis. Mucosa moist NECK: Supple LUNGS: CTA B/L, no wheezes, rales or rhonchi. HEART: Regular, rate controlled ABDOMEN: Soft, NT, ND, BS Present EXTREMITIES: 2+ bilateral LE edema, pedal pulses intact and equal bilaterally. Erythema on right lower extremity seems improved. NEURO: A&OX3 Results & Data Vital Signs (Past 12 Hours) Vital Signs Temp Pulse Pulse Resp BP Pulse Ox 05/17/19 11:45 36.4 C L 74 18 105/73 94 05/17/19 11:15 78 20 91 05/17/19 08:00 79 05/17/19 07:39 36.3 C L 83 18 108/72 90 05/17/19 07:20 81 20 93 05/17/19 03:57 36.4 C L 81 20 109/68 92 05/17/19 03:28 77 16 92 Laboratory Results 05/17/19 07:12 05/17/19 07:12 Diagnostic Findings No diagnostic imaging since 05/11/2019 PG Care Time/CCT Total # of Minutes Spent Total Time Spent with Patient: Total time spent is greater than 50% in coordination of care (as documented) at patient's floor/unit and/or counseling patient:
[2019-05-17] MEDS: OXYCODONE HCL IR 5 MG TAB (IMMEDIATE RELEASE) PO PRN (14:54)
--- NOTE | 2019-05-17 16:30 | Hospitalist Progress Note ---
Date of Service May 17, 2019 Assessment & Plan (1) Acute respiratory failure with hypoxia and hypercapnia: Acute respiratory failure with hypoxia: Likely secondary to anasarca vs. obesity-hypoventilation syndrome versus acute on chronic diastolic CHF ...Recent echo was not helpful given limited views but grossly his EF was normal ...doubt PE given he is on eliquis and txmt would not change ...RHC did confirm wedge pressure of 30 ...Massive weight gain (at least 50 pounds) in the last 4 weeks [employer]. ...liver US was c/w cirrhosis Diuresed well with significant weight loss - Wt: 506 --> 477 ... Bumex drip stopped in the setting of worsening creatinine concern of intravascular volume depletion .. Creatinine gradually worsening from 1.47 on 05/16 to 1.7 today Cont CPAP (he likes his nasal CPAP better) and HFNC during the day ... Attempted to obtain CT chest to further evaluate for pleural effusion/edema however patient cannot be accommodated by CT scanner due to body habitus ...Needs repeat sleep study once he is out of hospital (none donein many years). Cellulitis of right leg: SLOWLY IMPROVING. Cont daptomycin. day #02/16. ... planning 10 days of IV Abx given severe lymphedema and slow nature of i mprovement. RLE doppler x 2 neg for DVT. No obvious abscess or deeper infection on exam. He is also on cephalosporin for chronic lyme's; this will provide some coverage as well. EDNA (acute kidney injury): resolved from initial incident recurred 12.8 with creat=1.47 (was 1) w/ diuresis -worse today at 1.73 in the setting of significant diuresis given the importance of volume status and breathing status may need to allow mild permissive EDNA Lymphedema: resume compression of legs as usual once RLE cellulitis has resolved Cirrhosis: as seen on imaging this could be due to long-standing fatty liver leading to MAYES consider diagnostic paracentesis Abdominal distension: attempted to get x-rays but he is too large for x-ray table cannot get them portably either either way he is passing flatus and stools likely had some element of ileus and/or was swallowing air from BIPAP likely also with ascites and body wall edema from anasarca Diarrhea: c diff neg stop miralax partial improvement since adding probiotics on 05.15 A-fib: rates controlled. Continue Eliquis, BB, CaB Hypothyroidism: TSH suppressed this admission FT4 elevated typically on 100mcg daily of synthroid thus, reduced dose to 88mcg daily repeat TSH in mid June Lyme disease: Chronic typically takes chronic abx (cefuroxime) for such Hemoptysis: likely 2nd pulmonary edema in setting of chronic anticoagulation not a candidate for invasive testing this has improved Candidiasis of mouth and esophagus: improved with magic mouthwash 5cc ac/hs - swish & spit plan 10 days of Rx Zinc deficiency: 04/2019 level low started zinc 220mg daily x 2 weeks on 05/10 Anxiety: poor candidate for benzos due to resp failure consider buspar if anxiety persists suspect hypoxia is causing anxiety Morbid obesity: BMI 70-75 Patient not interested in bariatric surgery DVT prophylaxis: eliquis BID Dispo: Patient would like to go home only (2) Lymphedema: (3) Cirrhosis: (4) Obesity hypoventilation syndrome: (5) Acute pulmonary edema: (6) Zinc deficiency: (7) Hypothyroidism: (8) Lyme disease: (9) Cellulitis: (10) CHF (congestive heart failure): (11) Anasarca: (12) A-fib: (13) EDNA (acute kidney injury): Supervising Physician Co-Signing Physician Notes Resident Physician Supervision Note: I interviewed and examined the patient. Discussed with Dr. Neena Marcos and agree with findings and plan as documented in the note. Any exceptions or clarifications are listed here: patient does NOT have acute respiratory failure with hypercarbia and hypoxia; there has been no lab evidence of hypercarbia during the hospitalization. This is acute resp failure with hypoxia only. Pt and voiced frustration today. Feel like they are getting "mixed messages" from various staff members. Someone recently told him that he would be going to rehab and that he wouldn't be home for [place]. He and his have NO interest in any form of rehab post-d/c. They are both confident his needs can be met at home. We had a very lengthy discussion about his deconditioning and that, although we acknowledge that he was walking and driving before admission, his health is very different now and that he is severely deconditioned. He was too ill and BIPAP/CPAP dependent all last week to realistically get OOB to chair; the goal, however, is OOB to chair first thing tomorrow am. We discussed other issues - RLE cellulitis, appetite, abd bloating, etc. exam - gen - morbidly obese, a/o x 3, comfortable mouth - no thrush plaques heart - irregular, s1 s2; unable to assess for JVD lungs - decreased BS right base, CTA b/l otherwise; occasional rale abd - distended - perhaps slightly better than last week; BS+; NT ext - severe lymphedema RLE > LLE - scantly better than last visit w/ him skin - mild pink cellulitis of RLE, worst location posterior right calf musculo - large midline scar over R knee, nontender w/ passive flexion/exten ori; no crepitus over right calf labs - Cr now 1.7 A/P: 1. acute hypoxic resp failure - continues to use his nasal CPAP nearly [id number]; I told him today that this will not be a realistic option for outside the hospital; recommended he trial himself on regular NC O2 this afternoon to the [facility] where we are at this point w/ his recovery from #2 2. probable acute/chronic diastolic CHF; cannot rule out acute/chronic cor pulmonale; echo was severely limited with respect to basic information; hold bumex drip and aldactone due to EDNA; he is at least 35-40 pounds lower than at admission s/p aggressive diuresis since admission 3. EDNA - 2nd to over-diuresis - stop diuretics, BMP am 4. worsening leukocytosis - 2nd to RLE cellulitis? developing lung infection? other? consider chest CT, consider RLE CT; consider blood cx's 5. morbid obesity - BMI 70s 6. severe deconditioning - ongoing; PT/OT /pt extensively updated personally spent 30 min at bedside today; this is in addition to time spent by Dr Marcos at bedside and her time coordinating care total time today 45 minutes Documented By: Benoit Pham MD Subjective This afternoon patient reports breathing improved compared to yesterday. Patient reports significant frustration in reference to his deconditioning and reports he is not interested in inpatient rehab at all. He reports his will take care of him and take him to outpatient rehab. He also reports having to nurses and the family and a physical therapist neighbor will be able to assist him. He reports he can get on the side of the bed without assistance and will have more energy to work with physical therapy tomorrow. Reports not doing anything significant with physical therapy the past few days which has led to some deconditioning. However he reports being ambulatory prior to admission and believes can manage again. Denies any fever, chills chest pain, abdominal pain, nausea, vomiting, diarrhea, constipation, dysuria Review of Systems Review of Systems: As per HPI Physical Exam Physical Exam: General: In NAD Neuro: A&O x 4 Pulm: Mild bibasilar crackles appreciated, equal breath sounds bilaterally CV: RRR, no m/r/g Abdomen:+BS, no TTP in all quadrants, non-distended LE: 2+ LE edema, no calf TTP; mild RLE erythema and warmth Results & Data Vital Signs (Past 12 Hours) Vital Signs Temp Pulse Pulse Resp BP Pulse Ox 05/17/19 11:45 36.4 C L 74 18 105/73 94 05/17/19 11:15 78 20 91 05/17/19 08:00 79 05/17/19 07:39 36.3 C L 83 18 108/72 90 05/17/19 07:20 81 20 93 Resident Activity Tracking Resident Involvement: Resident Care Provided Care Provided: Adult Hospital Medicine (1) A-fib Atrial fibrillation type: permanent Qualified Code(s): I48.21 - Permanent atrial fibrillation (2) Hypothyroidism Hypothyroidism type: acquired Qualified Code(s): E03.9 - Hypothyroidism, unspecified (3) Cirrhosis Ascites presence: with ascites Hepatic cirrhosis type: unspecified hepatic cirrhosis Qualified Code(s): K74.60 - Unspecified cirrhosis of liver; R18.8 - Other ascites
[2019-05-17] MEDS: DAPTOmycin 500 MG in SYRINGE 0 ML IV SCH (16:44)
[2019-05-18 05:34] LABS: Base Excess ABG 5.6 mEq/L (-9-1.8); HCO3 ABG 30 mmol/L (19-24); PCO2 ABG 41 mmHg (35-46); PO2 ABG 61 mm/Hg (80-95); pH ABG 7.48 (7.35-7.45)
[2019-05-18 05:35] LABS: Allen Test Pos (Pos)
[2019-05-18 05:46] LABS: Basophils # (auto) 0.06 K/uL (0-0.2); Basophils % (auto) 0.3 %; Eosinophils # (auto) 1.19 K/uL (0-0.5); Eosinophils % (auto) 6.1 %; Hematocrit (blood only) 34.9 % (42-52); Hemoglobin 11.1 g/dL (14.0-18.0); Immature Granulocytes # (auto) 0.15 K/uL (0.00-0.02); Immature Granulocytes % (auto) 0.8 %; Lymphocytes # (auto) 1.82 K/uL (1.2-3.4); Lymphocytes % (auto) 9.3 %; Mean Corpuscular Hemoglobin 29.8 pg (25-34); Mean Corpuscular Hgb Conc 31.8 g/dL (32-36); Mean Corpuscular Volume 93.6 fL (80-100); Mean Platelet Volume 10.1 fL (7.4-10.4); Monocytes # (auto) 1.04 K/uL (0.11-0.59); Monocytes % (auto) 5.3 %; Neutrophils # (auto) 15.37 K/uL (1.4-6.5); Neutrophils % (auto) 78.2 %; Platelet Count 426 K/uL (130-400); RDW Standard Deviation 54.1 fL (36.4-46.3); Red Blood Count 3.73 M/uL (4.7-6.1); White Blood Count 19.63 K/uL (4.8-10.8)
[2019-05-18] MEDS: LEVOTHYROXINE SODIUM 88 MCG TABLET PO SCH (06:07)
[2019-05-18 06:20] LABS: Albumin Level 2.1 gm/dl (3.4-5.0); BUN Creatinine Ratio 29.9 (10-20); Bilirubin Direct 0.4 mg/dl (0-0.2); Calcium 8.4 mg/dl (8.5-10.1); Creatinine Clr Calc Pharmacy 75.4 ml/min; Est GFR (African American) 43.7; Est GFR (Non-African American) 37.7
[2019-05-18 06:22] LABS: Bilirubin,Total 0.9 mg/dl (0.2-1); Total Protein 6.4 gm/dl (6.4-8.2)
[2019-05-18] MEDS: NYSTATIN 30 ML, DEXAMETHASONE CONC 3.75 MG, DiphenhydrAMINE Syrup 300 MG, ORA-SWEET SYR... PO SCH ×4 (08:11→21:27)
[2019-05-18] MEDS: CHOLECALCIFEROL 1,000 UNITS TAB PO SCH (08:12)
[2019-05-18] MEDS: cefUROXime axetil 500 MG TAB PO SCH ×3 (08:12→17:41)
[2019-05-18] MEDS: allopurinoL 100 MG TAB PO SCH (08:12)
[2019-05-18] MEDS: NYSTATIN POWDER 15GM BTL EXT SCH ×3 (08:12→21:15)
[2019-05-18] MEDS: ZINC SULFATE 220 MG CAPSULE PO SCH (08:13)
[2019-05-18] MEDS: MULTIVITAMIN TAB PO SCH (08:13)
[2019-05-18] MEDS: ASPIRIN 81 MG ECTAB PO SCH (08:13)
[2019-05-18] MEDS: VITAMIN B COMPLEX TAB PO SCH (08:13)
[2019-05-18] MEDS: APIXABAN 5 MG TABLET PO SCH ×2 (08:13→21:14)
[2019-05-18] MEDS: METOPROLOL TARTRATE 50 MG TAB PO SCH ×2 (08:14→21:14)
[2019-05-18] MEDS: LACTOBACILLUS ACIDOPHILUS (FLORANEX) TAB PO SCH ×3 (08:14→17:41)
--- NOTE | 2019-05-18 09:35 | Billing Data ---
Coding Level of Care Code 72861 Subseq Hosp Care Lvl 3
--- NOTE | 2019-05-18 12:13 | XRay Report ---
XR chest 1V portable CLINICAL HISTORY: rule out pneumonia, assess effusion COMPARISON STUDY: Chest radiograph May 11, 2019. FINDINGS: Pulmonary edema has improved since exam of May 11, 2019. Bilateral pleural effusions ri ght larger than left, are again noted. There are bibasilar opacities. Right lung aeration is slightly improved. Lungs are again noted. Cardiomediastinal silhouette is stable. There is no pneumothorax. IMPRESSION: 1. Bilateral pleural effusions, right larger than left, and associated airspace opacities which may r eflect atelectasis or pneumonia. Radiographic follow up is recommended. 2. Interval improvement in pulmonary edema. Electronically signed by: Kristopher Kitchen M.D. 05/18/2019 12:12 PM
--- NOTE | 2019-05-18 14:38 | Pulmonology Progress Note ---
Date of Service May 18, 2019 Assessment & Plan (1) Acute respiratory failure with hypoxia and hypercapnia: Multifactorial to restrictive thoracic cage abnormalities secondary obesity and obesity hypoventilation syndrome. Patient is on CPAP at home for the last 15 years Currently is on hospital supplied CPAP/BiPAP at 15 cm of water Patient with thoracic cage restriction abnormality secondary to morbid obesity Repeat ABG today with CPAP on room air revealed no hypercapnia Patient still not ambulating or OOB to chair Best option at this point would be to discharge patient and get outpatient polysomnography exam to qualify for new CPAP at home Discussed plan with patient and his . We will sign off at this time. (2) Hemoptysis: Resolved (3) CHF (congestive heart failure): Continue judicious diuresis and watch Creatinine Suspect underlying cor pulmonale due to morbid obesity and potentially undertreated sleep disordered breathing. (4) Morbid obesity with BMI of 70 and over, adult: Continued discussion regarding weight loss. This will be focused on as an outpatient Continue with aggressive physical therapy and Occupational Therapy as patient is willing. Thank you for including us in the care of this patient. We will sign off at this time. Please feel free to reconsult as needed Supervising Physician Co-Signing Physician Notes Patient with evidence of respiratory alkalosis on CPAP overnight. It appears that he is being adequately ventilated with simply CPAP. Recommend continuing CPAP at this time. He would benefit from an outpatient polysomnography to evaluate whether he is on adequate pressure. Pulmonary will sign off. Please call us with questions. Subjective Attending: Dr. Henderson Patient seen and examined in bed. Patient has not been able to get out of bed as of yet. reports good physical therapy session today. Mechanical lift completed with for assistance for placement of lift sling. Patient unable to complete static sitting safely without mechanical lift intact. Patient continues to struggle with central core weakness. Patient continues to rely on CPAP in spite of continue to request just to use nasal cannula. Will need to continue to work towards outpatient CPAP approval through outpatient polysomnography. Patient denies any fever or chills. He has no chest pain or tightness. Shortness of breath is managed with CPAP and supplemental O2. No new acute complaints. Review of Systems Review of Systems: All systems reviewed & are unremarkable except as noted in HPI & below Physical Exam Physical Exam: GENERAL : No acute distress EYES: No icterus, gaze conjugate NOSE: No evidence of epistaxis MOUTH: No lesions or candidiasis NECK: Supple LUNGS: CTA B/L, no wheezes, rales or rhonchi. Moderate inspiratory effort HEART: Regular, rate controlled ABDOMEN: Soft, NT, ND, BS Present EXTREMITIES: 2+ bilateral LE edema, pedal pulses intact NEURO: A&OX3. Generalized weakness Results & Data Vital Signs (Past 12 Hours) Vital Signs Temp Pulse Pulse Resp BP Pulse Ox 05/18/19 12:12 36.3 C L 69 18 101/66 96 05/18/19 07:50 36.6 C 83 32 H 92/60 L 91 05/18/19 03:30 84 18 89 L 05/18/19 03:29 36.7 C 69 20 90/54 L 89 L Laboratory Results 05/18/19 05:17 05/18/19 05:17 Diagnostic Findings XR chest 1V portable CLINICAL HISTORY: rule out pneumonia, assess effusion COMPARISON STUDY: Chest radiograph May 11, 2019. FINDINGS: Pulmonary edema has improved since exam of May 11, 2019. Bilateral pleural effusions right larger than left, are again noted. There are bibasilar o pacities. Right lung aeration is slightly improved. Lungs are again noted. Cardiomediastinal silhouette is stable. There is no pneumothorax. IMPRESSION: 1. Bilateral pleural effusions, right larger than left, and associated airspace opacities which may reflect atelectasis or pneumonia. Radiographic follow up is recommended. 2. Interval improvement in pulmonary edema. Electronically signed by: Kristopher Kitchen M.D. 05/18/2019 12:12 PM PG Care Time/CCT Total # of Minutes Spent Total Time Spent with Patient: Total time spent is greater than 50% in coordination of care (as documented) at patient's floor/unit and/or counseling patient: 25
--- NOTE | 2019-05-18 19:24 | Hospitalist Progress Note ---
Date of Service May 18, 2019 Assessment & Plan (1) Acute respiratory failure with hypoxia and hypercapnia: Acute respiratory failure with hypoxia: Multifactorial - restrictive thoracic cage secondary obesity and obesity hypoventilation syndrome vs. anasarca secondary to cirrhosis vs. Cor pulmonale secondary to AUBRIE/obesity hypoventilation Patient is on CPAP at home for the last 15 years Currently is on hospital supplied CPAP/BiPAP at 15 cm of water ...Recent echo was not helpful given limited views but grossly his EF was normal ...doubt PE given he is on eliquis and txmt would not change ...RHC did confirm wedge pressure of 30 ...Massive weight gain (at least 50 pounds) in the last 4 weeks CLINICAL PSYCHIATRIST. ...liver US was c/w cirrhosis Diuresed well with significant weight loss - Wt: 506 --> 477 ... Bumex drip stopped in the setting of worsening creatinine concern of intravascular volume depletion .. Creatinine gradually worsening from 1.47 on 05/16 to 1.8 today Cont CPAP (he likes his nasal CPAP better) and encourage NC during the day -patient sats well on just 2 L of nasal cannula ... Attempted to obtain CT chest to further evaluate for pleural effusion/edema however patient cannot be accommodated by CT scanner due to body habitus ...Needs repeat sleep study once he is out of hospital (none done in many years) will likely need new CPAP Cellulitis of right leg: IMPROVING. Cont daptomycin. day #03/18. ... planning 10 days of IV Abx given severe lymphedema and slow nature of improvement. RLE doppler x 2 neg for DVT. No obvious abscess or deeper infection on exam. He is also on cephalosporin for chronic lyme's; this will provide some coverage as well. Worsening leukocytosis WBC elevated today at 19.6 from 16.4 yesterday despite improving cellulitis No obvious infectious source at this time Patient is on Magic mouthwash which has some dexamethasone Chest x-ray repeated to rule out consolidation but showed persistent right-sided pleural effusion Dr. Gill did not suggest thoracentesis Kahn DC'd and UA ordered to rule out UTI C. difficile repeat ordered given diarrhea -likely in the setting of being on antibiotics Consider diagnostic paracentesis if develops abdominal pain Continue to monitor CBC EDNA (acute kidney injury): resolved from initial incident recurred 12.8 with creat=1.47 (was 1) w/ diuresis -worse today at 1.8 n the sett ing of significant diuresis Lymphedema: resume compression of legs as usual once RLE cellulitis has resolved Cirrhosis: as seen on imaging this could be due to long-standing fatty liver leading to MAYES consider diagnostic paracentesis -if WBC continues to rise Abdominal distension: attempted to get x-rays but he is too large for x-ray table cannot get them portably either either way he is passing flatus and stools likely had some element of ileus and/or was swallowing air from BIPAP likely also with ascites and body wall edema from anasarca Diarrhea: c diff neg stop miralax partial improvement since adding probiotics on 05.15 A-fib: rates controlled. Continue Elisinghis, BB, CaB Hypothyroidism: TSH suppressed this admission FT4 elevated typically on 100mcg daily of synthroid thus, reduced dose to 88mcg daily repeat TSH in mid June Lyme disease: Chronic typically takes chronic abx (cefuroxime) for such Hemoptysis: likely 2nd pulmonary edema in setting of chronic anticoagulation not a candidate for invasive testing this has improved Candidiasis of mouth and esophagus: improved with magic mouthwash 5cc ac/hs - swish & spit plan 10 days of Rx Zinc deficiency: 04/2019 level low started zinc 220mg daily x 2 weeks on 05/10 Anxiety: poor candidate for benzos due to resp failure consider buspar if anxiety persists suspect hypoxia is causing anxiety Morbid obesity: BMI 70-75 Patient not interested in bariatric surgery DVT prophylaxis: eliquis BID Dispo: Patient would like to go home only (2) Lymphedema: (3) Cirrhosis: (4) Obesity hypoventilation syndrome: (5) Acute pulmonary edema: (6) Zinc deficiency: (7) Hypothyroidism: (8) Lyme disease: (9) Cellulitis: (10) CHF (congestive heart failure): (11) Anasarca: (12) A-fib: (13) EDNA (acute kidney injury): Supervising Physician Co-Signing Physician Notes Resident Physician Supervision Note: I interviewed and examined the patient at bedside with PGY3 Dr. Neena Marcos. I agree with her findings and plan as documented in the note. Any exceptions or clarifications are listed here: again patient does NOT have acute respiratory failure with hypercarbia and hypoxia; there has been no lab evidence of hypercarbia during this hospitalization thus far. This is acute resp failure with hypoxia only. Additionally patient did not have right heart catheterization. During our bedside rounds I asked the nurse to remove his nasal CPAP. We transitioned him to 2 L NC. For 10 minutes his O2 sats were 90-95% on 2 L NC. He spoke in full sentences, did not have dyspnea, and overall looked good. He worked with PT this am. Using a lift he was transferred to hospital [facility]. Staff report it went fair at best. Staff also report he tends to prefer his nasal CPAP and will pull the oxygen off quickly even if O2 sats are fine. He and his continue to state they will NOT pursue rehab post-d/c. Denies any worsening RLE pain. Denies abd pain. Eating is fair. Still bloated but certainly no worse than previous. exam - gen - morbidly obese, a/o x 3, comfortable on NC O2 mouth - no thrush plaques; MMM heart - irregular, s1 s2; no obvious JVD lungs - decreased BS right base, CTA b/l otherwise; occasional rales; no wheeze; no increased WOB abd - distended - no changes from prior exam ext - severe lymphedema RLE > LLE skin - mild residual cellulitis over right calf; rest of RLE is nearing normal in color musculo - large midline scar over R knee, nontender w/ passive flexion/extension or w/ palpation of knee labs - Cr now 1.8; WBC 19 A/P: 1. acute hypoxic resp failure - continues to use his nasal CPAP nearly [id number]. He appears to use this nearly like a crutch and likely because of the positive pressure it provides. For 10 min during rounds his O2 sats and pulmonary status were normal on 2 L NC. I counseled him that upon discharge he will be on NC O2 during day and CPAP at HS. 2. probable acute/chronic diastolic CHF; cannot rule out acute/chronic cor pulmonale; echo was severely limited with respect to basic information. He has lost at least 30-40 pounds of fluid weight while here. During diuresis he developed EDNA - all diuretics on hold. Repeat cxr today with improved pulm edema. Does have moderate right-sided effusion; not a candidate for thoracentesis due to technical factors. 3. EDNA - 2nd to over-diuresis - stopped diuretics, BMP am 4. worsening leukocytosis - uncertain etiology. RLE cellulitis is improved. Right knee is stable. No signs/symptoms SBP. No signs/symptoms of pulmonary infection although it would be very hard to rule out. Check u/a and urine cx, r/o UTI. 5. morbid obesity - BMI 70s 6. severe deconditioning - ongoing; PT/OT; really needs rehab but patient & adamantly refuse such; they give reassurances that they will have all the help they will need to ensure good transition to home repeat labs am Documented By: Benoit Pham MD Subjective Patient reports feeling more energetic today and overall better. reports good physical therapy session today however patient unable to complete static sitting safely without mechanical lift intact. Patient continues to rely on CPAP in spite of continue to request just to use nasal cannula. Patient also having some diarrhea. Patient denies any fever or chills. He has no chest pain or tightness. Shortness of breath is managed with CPAP and supplemental O2. Denies any nausea, vomiting, abdominal pain, constipation. Patient has Kahn and has diuresed additional 1 L since yesterday. Review of Systems Review of Systems: As per HPI Physical Exam Physical Exam: General: In NAD Neuro: A&O x 4 Pulm: Mild bibasilar crackles appreciated R>L, equal breath sounds bilaterally CV: RRR, no m/r/g Abdomen:+BS, no TTP in all quadrants, obese abdomen LE: 2+ LE edema, no calf TTP; mild RLE erythema and warmth ankle to bell region (improved compared to exam yesterday) Results & Data Vital Signs (Past 12 Hours) Vital Signs Temp Pulse Resp BP Pulse Ox 05/18/19 15:47 36.6 C 68 20 92/68 L 92 05/18/19 12:12 36.3 C L 69 18 101/66 96 05/18/19 07:50 36.6 C 83 32 H 92/60 L 91 Resident Activity Tracking Resident Involvement: Resident Care Provided Care Provided: Adult Hospital Medicine (1) A-fib Atrial fibrillation type: permanent Qualified Code(s): I48.21 - Permanent atrial fibrillation (2) Hypothyroidism Hypothyroidism type: acquired Qualified Code(s): E03.9 - Hypothyroidism, unspecified (3) Cirrhosis Ascites presence: with ascites Hepatic cirrhosis type: unspecified hepatic cirrhosis Qualified Code(s): K74.60 - Unspecified cirrhosis of liver; R18.8 - Other ascites
[2019-05-18] MEDS: OXYCODONE HCL IR 5 MG TAB (IMMEDIATE RELEASE) PO PRN (21:14)
[2019-05-18] MEDS: SIMETHICONE 80 MG CHEW PO PRN (21:27)
[2019-05-18 22:17] LABS: Appearance Urine Cloudy (Clear); Bacteria Urine Automated 4+ (Negative); Blood Urine 3+ (Negative); Color Urine Dark Yellow; Glucose Urine UA Negative (Negative); Ketones Urine Trace (Negative); Leukocyte Esterase Urine 2+ (Negative); Nitrite Urine Positive (Negative); Protein Urine Trace (Negative); Specific Gravity Urine 1.019 (1.000-1.030); Urobilinogen Urine Negative (Negative); WBC Urine Automated >30 /hpf (0-5)
[2019-05-18 22:21] LABS: Bilirubin Urine Negative (Negative); Ictotest Urine Negative (Negative)
--- NOTE | 2019-05-18 23:05 | Billing Data ---
Coding Level of Care Code 49168 Subseq Hosp Care Lvl 3
[2019-05-19] MEDS: ONDANSETRON INJ 2 MG/ML 2 ML VIAL IV PRN (02:18)
[2019-05-19] MEDS: LEVOTHYROXINE SODIUM 88 MCG TABLET PO SCH (05:41)
[2019-05-19 06:45] LABS: Basophils # (auto) 0.04 K/uL (0-0.2); Basophils % (auto) 0.2 %; Eosinophils # (auto) 0.89 K/uL (0-0.5); Eosinophils % (auto) 4.4 %; Hematocrit (blood only) 35.2 % (42-52); Hemoglobin 11.6 g/dL (14.0-18.0); Immature Granulocytes # (auto) 0.14 K/uL (0.00-0.02); Immature Granulocytes % (auto) 0.7 %; Lymphocytes # (auto) 1.95 K/uL (1.2-3.4); Lymphocytes % (auto) 9.7 %; Mean Corpuscular Hemoglobin 30.5 pg (25-34); Mean Corpuscular Volume 92.6 fL (80-100); Mean Platelet Volume 10.1 fL (7.4-10.4); Monocytes # (auto) 1.15 K/uL (0.11-0.59); Monocytes % (auto) 5.7 %; Neutrophils % (auto) 79.3 %; Platelet Count 483 K/uL (130-400); RDW Coefficient of Variation 16.4 % (11.5-14.5); White Blood Count 20.17 K/uL (4.8-10.8)
[2019-05-19 07:17] LABS: BUN Creatinine Ratio 28.3 (10-20); Calcium 8.2 mg/dl (8.5-10.1); Est GFR (African American) 35.2; Est GFR (Non-African American) 30.3; Potassium 4.9 mmol/L (3.5-5.1)
[2019-05-19 07:20] LABS: Albumin Globulin Ratio 0.5 (0.9-2); Bilirubin,Total 0.9 mg/dl (0.2-1); Globulin 4.4 gm/dl (2.5-4.0); Total Protein 6.4 gm/dl (6.4-8.2)
[2019-05-19] MEDS: cefTRIAXone SODIUM 2,000 MG in DEXTROSE 5% 50 ML IV SCH (08:07)
[2019-05-19] MEDS: NYSTATIN POWDER 15GM BTL EXT SCH ×3 (08:07→20:59)
[2019-05-19] MEDS: ASPIRIN 81 MG ECTAB PO SCH (08:08)
[2019-05-19] MEDS: METOPROLOL TARTRATE 50 MG TAB PO SCH ×2 (08:08→20:59)
[2019-05-19] MEDS: VITAMIN B COMPLEX TAB PO SCH (08:08)
[2019-05-19] MEDS: APIXABAN 5 MG TABLET PO SCH ×2 (08:09→20:59)
[2019-05-19] MEDS: LACTOBACILLUS ACIDOPHILUS (FLORANEX) TAB PO SCH ×4 (08:09→17:40)
[2019-05-19] MEDS: CHOLECALCIFEROL 1,000 UNITS TAB PO SCH (08:09)
[2019-05-19] MEDS: MULTIVITAMIN TAB PO SCH (08:09)
[2019-05-19] MEDS: ZINC SULFATE 220 MG CAPSULE PO SCH (08:09)
[2019-05-19] MEDS: allopurinoL 100 MG TAB PO SCH (08:09)
[2019-05-19] MEDS: NYSTATIN 30 ML, DEXAMETHASONE CONC 3.75 MG, DiphenhydrAMINE Syrup 300 MG, ORA-SWEET SYR... PO SCH ×5 (09:51→21:00)
--- NOTE | 2019-05-19 11:39 | Ultrasound Report ---
EXAMINATION: RENAL ULTRASOUND CLINICAL HISTORY: Possible renal obstruction. RENAL INSUFFICIENCY COMPARISON STUDY: None FINDINGS: The right kidney measures 9.5 cm. The left kidney measures 12.0 cm. There is no evidence o f hydronephrosis. There are no renal masses. The bladder was nonvisualized. Note is made of ascites. The study is significantly limited from a technical standpoint due to the patient's body habitus (BMI = 71). IMPRESSION : 1. Technically limited study secondary to the patient's large body habitus 2. No evidence of hydronephrosis 3. Ascites Electronically signed by: Aly Ghosh M.D. 05/19/2019 11:38 AM
[2019-05-19] MEDS: SIMETHICONE 80 MG CHEW PO PRN (12:47)
--- NOTE | 2019-05-19 17:17 | Hospitalist Progress Note ---
Date of Service May 19, 2019 Assessment & Plan (1) Acute respiratory failure with hypoxia and hypercapnia: Acute respiratory failure with hypoxia: Multifactorial - restrictive thoracic cage secondary obesity and obesity hypoventilation syndrome vs. anasarca secondary to cirrhosis vs. Cor pulmonale secondary to AUBRIE/obesity hypoventilation Patient is on CPAP at home for the last 15 years Currently is on hospital supplied CPAP/BiPAP at 15 cm of water and 2 L O2 to via nasal cannula during the day ...Recent echo was not helpful given limited views but grossly his EF was normal ...doubt PE given he is on eliquis and txmt would not change ...Massive weight gain (at least 50 pounds) in the last 4 weeks [employer]. ...liver US was c/w cirrhosis Diuresed well with significant weight loss - Wt: 506 --> 477 ... Bumex drip stopped in the setting of worsening creatinine concern of intravascular volume depletion .. Creatinine gradually worsening from 1.47 on 05/16 to 2.5 today -likely over diuresed, provided liter of LR Cont CPAP (he likes his nasal CPAP better) and encourage NC during the day - patient sats well on just 2 L of nasal cannula ... Attempted to obtain CT chest to further evaluate for pleural effusion/edema however patient cannot be accommodated by CT scanner due to body habitus ...Needs repeat sleep study once he is out of hospital (none done in many years) will likely need new CPAP UTI UA positive, culture pending Femi BRADY'd Started on Rocephin Hepatic Encephalopathy Ammonia level 125 and pt more sleepy today Asterixes on exam Started on lactulose 30mg BID Cellulitis of right leg: IMPROVING. Completed daptomycin. day #03/18. ... planning 10 days of IV Abx given severe lymphedema and slow nature of improvement. RLE doppler x 2 neg for DVT. No obvious abscess or deeper infection on exam. He is also on cephalosporin for chronic lyme's and Rocephin for UTI; this will provide some coverage as well. Worsening leukocytosis likely in the setting of new onset UTI WBC elevated today at 20.1 from 16.4 on 05/18 despite improving cellulitis No obvious infectious source at this time Patient is on Magic mouthwash which has some dexamethasone Chest x-ray repeated to rule out consolidation but showed persistent right-sided pleural effusion Dr. Gill did not suggest thoracentesis C. difficile repeat ordered given diarrhea -likely in the setting of being on antibiotics Consider diagnostic paracentesis if develops abdominal pain UA positive for UTI started on Rocephin Continue to monitor CBC Worsening EDNA (acute kidney injury): resolved from initial incident recurred 12.8 with creat=1.47 (was 1) w/ diuresis -worse today at 2.5 in the setting of significant diuresis Provided 1 L LR bolus Lymphedema: resume compression of legs as usual once RLE cellulitis has resolved Cirrhosis: as seen on imaging this could be due to long-standing fatty liver leading to MAYES consider diagnostic paracentesis -if WBC continues to rise despite treatment of UTI Ammonia 125 A-fib: rates controlled. Continue Eliquis, BB, CaB Hypothyroidism: TSH suppressed this admission FT4 elevated typically on 100mcg daily of synthroid thus, reduced dose to 88mcg daily repeat TSH in mid June Lyme disease: Chronic typically takes chronic abx (cefuroxime) Candidiasis of mouth and esophagus: improved with magic mouthwash 5cc ac/hs - swish & spit plan 10 days of Rx Zinc deficiency: 04/2019 level low started zinc 220mg daily x 2 weeks on 05/10 Anxiety: poor candidate for benzos due to resp failure consider buspar if anxiety persists suspect hypoxia is causing anxiety Morbid obesity: BMI 70-75 Patient not interested in bariatric surgery DVT prophylaxis: eliquis BID Dispo: Patient would like to go home only despite rehab recommended (2) Lymphedema: (3) Cirrhosis: (4) Obesity hypoventilation syndrome: (5) Acute pulmonary edema: (6) Zinc deficiency: (7) Hypothyroidism: (8) Lyme disease: (9) Cellulitis: (10) CHF (congestive heart failure): (11) Anasarca: (12) A-fib: (13) EDNA (acute kidney injury): Supervising Physician Co-Signing Physician Notes Resident Physician Supervision Note: I interviewed and examined the patient at bedside with PGY3 Dr. Neena Marcos. I agree with her findings and plan as documented in the note. Any exceptions or clarifications are listed here: again patient does NOT have acute respiratory failure with hypercarbia and hypoxia; there has been no lab evidence of hypercarbia during this hospitalization thus far. This is acute resp failure with hypoxia only. Patient c/o being very tired, no appetite, sleepy. During our bedside rounds he had the nasal CPAP on, was sleepy, and was wrapped in numerous blankets because he "felt cold." He seemed slightly altered today and was irritable. Tele - rate controlled a.fib. exam - gen - morbidly obese, sleepy, doesn't look good today mouth - no thrush plaques; MM slightly dry heart - irregular, s1 s2; no obvious JVD lungs - decreased BS right base, CTA b/l otherwise; occasional rales; no wheeze; no increased WOB abd - distended - no changes from prior exam ext - severe lymphedema RLE > LLE skin - minimal erythema over right calf; otherwise cellulitis RLE resolved musculo - large midline scar over R knee, nontender w/ passive flexion/extension neuro - depressed mentation labs - Cr now >2; WBC 20 urine cx - GNR A/P: 1. acute hypoxic resp failure - continues to use his nasal CPAP nearly [id number] despite the care team encouraging him to use the NC O2 while awake. I counseled him that upon discharge he will be on NC O2 during day and CPAP at HS. Etiology of acute hypoxic resp failure - volume overload/pulm edema from acute/chronic diastolic CHF, cirrhosis, etc. Cannot rule out right ventricular dysfunction/CHF. 2. probable acute/chronic diastolic CHF; cannot rule out acute/chronic cor pulmonale; echo was severely limited with respect to basic information. He has lost at least 30-40 pounds of fluid weight while here. During diuresis he developed EDNA - all diuretics on hold. Cr continues to worsen today - plan to actually give him some IV fluid as he is not eating/drinking and starting to look volume contracted. 3. EDNA - 2nd to over-diuresis - stopped diuretics. Cr continues to worsen. u/a with casts c/w ATN. Give gentle IVF; serial BMPs. 4. GNR UTI - cont rocephin, follow culture. 5. morbid obesity - BMI 70s 6. severe deconditioning - ongoing; PT/OT; really needs rehab but patient & adamantly refuse such; they give reassurances that they will have all the help they will need to ensure good transition to home 7. metabolic encephalopathy - 2nd to UTI; also now with markedly elevated ammonia. 8. hepatic encephalopathy - this is a life-threatening condition - urgent use of lactulose 30gm BID. Repeat ammonia level am. Elevated ammonia 2nd to cirrhosis (whether from MAYES or "cardiac" vs other). Documented By: Benoit Pham MD Subjective Patient reports feeling better however seemed more fatigued in the afternoon and reported not sleeping well last night. Patient worked with PT. Patient continues to rely on CPAP when sleeping and using nasal cannula and awake. Patient also having loose but formed stools Patient denies any fever or chills. He has no chest pain or tightness. Shortness of breath is managed with CPAP and supplemental O2. Denies any nausea, vomiting, abdominal pain, constipation. Femi DC'd due to concern for UTI Review of Systems Review of Systems: Per HPI Physical Exam Physical Exam: General: In NAD Neuro: A&O x 4, asterixes Pulm: Mild bibasilar crackles appreciated R>L, equal breath sounds bilaterally CV: RRR, no m/r/g Abdomen:+BS, no TTP in all quadrants, obese abdomen LE: 2+ LE edema, no calf TTP; mild RLE erythema and warmth localized in band like manner to mid bell region (improved compared to exam yesterday) Results & Data Vital Signs (Past 12 Hours) Vital Signs Temp Pulse Pulse Resp BP Pulse Ox 05/19/19 15:36 36.3 C L 68 20 102/65 95 05/19/19 13:10 67 18 94 05/19/19 11:16 36.1 C L 60 19 94/68 L 94 05/19/19 07:35 71 18 94 05/19/19 07:23 36.6 C 83 19 110/70 95 Resident Activity Tracking Resident Involvement: Resident Care Provided Care Provided: Adult Hospital Medicine (1) A-fib Atrial fibrillation type: permanent Qualified Code(s): I48.21 - Permanent atrial fibrillation (2) Hypothyroidism Hypothyroidism type: acquired Qualified Code(s): E03.9 - Hypothyroidism, unspecified (3) Cirrhosis Ascites presence: with ascites Hepatic cirrhosis type: unspecified hepatic cirrhosis Qualified Code(s): K74.60 - Unspecified cirrhosis of liver; R18.8 - Other ascites
[2019-05-19 18:28] LABS: BUN Creatinine Ratio 25.9 (10-20); Calcium 8.3 mg/dl (8.5-10.1); Creatinine Clr Calc Pharmacy 57.6 ml/min; Est GFR (African American) 31.6; Est GFR (Non-African American) 27.2; Potassium 4.9 mmol/L (3.5-5.1)
[2019-05-19] MEDS: OXYCODONE HCL IR 5 MG TAB (IMMEDIATE RELEASE) PO PRN (18:51)
[2019-05-19] MEDS ORDERED: LACTATED RINGER'S 1,000 ML IV ONE (19:25)
[2019-05-19] MEDS: MUPIROCIN 2% OINT 22 GM TUBE EXT SCH (20:58)
[2019-05-19] MEDS: LACTULOSE SYRUP 30 GM/45 ML UDP PO SCH (20:58)
[2019-05-19] MEDS ORDERED: LACTULOSE SYRUP 20 GM/30 ML UDC PO SCH (21:00)
[2019-05-19] MEDS ORDERED: LORazepam 0.25 MG/0.5 ML VIAL IV STA (22:12)
[2019-05-20] MEDS ORDERED: LORazepam 0.25 MG/0.5 ML VIAL IV STA ×2 (02:14→03:53)
[2019-05-20] MEDS ORDERED: LORazepam 2 MG/4 ML VIAL ONE (02:19)
[2019-05-20] MEDS: LEVOTHYROXINE SODIUM 88 MCG TABLET PO SCH (06:01)
--- NOTE | 2019-05-20 06:19 | Billing Data ---
Coding Level of Care Code 55724 Subseq Hosp Care Lvl 3
[2019-05-20] MEDS: MULTIVITAMIN TAB PO SCH (08:04)
[2019-05-20] MEDS: METOPROLOL TARTRATE 50 MG TAB PO SCH ×2 (08:04→22:38)
[2019-05-20] MEDS: LACTOBACILLUS ACIDOPHILUS (FLORANEX) TAB PO SCH ×3 (08:04→15:33)
[2019-05-20] MEDS: ASPIRIN 81 MG ECTAB PO SCH (08:04)
[2019-05-20] MEDS: NYSTATIN 30 ML, DEXAMETHASONE CONC 3.75 MG, DiphenhydrAMINE Syrup 300 MG, ORA-SWEET SYR... PO SCH ×4 (08:04→22:01)
[2019-05-20] MEDS: APIXABAN 5 MG TABLET PO SCH (08:04)
[2019-05-20] MEDS: CHOLECALCIFEROL 1,000 UNITS TAB PO SCH (08:04)
[2019-05-20] MEDS: VITAMIN B COMPLEX TAB PO SCH (08:04)
[2019-05-20] MEDS: allopurinoL 100 MG TAB PO SCH (08:05)
[2019-05-20] MEDS: ZINC SULFATE 220 MG CAPSULE PO SCH (08:05)
[2019-05-20 08:18] LABS: Hematocrit (blood only) 33.7 % (42-52); Mean Corpuscular Hgb Conc 32.6 g/dL (32-36); Mean Corpuscular Volume 91.8 fL (80-100); Mean Platelet Volume 10.3 fL (7.4-10.4); Platelet Count 526 K/uL (130-400); RDW Coefficient of Variation 16.5 % (11.5-14.5); RDW Standard Deviation 53.7 fL (36.4-46.3); Red Blood Count 3.67 M/uL (4.7-6.1); White Blood Count 24.97 K/uL (4.8-10.8)
[2019-05-20 08:48] LABS: Basophils # (auto) 0.06 K/uL (0-0.2); Basophils % (auto) 0.2 %; Echinocytes 2+; Eosinophils # (auto) 0.59 K/uL (0-0.5); Eosinophils % (auto) 2.4 %; Immature Granulocytes # (auto) 0.19 K/uL (0.00-0.02); Immature Granulocytes % (auto) 0.8 %; Lymphocytes # (auto) 1.61 K/uL (1.2-3.4); Lymphocytes % (auto) 6.4 %; Monocytes # (auto) 1.16 K/uL (0.11-0.59); Monocytes % (auto) 4.6 %; Neutrophils # (auto) 21.36 K/uL (1.4-6.5); Neutrophils % (auto) 85.6 %
[2019-05-20 08:56] LABS: Albumin Globulin Ratio 0.4 (0.9-2); BUN Creatinine Ratio 25.6 (10-20); Bilirubin,Total 1.2 mg/dl (0.2-1); Calcium 8.6 mg/dl (8.5-10.1); Creatinine Clr Calc Pharmacy 52.1 ml/min; Est GFR (Non-African American) 24.1; Globulin 4.7 gm/dl (2.5-4.0); Total Protein 6.7 gm/dl (6.4-8.2)
[2019-05-20] MEDS ORDERED: PIPERACILL/TAZOBAC CONSULT ACTIVE PRN (09:30)
[2019-05-20 09:49] LABS: Potassium 5.1 mmol/L (3.5-5.1)
[2019-05-20] MEDS: cefTRIAXone SODIUM 2,000 MG in DEXTROSE 5% 50 ML IV SCH (09:58)
[2019-05-20] MEDS ORDERED: PIPERACILLIN/TAZOBACTAM 4.5 GM in DEXTROSE 5% 100 ML IV ONE (10:00)
[2019-05-20] MEDS: MUPIROCIN 2% OINT 22 GM TUBE EXT SCH ×2 (10:09→22:39)
[2019-05-20] MEDS: LACTULOSE SYRUP 30 GM/45 ML UDP PO SCH ×2 (10:10→22:56)
[2019-05-20] MEDS: NYSTATIN POWDER 15GM BTL EXT SCH ×3 (10:10→22:34)
--- NOTE | 2019-05-20 11:03 | Hospitalist Progress Note ---
Date of Service May 20, 2019 Assessment & Plan (1) Acute respiratory failure with hypoxia and hypercapnia: Sepsis likely secondary to UTI vs. possible SBP WBC gradually worsening, 24.9 today with left shift Lactate 2.6 Urine culture growing gram-negative bacilli Repeat blood cultures obtained and pending Initially started on Rocephin, antibiotic coverage broadened to Zosyn for pseudomonal coverage Continue to monitor cultures and clinically Hepatic Encephalopathy in the setting of liver cirrhosis Cirrhosis on imaging this could be due to long-standing fatty liver leading to MAYES vs. cardiac in nature consider diagnostic paracentesis -if WBC continues to rise despite treatment of UTI Ammonia level 125 and pt more somnolent and agitated today Asterixes on exam Started on lactulose 30mg BID and provided lactulose enema x 1 (unable to take PO lactulose) Worsening EDNA (acute kidney injury): Likely ATN secondary to urosepsis Resolved from initial incident recurred 12.8 with creat=1.47 (was 1) w/ diuresis -worse today at 2.75 in the setting of significant diuresis vs. sepsis Provided 1 L LR bolus on 05/20 Nephrology consulted : likely ATN from urosepsis -Urine microscopy to check for casts and follow BMP -Started on NS at 80cc/hr x 1 bag Acute respiratory failure with hypoxia: Multifactorial - restrictive thoracic cage secondary obesity and obesity hypoventilation syndrome vs. anasarca secondary to cirrhosis vs. Cor pulmonale secondary to AUBRIE/obesity hypoventilation Patient is on CPAP at home for the last 15 years Currently is on hospital supplied CPAP/BiPAP ...Recent echo was not helpful given limited views but grossly his EF was normal ...doubt PE given he is on eliquis and txmt would not change ...liver US was c/w cirrhosis Diuresed well with significant weight loss - Wt: 506 --> 477 ... Bumex drip stopped in the setting of worsening creatinine concern of intravascular volume depletion .. Creatinine gradually worsening from 1.47 on 05/16 to 2.7 today -likely over diuresed vs. in the setting of sepsis Cont CPAP (he likes his nasal CPAP better) and encourage NC during the day - patient sats well on just 2 L of nasal cannula ... Attempted to obtain CT chest to further evaluate for pleural effusion/edema however patient cannot be accommodated by CT scanner due to body habitus ...Needs repeat sleep study once he is out of hospital (none done in many years) will likely need new CPAP -VBG 05/20/19: normal Cellulitis of right leg: IMPROVING. Completed daptomycin. day #03/18. ... planning 10 days of IV Abx given severe lymphedema and slow nature of improvement RLE doppler x 2 neg for DVT. No obvious abscess or deeper infection on exam. He is also on cephalosporin for chronic lyme's and Zosyn for UTI; this will provide some coverage as well. Lymphedema: resume compression of legs as usual once RLE cellulitis has resolved A-fib: rates controlled. Continue Eliquis, BB, CaB Hypothyroidism: TSH suppressed this admission FT4 elevated typically on 100mcg daily of synthroid thus, reduced dose to 88mcg daily repeat TSH in mid June Lyme disease: Chronic typically takes chronic abx (cefuroxime) Candidiasis of mouth and esophagus: improved with magic mouthwash 5cc ac/hs - swish & spit plan 10 days of Rx Zinc deficiency: 04/2019 level low started zinc 220mg daily x 2 weeks on 05/10 Anxiety: poor candidate for benzos due to resp failure consider buspar if anxiety persists suspect hypoxia is causing anxiety Morbid obesity: BMI 70-75 Patient not interested in bariatric surgery Code: DNR/DNI (family fine with pressor support if required and all other treatment possible) DVT prophylaxis: eliquis BID Dispo: Patient would like to go home only despite rehab recommended, pending clinical improvement (2) Lymphedema: (3) Cirrhosis: (4) Obesity hypoventilation syndrome: (5) Acute pulmonary edema: (6) Zinc deficiency: (7) Hypothyroidism: (8) Lyme disease: (9) Cellulitis: (10) CHF (congestive heart failure): (11) Anasarca: (12) A-fib: (13) EDNA (acute kidney injury): Supervising Physician Co-Signing Physician Notes Resident Physician Supervision Note: I interviewed and examined the patient at bedside with PGY3 Dr. Neena Marcos. I agree with her findings and plan as documented in the note. Any exceptions or clarifications are listed here: no. Pt moaning during rounds. Did not follow commands. Unable to open eyes on own or speak. and son at bedside. very upset, tearful. Following my exam Dr Marcos, Mrs Feliz, and myself sat down to discuss current status, mounting problems, code status (see below). By report received 2 small doses of IV ativan overnight due to agitation. exam - gen - morbidly obese, lethargic, moaning constantly, pulling at monitor leads; sickly, toxic appearing mouth - no thrush plaques; MM dry heart - irregular, s1 s2; no obvious JVD lungs - decreased BS right base, CTA b/l otherwise abd - distended and ?tenderness epigastric region ext - severe lymphedema RLE > LLE - no change skin - minimal erythema over right calf vasc - pulses 1-2+ b/l feet but cap refill is 3 sec and extremities are cool to touch neuro - tremors/asterixis present labs - Cr 2.7 WBC - 24.9 lactate (this afternoon) - 2.6 urine cx - GNR ammonia > 100 A/P: 1. acute hypoxic resp failure - had improved over the last week. 2nd to volume overload/pulm edema from acute/chronic diastolic CHF, cirrhosis, etc. Could not rule out right ventricular dysfunction/cor pulmonale. VBG this afternoon with adequate ventilation. 2. probable acute/chronic diastolic CHF; cannot rule out acute/chronic cor pulmonale; echo was severely limited earlier this admission with respect to basic information. He had lost at least 30-40 pounds of fluid weight while here. During diuresis he developed EDNA - all diuretics on hold. Cr continues to worsen today. Suspect ATN. 3. EDNA, likely ATN - 2nd to over-diuresis - stopped diuretics, IV fluids restarted - especially in light of developing sepsis. 4. GNR UTI - antibiotics to be broadened today due to severe sepsis (see below). 5. severe sepsis - clinical picture highly concerning for severe sepsis. Source - GNR UTI and/or intra-abdominal process. I cannot rule out ischemic bowel given his abdominal pain. Unfortunately we have attempted several times to obtain CTs this admission but unfortunately he cannot fit in CT scanner based on measurements done by CT techs. Previous attempts at x-rays of abdomen also were not successful. Abx today broadened from rocephin to zosyn. IVF resumed. Serial lactates. I discussed his care with ICU attending, Dr Henderson. 6. morbid obesity - BMI 70s 7. metabolic encephalopathy - 2nd to UTI/severe sepsis, hyperammonemia, worsening EDNA/ATN. Cannot rule out toxic effects from ativan last night. Cannot rule out new int ra-abdominal process (ischemia) leading to confusion. Supportive care. Treat all components listed above. Avoid benzos. 8. hepatic encephalopathy - lactulose 30gm PO BID (if he can take PO); if not -- lactulose enemas. Consider NG tube placement for rifaximin. Other alternative is IV flagyl. 9. lactic acidosis - at minimum due to severe sepsis. Cannot rule out ischemic bowel or other intra-abdominal process. Dr Marcos, myself, and Mrs Feliz reviewed pt's worsening status. We discussed the high concern that he will continue to decline despite supportive care. At this point he has multiorgan failure including renal, cardiac, pulmonary, hepatic functions. We discussed code status. Counseled her that in light of his morbid obesity chest compressions would be much less effective than in someone of more normal size. Her initial thoughts were that he would not want full code status but instead would desire DNR. She asked if we felt transfer to tertiary care would be prudent. Following this discussion I spoke with Dr Henderson from pulmonary/CC. I told him I was concerned that Mr Feliz would ultimately need transfer to ICU. Later in afternoon/early evening patient had a bloody bowel movement. I asked Dr Marcos to facilitate transfer to the ICU. total time today over multiple visits addressing multi-organ failure - 100 minutes Documented By: Benoit Pham MD Subjective Per patient had a very bad night last night. He was combative and trying to take his oxygen mask off and also reported being cold and was trying to take off his clothes per . Patient is moaning and is on CPAP when examined this morning. When asked if he is having any abdominal pain he shakes his head and says no he also shakes his head saying no to chest pain or any other discomfort however he does not appear comfortable. Per nursing staff and he had to bowel movements overnight. He was a little hypotensive 90s over 50s to 60s overnight. Had extensive discussion with regarding prognosis and current condition. Family decided to make pt DNR/DNI this evening. Pressors are fine and otherwise they would like patient to receive all necessary treatment. Review of Systems Review of Systems: As per HPI otherwise limited due to patient mental status this morning Physical Exam Physical Exam: General: In moderate distress this AM (moaning and appears to be uncomfortable pulling on telemetry leads and mask) Neuro: Not alert or oriented, agitated and somnolent Pulm: Mild bibasilar crackles appreciated R>L, coarse but equal breath sounds bilaterally CV: RRR, no m/r/g Abdomen:+BS, difficult to assess for abdominal tenderness given pt mental status, obese abdomen LE: 1+ LE edema, no calf TTP; mild RLE erythema (improving), no warmth, localized to mid bell region only at this time; cold extremities Results & Data Vital Signs (Past 12 Hours) Vital Signs Temp Pulse Pulse Resp BP Pulse Ox 05/20/19 10:11 78 20 128/82 100 05/20/19 07:00 36.3 C L 69 20 92/51 L 93 05/20/19 05:34 36.3 C L 84 22 118/81 97 05/20/19 02:25 81 35 H 95 05/19/19 23:47 36.4 C L 66 20 113/75 93 Laboratory Results Abnormal lab results 05/19/19 05/19/19 05/20/19 Range/Units 18:00 18:00 07:57 WBC 24.97 H (4.8-10.8) K/uL RBC 3.67 L (4.7-6.1) M/uL Hgb 11.0 L (14.0-18.0) g/dL Hct 33.7 L (42-52) % RDW Std Deviation 53.7 H (36.4-46.3) fL RDW Coeff of Ericka 16.5 H (11.5-14.5) % Plt Count 526 H (130-400) K/uL Immature Gran # (Auto) 0.19 H (0.00-0.02) K/uL Neut # (Auto) 21.36 H (1.4-6.5) K/uL [place] # (Auto) 1.16 H (0.11-0.59) K/uL Eos # (Auto) 0.59 H (0-0.5) K/uL Sodium 135 L (136-145) mmol/L BUN 64 H (7-18) mg/dl Creatinine 2.46 H (0.6-1.4) mg/dl BUN/Creatinine Ratio 25.9 H (10-20) Glucose 150 H (70-99) mg/dl Calcium 8.3 L (8.5-10.1) mg/dl Total Bilirubin (0.2-1) mg/dl AST (15-37) U/L Alkaline Phosphatase (45-117) U/L Ammonia 125.8 H (11-32) umol/L Albumin (3.4-5.0) gm/dl Globulin (2.5-4.0) gm/dl Albumin/Globulin Ratio (0.9-2) 05/20/19 05/20/19 05/20/19 Range/Units 07:57 09:19 09:21 WBC (4.8-10.8) K/uL RBC (4.7-6.1) M/uL Hgb (14.0-18.0) g/dL Hct (42-52) % RDW Std Deviation (36.4-46.3) fL RDW Coeff of Ericka (11.5-14.5) % Plt Count (130-400) K/uL Immature Gran # (Auto) (0.00-0.02) K/uL Neut # (Auto) (1.4-6.5) K/uL [place] # (Auto) (0.11-0.59) K/uL Eos # (Auto) (0-0.5) K/uL Sodium 135 L (136-145) mmol/L BUN 70 H (7-18) mg/dl Creatinine 2.72 H (0.6-1.4) mg/dl BUN/Creatinine Ratio 25.6 H (10-20) Glucose 150 H (70-99) mg/dl Calcium (8.5-10.1) mg/dl Total Bilirubin 1.2 H (0.2-1) mg/dl AST 115 H (15-37) U/L Alkaline Phosphatase 270 H (45-117) U/L Ammonia 125.3 H (11-32) umol/L Albumin 2.0 L (3.4-5.0) gm/dl Globulin 4.7 H (2.5-4.0) gm/dl Albumin/Globulin Ratio 0.4 L (0.9-2) Critical Care Time Critical Care Time: Yes Total Critical Care Time: 100 Resident Activity Tracking Resident Involvement: Resident Care Provided Care Provided: Adult Hospital Medicine (1) A-fib Atrial fibrillation type: permanent Qualified Code(s): I48.21 - Permanent atrial fibrillation (2) Hypothyroidism Hypothyroidism type: acquired Qualified Code(s): E03.9 - Hypothyroidism, unspecified (3) Cirrhosis Ascites presence: with ascites Hepatic cirrhosis type: unspecified hepatic cirrhosis Qualified Code(s): K74.60 - Unspecified cirrhosis of liver; R18.8 - Other ascites
[2019-05-20] MEDS ORDERED: LACTULOSE 200 GM, WATER, STERILE IRRIG 700 ML, BARCODE IDENTIFIER 1 EA PR ONE (13:30)
[2019-05-20] MEDS ORDERED: LACTATED RINGER'S 1,000 ML IV SCH (13:45)
[2019-05-20] MEDS ORDERED: HALOPERIDOL LACTATE 5 MG/ML 1 ML VIAL IV STA (14:23)
[2019-05-20 14:33] LABS: Base Excess VBG 2.1 mEq/L; Oxygen Saturation VBG 90.5 %; pH VBG 7.41 (7.36-7.41)
[2019-05-20] MEDS: PIPERACILLIN/TAZOBACTAM 4.5 GM in DEXTROSE 5% 100 ML IV SCH ×2 (14:54→22:45)
[2019-05-20 15:03] LABS: BUN Creatinine Ratio 27.3 (10-20); Calcium 9.1 mg/dl (8.5-10.1); Creatinine Clr Calc Pharmacy 54.1 ml/min; Est GFR (African American) 27.6; Est GFR (Non-African American) 23.8; Potassium 5.3 mmol/L (3.5-5.1)
--- NOTE | 2019-05-20 17:07 | Nephrology Consultation ---
Date of Consultation May 20, 2019 Assessment & Plan (1) EDNA (acute kidney injury): -- Probable ATN related to urosepsis -- Change IV LR to 0.9NS. Provide 1 L infusion -- Hold diuretics and KCl supplements -- Will order urine microscopy to check for ATN casts -- Monitor PRP -- Poor dialysis candidate due to body habitus (2) Cystitis: -- Agree w/ empiric Zosyn -- Advise pharmacy consultation for dosing adjustment related to EDNA (3) CHF (congestive heart failure): -- Clinical CHF. Echocardiogram w/ poor visualization due to body habitus (4) Cellulitis: -- Resolved (5) Morbid obesity: -- Undergoing evaluation w/ [facility] Bariatric program (6) Lyme disease: -- On chronic antibiotic therapy w/ Ceftin + Doxycycline History of Present Illness Attending Physician: Benoit Pham History of Present Illness Mr. Feliz is a 63 year old white male who is seen at the request of Dr. Marcos for evaluation of EDNA and peripheral edema. Medical records in the EMR were reviewed today and are summarized as follows: Baseline Cr is 0.8. Medical history is significant for kidney stones, Lyme disease (Ceftin + Doxycycline x 8 years), atrial fibrillation, B TKA, AUBRIE (CPAP) and obesity. His BMI is 70 (wt 503 lbs). Mr. Feliz's PCP is Dr. Johnson ([facility]). His Patient Relations Representative is Dr. Lake ([facility]). Mr. Feliz reported a 125 lb weight gain over the last 6 months. This has been associated w/ worsening LE swelling. He presented to the ED 05/08/19 with AVILEZ and RLE cellulitis. CXR revealed CHF. Admission was advised for IV diuretic and antibiotic therapy. Patient was monitored by Nephrology 05/09 - 05/13. He was managed w/ IV loop diuretic therapy and albumin. Kidney function remained relatively stable. Over the last 7 days, however, Mr. Feliz has developed progressive EDNA. Cr has risen to 2.75. Diuretics have been held. I&O's and daily weights do not appear to be accurate. Evaluation has revealed hypothermia, WBC# 25K w/ L shift, ammonia 125. Urine culture has grown out G- bacilli. Serum lactate is elevated. CXR shows large R pleural effusion. Nephrology reevaluation has been requested to assist w/ diuretic management in the setting of EDNA Allergies Allergy/AdvReac Type Severity Reaction Status Date / Time No Known Allergies Allergy NKDA Verified 05/08/19 13:52 Home Medications Home Medications Medication Instructions Recorded Confirmed Type aspirin [Aspir-81] 81 mg PO DAILY 04/14/18 05/08/19 History cefuroxime axetil 500 mg PO QID 04/14/18 05/08/19 History cholecalciferol (vitamin D3) 1,000 unit PO DAILY 04/14/18 05/08/19 History diltiazem HCl [Cardizem LA] 180 mg PO BID 04/14/18 05/08/19 History lactobacillus combination no.4 0 mmu cells PO DAILY 04/14/18 05/08/19 History [Probiotic] metoprolol tartrate 50 mg PO BID 04/14/18 05/08/19 History multivitamin [Multiple Vitamins] 1 tab PO DAILY 04/14/18 05/08/19 History vitamin B complex 1 tab PO DAILY 04/14/18 05/08/19 History allopurinol 100 mg PO DAILY 05/08/19 05/08/19 History apixaban [Eliquis] 5 mg PO BID 05/08/19 05/08/19 History furosemide 40 mg PO DAILY 05/08/19 05/08/19 History zinc 50 mg PO DAILY 05/08/19 05/08/19 History Patient History Medical History (Updated 05/20/19 @ 17:24 by Brandyn Bond MD) 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 with p resence of antibiotic-impregnated cement spacer Cellulitis CHF (congestive heart failure) Cirrhosis Cystitis 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 Lymphedema (Acute) Morbid obesity with BMI of 70 and over, adult AUBRIE (obstructive sleep apnea) Urinary tract obstruction by kidney stone Surgical History History of bilateral knee replacement Family History Other No significant family history Social History Preferred Language: Mongolian Communication Ability: Effective Beliefs That Will Affect Care: None marital status: Current Living Situation: Spouse current occupational status: disabled 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 They report that patient has been unresponsive. Eyes: PERRL, conjunctivae normal, anicteric sclerae Neck: short, thick. Unable to assess for JVD Respiratory: + tachypneic Cardiovascular: Rate/Rhythm: + tachycardic Extremities: + edema (3+ LE pitting edema) Gastrointestinal (Abdomen): Obese, soft Neurologic: + obtunded Results & Data Vital Signs (Past 12 Hours) Vital Signs Temp Pulse Resp BP Pulse Ox 05/20/19 15:27 36.3 C L 80 24 130/93 97 05/20/19 11:52 69 20 124/84 94 05/20/19 10:11 78 20 128/82 100 05/20/19 07:00 36.3 C L 69 20 92/51 L 93 05/20/19 05:34 36.3 C L 84 22 118/81 97 Laboratory Results Laboratory Results - last 24 hr 05/19/19 05/19/19 05/20/19 18:00 18:00 07:57 WBC 24.97 H RBC 3.67 L Hgb 11.0 L Hct 33.7 L MCV 91.8 MCH 30.0 MCHC 32.6 RDW Std Deviation 53.7 H RDW Coeff of Ericka 16.5 H Plt Count 526 H MPV 10.3 Immature Gran % (Auto) 0.8 Neut % (Auto) 85.6 Lymph % (Auto) 6.4 [place] % (Auto) 4.6 Eos % (Auto) 2.4 Baso % (Auto) 0.2 Immature Gran # (Auto) 0.19 H Neut # (Auto) 21.36 H Lymph # (Auto) 1.61 [place] # (Auto) 1.16 H Eos # (Auto) 0.59 H Baso # (Auto) 0.06 Echinocytes 2+ VBG pH VBG pCO2 VBG pO2 VBG HCO3 VBG O2 Saturation VBG Base Excess Barometric Pressure Sodium 135 L Potassium 4.9 Chloride 101 Carbon Dioxide 29 Anion Gap 5.0 BUN 64 H Creatinine 2.46 H Est Cr Clr Drug Dosing 57.6 Est GFR ( Amer) 31.6 Est GFR (Non-Af Amer) 27.2 BUN/Creatinine Ratio 25.9 H Glucose 150 H Lactate Calcium 8.3 L Total Bilirubin AST ALT Alkaline Phosphatase Ammonia 125.8 H Total Protein Albumin Globulin Albumin/Globulin Ratio 05/20/19 05/20/19 05/20/19 07:57 08:02 09:19 WBC RBC Hgb Hct MCV MCH MCHC RDW Std Deviation RDW Coeff of Ericka Plt Count MPV Immature Gran % (Auto) Neut % (Auto) Lymph % (Auto) [place] % (Auto) Eos % (Auto) Baso % (Auto) Immature Gran # (Auto) Neut # (Auto) Lymph # (Auto) [place] # (Auto) Eos # (Auto) Baso # (Auto) Echinocytes VBG pH VBG pCO2 VBG pO2 VBG HCO3 VBG O2 Saturation VBG Base Excess Barometric Pressure Sodium 135 L Potassium 5.1 Chloride 101 Carbon Dioxide 26 Anion Gap 8.0 BUN 70 H Creatinine 2.72 H Est Cr Clr Drug Dosing 52.1 Est GFR ( Amer) 28.0 Est GFR (Non-Af Amer) 24.1 BUN/Creatinine Ratio 25.6 H Glucose 150 H Lactate Calcium 8.6 Total Bilirubin 1.2 H AST 115 H ALT 68 Alkaline Phosphatase 270 H Ammonia Cancelled Total Protein 6.7 Albumin 2.0 L Globulin 4.7 H Albumin/Globulin Ratio 0.4 L 05/20/19 05/20/19 05/20/19 09:21 14:16 14:16 WBC RBC Hgb Hct MCV MCH MCHC RDW Std Deviation RDW Coeff of Ericka Plt Count MPV Immature Gran % (Auto) Neut % (Auto) Lymph % (Auto) [place] % (Auto) Eos % (Auto) Baso % (Auto) Immature Gran # (Auto) Neut # (Auto) Lymph # (Auto) [place] # (Auto) Eos # (Auto) Baso # (Auto) Echinocytes VBG pH VBG pCO2 VBG pO2 VBG HCO3 VBG O2 Saturation VBG Base Excess Barometric Pressure Sodium 136 Potassium 5.3 H Chloride 100 Carbon Dioxide 26 Anion Gap 10.0 BUN 75 H Creatinine 2.75 H Est Cr Clr Drug Dosing 54.1 Est GFR ( Amer) 27.6 Est GFR (Non-Af Amer) 23.8 BUN/Creatinine Ratio 27.3 H Glucose 162 H Lactate 2.6 H* Calcium 9.1 Total Bilirubin AST ALT Alkaline Phosphatase Ammonia 125.3 H Total Protein Albumin Globulin Albumin/Globulin Ratio 05/20/19 14:16 WBC RBC Hgb Hct MCV MCH MCHC RDW Std Deviation RDW Coeff of Ericka Plt Count MPV Immature Gran % (Auto) Neut % (Auto) Lymph % (Auto) [place] % (Auto) Eos % (Auto) Baso % (Auto) Immature Gran # (Auto) Neut # (Auto) Lymph # (Auto) [place] # (Auto) Eos # (Auto) Baso # (Auto) Echinocytes VBG pH 7.41 VBG pCO2 44 VBG pO2 61 VBG HCO3 27 VBG O2 Saturation 90.5 VBG Base Excess 2.1 Barometric Pressure 746.5 Sodium Potassium Chloride Carbon Dioxide Anion Gap BUN Creatinine Est Cr Clr Drug Dosing Est GFR ( Amer) Est GFR (Non-Af Amer) BUN/Creatinine Ratio Glucose Lactate Calcium Total Bilirubin AST ALT Alkaline Phosphatase Ammonia Total Protein Albumin Globulin Albumin/Globulin Ratio PG Care Time/CCT Total # of Minutes Spent Total Time Spent with Patient: Total time spent is greater than 50% in coordination of care (as documented) at patient's floor/unit and/or counseling patient:
[2019-05-20] MEDS ORDERED: SODIUM CHLORIDE 0.9% 1000ML 1,000 ML IV SCH (17:15)
[2019-05-20 18:58] LABS: Appearance Urine Cloudy (Clear); Bacteria Urine Automated Negative (Negative); Blood Urine 3+ (Negative); Color Urine Dark Yellow; Epithelial Cell Urine Auto 20-30 /lpf (0-5); Glucose Urine UA Negative (Negative); Ketones Urine Trace (Negative); Leukocyte Esterase Urine 1+ (Negative); Nitrite Urine Negative (Negative); Protein Urine Trace (Negative); RBC Urine Automated >30 /hpf (0-4); Specific Gravity Urine 1.024 (1.000-1.030); Urobilinogen Urine Negative (Negative); WBC Urine Automated >30 /hpf (0-5)
[2019-05-20 19:17] LABS: Protein Creatinine Ratio Urine 0.5 (0-0.2); Total Protein Urine Random 66.4 mg/dl (0-11.9)
[2019-05-20 19:39] LABS: Bilirubin Urine Negative (Negative); Ictotest Urine Negative (Negative)
[2019-05-20 19:43] LABS: Uric Acid Crystals Urine Present (None Prsent)
[2019-05-20] MEDS ORDERED: ICU PROTOCOL FOR HYPERGLYCEMIA PRN (21:27)
[2019-05-20] MEDS ORDERED: metroNIDAZOLE 500 MG/100 ML BAG IV SCH (22:00)
--- NOTE | 2019-05-20 22:16 | Critical Care Consultation ---
Date of Consultation May 20, 2019 Assessment & Plan (1) Admitted to intensive care unit: Reason Critically Ill: 63-year-old male presenting with diffuse anasarca requiring aggressive diuresis, hypotension, acute kidney injury, liver failure, elevated ammonia levels, metabolic encephalopathy, hypotension. NEURO - * CAM ICU: POSITIVE * Altered mental status: * Multifactorial in the setting of acute kidney injury, metabolic encephalopathy, and UTI. * Continue dosing p.o. lactulose through OG. * Will check ABG to evaluate for possible hypercapnia contributing as well. CARDIAC/VASCULAR - * A. fib, CHF, hypertension: * Will hold antihypertensive medications at this point. * Will hold Eliquis in the setting of presumed lower GI bleed. * Patient agreeable to pressors if needed. * Unable to obtain accurate echo during stay secondary to body habitus. * Concerns for worsening congestive changes resulting in anasarca, worsening MAYES, and poor renal perfusion. * Monitor on telemetry. RESPIRATORY - * Respiratory failure with hypoxia: * Secondary to obesity hypoventilation syndrome and poor inspiratory effort in the setting of altered mental status. * ABG on arrival to ICU: 7.30/57/78/28. * Will place BiPAP w/ increased gradient to blow off excess CO2. * Trend ABGs. * Family adamant that patient is DO NOT INTUBATE. * I would agree as this patient, aside from his current medical issues, would be extremely difficult to liberate from ventilator likely resulting in need for tracheostomy tube and LTAC. All of these potential concerns were addressed with family and they are all in agreement that patient would not wish to be intubated, trached, etc. GI/NUTRITION - * GIB: * Presumed lower bleed based on bloody/clot stools. * Concerning given patient's MAYES w/ acute liver failure. * Will add Octreotide gtt/Protonix pushes in the event of a brisk UGIB. * Will place NGT for Lactulose administration. Will assess for any bleeding. * Lactate elevated. Unable to assess for ischemia w/ imaging 2/2 body habitus and inability to CT at this facility. Will trend lactate/serial abdominal exams. * MAYES: * With worsening liver failure in the setting of likely hepatic congestion, sepsis, etc. * Ammonia elevated. Continue lactulose. * INR trending upwards. RENAL/LYTES - * EDNA: * Likely ATN. * Continue w/ IVF per nephro. * Still making some urine. * Patient's daughter did bring up the topic of Hemodialysis. After extensive conversation, family all agrees that patient would not wish to undergo HD if it were to come to that point. * Hyperkalemia: * K 5.7. * Will treat as he is with GIB, severe renal dysfunction. * IVF: NSS@80mL/hr. - * UTI: * Currently on Zosyn. * Initial Kahn D/C 2/2 c/o source of UTI. 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 ENDO - * BSGs per unit protocol. ISS --> gtt per unit policy. * Hypothyroidism: * Will convert Levothyroxine from PO to IV. HEME - * Stable H&H at this time. * Will trend in the setting of ??LGIB on Eliquis. * Transfusion consent on the chart. * Elevated INR in the setting of liver failure. Question utility of vitamin K in this patient. Treat if worsening bleeding/drop in H&H. ID - * UTI: * Currently on Zosyn/Flagyl. * Will d/c Flagyl as do not see the utility of dual anaerobic coverage. * Repeat blood cultures pending. * Trend Lactate. * Repeat ProCal LINES/IV ACCESS - * PIVs x1 * 18g Endurance to the LEFT Upper Arm. * 20g Endurance to the LEFT Forearm. * Kahn DVT PROPHYLAXIS - * Hold anticoagulation 2/2 GIB. * SCDs I have personally spent 80 minutes of critical care time in the direct management of this patient. This is a life/limb threatening event. This includes time spent evaluating patient, direct bedside care, chart review, placing orders, interpretation of diagnostic studies, discussion with consultants, patient, and family members, as well as other required patient management activities. This time is exclusive of all separately billable procedures, and teaching time and separate from and in addition to any other critical care service time. Thank you for allowing us to participate in the care of this patient. Please refer to my attending physician's documentation for any further recommendations. (2) Metabolic encephalopathy: (3) Hepatic encephalopathy: (4) Increased ammonia level: (5) UTI (urinary tract infection): (6) Sepsis: (7) GIB (gastrointestinal bleeding): (8) Morbid obesity with BMI of 70 and over, adult: (9) Obesity hypoventilation syndrome: (10) Acute respiratory failure with hypoxia: (11) Cirrhosis: (12) Hypothyroidism: (13) Cellulitis: (14) CHF (congestive heart failure): (15) Morbid obesity: (16) Anasarca: (17) A-fib: History of Present Illness Attending Physician: Benoit Pham History of Present Illness Patient is an unfortunate 63-year-old male with a significant past medical history of hypertension, CHF, A. fib currently rate controlled and anticoagulated with Eliquis, morbid obesity, obesity hypoventilation syndrome, MAYES, hypothyroidism, and worsening deconditioning who was initially admitted to this facility on 05/08 secondary to worsening shortness of breath and increasing peripheral edema. Patient was aggressively diuresed throughout the initial portion of stay and did show some improvement with substantial loss in weight from likely volume and overt anasarca. Patient did progressively develop EDNA presumed to be related to diuresis as well as newfound urinary tract infection. Over the last 48 hours, the patient's had increasing confusion, lethargy, agitation, and obtunded state. He was found to have elevated ammonia levels as well as worsening renal function. Conversation with family has had today and his CODE STATUS was changed to DNR/DNI. Patient did receive lactulose enema today and had a substantial amount of blood/clotty bowel movement. At this point, given worsening clinical picture and need for close monitoring, the patient was transferred to the ICU for further evaluation and management. On evaluation the ICU, the patient is moaning and obtunded. He is currently protecting his airway on oxygen mask alone. He is saturating well. He responds to painful stimuli. He is unable to contribute to HPI. Allergies Allergy/AdvReac Type Severity Reaction Status Date / Time No Known Allergies Allergy NKDA Verified 05/08/19 13:52 Home Medications Home Medications Medication Instructions Recorded Confirmed Type aspirin [Aspir-81] 81 mg PO DAILY 04/14/18 05/08/19 History cefuroxime axetil 500 mg PO QID 04/14/18 05/08/19 History cholecalciferol (vitamin D3) 1,000 unit PO DAILY 04/14/18 05/08/19 History diltiazem HCl [Cardizem LA] 180 mg PO BID 04/14/18 05/08/19 History lactobacillus combination no.4 0 mmu cells PO DAILY 04/14/18 05/08/19 History [Probiotic] metoprolol tartrate 50 mg PO BID 04/14/18 05/08/19 History multivitamin [Multiple Vitamins] 1 tab PO DAILY 04/14/18 05/08/19 History vitamin B complex 1 tab PO DAILY 04/14/18 05/08/19 History allopurinol 100 mg PO DAILY 05/08/19 05/08/19 History apixaban [Eliquis] 5 mg PO BID 05/08/19 05/08/19 History furosemide 40 mg PO DAILY 05/08/19 05/08/19 History zinc 50 mg PO DAILY 05/08/19 05/08/19 History Patient History Medical History 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 with presence of antibiotic-impregnated cement spacer Cellulitis CHF (congestive heart failure) Cirrhosis Cystitis 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 Lymphedema (Acute) Morbid obesity with BMI of 70 and over, adult AUBRIE (obstructive sleep apnea) Urinary tract obstruction by kidney stone Surgical History History of bilateral knee replacement Family History Other No significant family history Social History Preferred Language: Occitan Communication Ability: Effective Beliefs That Will Affect Care: None marital status: Current Living Situation: Spouse current occupational status: disabled 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 GENERAL - 63-year-old male appearing his stated age. He is moaning and dyssynchronous with breathing. He responds to painful stimuli. SKIN -no concerning rashes. HEAD - NC/AT. EYES - PERRL bilaterally. Sclera anicteric. EARS - No deformities of external structures noted on gross examination bilaterally. NOSE - Midline and without cyanosis. No epistaxis or purulent drainage noted. MOUTH/OROPHARYNX - Without perioral cyanosis. Buccal mucosa pink and dry. NECK - Supple to palpation. No lymphadenopathy noted. No nuchal rigidity. LUNGS - Chest wall symmetric without accessory muscle use, intercostals retractions, or central cyanosis. Normal vesicular breath sounds. Distant breath sounds appreciated at the lung bases. CARDIAC - RRR with S1/S2. No murmur, rubs, or gallops appreciated. ABDOMEN - Abdominal contour obese without pulsations or visible masses. BS hypoactive all four quadrants. No tenderness, palpable masses, hepatosplenomegaly. EXTREMITIES - No clubbing or peripheral cyanosis. Significant peripheral edema extending from abdomen to the feet. +2/5 radial and dorsalis pedis pulses palpated throughout. NEUROLOGIC -patient obtunded. No focal neurological deficits noted. Unable to contribute to exam secondary to ental status. Results & Data Vital Signs (Past 12 Hours) Vital Signs Temp Pulse Resp BP Pulse Ox 05/20/19 15:27 36.3 C L 80 24 130/93 97 05/20/19 11:52 69 20 124/84 94 Coding Level of Care Code Critical Care 1st 30-74 mins Diagnoses Admitted to intensive care unit Z78.9 Metabolic encephalopathy G93.41 Hepatic encephalopathy K72.90 Increased ammonia level R79.89 UTI (urinary tract infection) N39.0 Sepsis A41.9 GIB (gastrointestinal bleeding) K92.2 Morbid obesity with BMI of 70 and over, adult E66.01; Z68.45 Obesity hypoventilation syndrome E66.2 Acute respiratory failure with hypoxia J96.01 Cirrhosis K74.60; R18.8 Ascites presence: with ascites Hepatic cirrhosis type: unspecified hepatic cirrhosis Hypothyroidism E03.9 Hypothyroidism type: acquired Cellulitis L03.90 CHF (congestive heart failure) I50.9 Morbid obesity E66.01 Anasarca R60.1 A-fib I48.21 Atrial fibrillation type: permanent (1) A-fib Atrial fibrillation type: permanent Qualified Code(s): I48.21 - Permanent atrial fibrillation (2) Hypothyroidism Hypothyroidism type: acquired Qualified Code(s): E03.9 - Hypothyroidism, unspecified (3) Cirrhosis Ascites presence: with ascites Hepatic cirrhosis type: unspecified hepatic cirrhosis Qualified Code(s): K74.60 - Unspecified cirrhosis of liver; R18.8 - Other ascites
[2019-05-20 22:18] LABS: INR 2.1 (0.9-1.1); Prothrombin Time 20.7 Seconds (9.0-12.0)
--- NOTE | 2019-05-20 22:18 | Procedure Note ---
Procedure Note Date of Service May 20, 2019 Procedure: Lime Filter Operator Indwelling Peripherally Inserted IV Catheter Placement Attending: Dr. Henderson APC: Negro Rao PA-C Indication: Need for IV Access, Poor Vascular Access Anesthesia: None A time-out was completed verifying correct patient, procedure, site, positioning, and implant(s) or special equipment if applicable. Utilizing bedside ultrasound, vascularity of the LEFT upper extremity was assessed. Vessel size was noted for appropriate catheter selection and skin was marked with gentle pressure. Patients LEFT upper extremity was prepped and draped in the usual sterile fashion utilizing chlorhexidine. Ultrasound guidance was used to aid needle placement. An 18 g Endurance Catheter was introduced into the LEFT Cephalic vein under direct ultrasound guidance. Guide wire was easily deployed without resistance. Catheter was threaded over the guide wire without resistance and the entire apparatus was removed intact. Good venous blood return was noted in the catheter. The IV catheter was easily flushed with sterile saline flush. Sterile clave was attached to the end of the catheter and good blood return was again noted. Tourniquet was released. StatLock device and sterile dressing were applied. The patient tolerated the procedure well. Blood Loss: Minimal Complications: None Procedural Ultrasound Guidance: Procedure Date: 05/20/2019 Indication: Poor Vascular Access Attending: Dr. Henderson APC: Negro Rao PA-C Artery/Veins Identified: YES Access confirmed in Vein with ultrasound: YES Complications: NONE Patient tolerated procedure: WELL Coding
--- NOTE | 2019-05-20 22:19 | Procedure Note ---
Procedure Note Date of Service May 20, 2019 Procedure: Industrial Controller Indwelling Peripherally Inserted IV Catheter Placement Attending: Dr. Henderson APC: Negro Rao PA-C Indication: Need for IV Access, Poor Vascular Access Anesthesia: None A time-out was completed verifying correct patient, procedure, site, positioning, and implant(s) or special equipment if applicable. Utilizing bedside ultrasound, vascularity of the LEFT upper extremity was assessed. Vessel size was noted for appropriate catheter selection and skin was marked with gentle pressure. Patients LEFT upper extremity was prepped and draped in the usual sterile fashion utilizing chlorhexidine. Ultrasound guidance was used to aid needle placement. A 20 g Endurance Catheter was introduced into the LEFT forearm vein under direct ultrasound guidance. Guide wire was easily deployed without resistance. Catheter was threaded over the guide wire without resistance and the entire apparatus was removed intact. Good venous blood return was noted in the catheter. The IV catheter was easily flushed with sterile saline flush. Sterile clave was attached to the end of the catheter and good blood return was again noted. Tourniquet was released. StatLock device and sterile dressing were applied. The patient tolerated the procedure well. Blood Loss: Minimal Complications: None Procedural Ultrasound Guidance: Procedure Date: 05/20/2019 Indication: Poor Vascular Access Attending: Dr. Henderson APC: Negro Rao PA-C Artery/Veins Identified: YES Access confirmed in Vein with ultrasound: YES Complications: NONE Patient tolerated procedure: WELL Coding
[2019-05-20 22:20] LABS: Hematocrit (blood only) 32.7 % (42-52); Hemoglobin 10.8 g/dL (14.0-18.0); Mean Corpuscular Hemoglobin 30.7 pg (25-34); Mean Corpuscular Volume 92.9 fL (80-100); Mean Platelet Volume 9.7 fL (7.4-10.4); Platelet Count 643 K/uL (130-400); RDW Coefficient of Variation 16.3 % (11.5-14.5); Red Blood Count 3.52 M/uL (4.7-6.1); White Blood Count 30.37 K/uL (4.8-10.8)
[2019-05-20] MEDS: PANTOprazole 40 MG in SYRINGE 0 ML IV SCH (22:32)
[2019-05-20 22:33] LABS: Albumin Level 2.2 gm/dl (3.4-5.0); BUN Creatinine Ratio 27.7 (10-20); Bilirubin Direct 0.6 mg/dl (0-0.2); Calcium 8.8 mg/dl (8.5-10.1); Creatinine Clr Calc Pharmacy 52.8 ml/min; Est GFR (African American) 26.8; Est GFR (Non-African American) 23.1; Magnesium 2.3 mg/dl (1.8-2.4); Potassium 5.7 mmol/L (3.5-5.1)
[2019-05-20 22:35] LABS: Bilirubin,Total 1.2 mg/dl (0.2-1); Total Protein 6.6 gm/dl (6.4-8.2)
[2019-05-20 22:36] LABS: Basophils # (auto) 0.04 K/uL (0-0.2); Basophils % (auto) 0.1 %; Eosinophils % (auto) 0.7 %; Immature Granulocytes # (auto) 0.22 K/uL (0.00-0.02); Immature Granulocytes % (auto) 0.7 %; Lymphocytes # (auto) 1.52 K/uL (1.2-3.4); Monocytes # (auto) 1.04 K/uL (0.11-0.59); Monocytes % (auto) 3.4 %; Neutrophils # (auto) 27.35 K/uL (1.4-6.5); Neutrophils % (auto) 90.1 %; Polychromasia 1+
[2019-05-20] MEDS: OCTREOTIDE ACETATE 500 MCG in 0.9 % SODIUM CHLORIDE 100 ML IV SCH (22:39)
[2019-05-20] MEDS ORDERED: CALCIUM GLUCONATE 10% 1,000 MG in SODIUM CHLORIDE 0.9% 50 ML IV STA (22:46)
[2019-05-20] MEDS ORDERED: DEXTROSE 50% 50 ML SYRINGE IV ONE (22:46)
[2019-05-20] MEDS ORDERED: INSULIN HUMAN REGULAR PER UNIT 10 UNITS in SYRINGE 9.9 ML IV ONE (22:46)
[2019-05-20 22:57] LABS: iSTAT Allen Test Pass; iSTAT Arterial Blood Gas HCO3 28 meg/L (19-24); iSTAT Arterial Blood Gas pCO2 57 mmHg (35-46); iSTAT Arterial Blood Gas pO2 78 mmHg (80-95); iSTAT Carbon Dioxide 30 mEq/l (24-31); iSTAT Site R Radial
--- NOTE | 2019-05-20 23:13 | XRay Report ---
XR chest 1V portable CLINICAL HISTORY: f/u COMPARISON STUDY: Chest radiograph May 18, 2019. FINDINGS: The tip of the nasogastric tube projects over the distal stomach. Exam is compromised by lauren dy habitus and portable technique. Bilateral pleural effusions, right larger than left, persist. Ther e are persistent bibasilar opacities, greater on the right. There is cardiomegaly. No pneumothorax is identified. IMPRESSION: 1. Tip of nasogastric tube projects over the distal stomach. 2. Persistent bilateral pleural effusions, right larger than left, with associated bibasilar opacitie s which may reflect atelectasis or pneumonia. 3. Cardiomegaly without evidence for overt pulmonary edema. Electronically signed by: Kristopher Kitchen M.D. 05/20/2019 11:11 PM
--- NOTE | 2019-05-20 23:14 | XRay Report ---
[facility] CLINICAL HISTORY: s/p NGT placement COMPARISON STUDY: [facility] November 11, 2018. FINDINGS: Tip of nasogastric tube projects over the distal stomach. Exam is compromised given portabl e technique and body habitus. There are bibasilar opacities and bilateral pleural effusions. Cardiome meagan is noted. Please note that the pelvis was not included on this exam. IMPRESSION: 1. Tip of nasogastric tube projects over the distal stomach. 2. Persistent bibasilar opacities and bilateral pleural effusions. Electronically signed by: Kristopher Kitchen M.D. 05/20/2019 11:13 PM
[2019-05-21 00:27] LABS: iSTAT Arterial Blood Gas HCO3 27 meg/L (19-24); iSTAT Arterial Blood Gas pCO2 47 mmHg (35-46); iSTAT Arterial Blood Gas pH 7.36 (7.35-7.45); iSTAT Arterial Blood Gas pO2 53 mmHg (80-95); iSTAT Carbon Dioxide 28 mEq/l (24-31); iSTAT FiO2 50 %; iSTAT Site R Radial
[2019-05-21] MEDS: APIXABAN 5 MG TABLET PO SCH (00:32)
[2019-05-21] MEDS ORDERED: NOREPINEPHRINE BIT INJ 8 MG in DEXTROSE 5% 500 ML IV PRN (01:18)
[2019-05-21] MEDS ORDERED: ALBUMIN 25% 50 ML IV ONE (01:22)
[2019-05-21 04:31] LABS: INR 2.2 (0.9-1.1); Prothrombin Time 21.4 Seconds (9.0-12.0)
[2019-05-21 04:36] LABS: Hematocrit (blood only) 30.8 % (42-52); Hemoglobin 10.4 g/dL (14.0-18.0); Mean Corpuscular Hemoglobin 31.2 pg (25-34); Mean Corpuscular Hgb Conc 33.8 g/dL (32-36); Mean Corpuscular Volume 92.5 fL (80-100); Mean Platelet Volume 9.7 fL (7.4-10.4); Platelet Count 632 K/uL (130-400); RDW Coefficient of Variation 16.2 % (11.5-14.5); RDW Standard Deviation 54.2 fL (36.4-46.3); Red Blood Count 3.33 M/uL (4.7-6.1); White Blood Count 31.01 K/uL (4.8-10.8)
[2019-05-21 04:41] LABS: Albumin Level 2.4 gm/dl (3.4-5.0); BUN Creatinine Ratio 26.2 (10-20); Calcium 8.6 mg/dl (8.5-10.1); Creatinine Clr Calc Pharmacy 50.3 ml/min; Est GFR (African American) 25.2; Est GFR (Non-African American) 21.8; Magnesium 2.4 mg/dl (1.8-2.4); Potassium 5.3 mmol/L (3.5-5.1)
[2019-05-21 04:44] LABS: Albumin Globulin Ratio 0.6 (0.9-2); Bilirubin,Total 1.4 mg/dl (0.2-1); Globulin 4.2 gm/dl (2.5-4.0); Phosphorus 5.2 mg/dl (2.5-4.9); Total Protein 6.6 gm/dl (6.4-8.2)
--- NOTE | 2019-05-21 04:47 | Billing Data ---
Date of Service May 20, 2019 Coding Level of Care Code Critical Care ea addt'l 30 min Time Spent (min) 100 Comment total critical care time 100 minutes today
[2019-05-21 04:51] LABS: Basophils # (auto) 0.04 K/uL (0-0.2); Basophils % (auto) 0.1 %; Eosinophils # (auto) 0.18 K/uL (0-0.5); Eosinophils % (auto) 0.6 %; Immature Granulocytes % (auto) 0.6 %; Lymphocytes # (auto) 1.88 K/uL (1.2-3.4); Lymphocytes % (auto) 6.1 %; Monocytes # (auto) 1.32 K/uL (0.11-0.59); Monocytes % (auto) 4.3 %; Neutrophils # (auto) 27.39 K/uL (1.4-6.5); Neutrophils % (auto) 88.3 %; Target Cells 1+; Toxic Vacuolation 1+
[2019-05-21 05:45] LABS: iSTAT Arterial Blood Gas HCO3 27 meg/L (19-24); iSTAT Arterial Blood Gas pCO2 36 mmHg (35-46); iSTAT Arterial Blood Gas pH 7.48 (7.35-7.45); iSTAT Arterial Blood Gas pO2 125 mmHg (80-95); iSTAT Carbon Dioxide 28 mEq/l (24-31); iSTAT FiO2 50 %; iSTAT Site R Radial
[2019-05-21] MEDS: OCTREOTIDE ACETATE 500 MCG in 0.9 % SODIUM CHLORIDE 100 ML IV SCH (06:28)
[2019-05-21] MEDS: PIPERACILLIN/TAZOBACTAM 4.5 GM in DEXTROSE 5% 100 ML IV SCH (06:28)
--- NOTE | 2019-05-21 07:38 | Critical Care Progress Note ---
Date of Service May 21, 2019 Assessment & Plan (1) Admitted to intensive care unit: Reason Critically Ill: 63-year-old male presenting with diffuse anasarca requiring aggressive diuresis, hypotension, acute kidney injury, liver failure, elevated ammonia levels, metabolic encephalopathy, hypotension. NEURO - CAM ICU: POSITIVE Altered mental status: Multifactorial in the setting of acute kidney injury, metabolic encephalopathy, and UTI. -d/c lactulose tx to comfort care CARDIAC/VASCULAR - A. fib, CHF, hypertension: Will hold antihypertensive medications at this point. Will hold Eliquis in the setting of presumed lower GI bleed. Patient agreeable to pressors if needed. Unable to obtain accurate echo during stay secondary to body habitus. Concerns for worsening congestive changes resulting in anasarca, worsening MAYES, and poor renal perfusion. -Monitor on telemetry. RESPIRATORY - Respiratory failure with hypoxia: Secondary to obesity hypoventilation syndrome and poor inspiratory effort in the setting of altered mental status. ABG on arrival to ICU: 7.30/57/78/28, placed BiPAP w/ increased gradient to blow off excess CO2. Family adamant that patient is DO NOT INTUBATE, agree as this patient, aside from his current medical issues, would be extremely difficult to liberate from ventilator likely resulting in need for tracheostomy tube and LTAC. All of these potential concerns were addressed with family and they are all in agreement that patient would not wish to be intubated, trached, etc. -d/c bipap when pt and family ready -> pt comfort care GI/NUTRITION - GIB: Presumed lower bleed based on bloody/clot stools. Concerning given patient's MAYES w/ acute liver failure. Will add Octreotide gtt/Protonix pushes in the event of a brisk UGIB. Will place NGT for Lactulose administration. Will assess for any bleeding. Lactate elevated. Unable to assess for ischemia w/ imaging 2/2 body habitus and inability to CT at this facility. Will trend lactate/serial abdominal exams. -d/c ng -> pt comfort care MAYES: With worsening liver failure in the setting of likely hepatic congestion, sepsis, etc. Ammonia elevated. INR trending upwards. RENAL/LYTES - EDNA: Likely ATN. Continue w/ IVF per nephro. Still making some urine. Patient's daughter did bring up the topic of Hemodialysis. After extensive conversation, family all agrees that patient would not wish to undergo HD if it were to come to that point. Hyperkalemia: K 5.7. Will treat as he is with GIB, severe renal dysfunction. IVF: NSS@80mL/hr. - UTI: Currently on Zosyn. Initial Kahn D/C 2/2 c/o source of UTI. Will reinsert clean catheter for accurate I&O measurements, -d/c per family preference -> pt comfort care ENDO - BSGs per unit protocol. ISS --> gtt per unit policy. Hypothyroidism: Will convert Levothyroxine from PO to IV. HEME - Stable H&H at this time. Will trend in the setting of ??LGIB on Eliquis. Transfusion consent on the chart. Elevated INR in the setting of liver failure. Question utility of vitamin K in this patient. Treat if worsening bleeding/drop in H&H. ID - UTI: Currently on Zosyn/Flagyl. Will d/c Flagyl as do not see the utility of dual anaerobic coverage. Repeat blood cultures pending. -abx as needed for comfort LINES/IV ACCESS - PIVs x1 18g Endurance to the LEFT Upper Arm. 20g Endurance to the LEFT Forearm. Kahn DVT PROPHYLAXIS - Hold anticoagulation 2/2 GIB. SCDs Thank you for allowing me to participate in this patient's care, please see my attending's documentation for further clarification. Omega Melo MD PGY 2, FCM This chart was completed utilizing [employer] voice recognition software. Grammatical errors, random word insertions, pronoun errors, and in complete sentences are an occasional consequence of the system. Any questions or concerns about the content, text, or information contained within the body of this dictation should be addressed directly to the physician for clarification. (2) GIB (gastrointestinal bleeding): (3) UTI (urinary tract infection): (4) Sepsis: (5) Increased ammonia level: (6) Hepatic encephalopathy: (7) Abdominal distension: (8) Lymphedema: (9) Cirrhosis: (10) Morbid obesity with BMI of 70 and over, adult: (11) Obesity hypoventilation syndrome: (12) Acute pulmonary edema: (13) Acute respiratory failure with hypoxia: (14) CHF (congestive heart failure): Supervising Physician Co-Signing Physician Notes Dr. Melo was the resident-physician during care of patient. I separately evaluated patient for zamora portions of the history and the exam. I was present during the critical portion of medical decision making, and I discussed the case with the resident. I generally agree with the findings and plan except for any additions/exceptions noted. The patient was discussed on interdisciplinary rounds. This is a 63-year-old male with morbid obesity class III (BMI of 75) who is here in the ICU due to ongoing hypoxemic and hypercapnic respiratory failure, decompensated liver failure, cor pulmonale and acute kidney injury who has had a lengthy hospital stay. I had a lengthy discussion with the patient's and grandparents and the decision was made to proceed with full comfort measures. The patient appears very uncomfortable and is currently on BiPAP. He is moaning. He is not really following commands. I think compassionate measures such as comfort care and hospice are very appropriate in this case. We will discontinue unnecessary blood sticks and and monitoring. We are giving 4 mg of morphine IV now and repeat doses as necessary. Appreciate palliative care input. I have personally spent 45 minutes of critical care time in the direct management of this patient. This is a life/limb threatening event. This includes time spent evaluating patient, direct bedside care, chart review, placing orders, interpretation of diagnostic studies, discussion with consultants, patient, and/or family members regarding treatment decisions, as well as other required patient management activities. This time is exclusive of all separately billable procedures, and teaching time and separate from and in addition to any other critical care service time. Subjective Unable to obtain interval history secondary to BiPAP and unresponsiveness. Patient laying in bed, in acute distress, intermittently shaking the bed. Per report no significant acute events overnight. Patient not making urine, clinical status declining. Overall extremely poor prognosis. After conversation with palliative care family requesting comfort measures. Physical Exam Physical Exam: GENERAL - 63-year-old male appearing his stated age. He is moaning and dyssynchronous with breathing. He responds to painful stimuli. SKIN -no concerning rashes. HEAD - NC/AT. MOUTH/OROPHARYNX - Without perioral cyanosis. Buccal mucosa pink and dry. NECK - Supple to palpation. No lymphadenopathy noted. No nuchal rigidity. LUNGS - Chest wall symmetric without accessory muscle use, intercostals retractions, or central cyanosis. Normal vesicular breath sounds. Distant breath sounds appreciated at the lung bases. CARDIAC - RRR with S1/S2. No murmur, rubs, or gallops appreciated. ABDOMEN - Abdominal contour obese without pulsations or visible masses. BS hypoactive all four quadrants. No tenderness, palpable masses, hepatosplenomegaly. EXTREMITIES - No clubbing or peripheral cyanosis. 4+ peripheral edema b/l extending from abdomen to the feet. +2/5 radial and dorsalis pedis pulses palpated throughout. NEUROLOGIC -patient obtunded. No focal neurological deficits noted. Unable to contribute to exam secondary to mental status. Results & Data Vital Signs (Past 12 Hours) Vital Signs Temp Pulse Resp BP Pulse Ox 05/21/19 06:34 83 23 109/61 95 05/21/19 06:19 82 19 117/58 L 100 05/21/19 06:04 96 H 28 H 127/73 94 05/21/19 06:00 80 24 99 05/21/19 05:49 75 24 134/67 99 05/21/19 05:38 73 18 100 05/21/19 05:37 81 19 135/75 100 05/21/19 05:30 77 16 100 05/21/19 05:15 78 17 100 05/21/19 05:03 79 18 134/71 100 05/21/19 05:00 72 21 99 05/21/19 04:48 80 17 130/69 100 05/21/19 04:45 79 35 H 100 05/21/19 04:34 75 22 135/82 100 05/21/19 04:30 83 15 100 05/21/19 04:19 76 17 128/79 100 05/21/19 04:15 79 15 100 05/21/19 04:03 80 24 137/85 98 05/21/19 04:00 82 22 95 05/21/19 03:50 72 24 133/66 91 05/21/19 03:45 75 21 97 05/21/19 03:34 70 18 137/81 95 05/21/19 03:33 66 16 100 05/21/19 03:30 77 25 H 96 05/21/19 03:18 58 L 14 122/60 100 05/21/19 03:15 65 15 100 05/21/19 03:03 65 15 105/60 99 05/21/19 03:00 64 16 100 05/21/19 02:48 58 L 16 99/57 L 100 05/21/19 02:45 67 17 100 05/21/19 02:33 66 12 102/62 100 05/21/19 02:30 59 L 16 99 05/21/19 02:18 67 10 L 113/62 99 05/21/19 02:15 64 15 98 05/21/19 02:03 62 23 106/60 97 05/21/19 02:00 60 17 100 05/21/19 01:49 62 17 98 05/21/19 01:48 66 14 122/71 97 05/21/19 01:39 69 14 100/55 L 100 05/21/19 01:30 65 20 100 05/21/19 01:11 65 12 78/43 L 100 05/21/19 01:10 63 16 74/47 L 100 05/21/19 01:04 65 18 77/43 L 99 05/21/19 01:00 70 18 100 05/21/19 00:52 64 16 100 05/21/19 00:34 62 14 91/52 L 98 05/21/19 00:30 63 16 98 05/21/19 00:12 63 18 91/48 L 100 05/21/19 00:04 70 16 77/42 L 99 05/21/19 00:00 67 16 99 05/20/19 23:34 74 19 118/60 98 05/20/19 23:30 65 28 H 93 05/20/19 23:04 64 12 88/53 L 99 05/20/19 23:00 71 13 98 05/20/19 22:34 70 13 92/59 L 96 05/20/19 22:30 79 19 95 05/20/19 22:15 70 22 93 05/20/19 22:04 82 27 H 108/56 L 94 05/20/19 22:00 76 22 93 05/20/19 21:34 70 33 H 111/59 L 89 L 05/20/19 21:30 72 28 H 93 05/20/19 21:27 68 05/20/19 21:04 68 24 109/68 95 05/20/19 21:00 68 33 H 89 L 05/20/19 20:32 68 27 H 102/75 96 05/20/19 20:30 72 17 94 12/12/19 20:26 35.4 C L 67 27 H Laboratory Results 05/21/19 05/21/19 05/21/19 Range/Units 05:31 04:10 04:10 WBC (4.8-10.8) K/uL RBC (4.7-6.1) M/uL Hgb (14.0-18.0) g/dL Hct (42-52) % MCV (80-100) fL MCH (25-34) pg MCHC (32-36) g/dL RDW Std Deviation (36.4-46.3) fL RDW Coeff of Ericka (11.5-14.5) % Plt Count (130-400) K/uL MPV (7.4-10.4) fL Immature Gran % (Auto) % Neut % (Auto) % Lymph % (Auto) % Pratt % (Auto) % Eos % (Auto) % Baso % (Auto) % Immature Gran # (Auto) (0.00-0.02) K/uL Neut # (Auto) (1.4-6.5) K/uL Lymph # (Auto) (1.2-3.4) K/uL Pratt # (Auto) (0.11-0.59) K/uL Eos # (Auto) (0-0.5) K/uL Baso # (Auto) (0-0.2) K/uL Hypersegmented Neuts Toxic Vacuolation Polychromasia Target Cells PT 21.4 H (9.0-12.0) Seconds INR 2.2 H (0.9-1.1) Sample Site R Radial POC pH 7.48 H (7.35-7.45) POC pCO2 36 (35-46) mmHg POC pO2 125 H (80-95) mmHg POC HCO3 27 H (19-24) slime/L POC Total CO2 28 (24-31) mEq/l POC Base Excess 4.0 H (-9-1.8) slime/L POC ABG O2 Sat 99.0 H (90-95) % Richard Test NA VBG pH (7.36-7.41) VBG pCO2 (38-50) mmHg VBG pO2 mmHg VBG HCO3 mmol/L VBG O2 Saturation % VBG Base Excess mEq/L Barometric Pressure mm/Hg O2 Delivery Device BIPAP POC O2 Rate 24 POC FiO2 50 % IPAP 15 Sodium (136-145) mmol/L Potassium (3.5-5.1) mmol/L Chloride (98-107) mmol/L Carbon Dioxide (21-32) mmol/L Anion Gap (3-11) BUN (7-18) mg/dl Creatinine (0.6-1.4) mg/dl Est Cr Clr Drug Dosing ml/min Est GFR ( Amer) Est GFR (Non-Af Amer) BUN/Creatinine Ratio (10-20) Glucose (70-99) mg/dl POC Glucose (70-99) Lactate (0.4-2.0) mmol/L Calcium (8.5-10.1) mg/dl Phosphorus (2.5-4.9) mg/dl Magnesium (1.8-2.4) mg/dl Total Bilirubin (0.2-1) mg/dl Direct Bilirubin (0-0.2) mg/dl AST (15-37) U/L ALT (12-78) U/L Alkaline Phosphatase (45-117) U/L Ammonia (11-32) umol/L Total Creatine Kinase (39-308) U/L Total Protein (6.4-8.2) gm/dl Albumin (3.4-5.0) gm/dl Globulin (2.5-4.0) gm/dl Albumin/Globulin Ratio (0.9-2) Procalcitonin 0.36 (0-0.5) ng/ml Random Cortisol mcg/dl Urine Color Urine Appearance (Clear) Urine pH (4.5-7.5) Ur Specific Murphy (1.000-1.030) Urine Protein (Negative) Urine Glucose (UA) (Negative) Urine Ketones (Negative) Urine Blood (Negative) Urine Nitrite (Negative) Urine Bilirubin (Negative) Urine Urobilinogen (Negative) Ur Leukocyte Esterase (Negative) Urine WBC (Auto) (0-5) /hpf Urine RBC (Auto) (0-4) /hpf U Hyaline Cast (Auto) (0-5) /lpf U Epithel Cells (Auto) (0-5) /lpf Urine Bacteria (Auto) (Negative) Uric Acid Crystals (None Prsent) Ur Random Creatinine mg/dl U Random Total Protein (0-11.9) mg/dl Ur Random Sodium mmol/L Protein/Creatinin Ratio (0-0.2) Nasal Screen MRSA (PCR) (Negative) Stool Occult Bld Scrn (Negative) 05/21/19 05/21/19 05/21/19 Range/Units 04:10 04:10 04:10 WBC 31.01 H* (4.8-10.8) K/uL RBC 3.33 L (4.7-6.1) M/uL Hgb 10.4 L (14.0-18.0) g/dL Hct 30.8 L (42-52) % MCV 92.5 (80-100) fL MCH 31.2 (25-34) pg MCHC 33.8 (32-36) g/dL RDW Std Deviation 54.2 H (36.4-46.3) fL RDW Coeff of Ericka 16.2 H (11.5-14.5) % Plt Count 632 H (130-400) K/uL MPV 9.7 (7.4-10.4) fL Immature Gran % (Auto) 0.6 % Neut % (Auto) 88.3 % Lymph % (Auto) 6.1 % Pratt % (Auto) 4.3 % Eos % (Auto) 0.6 % Baso % (Auto) 0.1 % Immature Gran # (Auto) 0.20 H (0.00-0.02) K/uL Neut # (Auto) 27.39 H (1.4-6.5) K/uL Lymph # (Auto) 1.88 (1.2-3.4) K/uL Pratt # (Auto) 1.32 H (0.11-0.59) K/uL Eos # (Auto) 0.18 (0-0.5) K/uL Baso # (Auto) 0.04 (0-0.2) K/uL Hypersegmented Neuts 2+ Toxic Vacuolation 1+ Polychromasia Target Cells 1+ PT (9.0-12.0) Seconds INR (0.9-1.1) Sample Site POC pH (7.35-7.45) POC pCO2 (35-46) mmHg POC pO2 (80-95) mmHg POC HCO3 (19-24) slime/L POC Total CO2 (24-31) mEq/l POC Base Excess (-9-1.8) slime/L POC ABG O2 Sat (90-95) % Richard Test VBG pH (7.36-7.41) VBG pCO2 (38-50) mmHg VBG pO2 mmHg VBG HCO3 mmol/L VBG O2 Saturation % VBG Base Excess mEq/L Barometric Pressure mm/Hg O2 Delivery Device POC O2 Rate POC FiO2 % IPAP Sodium 137 (136-145) mmol/L Potassium 5.3 H (3.5-5.1) mmol/L Chloride 102 (98-107) mmol/L Carbon Dioxide 26 (21-32) mmol/L Anion Gap 9.0 (3-11) BUN 78 H (7-18) mg/dl Creatinine 2.96 H (0.6-1.4) mg/dl Est Cr Clr Drug Dosing 50.3 ml/min Est GFR ( Amer) 25.2 Est GFR (Non-Af Amer) 21.8 BUN/Creatinine Ratio 26.2 H (10-20) Glucose 159 H (70-99) mg/dl POC Glucose (70-99) Lactate (0.4-2.0) mmol/L Calcium 8.6 (8.5-10.1) mg/dl Phosphorus 5.2 H (2.5-4.9) mg/dl Magnesium 2.4 (1.8-2.4) mg/dl Total Bilirubin 1.4 H (0.2-1) mg/dl Direct Bilirubin (0-0.2) mg/dl AST 141 H (15-37) U/L ALT 82 H (12-78) U/L Alkaline Phosphatase 260 H (45-117) U/L Ammonia 75.0 H (11-32) umol/L Total Creatine Kinase (39-308) U/L Total Protein 6.6 (6.4-8.2) gm/dl Albumin 2.4 L (3.4-5.0) gm/dl Globulin 4.2 H (2.5-4.0) gm/dl Albumin/Globulin Ratio 0.6 L (0.9-2) Procalcitonin (0-0.5) ng/ml Random Cortisol mcg/dl Urine Color Urine Appearance (Clear) Urine pH (4.5-7.5) Ur Specific Murphy (1.000-1.030) Urine Protein (Negative) Urine Glucose (UA) (Negative) Urine Ketones (Negative) Urine Blood (Negative) Urine Nitrite (Negative) Urine Bilirubin (Negative) Urine Urobilinogen (Negative) Ur Leukocyte Esterase (Negative) Urine WBC (Auto) (0-5) /hpf Urine RBC (Auto) (0-4) /hpf U Hyaline Cast (Auto) (0-5) /lpf U Epithel Cells (Auto) (0-5) /lpf Urine Bacteria (Auto) (Negative) Uric Acid Crystals (None Prsent) Ur Random Creatinine mg/dl U Random Total Protein (0-11.9) mg/dl Ur Random Sodium mmol/L Protein/Creatinin Ratio (0-0.2) Nasal Screen MRSA (PCR) (Negative) Stool Occult Bld Scrn (Negative) 05/21/19 05/21/19 05/21/19 Range/Units 04:10 02:47 00:11 WBC (4.8-10.8) K/uL RBC (4.7-6.1) M/uL Hgb (14.0-18.0) g/dL Hct (42-52) % MCV (80-100) fL MCH (25-34) pg MCHC (32-36) g/dL RDW Std Deviation (36.4-46.3) fL RDW Coeff of Ericka (11.5-14.5) % Plt Count (130-400) K/uL MPV (7.4-10.4) fL Immature Gran % (Auto) % Neut % (Auto) % Lymph % (Auto) % Pratt % (Auto) % Eos % (Auto) % Baso % (Auto) % Immature Gran # (Auto) (0.00-0.02) K/uL Neut # (Auto) (1.4-6.5) K/uL Lymph # (Auto) (1.2-3.4) K/uL Pratt # (Auto) (0.11-0.59) K/uL Eos # (Auto) (0-0.5) K/uL Baso # (Auto) (0-0.2) K/uL Hypersegmented Neuts Toxic Vacuolation Polychromasia Target Cells PT (9.0-12.0) Seconds INR (0.9-1.1) Sample Site R Radial POC pH 7.36 (7.35-7.45) POC pCO2 47 H (35-46) mmHg POC pO2 53 L (80-95) mmHg POC HCO3 27 H (19-24) slime/L POC Total CO2 28 (24-31) mEq/l POC Base Excess 1.0 (-9-1.8) slime/L POC ABG O2 Sat 85.0 L (90-95) % Richard Test NA VBG pH (7.36-7.41) VBG pCO2 (38-50) mmHg VBG pO2 mmHg VBG HCO3 mmol/L VBG O2 Saturation % VBG Base Excess mEq/L Barometric Pressure mm/Hg O2 Delivery Device BIPAP POC O2 Rate 16 POC FiO2 50 % IPAP 15 Sodium (136-145) mmol/L Potassium (3.5-5.1) mmol/L Chloride (98-107) mmol/L Carbon Dioxide (21-32) mmol/L Anion Gap (3-11) BUN (7-18) mg/dl Creatinine (0.6-1.4) mg/dl Est Cr Clr Drug Dosing ml/min Est GFR ( Amer) Est GFR (Non-Af Amer) BUN/Creatinine Ratio (10-20) Glucose (70-99) mg/dl POC Glucose 163 H (70-99) Lactate 2.0 (0.4-2.0) mmol/L Calcium (8.5-10.1) mg/dl Phosphorus (2.5-4.9) mg/dl Magnesium (1.8-2.4) mg/dl Total Bilirubin (0.2-1) mg/dl Direct Bilirubin (0-0.2) mg/dl AST (15-37) U/L ALT (12-78) U/L Alkaline Phosphatase (45-117) U/L Ammonia (11-32) umol/L Total Creatine Kinase (39-308) U/L Total Protein (6.4-8.2) gm/dl Albumin (3.4-5.0) gm/dl Globulin (2.5-4.0) gm/dl Albumin/Globulin Ratio (0.9-2) Procalcitonin (0-0.5) ng/ml Random Cortisol mcg/dl Urine Color Urine Appearance (Clear) Urine pH (4.5-7.5) Ur Specific Murphy (1.000-1.030) Urine Protein (Negative) Urine Glucose (UA) (Negative) Urine Ketones (Negative) Urine Blood (Negative) Urine Nitrite (Negative) Urine Bilirubin (Negative) Urine Urobilinogen (Negative) Ur Leukocyte Esterase (Negative) Urine WBC (Auto) (0-5) /hpf Urine RBC (Auto) (0-4) /hpf U Hyaline Cast (Auto) (0-5) /lpf U Epithel Cells (Auto) (0-5) /lpf Urine Bacteria (Auto) (Negative) Uric Acid Crystals (None Prsent) Ur Random Creatinine mg/dl U Random Total Protein (0-11.9) mg/dl Ur Random Sodium mmol/L Protein/Creatinin Ratio (0-0.2) Nasal Screen MRSA (PCR) (Negative) Stool Occult Bld Scrn (Negative) 05/20/19 05/20/19 05/20/19 Range/Units 21:59 21:59 21:59 WBC (4.8-10.8) K/uL RBC (4.7-6.1) M/uL Hgb (14.0-18.0) g/dL Hct (42-52) % MCV (80-100) fL MCH (25-34) pg MCHC (32-36) g/dL RDW Std Deviation (36.4-46.3) fL RDW Coeff of Ericka (11.5-14.5) % Plt Count (130-400) K/uL MPV (7.4-10.4) fL Immature Gran % (Auto) % Neut % (Auto) % Lymph % (Auto) % Pratt % (Auto) % Eos % (Auto) % Baso % (Auto) % Immature Gran # (Auto) (0.00-0.02) K/uL Neut # (Auto) (1.4-6.5) K/uL Lymph # (Auto) (1.2-3.4) K/uL Pratt # (Auto) (0.11-0.59) K/uL Eos # (Auto) (0-0.5) K/uL Baso # (Auto) (0-0.2) K/uL Hypersegmented Neuts Toxic Vacuolation Polychromasia Target Cells PT (9.0-12.0) Seconds INR (0.9-1.1) Sample Site POC pH (7.35-7.45) POC pCO2 (35-46) mmHg POC pO2 (80-95) mmHg POC HCO3 (19-24) slime/L POC Total CO2 (24-31) mEq/l POC Base Excess (-9-1.8) slime/L POC ABG O2 Sat (90-95) % Richard Test VBG pH (7.36-7.41) VBG pCO2 (38-50) mmHg VBG pO2 mmHg VBG HCO3 mmol/L VBG O2 Saturation % VBG Base Excess mEq/L Barometric Pressure mm/Hg O2 Delivery Device POC O2 Rate POC FiO2 % IPAP Sodium (136-145) mmol/L Potassium (3.5-5.1) mmol/L Chloride (98-107) mmol/L Carbon Dioxide (21-32) mmol/L Anion Gap (3-11) BUN (7-18) mg/dl Creatinine (0.6-1.4) mg/dl Est Cr Clr Drug Dosing ml/min Est GFR ( Amer) Est GFR (Non-Af Amer) BUN/Creatinine Ratio (10-20) Glucose (70-99) mg/dl POC Glucose (70-99) Lactate 2.6 H* (0.4-2.0) mmol/L Calcium (8.5-10.1) mg/dl Phosphorus (2.5-4.9) mg/dl Magnesium (1.8-2.4) mg/dl Total Bilirubin (0.2-1) mg/dl Direct Bilirubin (0-0.2) mg/dl AST (15-37) U/L ALT (12-78) U/L Alkaline Phosphatase (45-117) U/L Ammonia 138.7 H (11-32) umol/L Total Creatine Kinase (39-308) U/L Total Protein (6.4-8.2) gm/dl Albumin (3.4-5.0) gm/dl Globulin (2.5-4.0) gm/dl Albumin/Globulin Ratio (0.9-2) Procalcitonin (0-0.5) ng/ml Random Cortisol 50.47 mcg/dl Urine Color Urine Appearance (Clear) Urine pH (4.5-7.5) Ur Specific Murphy (1.000-1.030) Urine Protein (Negative) Urine Glucose (UA) (Negative) Urine Ketones (Negative) Urine Blood (Negative) Urine Nitrite (Negative) Urine Bilirubin (Negative) Urine Urobilinogen (Negative) Ur Leukocyte Esterase (Negative) Urine WBC (Auto) (0-5) /hpf Urine RBC (Auto) (0-4) /hpf U Hyaline Cast (Auto) (0-5) /lpf U Epithel Cells (Auto) (0-5) /lpf Urine Bacteria (Auto) (Negative) Uric Acid Crystals (None Prsent) Ur Random Creatinine mg/dl U Random Total Protein (0-11.9) mg/dl Ur Random Sodium mmol/L Protein/Creatinin Ratio (0-0.2) Nasal Screen MRSA (PCR) (Negative) Stool Occult Bld Scrn (Negative) 05/20/19 05/20/19 05/20/19 Range/Units 21:59 21:59 21:58 WBC 30.37 H* (4.8-10.8) K/uL RBC 3.52 L (4.7-6.1) M/uL Hgb 10.8 L (14.0-18.0) g/dL Hct 32.7 L (42-52) % MCV 92.9 (80-100) fL MCH 30.7 (25-34) pg MCHC 33.0 (32-36) g/dL RDW Std Deviation 54.0 H (36.4-46.3) fL RDW Coeff of Ericka 16.3 H (11.5-14.5) % Plt Count 643 H (130-400) K/uL MPV 9.7 (7.4-10.4) fL Immature Gran % (Auto) 0.7 % Neut % (Auto) 90.1 % Lymph % (Auto) 5.0 % Pratt % (Auto) 3.4 % Eos % (Auto) 0.7 % Baso % (Auto) 0.1 % Immature Gran # (Auto) 0.22 H (0.00-0.02) K/uL Neut # (Auto) 27.35 H (1.4-6.5) K/uL Lymph # (Auto) 1.52 (1.2-3.4) K/uL Pratt # (Auto) 1.04 H (0.11-0.59) K/uL Eos # (Auto) 0.20 (0-0.5) K/uL Baso # (Auto) 0.04 (0-0.2) K/uL Hypersegmented Neuts Toxic Vacuolation Polychromasia 1+ Target Cells PT 20.7 H (9.0-12.0) Seconds INR 2.1 H (0.9-1.1) Sample Site POC pH (7.35-7.45) POC pCO2 (35-46) mmHg POC pO2 (80-95) mmHg POC HCO3 (19-24) slime/L POC Total CO2 (24-31) mEq/l POC Base Excess (-9-1.8) slime/L POC ABG O2 Sat (90-95) % Richard Test VBG pH (7.36-7.41) VBG pCO2 (38-50) mmHg VBG pO2 mmHg VBG HCO3 mmol/L VBG O2 Saturation % VBG Base Excess mEq/L Barometric Pressure mm/Hg O2 Delivery Device POC O2 Rate POC FiO2 % IPAP Sodium 136 (136-145) mmol/L Potassium 5.7 H (3.5-5.1) mmol/L Chloride 101 (98-107) mmol/L Carbon Dioxide 26 (21-32) mmol/L Anion Gap 9.0 (3-11) BUN 78 H (7-18) mg/dl Creatinine 2.82 H (0.6-1.4) mg/dl Est Cr Clr Drug Dosing 52.8 ml/min Est GFR ( Amer) 26.8 Est GFR (Non-Af Amer) 23.1 BUN/Creatinine Ratio 27.7 H (10-20) Glucose 167 H (70-99) mg/dl POC Glucose (70-99) Lactate (0.4-2.0) mmol/L Calcium 8.8 (8.5-10.1) mg/dl Phosphorus 6.0 H (2.5-4.9) mg/dl Magnesium 2.3 (1.8-2.4) mg/dl Total Bilirubin 1.2 H (0.2-1) mg/dl Direct Bilirubin 0.6 H (0-0.2) mg/dl AST 109 H (15-37) U/L ALT 70 (12-78) U/L Alkaline Phosphatase 272 H (45-117) U/L Ammonia (11-32) umol/L Total Creatine Kinase 37 L (39-308) U/L Total Protein 6.6 (6.4-8.2) gm/dl Albumin 2.2 L (3.4-5.0) gm/dl Globulin (2.5-4.0) gm/dl Albumin/Globulin Ratio (0.9-2) Procalcitonin (0-0.5) ng/ml Random Cortisol mcg/dl Urine Color Urine Appearance (Clear) Urine pH (4.5-7.5) Ur Specific Murphy (1.000-1.030) Urine Protein (Negative) Urine Glucose (UA) (Negative) Urine Ketones (Negative) Urine Blood (Negative) Urine Nitrite (Negative) Urine Bilirubin (Negative) Urine Urobilinogen (Negative) Ur Leukocyte Esterase (Negative) Urine WBC (Auto) (0-5) /hpf Urine RBC (Auto) (0-4) /hpf U Hyaline Cast (Auto) (0-5) /lpf U Epithel Cells (Auto) (0-5) /lpf Urine Bacteria (Auto) (Negative) Uric Acid Crystals (None Prsent) Ur Random Creatinine mg/dl U Random Total Protein (0-11.9) mg/dl Ur Random Sodium mmol/L Protein/Creatinin Ratio (0-0.2) Nasal Screen MRSA (PCR) (Negative) Stool Occult Bld Scrn (Negative) 05/20/19 05/20/19 05/20/19 Range/Units 21:45 21:00 20:41 WBC (4.8-10.8) K/uL RBC (4.7-6.1) M/uL Hgb (14.0-18.0) g/dL Hct (42-52) % MCV (80-100) fL MCH (25-34) pg MCHC (32-36) g/dL RDW Std Deviation (36.4-46.3) fL RDW Coeff of Ericka (11.5-14.5) % Plt Count (130-400) K/uL MPV (7.4-10.4) fL Immature Gran % (Auto) % Neut % (Auto) % Lymph % (Auto) % Pratt % (Auto) % Eos % (Auto) % Baso % (Auto) % Immature Gran # (Auto) (0.00-0.02) K/uL Neut # (Auto) (1.4-6.5) K/uL Lymph # (Auto) (1.2-3.4) K/uL Pratt # (Auto) (0.11-0.59) K/uL Eos # (Auto) (0-0.5) K/uL Baso # (Auto) (0-0.2) K/uL Hypersegmented Neuts Toxic Vacuolation Polychromasia Target Cells PT (9.0-12.0) Seconds INR (0.9-1.1) Sample Site R Radial POC pH 7.30 L (7.35-7.45) POC pCO2 57 H (35-46) mmHg POC pO2 78 L (80-95) mmHg POC HCO3 28 H (19-24) slime/L POC Total CO2 30 (24-31) mEq/l POC Base Excess 1.0 (-9-1.8) slime/L POC ABG O2 Sat 93.0 (90-95) % Richard Test Pass VBG pH (7.36-7.41) VBG pCO2 (38-50) mmHg VBG pO2 mmHg VBG HCO3 mmol/L VBG O2 Saturation % VBG Base Excess mEq/L Barometric Pressure mm/Hg O2 Delivery Device Other POC O2 Rate POC FiO2 % IPAP Sodium (136-145) mmol/L Potassium (3.5-5.1) mmol/L Chloride (98-107) mmol/L Carbon Dioxide (21-32) mmol/L Anion Gap (3-11) BUN (7-18) mg/dl Creatinine (0.6-1.4) mg/dl Est Cr Clr Drug Dosing ml/min Est GFR ( Amer) Est GFR (Non-Af Amer) BUN/Creatinine Ratio (10-20) Glucose (70-99) mg/dl POC Glucose 165 H (70-99) Lactate (0.4-2.0) mmol/L Calcium (8.5-10.1) mg/dl Phosphorus (2.5-4.9) mg/dl Magnesium (1.8-2.4) mg/dl Total Bilirubin (0.2-1) mg/dl Direct Bilirubin (0-0.2) mg/dl AST (15-37) U/L ALT (12-78) U/L Alkaline Phosphatase (45-117) U/L Ammonia (11-32) umol/L Total Creatine Kinase (39-308) U/L Total Protein (6.4-8.2) gm/dl Albumin (3.4-5.0) gm/dl Globulin (2.5-4.0) gm/dl Albumin/Globulin Ratio (0.9-2) Procalcitonin (0-0.5) ng/ml Random Cortisol mcg/dl Urine Color Urine Appearance (Clear) Urine pH (4.5-7.5) Ur Specific Murphy (1.000-1.030) Urine Protein (Negative) Urine Glucose (UA) (Negative) Urine Ketones (Negative) Urine Blood (Negative) Urine Nitrite (Negative) Urine Bilirubin (Negative) Urine Urobilinogen (Negative) Ur Leukocyte Esterase (Negative) Urine WBC (Auto) (0-5) /hpf Urine RBC (Auto) (0-4) /hpf U Hyaline Cast (Auto) (0-5) /lpf U Epithel Cells (Auto) (0-5) /lpf Urine Bacteria (Auto) (Negative) Uric Acid Crystals (None Prsent) Ur Random Creatinine mg/dl U Random Total Protein (0-11.9) mg/dl Ur Random Sodium mmol/L Protein/Creatinin Ratio (0-0.2) Nasal Screen MRSA (PCR) Negative (Negative) Stool Occult Bld Scrn (Negative) 05/20/19 05/20/19 05/20/19 Range/Units 18:20 18:20 18:20 WBC (4.8-10.8) K/uL RBC (4.7-6.1) M/uL Hgb (14.0-18.0) g/dL Hct (42-52) % MCV (80-100) fL MCH (25-34) pg MCHC (32-36) g/dL RDW Std Deviation (36.4-46.3) fL RDW Coeff of Ericka (11.5-14.5) % Plt Count (130-400) K/uL MPV (7.4-10.4) fL Immature Gran % (Auto) % Neut % (Auto) % Lymph % (Auto) % Pratt % (Auto) % Eos % (Auto) % Baso % (Auto) % Immature Gran # (Auto) (0.00-0.02) K/uL Neut # (Auto) (1.4-6.5) K/uL Lymph # (Auto) (1.2-3.4) K/uL Pratt # (Auto) (0.11-0.59) K/uL Eos # (Auto) (0-0.5) K/uL Baso # (Auto) (0-0.2) K/uL Hypersegmented Neuts Toxic Vacuolation Polychromasia Target Cells PT (9.0-12.0) Seconds INR (0.9-1.1) Sample Site POC pH (7.35-7.45) POC pCO2 (35-46) mmHg POC pO2 (80-95) mmHg POC HCO3 (19-24) slime/L POC Total CO2 (24-31) mEq/l POC Base Excess (-9-1.8) slime/L POC ABG O2 Sat (90-95) % Richard Test VBG pH (7.36-7.41) VBG pCO2 (38-50) mmHg VBG pO2 mmHg VBG HCO3 mmol/L VBG O2 Saturation % VBG Base Excess mEq/L Barometric Pressure mm/Hg O2 Delivery Device POC O2 Rate POC FiO2 % IPAP Sodium (136-145) mmol/L Potassium (3.5-5.1) mmol/L Chloride (98-107) mmol/L Carbon Dioxide (21-32) mmol/L Anion Gap (3-11) BUN (7-18) mg/dl Creatinine (0.6-1.4) mg/dl Est Cr Clr Drug Dosing ml/min Est GFR ( Amer) Est GFR (Non-Af Amer) BUN/Creatinine Ratio (10-20) Glucose (70-99) mg/dl POC Glucose (70-99) Lactate (0.4-2.0) mmol/L Calcium (8.5-10.1) mg/dl Phosphorus (2.5-4.9) mg/dl Magnesium (1.8-2.4) mg/dl Total Bilirubin (0.2-1) mg/dl Direct Bilirubin (0-0.2) mg/dl AST (15-37) U/L ALT (12-78) U/L Alkaline Phosphatase (45-117) U/L Ammonia (11-32) umol/L Total Creatine Kinase (39-308) U/L Total Protein (6.4-8.2) gm/dl Albumin (3.4-5.0) gm/dl Globulin (2.5-4.0) gm/dl Albumin/Globulin Ratio (0.9-2) Procalcitonin (0-0.5) ng/ml Random Cortisol mcg/dl Urine Color Dark Yellow Urine Appearance Cloudy A (Clear) Urine pH 5.0 (4.5-7.5) Ur Specific Murphy 1.024 (1.000-1.030) Urine Protein Trace H (Negative) Urine Glucose (UA) Negative (Negative) Urine Ketones Trace H (Negative) Urine Blood 3+ H (Negative) Urine Nitrite Negative (Negative) Urine Bilirubin Negative (Negative) Urine Urobilinogen Negative (Negative) Ur Leukocyte Esterase 1+ H (Negative) Urine WBC (Auto) >30 H (0-5) /hpf Urine RBC (Auto) >30 H (0-4) /hpf U Hyaline Cast (Auto) 10-30 H (0-5) /lpf U Epithel Cells (Auto) 20-30 H (0-5) /lpf Urine Bacteria (Auto) Negative (Negative) Uric Acid Crystals Present A (None Prsent) Ur Random Creatinine 124.0 mg/dl U Random Total Protein 66.4 H (0-11.9) mg/dl Ur Random Sodium mmol/L Protein/Creatinin Ratio 0.5 H (0-0.2) Nasal Screen MRSA (PCR) (Negative) Stool Occult Bld Scrn Positive A (Negative) 05/20/19 05/20/19 05/20/19 Range/Units 18:20 14:16 14:16 WBC (4.8-10.8) K/uL RBC (4.7-6.1) M/uL Hgb (14.0-18.0) g/dL Hct (42-52) % MCV (80-100) fL MCH (25-34) pg MCHC (32-36) g/dL RDW Std Deviation (36.4-46.3) fL RDW Coeff of Ericka (11.5-14.5) % Plt Count (130-400) K/uL MPV (7.4-10.4) fL Immature Gran % (Auto) % Neut % (Auto) % Lymph % (Auto) % Pratt % (Auto) % Eos % (Auto) % Baso % (Auto) % Immature Gran # (Auto) (0.00-0.02) K/uL Neut # (Auto) (1.4-6.5) K/uL Lymph # (Auto) (1.2-3.4) K/uL Pratt # (Auto) (0.11-0.59) K/uL Eos # (Auto) (0-0.5) K/uL Baso # (Auto) (0-0.2) K/uL Hypersegmented Neuts Toxic Vacuolation Polychromasia Target Cells PT (9.0-12.0) Seconds INR (0.9-1.1) Sample Site POC pH (7.35-7.45) POC pCO2 (35-46) mmHg POC pO2 (80-95) mmHg POC HCO3 (19-24) slime/L POC Total CO2 (24-31) mEq/l POC Base Excess (-9-1.8) slime/L POC ABG O2 Sat (90-95) % Richard Test VBG pH 7.41 (7.36-7.41) VBG pCO2 44 (38-50) mmHg VBG pO2 61 mmHg VBG HCO3 27 mmol/L VBG O2 Saturation 90.5 % VBG Base Excess 2.1 mEq/L Barometric Pressure 746.5 mm/Hg O2 Delivery Device POC O2 Rate POC FiO2 % IPAP Sodium (136-145) mmol/L Potassium (3.5-5.1) mmol/L Chloride (98-107) mmol/L Carbon Dioxide (21-32) mmol/L Anion Gap (3-11) BUN (7-18) mg/dl Creatinine (0.6-1.4) mg/dl Est Cr Clr Drug Dosing ml/min Est GFR ( Amer) Est GFR (Non-Af Amer) BUN/Creatinine Ratio (10-20) Glucose (70-99) mg/dl POC Glucose (70-99) Lactate 2.6 H* (0.4-2.0) mmol/L Calcium (8.5-10.1) mg/dl Phosphorus (2.5-4.9) mg/dl Magnesium (1.8-2.4) mg/dl Total Bilirubin (0.2-1) mg/dl Direct Bilirubin (0-0.2) mg/dl AST (15-37) U/L ALT (12-78) U/L Alkaline Phosphatase (45-117) U/L Ammonia (11-32) umol/L Total Creatine Kinase (39-308) U/L Total Protein (6.4-8.2) gm/dl Albumin (3.4-5.0) gm/dl Globulin (2.5-4.0) gm/dl Albumin/Globulin Ratio (0.9-2) Procalcitonin (0-0.5) ng/ml Random Cortisol mcg/dl Urine Color Urine Appearance (Clear) Urine pH (4.5-7.5) Ur Specific Murphy (1.000-1.030) Urine Protein (Negative) Urine Glucose (UA) (Negative) Urine Ketones (Negative) Urine Blood (Negative) Urine Nitrite (Negative) Urine Bilirubin (Negative) Urine Urobilinogen (Negative) Ur Leukocyte Esterase (Negative) Urine WBC (Auto) (0-5) /hpf Urine RBC (Auto) (0-4) /hpf U Hyaline Cast (Auto) (0-5) /lpf U Epithel Cells (Auto) (0-5) /lpf Urine Bacteria (Auto) (Negative) Uric Acid Crystals (None Prsent) Ur Random Creatinine mg/dl U Random Total Protein (0-11.9) mg/dl Ur Random Sodium 13 mmol/L Protein/Creatinin Ratio (0-0.2) Nasal Screen MRSA (PCR) (Negative) Stool Occult Bld Scrn (Negative) 05/20/19 05/20/19 Range/Units 14:16 09:23 WBC (4.8-10.8) K/uL RBC (4.7-6.1) M/uL Hgb (14.0-18.0) g/dL Hct (42-52) % MCV (80-100) fL MCH (25-34) pg MCHC (32-36) g/dL RDW Std Deviation (36.4-46.3) fL RDW Coeff of Ericka (11.5-14.5) % Plt Count (130-400) K/uL MPV (7.4-10.4) fL Immature Gran % (Auto) % Neut % (Auto) % Lymph % (Auto) % Pratt % (Auto) % Eos % (Auto) % Baso % (Auto) % Immature Gran # (Auto) (0.00-0.02) K/uL Neut # (Auto) (1.4-6.5) K/uL Lymph # (Auto) (1.2-3.4) K/uL Pratt # (Auto) (0.11-0.59) K/uL Eos # (Auto) (0-0.5) K/uL Baso # (Auto) (0-0.2) K/uL Hypersegmented Neuts Toxic Vacuolation Polychromasia Target Cells PT (9.0-12.0) Seconds INR (0.9-1.1) Sample Site POC pH (7.35-7.45) POC pCO2 (35-46) mmHg POC pO2 (80-95) mmHg POC HCO3 (19-24) slime/L POC Total CO2 (24-31) mEq/l POC Base Excess (-9-1.8) slime/L POC ABG O2 Sat (90-95) % Richard Test VBG pH (7.36-7.41) VBG pCO2 (38-50) mmHg VBG pO2 mmHg VBG HCO3 mmol/L VBG O2 Saturation % VBG Base Excess mEq/L Barometric Pressure mm/Hg O2 Delivery Device POC O2 Rate POC FiO2 % IPAP Sodium 136 (136-145) mmol/L Potassium 5.3 H (3.5-5.1) mmol/L Chloride 100 (98-107) mmol/L Carbon Dioxide 26 (21-32) mmol/L Anion Gap 10.0 (3-11) BUN 75 H (7-18) mg/dl Creatinine 2.75 H (0.6-1.4) mg/dl Est Cr Clr Drug Dosing 54.1 ml/min Est GFR ( Amer) 27.6 Est GFR (Non-Af Amer) 23.8 BUN/Creatinine Ratio 27.3 H (10-20) Glucose 162 H (70-99) mg/dl POC Glucose (70-99) Lactate (0.4-2.0) mmol/L Calcium 9.1 (8.5-10.1) mg/dl Phosphorus (2.5-4.9) mg/dl Magnesium (1.8-2.4) mg/dl Total Bilirubin (0.2-1) mg/dl Direct Bilirubin (0-0.2) mg/dl AST (15-37) U/L ALT (12-78) U/L Alkaline Phosphatase (45-117) U/L Ammonia (11-32) umol/L Total Creatine Kinase (39-308) U/L Total Protein (6.4-8.2) gm/dl Albumin (3.4-5.0) gm/dl Globulin (2.5-4.0) gm/dl Albumin/Globulin Ratio (0.9-2) Procalcitonin 0.30 (0-0.5) ng/ml Random Cortisol mcg/dl Urine Color Urine Appearance (Clear) Urine pH (4.5-7.5) Ur Specific Murphy (1.000-1.030) Urine Protein (Negative) Urine Glucose (UA) (Negative) Urine Ketones (Negative) Urine Blood (Negative) Urine Nitrite (Negative) Urine Bilirubin (Negative) Urine Urobilinogen (Negative) Ur Leukocyte Esterase (Negative) Urine WBC (Auto) (0-5) /hpf Urine RBC (Auto) (0-4) /hpf U Hyaline Cast (Auto) (0-5) /lpf U Epithel Cells (Auto) (0-5) /lpf Urine Bacteria (Auto) (Negative) Uric Acid Crystals (None Prsent) Ur Random Creatinine mg/dl U Random Total Protein (0-11.9) mg/dl Ur Random Sodium mmol/L Protein/Creatinin Ratio (0-0.2) Nasal Screen MRSA (PCR) (Negative) Stool Occult Bld Scrn (Negative) Medications Administered Current Inpatient Medications Acetaminophen (Tylenol) 650 mg PO Q4H PRN PRN Reason: Pain or Fever Stop: 06/07/19 19:34 Al Hydrox/Mg Hydrox/Simethicone (Maalox) 15 ml PO Q4H PRN PRN Reason: Dyspepsia Stop: 06/07/19 19:34 Aspirin (Ecotrin Ectab) 81 mg PO DAILY [facility] Stop: 06/08/19 08:59 Last Admin: 05/20/19 08:04 Dose: Not Given Documented by: Diltiazem HCl (Dilacor Xr) 180 mg PO BID [facility] Stop: 06/07/19 20:59 Last Admin: 05/20/19 22:02 Dose: Not Given Documented by: Glycopyrrolate (Robinul) 0.2 mg IV Q4H PRN PRN Reason: Secretions Stop: 06/20/19 10:34 Bumetanide 10 mg/ Dextrose 50 mls @ 2.5 mls/hr IV .Q20H [facility] Stop: 06/15/19 17:59 Last Infusion: 05/17/19 09:54 Dose: Infused Documented by: Lorazepam (Ativan) 1 mg in 2 mls @ 0.5 mls/min IV UD PRN PRN Reason: anxiety or agitation Stop: 06/20/19 10:42 Levothyroxine Sodium (Synthroid) 88 mcg PO DAILYBB [facility] Stop: 06/10/19 06:29 Last Admin: 05/20/19 06:01 Dose: Not Given Documented by: Magnesium Hydroxide (Milk Of Magnesia) 30 ml PO Q12H PRN PRN Reason: Constipation Stop: 06/07/19 19:34 Metoprolol Tartrate (Lopressor) 50 mg PO BID [facility] Stop: 06/07/19 20:59 Last Admin: 05/20/19 22:38 Dose: Not Given Documented by: Miscellaneous (Icu Protocol For Hyperglycemia) 1 ea N/A PRN PRN; Protocol PRN Reason: Hyperglycemia Protocol Stop: 05/22/19 21:26 Morphine Sulfate (Morphine Sulfate) 4 mg IV Q1H PRN PRN Reason: Pain or SOB Stop: 06/04/19 10:27 Last Admin: 05/21/19 10:39 Dose: 4 mg Documented by: Ondansetron HCl (Zofran) 4 mg IV Q6H PRN PRN Reason: Nausea Stop: 06/07/19 19:34 Last Admin: 05/19/19 02:18 Dose: 4 mg Documented by: Potassium Chloride (Klor-Con M10) 40 meq PO TID [facility] Stop: 06/10/19 08:59 Last Admin: 05/17/19 21:20 Dose: 40 meq Documented by: Simethicone (Mylicon) 80 mg PO Q6H PRN PRN Reason: Gas or Constipation Stop: 06/09/19 16:32 Last Admin: 05/19/19 12:47 Dose: 80 mg Documented by: Spironolactone (Aldactone) 100 mg PO QAM [facility] Stop: 06/10/19 09:29 Last Admin: 05/17/19 08:00 Dose: 100 mg Documented by: Resident Activity Tracking Resident Involvement: Resident Care Provided Care Provided: Adult Hospital Medicine (1) Cirrhosis Ascites presence: with ascites Hepatic cirrhosis type: unspecified hepatic cirrhosis Qualified Code(s): K74.60 - Unspecified cirrhosis of liver; R18.8 - Other ascites
[2019-05-21] MEDS ORDERED: fentaNYL citrate 100 MCG/2 ML VIAL IV PRN (07:39)
[2019-05-21] MEDS: LACTOBACILLUS ACIDOPHILUS (FLORANEX) TAB PO SCH (08:12)
[2019-05-21] MEDS: NYSTATIN 30 ML, DEXAMETHASONE CONC 3.75 MG, DiphenhydrAMINE Syrup 300 MG, ORA-SWEET SYR... PO SCH (08:12)
[2019-05-21] MEDS: MULTIVITAMIN TAB PO SCH (08:47)
[2019-05-21] MEDS: NYSTATIN POWDER 15GM BTL EXT SCH (08:47)
[2019-05-21] MEDS: VITAMIN B COMPLEX TAB PO SCH (08:48)
[2019-05-21] MEDS: LACTULOSE SYRUP 30 GM/45 ML UDP PO SCH (08:48)
[2019-05-21] MEDS: ZINC SULFATE 220 MG CAPSULE PO SCH (08:49)
[2019-05-21] MEDS: CHOLECALCIFEROL 1,000 UNITS TAB PO SCH (08:49)
[2019-05-21] MEDS: allopurinoL 100 MG TAB PO SCH (08:49)
[2019-05-21] MEDS: PANTOprazole 40 MG in SYRINGE 0 ML IV SCH (08:51)
[2019-05-21] MEDS: MUPIROCIN 2% OINT 22 GM TUBE EXT SCH (09:23)
[2019-05-21] MEDS ORDERED: MoRPHine SULFATE 4 MG/ML 1 ML CARP\\VIAL IV STA (09:35)
--- NOTE | 2019-05-21 10:01 | Nephrology Progress Note ---
Date of Service May 21, 2019 Assessment & Plan (1) EDNA (acute kidney injury): EMR reviewed. Met w/ ICU team this morning. Patient w/ urosepsis requiring transfer to ICU yesterday evening. He is now oliguric. Cr has risen to 2.96. There is concern for possible GIB. Family has chosen to make patient DNI and no HD. They are considering comfort measures. Will defer further management to ICU team. Please call if further Nephrology assistance is needed (2) UTI (urinary tract infection): (3) Sepsis: (4) Hepatic encephalopathy: (5) GIB (gastrointestinal bleeding): (6) Admitted to intensive care unit: Results & Data Vital Signs (Past 12 Hours) Vital Signs Pulse Resp BP Pulse Ox 05/21/19 08:21 76 20 97 05/21/19 06:34 83 23 109/61 95 05/21/19 06:19 82 19 117/58 L 100 05/21/19 06:04 96 H 28 H 127/73 94 05/21/19 06:00 80 24 99 05/21/19 05:49 75 24 134/67 99 05/21/19 05:38 73 18 100 05/21/19 05:37 81 19 135/75 100 05/21/19 05:30 77 16 100 05/21/19 05:15 78 17 100 05/21/19 05:03 79 18 134/71 100 05/21/19 05:00 72 21 99 05/21/19 04:48 80 17 130/69 100 05/21/19 04:45 79 35 H 100 05/21/19 04:34 75 22 135/82 100 05/21/19 04:30 83 15 100 05/21/19 04:19 76 17 128/79 100 05/21/19 04:15 79 15 100 05/21/19 04:03 80 24 137/85 98 05/21/19 04:00 82 22 95 05/21/19 03:50 72 24 133/66 91 05/21/19 03:45 75 21 97 05/21/19 03:34 70 18 137/81 95 05/21/19 03:33 66 16 100 05/21/19 03:30 77 25 H 96 05/21/19 03:18 58 L 14 122/60 100 05/21/19 03:15 65 15 100 05/21/19 03:03 65 15 105/60 99 05/21/19 03:00 64 16 100 05/21/19 02:48 58 L 16 99/57 L 100 05/21/19 02:45 67 17 100 05/21/19 02:33 66 12 102/62 100 05/21/19 02:30 59 L 16 99 05/21/19 02:18 67 10 L 113/62 99 05/21/19 02:15 64 15 98 05/21/19 02:03 62 23 106/60 97 05/21/19 02:00 60 17 100 05/21/19 01:49 62 17 98 05/21/19 01:48 66 14 122/71 97 05/21/19 01:39 69 14 100/55 L 100 05/21/19 01:30 65 20 100 05/21/19 01:11 65 12 78/43 L 100 05/21/19 01:10 63 16 74/47 L 100 05/21/19 01:04 65 18 77/43 L 99 05/21/19 01:00 70 18 100 05/21/19 00:52 64 16 100 05/21/19 00:34 62 14 91/52 L 98 05/21/19 00:30 63 16 98 05/21/19 00:12 63 18 91/48 L 100 05/21/19 00:04 70 16 77/42 L 99 05/21/19 00:00 67 16 99 05/20/19 23:34 74 19 118/60 98 05/20/19 23:30 65 28 H 93 05/20/19 23:04 64 12 88/53 L 99 05/20/19 23:00 71 13 98 05/20/19 22:34 70 13 92/59 L 96 05/20/19 22:30 79 19 95 05/20/19 22:15 70 22 93 05/20/19 22:04 82 27 H 108/56 L 94 05/20/19 22:00 76 22 93 PG Care Time/CCT Total # of Minutes Spent Total Time Spent with Patient: Total time spent is greater than 50% in coordination of care (as documented) at patient's floor/unit and/or counseling patient:
[2019-05-21] MEDS ORDERED: LORazepam 0.5 MG/1 ML VIAL IV PRN (10:35)
--- NOTE | 2019-05-21 10:38 | Palliative Care Consultation ---
Date of Consultation May 21, 2019 Assessment & Plan (1) Goals of care, counseling/discussion: -63 year old male with PMH hypertension, CHF, A. fib currently rate controlled and anticoagulated with Eliquis, morbid obesity, obesity hypoventilation syndrome - wears cpap at home, MAYES with cirrhosis, hypothyroidism, and worsening deconditioning, was initially admitted to this facility on 05/08 for worsening shortness of breath and increasing peripheral edema. Patient was diuresed but unfortunately had worsening EDNA-- nephrology has been following. His creatinine has worsened from 1.72 on admission to 2.96 today. Unfortunately last week patient developed a UTI which seemed to be the s tart of his rapid decline. Patient has essentially been dependent on CPAP/BiPap since admission. He continued to have increased lethargy, confusion and was transferred to the ICU yesterday. His INR is elevated at 2.1. He began to bleed from his rectum and was having frequent, large dark stools. His WBCs climbed to >30k. Unfortunately, due to his size he is unable to have CT abd/pelvis, but there is concern for ischemic gut. Ammonia elevated to 138. Patient continues to moan and yell out in discomfort. He is confused with hepatic encephalopathy. Unfortunately his prognosis is extremely poor. Palliative care consulted for goals of care. -Met with patient, his , parents, two children and two other family members, along with Dr. Henderson in room 104 this morning. -Dr. Henderson gave an update about patient's multi system organ failure and our limited interventions. Patient tearful, but all were in agreement that patient would not want his life to be prolonged in this state. He has not shown a bit of recovery since being in the hospital, and in fact continues to decline. -Patient's as well as all other family members in agreement with transitioning to comfort measures only: stop all abx and IVF, stop medications unrelated to comfort, discontinue bipap. Keep patient comfortable and allow natural . -Will order morphine 4mg IV Q1h PRN pain or SOB. -Robinul 0.2mg IV Q4h PRN secretions. -Lorazepam 1mg IV Q4h PRN anxiety/agitation. -Patient's and family aware of secondary side effects of comfort medications. -Hospitalist updated on plan. -We will continue to follow. (2) GIB (gastrointestinal bleeding): (3) Sepsis: (4) UTI (urinary tract infection): (5) Hepatic encephalopathy: (6) Acute respiratory failure with hypoxia and hypercapnia: (7) Morbid obesity with BMI of 70 and over, adult: Supervising Physician Co-Signing Physician Notes Patient seen and examined-multiple family at bedside. Chart reviewed, patient seen and examined. Collaborated with RABIA Beaver PE: Patient appears comfortable, unresponsive to voice or touch Respirations slightly labored, on O2 via oxy mask CV: Regular rate Abdomen: Not distended, morbidly obese Neuro: Unresponsive Agree with above note, assessment and plan as per RABIA Beaver. Discussed with family at bedside end-of-life issues. History of Present Illness Reason for Consultation: Goals of care Requesting Physician: Bashir Rao PA-C Attending Physician: Benoit Pham History of Present Illness This 63 year old male with PMH hypertension, CHF, A. fib currently rate controlled and anticoagulated with Eliquis, morbid obesity, obesity hypoventilation syndrome - wears cpap at home, MAYES with cirrhosis, hypothyroidism, and worsening deconditioning, was initially admitted to this facility on 05/08 for worsening shortness of breath and increasing peripheral edema. Patient was diuresed but unfortunately had worsening EDNA-- nephrology has been following. His creatinine has worsened from 1.72 on admission to 2.96 today. Unfortunately last week patient developed a UTI which seemed to be the start of his rapid decline. Patient has essentially been dependent on CPAP/BiPap since admission. He continued to have increased lethargy, confusion and was transferred to the ICU yesterday. His INR is elevated at 2.1. He began to bleed from his rectum and was having frequent, large dark stools. His WBCs climbed to >30k. Unfortunately, due to his size he is unable to have CT abd/pelvis, but there is concern for ischemic gut. Ammonia elevated to 138. Patient continues to moan and yell out in discomfort. He is confused with hepatic encephalopathy. Unfortunately his prognosis is extremely poor. Palliative care consulted for goals of care. Thank you kindly for this consult. Palliative care team will follow as needed. Allergies Allergy/AdvReac Type Severity Reaction Status Date / Time No Known Allergies Allergy NKDA Verified 05/08/19 13:52 Home Medications Home Medications Medication Instructions Recorded Confirmed Type aspirin [Aspir-81] 81 mg PO DAILY 04/14/18 05/08/19 History cefuroxime axetil 500 mg PO QID 04/14/18 05/08/19 History cholecalciferol (vitamin D3) 1,000 unit PO DAILY 04/14/18 05/08/19 History diltiazem HCl [Cardizem LA] 180 mg PO BID 04/14/18 05/08/19 History lactobacillus combination no.4 0 mmu cells PO DAILY 04/14/18 05/08/19 History [Probiotic] metoprolol tartrate 50 mg PO BID 04/14/18 05/08/19 History multivitamin [Multiple Vitamins] 1 tab PO DAILY 04/14/18 05/08/19 History vitamin B complex 1 tab PO DAILY 04/14/18 05/08/19 History allopurinol 100 mg PO DAILY 05/08/19 05/08/19 History apixaban [Eliquis] 5 mg PO BID 05/08/19 05/08/19 History furosemide 40 mg PO DAILY 05/08/19 05/08/19 History zinc 50 mg PO DAILY 05/08/19 05/08/19 History Patient History Medical History (Updated 05/21/19 @ 14:36 by RABIA Garcia) 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 with presence of antibiotic-impregnated cement spacer Cellulitis CHF (congestive heart failure) Cirrhosis Cystitis Goals of care, counseling/discussion 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 Lymphedema (Acute) Morbid obesity with BMI of 70 and over, adult AUBRIE (obstructive sleep apnea) Urinary tract obstruction by kidney stone Surgical History History of bilateral knee replacement Family History Other No significant family history Social History Preferred Language: Belarusian Communication Ability: Effective Beliefs That Will Affect Care: None marital status: Current Living Situation: Spouse current occupational status: disabled 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 Feels Safe at Home: Yes Smoking Status: Never smoker Hx Alcohol Use: No Hx Substance Use: No Review of Systems Review of Systems: Unobtainable due to cognitive status Physical Exam Constitutional: + acute distress and + morbidly obese; + uncomfortable ENMT: bipap mask covering face Respiratory: + labored breathing Auscultation: + diminished lung sounds Cardiovascular: Rate/Rhythm: regular rate and regular rhythm Extremities: + edema Gastrointestinal (Abdomen): Inspection/Auscultation: + abdomen distended (obesely distended) Neurologic: + confused (yelling out constantly, moaning) Results & Data Vital Signs (Past 12 Hours) Vital Signs Pulse Resp BP Pulse Ox 05/21/19 08:21 76 20 97 05/21/19 06:34 83 23 109/61 95 05/21/19 06:19 82 19 117/58 L 100 05/21/19 06:04 96 H 28 H 127/73 94 05/21/19 06:00 80 24 99 05/21/19 05:49 75 24 134/67 99 05/21/19 05:38 73 18 100 05/21/19 05:37 81 19 135/75 100 05/21/19 05:30 77 16 100 05/21/19 05:15 78 17 100 05/21/19 05:03 79 18 134/71 100 05/21/19 05:00 72 21 99 05/21/19 04:48 80 17 130/69 100 05/21/19 04:45 79 35 H 100 05/21/19 04:34 75 22 135/82 100 05/21/19 04:30 83 15 100 05/21/19 04:19 76 17 128/79 100 05/21/19 04:15 79 15 100 05/21/19 04:03 80 24 137/85 98 05/21/19 04:00 82 22 95 05/21/19 03:50 72 24 133/66 91 05/21/19 03:45 75 21 97 05/21/19 03:34 70 18 137/81 95 05/21/19 03:33 66 16 100 05/21/19 03:30 77 25 H 96 05/21/19 03:18 58 L 14 122/60 100 05/21/19 03:15 65 15 100 05/21/19 03:03 65 15 105/60 99 05/21/19 03:00 64 16 100 05/21/19 02:48 58 L 16 99/57 L 100 05/21/19 02:45 67 17 100 05/21/19 02:33 66 12 102/62 100 05/21/19 02:30 59 L 16 99 05/21/19 02:18 67 10 L 113/62 99 05/21/19 02:15 64 15 98 05/21/19 02:03 62 23 106/60 97 05/21/19 02:00 60 17 100 05/21/19 01:49 62 17 98 05/21/19 01:48 66 14 122/71 97 05/21/19 01:39 69 14 100/55 L 100 05/21/19 01:30 65 20 100 05/21/19 01:11 65 12 78/43 L 100 05/21/19 01:10 63 16 74/47 L 100 05/21/19 01:04 65 18 77/43 L 99 05/21/19 01:00 70 18 100 05/21/19 00:52 64 16 100 05/21/19 00:34 62 14 91/52 L 98 05/21/19 00:30 63 16 98 05/21/19 00:12 63 18 91/48 L 100 05/21/19 00:04 70 16 77/42 L 99 05/21/19 00:00 67 16 99 05/20/19 23:34 74 19 118/60 98 05/20/19 23:30 65 28 H 93 05/20/19 23:04 64 12 88/53 L 99 05/20/19 23:00 71 13 98 PG Care Time/CCT Total # of Minutes Spent Total Time Spent with Patient: Total time spent is greater than 50% in coordination of care (as documented) at patient's floor/unit and/or counseling patient: Time Spent Midlevel 70 minutes with >50% of the time spent at bedside with patient and family discussing condition, goals, and comfort measures.
[2019-05-21] MEDS: MoRPHine SULFATE 2 MG/ML CARP IV PRN ×4 (10:39→15:03)
[2019-05-21] MEDS ORDERED: LORazepam 2 MG/4 ML VIAL ONE (10:41)
[2019-05-21] MEDS ORDERED: LORazepam 1 MG/2 ML VIAL IV PRN (10:43)
--- NOTE | 2019-05-21 10:46 | Billing Data ---
Date of Service May 21, 2019 Coding Level of Care Code Critical Care 1st 30-74 mins Time Spent (min) 45
--- NOTE | 2019-05-21 15:55 | Hospitalist Progress Note ---
Date of Service May 21, 2019 Assessment & Plan (1) Admitted to intensive care unit: (2) GIB (gastrointestinal bleeding): (3) UTI (urinary tract infection): (4) Sepsis: (5) Increased ammonia level: (6) Hepatic encephalopathy: (7) Abdominal distension: (8) Lymphedema: (9) Cirrhosis: (10) Morbid obesity with BMI of 70 and over, adult: (11) Obesity hypoventilation syndrome: (12) Acute pulmonary edema: (13) Acute respiratory failure with hypoxia: (14) CHF (congestive heart failure): (15) Comfort measures only status: 63yoM admitted for ARF secondary to hypervolemia attributed to acute diastolic CHF vs. cor pulmonale secondary to AUBRIE/Obesity hypoventilation syndrome vs. anasarca. Pt was adequately diuresed. However following diuresis developed EDNA which gradually worsened. Pt's WBC also gradually increased and testing was concerning for sepsis in the setting of UTI. Pt had initially been treated for RLE cellulitis successfully with daptomycin course. Pt's mentation also worsened on 05/20/19 in the setting of increased ammonia level likely secondary to acute stress from urosepsis given history of cirrhosis vs. uremia. He was started on lactulose. He then developed large bloody bowel movements concerning for lower GI bleed vs. ischemia. Given patient's body habitus, unable to have CT or MRI completed. Pt was transferred to the ICU where he required levophed for BP support. He remained on Bipap throughout most of his hospital course, attempts to wean to NC during the day were unsuccessful. After further discussions given patient's poor prognosis, family decided to pursue comfort measures -Morphine drip for sob and pain -Robinol 0.2mg Q4H prn for secretions -Ativan 1mg Q4H PRN for agitation/anxiety -Zofran 4mg Q6H PRN for nausea Present on Admission?: Yes Supervising Physician Co-Signing Physician Notes Resident Physician Supervision Note: I was present with Dr. Neena Marcos during the history and exam. I discussed the case with the resident and agree with the findings and plan as documented in the note. Any exceptions or clarifications are listed here: none. Saw the patient twice today - first was on AM rounds while he was still in ICU. 2nd was after moving to private room for comfort care. During each visit he was comfortable. Numerous family at bedside including his . Events of overnight reviewed in detail. exam - gen - unresponsive, occasional moaning heart - irregular lungs - decreased BS right base otherwise CTA b/l abd - distended, mildly tender upper abdomen, BS+ ext - severe lymphedema b/l labs from overnight reviewed WBC now 31 Cr now 2.9 INR 2.2 K 5.3 A/P: 1. severe sepsis/septic shock - likely combination of GNR UTI along with intra- abdominal process - suspect ischemic bowel given the BRBPR and abdominal pain. d/c pressors; transition to comfort care. 2. metabolic encephalopathy - multifactorial - hyperammonemia, sepsis, uremia, etc. 3. coagulopathy - likely due to underlying cirrhosis; cannot r/o other factors. 4. ARF 2nd to ATN - worse. 5. suspected ischemic bowel in setting of #1 Agree w/ transition to comfort care pathway. Later in the day, despite prn use of morphine 4mg q1h, he was still not comfortable. Had large bloody BM and was moaning in apparent pain. Morphine infusion initiated in jesús of prn morphine. Support given to /family. Their cake wringer gave support today as well. d/c vitals, labs, etc. Focus on comfort. Documented By: Benoit Pham MD Subjective Pt was evaluated in the ICU this AM. Per family, he continues to be unresponsive, and moaning. Re-evaluated in the afternoon, family decided to initiate comfort measures and he appeared more comfortable resting on oxymask. Review of Systems Review of Systems: Unable to assess due to pt mental status Physical Exam Physical Exam: General: In moderate distress this AM (moaning) Psych: Not alert or oriented, moaning Neuro: unresponsive to verbal or physical stimuli Pulm: coarse but equal breath sounds bilaterally on oxymask CV: RRR, no m/r/g Abdomen:+BS, difficult to assess for abdominal tenderness due to pt moaning throughout exam/altered mental status, obese abdomen LE: 2+ edema, cold extremities Results & Data Vital Signs (Past 12 Hours) Vital Signs Pulse Resp BP Pulse Ox 05/21/19 10:47 89 20 103/64 97 05/21/19 10:17 91 H 19 106/63 100 05/21/19 09:48 80 30 H 116/83 100 05/21/19 09:17 84 22 123/105 H 99 05/21/19 08:47 77 20 115/78 92 05/21/19 08:21 76 20 97 05/21/19 08:04 80 22 110/65 99 05/21/19 08:00 78 05/21/19 07:49 87 22 123/62 100 05/21/19 07:34 76 17 118/71 100 05/21/19 07:19 79 18 128/87 100 05/21/19 07:04 78 18 120/62 97 05/21/19 07:00 81 18 100 05/21/19 06:34 83 23 109/61 95 05/21/19 06:19 82 19 117/58 L 100 05/21/19 06:04 96 H 28 H 127/73 94 05/21/19 06:00 80 24 99 05/21/19 05:49 75 24 134/67 99 05/21/19 05:38 73 18 100 05/21/19 05:37 81 19 135/75 100 05/21/19 05:30 77 16 100 05/21/19 05:15 78 17 100 05/21/19 05:03 79 18 134/71 100 05/21/19 05:00 72 21 99 05/21/19 04:48 80 17 130/69 100 05/21/19 04:45 79 35 H 100 05/21/19 04:34 75 22 135/82 100 05/21/19 04:30 83 15 100 05/21/19 04:19 76 17 128/79 100 05/21/19 04:15 79 15 100 05/21/19 04:03 80 24 137/85 98 05/21/19 04:00 82 22 95 Resident Activity Tracking Resident Involvement: Resident Care Provided Care Provided: Adult Hospital Medicine (1) Cirrhosis Ascites presence: with ascites Hepatic cirrhosis type: unspecified hepatic cirrhosis Qualified Code(s): K74.60 - Unspecified cirrhosis of liver; R18.8 - Other ascites
[2019-05-21] MEDS: MoRPHine SULF/NSS 250 MG/250 ML BTL IV SCH (16:39)
--- NOTE | 2019-05-21 17:51 | Billing Data ---
Date of Service May 21, 2019 Coding Level of Care Code 59930 Subseq Hosp Care Lvl 2
--- NOTE | 2019-05-22 15:51 | Hospitalist Progress Note ---
Date of Service May 22, 2019 Assessment & Plan (1) Comfort measures only status: On morphine gtt. Family feels he is comfortable. - Continue comfort measures Subjective Patient lying comfortably in bed. Review of Systems Review of Systems: Unobtainable due to reduced consciousness Physical Exam Constitutional: WD/WN, vitals as above + lethargic Eyes: no eyelid abnormality ENMT: external ear and nose normal, oropharynx normal Neck: trachea midline, no thyromegaly normal visual inspection Respiratory: normal respiratory effort, lungs clear to auscultation no respiratory distress Cardiovascular: Rate/Rhythm: regular rate Gastrointestinal (Abdomen): Inspection/Auscultation: + abdomen distended; + abdomen abnormal to inspection Musculoskeletal: no cyanosis or clubbing, extremities motor strength 5/5 Skin: no rashes, warm and dry Neurologic: moves all extremities; + not awake Psychiatric: Orientation: + not alert and + not oriented to person PG Care Time/CCT Total # of Minutes Spent Total Time Spent with Patient: Total time spent is greater than 50% in coordination of care (as documented) at patient's floor/unit and/or counseling patient:
[2019-05-22] MEDS ORDERED: Nursing to Pharmacy Communication ONE (23:34)
[2019-05-22] MEDS: GLYCOPYRROLATE 0.2 MG/ML VIAL IV PRN (23:55)
[2019-05-23] MEDS: GLYCOPYRROLATE 0.2 MG/ML VIAL IV PRN ×2 (04:38→08:44)
[2019-05-23] MEDS: MoRPHine SULF/NSS 250 MG/250 ML BTL IV SCH ×2 (05:27→15:02)
--- NOTE | 2019-05-23 14:44 | Hospitalist Progress Note ---
Date of Service May 23, 2019 Assessment & Plan (1) Comfort measures only status: On morphine gtt. It was increased overnight to 7 mg/hr. Family feels he is comfortable. - Continue comfort measures - Consider inpatient hospice tomorrow if he is still alive Subjective Obtunded. Agonal breathing, but appears comfortable. Review of Systems Review of Systems: Unobtainable due to cognitive status Physical Exam Constitutional: WD/WN, vitals as above + lethargic Eyes: no eyelid abnormality ENMT: external ear and nose normal, oropharynx normal Neck: trachea midline, no thyromegaly normal visual inspection Respiratory: + labored breathing (Agonal breathing); no respiratory distress Cardiovascular: Rate/Rhythm: regular rate Gastrointestinal (Abdomen): Inspection/Auscultation: + abdomen distended; + abdomen abnormal to inspection Musculoskeletal: no cyanosis or clubbing, extremities motor strength 5/5 Skin: no rashes, warm and dry Neurologic: moves all extremities; + not awake Psychiatric: Orientation: + not alert and + not oriented to person PG Care Time/CCT Total # of Minutes Spent Total Time Spent with Patient: Total time spent is greater than 50% in coordination of care (as documented) at patient's floor/unit and/or counseling p atient:
--- NOTE | 2019-05-23 16:12 | Death Summary ---
Date of Service May 23, 2019 Pronouncement Note Date and Time of Date of : 05/23/19 Time of : 15:14 PCOD Preliminary cause of : Septic shock Contributing Factors (1) Comfort measures only status: Additional Data Confirmation of : no pulse, no respirations, no heart sounds and pupils fixed and dilated Family: at bedside Attending/PCP notified?: Yes Attending physician: Franklyn Mena MD Was code activated?: No Autopsy requested?: No fraud examiner notified?: No Advance directives: Yes
--- NOTE | 2019-05-23 16:14 | Discharge Summary ---
Date of Service May 23, 2019 Admission HPI Per Admitting Provider Patient is a 63 years old male with past medical history of morbid obesity and BMI of 70, A. 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 Per his his appetite is decreased and he did not eat much in the past several weeks but he was pe rsistently gaining weight. She said patient is constantly sitting in the recliner chair and not moving anywhere. Patient is alert and oriented but appears to be in distress with a shortness of breath and increased work of breathing. In the past patient was seen by [facility] orthopedics for his right lower extremity procedures. Patient denies fever, chills, chest pain, abdominal pain frequency or urgency. Labs are reviewed: WBCs 13.88, hemoglobin 12.5, hematocrit 37.8, platelets 335. PT 14.8, INR 1.5, APTT 34.7. Sodium 136, potassium 4.2, chloride 100, BUN 40, creatinine 1.46, GFR 51.2, total bili 1.4, AST 58, ALT 41, alkaline phosphatase 165, troponin 0 0.03, BNP 399, Albumin only 2.6. Chest x-rays: Moderate cardiomegaly. Moderate increase in prominence of pulmonary vasculature. Small right pleural effusion.Congestive heart failure. Ultrasound of the lower extremities is negative for deep nose thrombosis. Decision was made to admit patient for anasarca, volume overload, acute kidney insufficiency. Principal Diagnosis Septic shock Discharge Exam Constitutional WD/WN, vitals as above + lethargic Eyes no eyelid abnormality ENMT external ear and nose normal, oropharynx normal Neck trachea midline, no thyromegaly normal visual inspection Respiratory normal respiratory effort, lungs clear to auscultation + labored breathing (Agonal breathing); no respiratory distress Cardiovascular Rate/Rhythm: regular rate Gastrointestinal (Abdomen) Inspection/Auscultation: + abdomen distended; + abdomen abnormal to inspection Musculoskeletal no cyanosis or clubbing, extremities motor strength 5/5 Skin no rashes, warm and dry Neurologic moves all extremities; + not awake Psychiatric Orientation: + not alert and + not oriented to person Discharge Data Allergies Allergy/AdvReac Type Severity Reaction Status Date / Time No Known Allergies Allergy NKDA Verified 05/08/19 13:52 Consultations 05/08/19 15:34 ED Decision to Admit Stat 05/08/19 19:35 Consult Case Management - Discharge Planning Routine 05/12/19 08:58 Consult Pulmonology Routine 05/20/19 21:27 Consult Case Management - Discharge Planning Routine 05/21/19 03:02 Consult Palliative Care Routine 05/21/19 09:56 Consult Senior Integration Architect Routine Ordered Studies 05/08/19 13:03 US venous doppler LE RT Stat 05/08/19 19:35 US liver Routine 05/11/19 16:09 US venous doppler LE BI Routine 05/19/19 09:42 US renal/blad retro comp Routine Hospital Course (1) Comfort measures only status: On morphine gtt. It was increased overnight to 7 mg/hr. Family feels he is comfortable. - Continue comfort measures Patient at 3:14pm. Confirmed with no heart sounds, breath sounds, and fixed/dilated pupils. Family at bedside. Total Time Total Time Spent Total Time Spent (In Minutes): 45 Discharge Plan Discharge Items Patient Disposition: Reason For Visit: CELLULITIS, ANASARCA, POSSIBLE RIGHT SIDED CHF Discharge Diagnosis: Septic shock Follow-up/Referrals: Iliana Johnson [Primary Care Provider] - Addtl Attending Provider Instructions: Admission Data Admit Date/Time: 05/08/19 16:52
== END 2019-05-23 19:15 | disposition expired | DRG 871 ==
LOC: ED 12:39 → 2S 16:52 → SUATTDRO 16:52 → 2S 18:48 → 1E 05-20 20:26 → 2W 05-21 12:10